=== PATIENT | female | born 1960 | race Caucasian/White ===

== ENCOUNTER 2020-10-22 08:36 | Outpatient (REF) | payer OTHER, SELFPAY ==
--- NOTE | ~2020-10-22 | MM_ITS ---
EXAMINATION: MM SCREENING DIGITAL BREAST TOMOSYNTHESIS, BILATERAL CLINICAL INFORMATION: Screening. Asymptomatic. The lifetime risk of breast cancer based on the Tyrer-Cuzick Model is 2.0%. COMPARISON: Mammography: June 11, 2018 and studies dating back to May 15, 2012 TECHNIQUE: Digital breast tomosynthesis is performed in both the craniocaudal and mediolateral oblique views along with computer-aided detection (CAD). Synthesized 2D images are generated from the tomosynthesis. FINDINGS: There are scattered areas of fibroglandular density (ACR BI-RADS breast composition Category b). There are no significant masses, abnormal calcifications, or other abnormalities. MM/MM tomosynthesis screening BI IMPRESSION: There are no significant changes from prior study. ASSESSMENT: BI-RADS 1: Negative RECOMMENDATION: Routine annual mammography screening. This patient's information was entered into a reminder system with a target due date for their next mammogram.
== END 2020-10-22 08:37 | disposition home or self-care (01) ==
LOC: HO.MAMMO 08:36
PROVIDERS: Visit Provider Internal Medicine
DX: Z12.31 Encounter for screening mammogram for malignant neoplasm of breast (principal)
CPT/HCPCS: 77063; 77067

== ENCOUNTER → 2021-05-17 08:01 | Outpatient (BNVA) | payer OTHER, SELFPAY | PROVIDERS: Visit Provider Orthopaedic Surgery | DX: M17.12 Unilateral primary osteoarthritis, left knee (principal) | CPT/HCPCS: 20610; 99212; J1100 ==

== ENCOUNTER 2021-10-25 08:04 | Outpatient (REF) | payer OTHER, SELFPAY ==
--- NOTE | ~2021-10-25 | US_ITS ---
EXAMINATION: MM DIAGNOSTIC DIGITAL BREAST TOMOSYNTHESIS, BILATERAL US DIAGNOSTIC ULTRASOUND BREAST, LEFT CLINICAL INFORMATION: Due for yearly. Patient notes being size palpable area lateral periareolar left breast for approximately 2 months. No discharge. No known family history breast cancer. TC score 4%. COMPARISON: Mammography: 10/22/2020, 06/11/2018 TECHNIQUE: Digital breast tomosynthesis is performed in both the craniocaudal and mediolateral oblique views along with computer-aided detection (CAD). Synthesized 2D images are generated from the tomosynthesis. Ultrasound left breast is targeted to the area of clinical concern. Patient is able to point to the area at time of imaging. Patient imaged supine and semiupright. Grayscale imaging and color Doppler are performed without and with harmonics. FINDINGS: There are scattered areas of fibroglandular density (ACR BI-RADS breast composition Category b). Parenchymal pattern is similar to prior studies. There is no significant mass, developing density, or interval mass or architectural abnormality. No abnormal calcifications. The axilla and skin contours are unremarkable. No skin thickening or coarsening of the Rogelio's ligaments. Ultrasound demonstrates no cystic or solid mass or architectural abnormality. No focal duct ectasia. No skin thickening or edema tracking in soft tissue planes. Results are discussed with the patient at time of visit, using an full time staff interpreter. Patient should be managed based on the clinical impression. If clinically indicated, further evaluation may be considered with surgical consult. Decision to proceed with biopsy should be based on clinical grounds and degree of clinical concern. US/US breast LT limited IMPRESSION: -Mammography similar to prior studies. No significant changes. -Unremarkable targeted left breast ultrasound. ASSESSMENT: BI-RADS 1: Negative RECOMMENDATION: 1. Patient should be managed based on the clinical impression. If clinically indicated, further evaluation may be considered with surgical consult. Decision to proceed with biopsy should be based on clinical grounds and degree of clinical concern. 2. Otherwise, routine annual screening mammography. This patient's information was entered into a reminder system with a target due date for their next mammogram.
== END 2021-10-25 08:05 | disposition home or self-care (01) ==
LOC: HO.MAMMO 08:04
PROVIDERS: Visit Provider Internal Medicine
DX: R92.2 Inconclusive mammogram (principal)
CPT/HCPCS: 76642; 77062; 77066

== ENCOUNTER 2022-01-20 22:39 | Inpatient (IN) | payer OTHER, SELFPAY ==
--- NOTE | ~2022-01-20 | XR_ITS ---
EXAMINATION: XR CHEST CLINICAL INFORMATION: Nasogastric tube insertion COMPARISON: Previous chest x-ray May 2015 TECHNIQUE: Frontal view of the chest was obtained. FINDINGS: The cardiac and mediastinal contours are stable. The lungs are clear. There is a nasogastric tube that projects over the stomach. There is no pleural effusion or pneumothorax. There are degenerative changes of the spine. XR/XR chest 1V IMPRESSION: Nasogastric tube projects over stomach.
--- NOTE | ~2022-01-20 | US_ITS ---
EXAMINATION: US ABDOMEN LIMITED CLINICAL INFORMATION: Right upper quadrant pain with nausea. COMPARISON: None TECHNIQUE: Real-time imaging of the right upper quadrant abdominal viscera. FINDINGS: PANCREAS: The pancreas is mildly enlarged and echogenic. The tail is not visualized. LIVER: The liver is normal in size. The liver contour is normal. Parenchymal echogenicity is normal. No focal hepatic lesion. There is increased liver echogenicity. There is no intrahepatic biliary duct dilatation seen. GALLBLADDER: There is a punctate mobile echogenic gallstone without wall thickening. The gallbladder is physiologically distended without evidence of sludge, polyps, wall thickening or pericholecystic fluid. COMMON BILE DUCT: Normal in caliber measuring 0.25 cm in diameter. RIGHT KIDNEY: There is mild pelvic fullness. No hydronephrosis. No renal calculi or focal parenchymal lesions. The kidney measures 9.8 cm in maximum dimension. FREE FLUID: None. US/US abdomen limited IMPRESSION: There is echogenic pancreas question chronic pancreatitis. The tail is not visualized. Mildly echogenic liver without any focal lesion. Suspected tiny echogenic mobile gallstone. Trace fullness of right renal pelvis.
--- NOTE | ~2022-01-20 | CT_ITS ---
EXAMINATION: CT ABDOMEN AND PELVIS WITHOUT CONTRAST CLINICAL INFORMATION: Upper abdominal pain and vomiting COMPARISON: Previous abdominal ultrasound from earlier the same day TECHNIQUE: Multidetector volumetric imaging was performed from the superior aspect of the liver through the pubic symphysis. Sagittal and coronal reformatted images were obtained on the technologist's workstation. This CT examination was performed using dose optimization techniques as appropriate, variously including the following: *Automated exposure control *Adjustment of mA and/or kV according to patient size (this includes techniques or standardized protocols for targeted exams where dose is matched to indication/reason for exam; i.e. extremities or head) *Use of iterative reconstruction technique DLP: 748 mGy-cm FINDINGS: LUNG BASES: The visualized lung bases are unremarkable. LIVER, GALLBLADDER, AND BILIARY TREE: The liver is normal in size, shape, and attenuation. No focal hepatic lesion or biliary ductal dilatation is present. The gallbladder is unremarkable with no evidence of radiopaque gallstones, gallbladder wall thickening, or obvious pericholecystic inflammatory changes. PANCREAS: Unremarkable. SPLEEN: Unremarkable. ADRENAL GLANDS: Unremarkable. KIDNEYS AND URETERS: The kidneys are normal in size, shape, and attenuation. No hydronephrosis, hydroureter, or calculi seen. No perinephric stranding. BLADDER: Unremarkable. GASTROINTESTINAL TRACT: There is diverticulosis of the colon. There is no evidence of diverticulitis. There are dilated fluid-filled loops of small bowel. There is small bowel feces sign. There is a caliber change with the distal small bowel left dilated and fluid-filled. Appearance is suggestive of partial small bowel obstruction. The appendix is not seen. There is a small esophageal hernia. There is a small amount of fluid in the abdomen and pelvis. There is a small amount of fluid in the small bowel mesentery. ABDOMINAL WALL: No significant hernia is appreciated. LYMPH NODES: Normal. VASCULAR: Unremarkable. PELVIC VISCERA: Unremarkable. OSSEOUS STRUCTURES: There are degenerative changes of the spine. T12 hemangioma. CT/CT abdomen pelvis wo con IMPRESSION: Dilated fluid-filled small bowel with small bowel feces sign. The distal small bowel appears less dilated. Appearance is suggestive of partial small bowel obstruction. Diverticulosis of the colon. No evidence of diverticulitis. Fleischner guidelines were followed.
[2022-01-20 22:46] VITALS: BP 149/78; PULSE 85; RESP 16; TEMP 37.1; O2SAT 98; BMI 32.1
[2022-01-20 23:02] LABS: Basophils Percent Auto 0.3 % (0-2); Eosinophils Absolute Auto 0.1 X10*3/uL (0.0-0.4); Eosinophils Percent Auto 1.2 % (0-4); Hemoglobin 13.1 g/dl (12.0-16.0); Imm Gran Abs Auto 0.04 X10*3/uL (0.00-0.03); Imm Gran Pct Auto 0.3 % (0.0-0.4); Lymphocytes Absolute Auto 2.3 X10*3/uL (1.2-4.9); Lymphocytes Percent Auto 18.8 % (20-40); MANUAL DIFF FLAG NO; Mean Corpuscular Hemoglobin 25.9 pg (27.0-33.0); Monocytes Percent Auto 8.2 % (2-11); Neutrophils Absolute Auto 8.5 x10*3/uL (2.0-8.3); Neutrophils Percent Auto 71.2 % (45-73); Platelet Count 290 X10*3/uL (160-400); Red Blood Count 5.06 X10*6/uL (4.20-5.50); Red Cell Distribution Width 13.2 % (11.0-16.0)
[2022-01-20 23:17] LABS: Alanine Aminotransferase 20 U/L (0-31); Albumin Level 4.4 g/dL (3.5-5.0); Alkaline Phosphatase 71 U/L (39-117); Anion Gap 14 (12-20); Aspartate Amino Transferase 25 U/L (5-31); Bilirubin Total 0.7 mg/dL (0.0-1.0); Blood Urea Nitrogen 15 mg/dL (9-16); Calcium 10.1 mg/dL (8.4-10.2); Carbon Dioxide 28 mmol/L (22-29); Chloride 103 mmol/L (96-108); Creatinine Clr Calc Pharmacy 60.6; Estimated Glomerular Filt Rate 56; Glucose Random 135 mg/dL (60-115); Potassium 4.4 mmol/L (3.3-5.1); Sodium 141 mmol/L (135-145); Total Protein 7.8 g/dL (6.5-8.0)
[2022-01-21] VITALS (8 sets, daily range): BP systolic 130–145; BP diastolic 77–90; PULSE 79–112; RESP 15–21; TEMP 36.6–37.3; O2SAT 91–97
[2022-01-21 00:22] LABS: Lipase 33 U/L (8-78)
[2022-01-21 05:37] LABS: Appearance Urine CLEAR; Color Urine YELLOW; Glucose Urine UA NEG (NEG); Leukocyte Esterase Urine NEG (NEG); Nitrite Urine NEG (NEG); PH 7.5 (5.0-8.0); Specific Gravity - Urine 1.015 (1.005-1.025); Urine Blood NEG (NEG); Urine Ketones NEG (NEG); Urine Protein NEG (NEG-TRACE)
--- NOTE | 2022-01-21 05:54 | ED_ITS ---
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 She reports chills as well as nausea and vomiting but denies any diarrhea or urinary pain/burning/frequency. Patient has continued to pass flatus. Related Data Allergies Allergy/AdvReac Type Severity Reaction Status Date / Time diazepam [From VALIUM] Allergy Unknown HALLUCINATION/DIFF Verified 01/20/22 22:46 BREATHING Review of Systems Review of Systems Pertinent positives and negatives as stated in HPI 10 point review of systems is otherwise negative. PMFSH Past Medical History Source: nursing notes reviewed Medical History Depression HTN (hypertension) Hyperlipemia Social History Social History Advance Directives: No Physical Exam ED Vital Signs: Vital Signs - 24 hr 01/20/22 22:46 01/21/22 04:17 Temperature 98.7 F 98.5 F Pulse Rate 85 84 Respiratory Rate 16 16 Blood Pressure 149/78 H 140/77 H Pulse Oximetry 98 92 BMI result Body Mass Index 32.1 VITAL SIGNS: Reviewed. GENERAL: Elevated BMI, Well developed, well nourished, in no acute distress. HEAD: Normocephalic/atraumatic EYES: PERRLA, EOMI EARS: Ext canals without abnormality OROPHARYNX: no oral lesions noted, posterior pharynx clear LUNGS: Normal breath sounds. No adventitious sounds or accessory muscle use. SpO2<98> CARDIOVASCULAR: Regular rate and rhythm without noted murmurs ABDOMEN: Soft, right upper quadrant pain without rebound, no CVA tenderness, non-distended with bowel sounds. SKIN: Inspection of the skin reveals no rashes NEUROLOGIC: Alert and oriented x 4. Strength and sensation to light touch were grossly intact x 4. Course Course Course Narrative: 61-year-old female with history and clinical presentation suggestive of c holecystitis and doubt gastritis/pancreatitis or gastroenteritis. And low clinical suspicion for SBO. Patient is status post appendectomy. Review of all investigations demonstrates a leukocytosis, patient received pain medication, IV fluids. 0555: I suspect infection, lactic acid/blood culture/antibiotics ordered. MDM - Abdominal Pain Lab Data Result diagrams: 01/20/22 22:53 01/20/22 22:53 Labs: Lab Results 01/20/22 01/20/22 01/21/22 Range/Units 22:53 22:53 05:33 WBC 12.0 H (4.8-10.8) X10*3/uL RBC 5.06 (4.20-5.50) X10*6/uL Hgb 13.1 (12.0-16.0) g/dl Hct 41.0 (37.0-47.0) % MCV 81.0 (80.0-98.0) fL MCH 25.9 L (27.0-33.0) pg MCHC 32.0 (31.0-35.0) g/dl RDW 13.2 (11.0-16.0) % Plt Count 290 (160-400) X10*3/uL MPV 10.0 (9.4-12.3) fL Immature Gran % (Auto) 0.3 (0.0-0.4) % Neut % (Auto) 71.2 (45-73) % Lymph % (Auto) 18.8 L (20-40) % [place] % (Auto) 8.2 (2-11) % Eos % (Auto) 1.2 (0-4) % Baso % (Auto) 0.3 (0-2) % Lymph # (Auto) 2.3 (1.2-4.9) X10*3/uL [place] # (Auto) 1.0 (0.1-1.2) X10*3/uL Eos # (Auto) 0.1 (0.0-0.4) X10*3/uL Baso # (Auto) 0.0 (0.0-0.2) X10*3/uL Abs Immat Gran (auto) 0.04 H (0.00-0.03) X10*3/uL Absolute Neuts (auto) 8.5 H (2.0-8.3) x10*3/uL Absolute Nucleated RBC 0.000 (0.0-0.012) X10*3/uL Nucleated RBC % (auto) 0.0 (0.0-0.2) /100WBC Sodium 141 (135-145) mmol/L Potassium 4.4 (3.3-5.1) mmol/L Chloride 103 (96-108) mmol/L Carbon Dioxide 28 (22-29) mmol/L Anion Gap 14 (12-20) BUN 15 (9-16) mg/dL Creatinine 1.00 (0.5-1.4) mg/dL Estim Creat Clear Calc 60.6 Estimated GFR 56 Random Glucose 135 H (60-115) mg/dL Calcium 10.1 (8.4-10.2) mg/dL Total Bilirubin 0.7 (0.0-1.0) mg/dL AST 25 (5-31) U/L ALT 20 (0-31) U/L Alkaline Phosphatase 71 (39-117) U/L Total Protein 7.8 (6.5-8.0) g/dL Albumin 4.4 (3.5-5.0) g/dL Lipase 33 (8-78) U/L Urine Color YELLOW Urine Appearance CLEAR Urine pH 7.5 (5.0-8.0) Ur Specific [place] 1.015 (1.005-1.025) Urine Protein NEG (NEG-TRACE) MG/DL Urine Glucose (UA) NEG (NEG) MG/DL Urine Ketones NEG (NEG) MG/DL Urine Blood NEG (NEG) Urine Nitrite NEG (NEG) Ur Leukocyte Esterase NEG (NEG) Discharge Plan Discharge Clinical Impression: Right upper quadrant abdominal pain Patient Disposition: Still a Patient
[2022-01-21] MEDS: 0.9 % Sodium Chloride 1,000 ML 999 ML IV (06:13)
[2022-01-21] MEDS: Ketorolac Tromethamine 30 MG/ML VIAL 15 MG IVPUSH (06:13)
[2022-01-21 06:23] LABS: Lactic Acid 1.7 mmol/L (0.5-2.0)
[2022-01-21] MEDS: Piperacillin Sodium/Tazobactam 3.375 GM in 0.9 % Sodium Chloride 50 ML IV (06:30)
[2022-01-21] MEDS: ondansetron HCL 4 MG/2 ML VIAL IVPUSH (09:58)
--- NOTE | 2022-01-21 10:05 | PC.NURSE ---
this rn attempted to d/c pt. pt began vomiting , reports 6/10 urq abd pain. md aware, ct has been orderd and completed.
[2022-01-21] MEDS: diphenhydrAMINE HCL 50 MG/ML VIAL 25 MG IVPUSH (10:30)
[2022-01-21] MEDS: Metoclopramide HCl 10 MG/2 ML VIAL IVPUSH (10:30)
--- NOTE | 2022-01-21 10:59 | ECG_ITS ---
Test Reason : abdominal pain Blood Pressure : / mmHG Vent. Rate : 092 BPM Atrial Rate : 092 BPM P-R Int : 162 ms QRS Dur : 082 ms QT Int : 362 ms P-R-T Axes : 023 -32 023 degrees QTc Int : 447 ms Normal sinus rhythm Left axis deviation Minimal voltage criteria for LVH, may be normal variant ( R in aVL ) Possible Anterolateral infarct , age undetermined Abnormal ECG No previous ECGs available Referred By: Eleonora Gonzales Electronically Signed By:Kane Lee
[2022-01-21 11:25] LABS: COVID-19 Test Negative (Negative); IDNOW Serial# 16C4AD1C
--- NOTE | 2022-01-21 12:26 | PC.NURSE ---
pt reported continued nausea and is vomiting dark brown emesis, ct report was in [facility] and reviewd by md montero ng tube placed 16fr in l nare. pt tolerated procedure well and ng is to suction.
--- NOTE | 2022-01-21 12:30 | PHA.MEDREC ---
Pharmacy Consult ? Medication Reconciliation Pharmacy has completed the medication reconciliation. Patient's family member reported all medications. Unsure about aspirin but was recently filled in october for a 90 day supply. Radha Cardoso, KatieD
--- NOTE | 2022-01-21 14:27 | PC.NURSE ---
pt no longer vomting and is resting comfortably in high fowlers position. surgery has evaluated pt and pt and family are aware of admission.
--- NOTE | 2022-01-21 14:35 | P.HPGS_ITS ---
History of Present Illness History of Present Illness Date of Service: 01/26/22 Chief complaint: Partial small bowel obstruction Narrative: Elsa Mukherjee is a 61 year old female who came to the emergency room early this morning because of vomiting and abdominal pain. She says that this actually started yesterday. She has had multiple episodes of vomiting at home. She describes her pain as mostly on the right side. She does state that she had bowel movements yesterday. She also says that she had been passing flatus in small amounts. She has a history of hysterectomy and appendectomy in the distant past. She denies any similar episodes of pain in the past. Review of Systems Constitutional: Constitutional: Denies chills and Denies fever(s) Cardiovascular: Cardiovascular: Denies chest pain, Denies dyspnea and Denies dyspnea on exertion Respiratory: Respiratory: Denies cough, Denies dyspnea and Denies dyspnea on exertion Gastrointestinal: Gastrointestinal: Denies hematochezia and Denies change in bowel habits Genitourinary: Genitourinary: Denies hematuria Musculoskeletal: Musculoskeletal: Denies back pain, Reports arthralgias and Denies limited range of motion Neurologic: Denies focal weakness and Denies convulsions Psychiatric: Psychiatric: Denies depression and Denies mood swings PMFSH Past Medical History Medical History (Updated 01/21/22 @ 14:37 by Oli Oscar MD) Arthritis Depression HTN (hypertension) Hyperlipemia Social History Social History Household Members: Spouse Housing: Apartment Do you presently have visiting nurse or other home services: No Patient Tobacco Use Status: Never used Tobacco service: No Current occupational status: retired Meds Allergies Allergy/AdvReac Type Severity Reaction Status Date / Time diazepam [From VALIUM] Allergy Unknown HALLUCINATION/DIFF Verified 01/20/22 22:46 BREATHING Active Medications: Current Medications Heparin Sodium (Porcine) (Heparin Sodium,Porcine 5,000 Unit/Ml Vial) 5,000 unit SUBCUT Q12H MARIJA Hydrochlorothiazide (Hydrochlorothiazide 25 Mg Tablet) 25 mg PO DAILY MARIJA; Protocol Sodium Chloride (Ns) 1,000 mls @ 100 mls/hr IVCONT .Q10H MARIJA Morphine Sulfate (Morphine Sulfate 4 Mg/Ml Cartridge) 3 mg IVPUSH Q4H PRN; Protocol PRN Reason: Pain, Severe (Pain Scale 7-10) Pharmacy Consult (Consult Rx Perform Med Rec) 1 each MISCELLANE ONCE PRN PRN Reason: Consult order Sodium Chloride (0.9 % Sodium Chloride Flush 3 Ml Syringe) [address] [facility] Home Medications Medication Instructions Recorded Confirmed Last Taken Type aspirin 81 mg tablet,delayed 1 tab PO DAILY 01/21/22 01/21/22 01/20/22 History release atorvastatin 80 mg tablet 1 tab PO DAILY 01/21/22 01/21/22 01/20/22 History clonazepam 0.5 mg tablet 1 tab PO DAILY PRN 01/21/22 01/21/22 01/20/22 History hydrochlorothiazide 25 mg tablet 1 tab PO DAILY 01/21/22 01/21/22 01/20/22 History meloxicam 15 mg tablet 1 tab PO DAILY 01/21/22 01/21/22 01/20/22 History multivitamin-ferrous 1 tab PO DAILY 01/21/22 01/21/22 01/20/22 History fumarate-folic acid 18 mg-400 mcg tablet (Centrum Women) oxycodone-acetaminophen 5 mg-325 1 tab PO BID PRN 01/21/22 01/21/22 01/20/22 History mg tablet zolpidem 10 mg tablet 1 tab PO BEDTIME 01/21/22 01/21/22 01/20/22 History Physical Exam Vital Signs: Vital Signs: Last Vital Signs Temp 97.8 F 01/21/22 12:43 Pulse 101 H 01/21/22 12:43 Resp 18 01/21/22 12:43 BP 131/85 01/21/22 12:43 Pulse Ox 95 01/21/22 12:43 BMI result Body Mass Index 32.1 Const: General: comfortable and no acute distress Orientation/consciousness: patient oriented x3 Neck: Neck: Yes no lymphadenopathy Resp: Auscultation: clear to auscultation bilaterally Cardio: Rhythm: regular rhythm GI: Other: mildly distended, minimal tenderness diffusely, right more than the left, no guarding rebound Palpation (GI): Soft to palpation, nontender and no guarding Neuro: General: patient oriented x3 Results Results Labs: Short CBC 01/20/22 Range/Units 22:53 WBC 12.0 H (4.8-10.8) X10*3/uL Hgb 13.1 (12.0-16.0) g/dl Hct 41.0 (37.0-47.0) % Plt Count 290 (160-400) X10*3/uL BMP 01/20/22 22:53 Sodium 141 Potassium 4.4 Chloride 103 Carbon Dioxide 28 BUN 15 Creatinine 1.00 Calcium 10.1 Liver Function 01/20/22 Range/Units 22:53 Total Bilirubin 0.7 (0.0-1.0) mg/dL AST 25 (5-31) U/L ALT 20 (0-31) U/L Alkaline Phosphatase 71 (39-117) U/L Albumin 4.4 (3.5-5.0) g/dL Urine 01/21/22 Range/Units 05:33 Urine Color YELLOW Urine Appearance CLEAR Urine pH 7.5 (5.0-8.0) Ur Specific [place] 1.015 (1.005-1.025) Urine Protein NEG (NEG-TRACE) MG/DL Urine Glucose (UA) NEG (NEG) MG/DL Additional studies: Laboratory Results WBC 12.0 X10*3/uL (4.8-10.8) H 01/20/22 22:53 RBC 5.06 X10*6/uL (4.20-5.50) 01/20/22 22:53 Hgb 13.1 g/dl (12.0-16.0) 01/20/22 22:53 Hct 41.0 % (37.0-47.0) 01/20/22 22:53 MCV 81.0 fL (80.0-98.0) 01/20/22 22:53 MCH 25.9 pg (27.0-33.0) L 01/20/22 22:53 MCHC 32.0 g/dl (31.0-35.0) 01/20/22 22:53 RDW 13.2 % (11.0-16.0) 01/20/22 22:53 Plt Count 290 X10*3/uL (160-400) 01/20/22 22:53 MPV 10.0 fL (9.4-12.3) 01/20/22 22:53 Immature Gran % (Auto) 0.3 % (0.0-0.4) 01/20/22 22:53 Neut % (Auto) 71.2 % (45-73) 01/20/22 22:53 Lymph % (Auto) 18.8 % (20-40) L 01/20/22 22:53 [place] % (Auto) 8.2 % (2-11) 01/20/22 22:53 Eos % (Auto) 1.2 % (0-4) 01/20/22 22:53 Baso % (Auto) 0.3 % (0-2) 01/20/22 22:53 Lymph # (Auto) 2.3 X10*3/uL (1.2-4.9) 01/20/22 22:53 [place] # (Auto) 1.0 X10*3/uL (0.1-1.2) 01/20/22:53 Eos # (Auto) 0.1 X10*3/uL (0.0-0.4) 01/20/22:53 Baso # (Auto) 0.0 X10*3/uL (0.0-0.2) 01/20/22 22:53 Abs Immat Gran (auto) 0.04 X10*3/uL (0.00-0.03) H 01/20/22 22:53 Absolute Neuts (auto) 8.5 x10*3/uL (2.0-8.3) H 01/20/22:53 Absolute Nucleated RBC 0.000 X10*3/uL (0.0-0.012) 01/20/22: Nucleated RBC % (auto) 0.0 /100WBC (0.0-0.2) 01/20/22 22:53 Sodium 141 mmol/L (135-145) 01/20/22 22:53 Potassium 4.4 mmol/L (3.3-5.1) 01/20/22:53 Chloride 103 mmol/L (96-108) 01/20/22:53 Carbon Dioxide 28 mmol/L (22-29) 01/20/22:53 Anion Gap 14 (12-20) 01/20/22:53 BUN 15 mg/dL (9-16) 01/20/22 22:53 Creatinine 1.00 mg/dL (0.5-1.4) 01/20/22 22:53 Estim Creat Clear Calc 60.6 01/20/22 22:53 Estimated GFR 56 01/20/22 22:53 Random Glucose 135 mg/dL (60-115) H 01/20/22 22:53 Lactic Acid 1.7 mmol/L (0.5-2.0) 01/21/22 06:08 Calcium 10.1 mg/dL (8.4-10.2) 01/20/22 22:53 Total Bilirubin 0.7 mg/dL (0.0-1.0) 01/20/22 22:53 AST 25 U/L (5-31) 01/20/22 22:53 ALT 20 U/L (0-31) 01/20/22 22:53 Alkaline Phosphatase 71 U/L (39-117) 01/20/22 22:53 Total Protein 7.8 g/dL (6.5-8.0) 01/20/22 22:53 Albumin 4.4 g/dL (3.5-5.0) 01/20/22 22:53 Lipase 33 U/L (8-78) 01/20/22 22:53 Urine Color YELLOW 01/21/22 05:33 Urine Appearance CLEAR 01/21/22 05:33 Urine pH 7.5 (5.0-8.0) 01/21/22 05:33 Ur Specific [place] 1.015 (1.005-1.025) 01/21/22 05:33 Urine Protein NEG MG/DL (NEG-TRACE) 01/21/22 05:33 Urine Glucose (UA) NEG MG/DL (NEG) 01/21/22 05:33 Urine Ketones NEG MG/DL (NEG) 01/21/22 05:33 Urine Blood NEG (NEG) 01/21/22 05:33 Urine Nitrite NEG (NEG) 01/21/22 05:33 Ur Leukocyte Esterase NEG (NEG) 01/21/22 05:33 COVID-19 (YAHIR) Negative (Negative) 01/21/22 11:07 COVID-19 Clin Com See Note 01/21/22 11:07 Impressions Abdomen Ultrasound 01/21/22 07:24 IMPRESSION: There is echogenic pancreas question chronic pancreatitis. The tail is not visualized. Mildly echogenic liver without any focal lesion. Suspected tiny echogenic mobile gallstone. Trace fullness of right renal pelvis. Abdomen/Pelvis CT 01/21/22 10:20 IMPRESSION: Dilated fluid-filled small bowel with small bowel feces sign. The distal small bowel appears less dilated. Appearance is suggestive of partial small bowel obstruction. Diverticulosis of the colon. No evidence of diverticulitis. Fleischner guidelines were followed. Chest X-Ray 01/21/22 12:08 IMPRESSION: Nasogastric tube projects over stomach. Assessment and Plan (1) Partial obstruction of small intestine: Status: Acute 61 year old female admitted for abdominal pain and vomiting. I have reviewed her CAT scan. There was note of dilated small bowel loops proximally and some tapering in the distal ileum with a segment showing fecalization. This is consistent with partial small-bowel obstruction. There is note of good air distally including the colon and rectum. She has an NG tube in place already. She will be given IV fluids and pain medications. Etiology of her bowel obstruction is likely from her previous pelvic surgery. She otherwise has a benign exam. She is hemodynamically stable. I explained to her and her at bedside the plan. They understand that there is a small possibility of her requiring laparotomy if she worsens or does not improved. Quality Stroke Does the patient have a stroke diagnosis?: No VTE Prior VTE?: No VTE Risk Level:: Medical - moderate - high VTE Device Contraindication: N/A - Device Ordered VTE Drug Contraindication: N/A - Med Ordered Procedures Date of Service Date of Service: 01/19/22
[2022-01-21] MEDS: 0.9 % Sodium Chloride Flush 3 ML SYRINGE IVFLUSH (17:01)
[2022-01-21] MEDS: 0.9 % Sodium Chloride 1,000 ML 100 ML IVCONT (17:01)
[2022-01-21] MEDS: Heparin Sodium,Porcine 5,000 UNIT/ML VIAL 5000 UNIT SUBCUT (17:01)
[2022-01-21] MEDS: Morphine Sulfate 4 MG/ML CARTRIDGE 3 MG IVPUSH (17:13)
[2022-01-22] MEDS: 0.9 % Sodium Chloride 1,000 ML 100 ML IVCONT ×2 (01:20→20:20)
[2022-01-22 04:24] VITALS: BP 129/69; PULSE 83; RESP 18; TEMP 36.7; O2SAT 95
[2022-01-22 06:35] LABS: Hematocrit 38.5 % (37.0-47.0); Hemoglobin 12.7 g/dl (12.0-16.0); Mean Corpuscular Hemoglobin 26.8 pg (27.0-33.0); Mean Corpuscular Volume 81.2 fL (80.0-98.0); Mean Platelet Volume 10.4 fL (9.4-12.3); Platelet Count 264 X10*3/uL (160-400); Red Blood Count 4.74 X10*6/uL (4.20-5.50); Red Cell Distribution Width 13.5 % (11.0-16.0); White Blood Count 4.8 X10*3/uL (4.8-10.8)
[2022-01-22 06:52] LABS: Anion Gap 13 (12-20); Blood Urea Nitrogen 27 mg/dL (9-16); Calcium 8.5 mg/dL (8.4-10.2); Carbon Dioxide 25 mmol/L (22-29); Chloride 108 mmol/L (96-108); Estimated Glomerular Filt Rate > 60; Glucose Random 132 mg/dL (60-115); Potassium 4.2 mmol/L (3.3-5.1); Sodium 142 mmol/L (135-145)
[2022-01-22 07:19] LABS: Band Neutrophils Percent 11 % (3-5); Lymphocytes Absolute Manual 1.3 X10*3/uL (1.2-4.9); Lymphocytes Percent Manual 27 % (20-40); Metamyelocytes Percent 1 %; Monocytes Absolute Manual 1.1 X10*3/uL (0.1-1.2); Monocytes Percent Manual 22 % (2-11); Neutrophils Absolute Manual 2.4 X10*3/uL (2.0-8.3); Neutrophils Percent Manual 39 % (45-73)
[2022-01-22 07:21] LABS: Large Platelet PRESENT; Platelet Estimate NORMAL (NORMAL); Platelet Morphology Comment NOTED; RBC Morphology NORMAL; Toxic Vacuolation PRESENT
[2022-01-22 08:00] VITALS: BP 139/75; PULSE 80; RESP 16; TEMP 36.2; O2SAT 95
--- NOTE | 2022-01-22 09:59 | P.PNGS_ITS ---
Subjective Subjective Date of Service: 01/22/22 Interval history: feels much better than yesterday describes very mild pain denies flatus no nausea or vomiting NG tube in place Physical Exam Vital Signs: Vital Signs: Last Vital Signs Temp 97.1 F 01/22/22 08:00 Pulse 80 01/22/22 08:00 Resp 16 01/22/22 08:00 BP 139/75 01/22/22 08:00 Pulse Ox 95 01/22/22 08:00 BMI result Body Mass Index 32.1 Const: General: comfortable and no acute distress Resp: Effort & Inspection: normal respiratory effort Cardio: Rate: regular rate GI: Inspection: No distended Palpation (GI): Soft to palpation, not firm and nontender Objective Data Active Medications Heparin Sodium (Porcine) (Heparin Sodium,Porcine 5,000 Unit/Ml Vial) 5,000 unit SUBCUT Q12H [facility] Hydrochlorothiazide (Hydrochlorothiazide 25 Mg Tablet) 25 mg PO DAILY [facility]; Protocol Sodium Chloride (Ns) 1,000 mls @ 100 mls/hr IVCONT .Q10H [facility] Last Admin: 01/22/22 01:20 Dose: 100 mls/hr Documented by: ROSEMARIE Morphine Sulfate (Morphine Sulfate 4 Mg/Ml Cartridge) 3 mg IVPUSH Q4H PRN; Protocol PRN Reason: Pain, Severe (Pain Scale 7-10) Last Admin: 01/21/22 17:13 Dose: 3 mg Documented by: MARYBETH Ondansetron HCl (Ondansetron Hcl 4 Mg/2 Ml Vial) 4 mg IVPUSH Q8H PRN PRN Reason: nausea Pharmacy Consult (Consult Rx Perform Med Rec) 1 each MISCELLANE ONCE PRN PRN Reason: Consult order Sodium Chloride (0.9 % Sodium Chloride Flush 3 Ml Syringe) 3 ml IVFLUSH QSHIFT [facility] Last Admin: 01/21/22 23:58 Dose: Not Given Documented by: ROSEMARIE Non-Admin Reason: Med Not Available Labs CBC & Chem 7: 01/22/22 05:54 01/22/22 05:54 Labs: Laboratory Results - last 24 hr 01/21/22 01/22/22 01/22/22 11:07 05:54 05:54 MCV 81.2 MCH 26.8 L MCHC 33.0 RDW 13.5 Plt Count 264 MPV 10.4 Immature Gran % (Auto) Cancelled Neut % (Auto) Cancelled Lymph % (Auto) Cancelled [place] % (Auto) Cancelled Eos % (Auto) Cancelled Baso % (Auto) Cancelled Lymph # (Auto) Cancelled [place] # (Auto) Cancelled Eos # (Auto) Cancelled Baso # (Auto) Cancelled Abs Immat Gran (auto) Cancelled Absolute Neuts (auto) Cancelled Absolute Nucleated RBC 0.000 Nucleated RBC % (auto) 0.0 Neutrophils % (Manual) 39 L Band Neutrophils % 11 H Lymphocytes % (Manual) 27 Monocytes % (Manual) 22 H Metamyelocytes % 1 Abs Neuts (Manual) 2.4 Lymphocytes # (Manual) 1.3 Monocytes # (Manual) 1.1 Toxic Vacuolation PRESENT Platelet Estimate NORMAL Large Platelets PRESENT Plt Morphology Comment NOTED RBC Morphology NORMAL Anion Gap 13 Estim Creat Clear Calc 74.0 Estimated GFR > 60 Random Glucose 132 H Calcium 8.5 D COVID-19 (YAHIR) Negative COVID-19 Clin Com See Note Microbiology Microbiology Results: Microbiology 01/21/22 07:10 Blood Culture - Preliminary Blood - Venous No growth after 24 hours. 01/21/22 06:08 Blood Culture - Preliminary Blood - Venous No growth after 24 hours. Procedures Date of Service Date of Service: 01/22/22 Progress Note: A&P Assessment and plan (1) Partial obstruction of small intestine: Status: Acute Assessment and Plan: patient feels much better no significant abdominal pain or tenderness NG tube output low she denies flatus exam very benign plan to remove NG tube once she passes flatus labs okay patient is comfortable with the plan Time Spent With Patient Time: Total time spent is greater than 50% in coordination of care (as documented) at patient's floor/unit and/or counseling patient: Quality Stroke Does the patient have a stroke diagnosis?: No VTE Prior VTE?: No VTE Risk Level:: Medical - moderate - high VTE Device Contraindication: N/A - Device Ordered VTE Drug Contraindication: N/A - Med Ordered
[2022-01-22] MEDS: Heparin Sodium,Porcine 5,000 UNIT/ML VIAL 5000 UNIT SUBCUT ×2 (10:18→20:19)
[2022-01-22] MEDS: hydroCHLOROthiazide 25 MG TABLET PO (10:18)
--- NOTE | 2022-01-22 11:07 | MHC.CM.PN ---
CM MET WITH PT AND HER FRIENDS AT BEDSIDE WITH THE ASSISTANCE OF A [employer]PER[employer] PT LIVES AT HOME WITH HER AND IS INDEPENDENT WITH CARE PT DENIES USE OF DME OR HOME SERVICES PT REPORTS HE HAS A HCP ON FILE AT [facility] NAMING HER HER AGENT PT REPORTS SHE IS COVID-19 VACCINATED WITH MODERNA X 3 PCP: JOSR BUCKLEY IMM DELIVERED, COPY SENT TO [facility] CURRENT DC PLAN IS HOME WITH NO SERVICES TO TRANSPORT
[2022-01-22] MEDS: Morphine Sulfate 4 MG/ML CARTRIDGE 3 MG IVPUSH (15:53)
[2022-01-22 20:14] VITALS: BP 129/65; PULSE 88; RESP 16; O2SAT 94
--- NOTE | 2022-01-22 20:16 | PC.NURSE ---
Patient A&OX4, resting in bed, no pain noted. NGT to left nare secured, draining dark green output. VSS. Will monitor.
[2022-01-23] MEDS: 0.9 % Sodium Chloride 1,000 ML 100 ML IVCONT ×3 (00:49→19:19)
[2022-01-23 01:33] VITALS: BP 124/76; PULSE 75; RESP 13; TEMP 36.5; O2SAT 94
[2022-01-23 07:11] VITALS: BP 142/91; PULSE 73; RESP 13; TEMP 36.6; O2SAT 94
--- NOTE | 2022-01-23 07:23 | PM.PNGS ---
Subjective Subjective Date of Service: 01/23/22 Interval history: feels well minimal pain on right passing flatus no N/V Physical Exam Vital Signs: Vital Signs: Last Vital Signs Temp 97.8 F 01/23/22 07:11 Pulse 73 01/23/22 07:11 Resp 13 01/23/22 07:11 BP 142/91 H 01/23/22 07:11 Pulse Ox 94 01/23/22 07:11 BMI result Body Mass Index 32.1 Const: General: comfortable and no acute distress Resp: Effort & Inspection: normal respiratory effort Cardio: Rate: regular rate GI: Inspection: No distended Palpation (GI): Soft to palpation, not firm, nontender and no guarding Objective Data Active Medications Heparin Sodium (Porcine) (Heparin Sodium,Porcine 5,000 Unit/Ml Vial) 5,000 unit SUBCUT Q12H [facility] Last Admin: 01/22/22 20:19 Dose: 5,000 unit Documented by: MARLO Hydrochlorothiazide (Hydrochlorothiazide 25 Mg Tablet) 25 mg PO DAILY [facility]; Protocol Last Admin: 01/22/22 10:18 Dose: 25 mg Documented by: EDITH Sodium Chloride (Ns) 1,000 mls @ 100 mls/hr IVCONT .Q10H [facility] Last Admin: 01/23/22 00:49 Dose: 100 mls/hr Documented by: MERCEDES Morphine Sulfate (Morphine Sulfate 4 Mg/Ml Cartridge) 3 mg IVPUSH Q4H PRN; Protocol PRN Reason: Pain, Severe (Pain Scale 7-10) Last Admin: 01/22/22 15:53 Dose: 3 mg Documented by: EDITH Ondansetron HCl (Ondansetron Hcl 4 Mg/2 Ml Vial) 4 mg IVPUSH Q8H PRN PRN Reason: nausea Pharmacy Consult (Consult Rx Perform Med Rec) 1 each MISCELLANE ONCE PRN PRN Reason: Consult order Sodium Chloride (0.9 % Sodium Chloride Flush 3 Ml Syringe) 3 ml IVFLUSH QSHIFT [facility] Last Admin: 01/22/22 23:50 Dose: Not Given Documented by: MERCEDES Non-Admin Reason: IV Running Labs CBC & Chem 7: 01/22/22 05:54 01/22/22 05:54 Microbiology Microbiology Results: Microbiology 01/21/22 07:10 Blood Culture - Preliminary Blood - Venous No growth after 24 hours. 01/21/22 06:08 Blood Culture - Preliminary Blood - Venous No growth after 24 hours. Procedures Date of Service Date of Service: 01/23/22 Progress Note: A&P Assessment and plan (1) Partial obstruction of small intestine: Status: Acute Assessment and Plan: passing flatus abd soft, not distended dc NGT ok to try clear liquids exam benign looks well Time Spent With Patient Time: Total time spent is greater than 50% in coordination of care (as documented) at patient's floor/unit and/or counseling patient: Quality Stroke Does the patient have a stroke diagnosis?: No VTE Prior VTE?: No VTE Risk Level:: Medical - moderate - high VTE Device Contraindication: N/A - Device Ordered VTE Drug Contraindication: N/A - Med Ordered
[2022-01-23] MEDS: Heparin Sodium,Porcine 5,000 UNIT/ML VIAL 5000 UNIT SUBCUT ×2 (08:32→19:17)
[2022-01-23] MEDS: hydroCHLOROthiazide 25 MG TABLET PO (08:33)
[2022-01-23] MEDS: 0.9 % Sodium Chloride Flush 3 ML SYRINGE IVFLUSH (08:33)
--- NOTE | 2022-01-23 10:10 | PM.PNGS ---
Subjective Subjective Date of Service: 01/23/22 Interval history: feels better says she still has some abdominal pain although improved has passed flatus Physical Exam Vital Signs: Vital Signs: Last Vital Signs Temp 97.8 F 01/23/22 07:11 Pulse 73 01/23/22 07:11 Resp 13 01/23/22 07:11 BP 142/91 H 01/23/22 07:11 Pulse Ox 94 01/23/22 07:11 BMI result Body Mass Index 32.1 Const: General: comfortable and no acute distress Resp: Effort & Inspection: normal respiratory effort Cardio: Rate: regular rate GI: Other: minimal tenderness to deep palpation mostly on the right Inspection: No distended Palpation (GI): Soft to palpation, not firm and no guarding Objective Data Active Medications Heparin Sodium (Porcine) (Heparin Sodium,Porcine 5,000 Unit/Ml Vial) 5,000 unit SUBCUT Q12H [facility] Last Admin: 01/23/22 08:32 Dose: 5,000 unit Documented by: AGUSTIN Hydrochlorothiazide (Hydrochlorothiazide 25 Mg Tablet) 25 mg PO DAILY [facility]; Protocol Last Admin: 01/23/22 08:33 Dose: 25 mg Documented by: AGUSTIN Sodium Chloride (Ns) 1,000 mls @ 100 mls/hr IVCONT .Q10H [facility] Last Admin: 01/23/22 00:49 Dose: 100 mls/hr Documented by: MERCEDES Morphine Sulfate (Morphine Sulfate 4 Mg/Ml Cartridge) 3 mg IVPUSH Q4H PRN; Protocol PRN Reason: Pain, Severe (Pain Scale 7-10) Last Admin: 01/22/22 15:53 Dose: 3 mg Documented by: EDITH Ondansetron HCl (Ondansetron Hcl 4 Mg/2 Ml Vial) 4 mg IVPUSH Q8H PRN PRN Reason: nausea Pharmacy Consult (Consult Rx Perform Med Rec) 1 each MISCELLANE ONCE PRN PRN Reason: Consult order Sodium Chloride (0.9 % Sodium Chloride Flush 3 Ml Syringe) 3 ml IVFLUSH QSHIFT [facility] Last Admin: 01/23/22 08:33 Dose: 3 ml Documented by: AGUSTIN Labs CBC & Chem 7: 01/22/22 05:54 01/22/22 05:54 Microbiology Microbiology Results: Microbiology 01/21/22 07:10 Blood Culture - Preliminary Blood - Venous No growth after 48 hours. 01/21/22 06:08 Blood Culture - Preliminary Blood - Venous No growth after 48 hours. Procedures Date of Service Date of Service: 01/23/22 Progress Note: A&P Assessment and plan (1) Partial obstruction of small intestine: Status: Acute Assessment and Plan: has passed flatus pain and tenderness much improved DC NG tube try clear liquids slowly advance diet if tolerating well abdominal exam remains very benign she appears comfortable and stable Time Spent With Patient Time: Total time spent is greater than 50% in coordination of care (as documented) at patient's floor/unit and/or counseling patient: Quality Stroke Does the patient have a stroke diagnosis?: No VTE Prior VTE?: No VTE Risk Level:: Medical - moderate - high VTE Device Contraindication: N/A - Device Ordered VTE Drug Contraindication: N/A - Med Ordered
[2022-01-23 16:00] VITALS: BP 160/76; PULSE 72; RESP 18; TEMP 36.2; O2SAT 95
[2022-01-23] MEDS: Morphine Sulfate 4 MG/ML CARTRIDGE 3 MG IVPUSH (22:28)
[2022-01-23 23:30] VITALS: BP 134/62; PULSE 74; RESP 18; TEMP 36.6; O2SAT 94
[2022-01-24] MEDS: 0.9 % Sodium Chloride 1,000 ML 100 ML IVCONT ×2 (03:52→13:34)
[2022-01-24 07:19] VITALS: BP 157/78; PULSE 67; RESP 16; TEMP 36.2; O2SAT 95
[2022-01-24] MEDS: Heparin Sodium,Porcine 5,000 UNIT/ML VIAL 5000 UNIT SUBCUT ×2 (07:44→20:07)
[2022-01-24] MEDS: hydroCHLOROthiazide 25 MG TABLET PO (07:44)
--- NOTE | 2022-01-24 08:10 | P.PNGS_ITS ---
Subjective Subjective Date of Service: 01/24/22 Interval history: Reports BM yesterday, feels somewhat improved Still has some abdominal pain in the right upper abdomen Physical Exam Vital Signs: Vital Signs: Last Vital Signs Temp 97.2 F 01/24/22 07:19 Pulse 67 01/24/22 07:19 Resp 16 01/24/22 07:19 BP 157/78 H 01/24/22 07:19 Pulse Ox 95 01/24/22 07:19 BMI result Body Mass Index 32.1 Const: General: no acute distress and well developed Nutritional Appearance: well nourished Orientation/consciousness: patient oriented x3 Limitations: no limitations Resp: Effort & Inspection: normal respiratory effort GI: Palpation (GI): Soft to palpation, nontender, no guarding and not rigid Percussion: Yes normal to percussion Auscultation: normal bowel sounds Neuro: General: patient oriented x3 Extrem: General: Yes normal to inspection Objective Data Active Medications Heparin Sodium (Porcine) (Heparin Sodium,Porcine 5,000 Unit/Ml Vial) 5,000 unit SUBCUT Q12H [facility] Last Admin: 01/24/22 07:44 Dose: 5,000 unit Documented by: ZAINAB Hydrochlorothiazide (Hydrochlorothiazide 25 Mg Tablet) 25 mg PO DAILY [facility]; Protocol Last Admin: 01/24/22 07:44 Dose: 25 mg Documented by: ZAINAB Sodium Chloride (Ns) 1,000 mls @ 100 mls/hr IVCONT .Q10H [facility] Last Admin: 01/24/22 03:52 Dose: 100 mls/hr Documented by: CITLALI Morphine Sulfate (Morphine Sulfate 4 Mg/Ml Cartridge) 3 mg IVPUSH Q4H PRN; Protocol PRN Reason: Pain, Severe (Pain Scale 7-10) Last Admin: 01/23/22 22:28 Dose: 3 mg Documented by: CITLALI Ondansetron HCl (Ondansetron Hcl 4 Mg/2 Ml Vial) 4 mg IVPUSH Q8H PRN PRN Reason: nausea Pharmacy Consult (Consult Rx Perform Med Rec) 1 each MISCELLANE ONCE PRN PRN Reason: Consult order Sodium Chloride (0.9 % Sodium Chloride Flush 3 Ml Syringe) 3 ml IVFLUSH QSHIFT [facility] Last Admin: 01/24/22 07:44 Dose: Not Given Documented by: ZAINAB Non-Admin Reason: IV Running Labs CBC & Chem 7: 01/22/22 05:54 01/22/22 05:54 Microbiology Microbiology Results: Microbiology 01/21/22 07:10 Blood Culture - Preliminary Blood - Venous No growth after 48 hours. 01/21/22 06:08 Blood Culture - Preliminary Blood - Venous No growth after 48 hours. Procedures Date of Service Date of Service: 01/24/22 Progress Note: A&P Assessment and plan (1) Partial obstruction of small intestine: Status: Acute Assessment and Plan: Patient is improved with positive bowel movement and flatus. Abdomen remains soft and nontender. Advanced diet as tolerated. Time Spent With Patient Time: Total time spent is greater than 50% in coordination of care (as documented) at patient's floor/unit and/or counseling patient: Quality Stroke Does the patient have a stroke diagnosis?: No VTE Prior VTE?: No VTE Risk Level:: Medical - moderate - high VTE Device Contraindication: N/A - Device Ordered VTE Drug Contraindication: N/A - Med Ordered
--- NOTE | 2022-01-24 08:44 | P.PNGS_ITS ---
Subjective Subjective Date of Service: 01/24/22 Interval history: started on regular diet this AM denies vomitting has flatus and BMs still with some right sided pain athough much improved Physical Exam Vital Signs: Vital Signs: Last Vital Signs Temp 97.2 F 01/24/22 07:19 Pulse 67 01/24/22 07:19 Resp 16 01/24/22 07:19 BP 157/78 H 01/24/22 07:19 Pulse Ox 95 01/24/22 07:19 BMI result Body Mass Index 32.1 Const: General: comfortable and no acute distress Resp: Effort & Inspection: normal respiratory effort Cardio: Rate: regular rate GI: Other: soft, nondistended, mildly tender on right abdomen, no guarding or rebound Objective Data Active Medications Heparin Sodium (Porcine) (Heparin Sodium,Porcine 5,000 Unit/Ml Vial) 5,000 unit SUBCUT Q12H [facility] Last Admin: 01/24/22 07:44 Dose: 5,000 unit Documented by: ZAINAB Hydrochlorothiazide (Hydrochlorothiazide 25 Mg Tablet) 25 mg PO DAILY [facility]; Protocol Last Admin: 01/24/22 07:44 Dose: 25 mg Documented by: ZAINAB Sodium Chloride (Ns) 1,000 mls @ 100 mls/hr IVCONT .Q10H [facility] Last Admin: 01/24/22 03:52 Dose: 100 mls/hr Documented by: CITLALI Morphine Sulfate (Morphine Sulfate 4 Mg/Ml Cartridge) 3 mg IVPUSH Q4H PRN; Protocol PRN Reason: Pain, Severe (Pain Scale 7-10) Last Admin: 01/23/22 22:28 Dose: 3 mg Documented by: CITLALI Ondansetron HCl (Ondansetron Hcl 4 Mg/2 Ml Vial) 4 mg IVPUSH Q8H PRN PRN Reason: nausea Pharmacy Consult (Consult Rx Perform Med Rec) 1 each MISCELLANE ONCE PRN PRN Reason: Consult order Sodium Chloride (0.9 % Sodium Chloride Flush 3 Ml Syringe) 3 ml IVFLUSH QSHIFT [facility] Last Admin: 01/24/22 07:44 Dose: Not Given Documented by: ZAINAB Non-Admin Reason: IV Running Labs CBC & Chem 7: 01/22/22 05:54 01/22/22 05:54 Microbiology Microbiology Results: Microbiology 01/21/22 07:10 Blood Culture - Preliminary Blood - Venous No growth after 48 hours. 01/21/22 06:08 Blood Culture - Preliminary Blood - Venous No growth after 48 hours. Procedures Date of Service Date of Service: 01/24/22 Progress Note: A&P Assessment and plan (1) Partial obstruction of small intestine: Status: Acute Assessment and Plan: doing well without NGT passing flatus and BMs tolerating diet still with mild tenderness , pain on right side although much improved she is not comfortable about going home today hopefully dc home tomorrow Time Spent With Patient Time: Total time spent is greater than 50% in coordination of care (as documented) at patient's floor/unit and/or counseling patient: Quality Stroke Does the patient have a stroke diagnosis?: No VTE Prior VTE?: No VTE Risk Level:: Medical - moderate - high VTE Device Contraindication: N/A - Device Ordered VTE Drug Contraindication: N/A - Med Ordered
[2022-01-24 15:10] VITALS: BP 142/70; PULSE 70; RESP 18; TEMP 36.6; O2SAT 96
[2022-01-24] MEDS: Morphine Sulfate 4 MG/ML CARTRIDGE 3 MG IVPUSH (20:15)
[2022-01-24 23:24] VITALS: BP 124/68; PULSE 68; RESP 17; TEMP 36; O2SAT 94
[2022-01-25 03:31] VITALS: BP 135/69; PULSE 66; RESP 16; TEMP 36; O2SAT 94
[2022-01-25 07:14] VITALS: BP 145/72; PULSE 63; RESP 16; TEMP 36.6; O2SAT 94
--- NOTE | 2022-01-25 07:32 | P.PNGS_ITS ---
Subjective Subjective Date of Service: 01/25/22 Interval history: Continues to feel better tolerating diet well no nausea or vomiting has flatus and BMs Physical Exam Vital Signs: Vital Signs: Last Vital Signs Temp 97.9 F 01/25/22 07:14 Pulse 63 01/25/22 07:14 Resp 16 01/25/22 07:14 BP 145/72 H 01/25/22 07:14 Pulse Ox 94 01/25/22 07:14 BMI result Body Mass Index 32.1 Const: General: comfortable and no acute distress Resp: Effort & Inspection: normal respiratory effort Cardio: Rate: regular rate GI: Palpation (GI): Soft to palpation, not firm and nontender Objective Data Active Medications Heparin Sodium (Porcine) (Heparin Sodium,Porcine 5,000 Unit/Ml Vial) 5,000 unit SUBCUT Q12H [facility] 234 BEDS AT [facility] Last Admin: 01/24/22 20:07 Dose: 5,000 unit Documented by: KAROL Hydrochlorothiazide (Hydrochlorothiazide 25 Mg Tablet) 25 mg PO DAILY [facility] B[facility]S AT [facility]; Protocol Last Admin: 01/24/22 07:44 Dose: 25 mg Documented by: ZAINAB Morphine Sulfate (Morphine Sulfate 4 Mg/Ml Cartridge) 3 mg IVPUSH Q4H PRN; Protocol PRN Reason: Pain, Severe (Pain Scale 7-10) Last Admin: 01/24/22 20:15 Dose: 3 mg Documented by: KAROL Ondansetron HCl (Ondansetron Hcl 4 Mg/2 Ml Vial) 4 mg IVPUSH Q8H PRN PRN Reason: nausea Pharmacy Consult (Consult Rx Perform Med Rec) 1 each MISCELLANE ONCE PRN PRN Reason: Consult order Sodium Chloride (0.9 % Sodium Chloride Flush 3 Ml Syringe) 3 ml IVFLUSH QSHIFT [facility]CLUDE 234 BEDS AT [facility] Last Admin: 01/25/22 00:11 Dose: Not Given Documented by: KAROL Non-Admin Reason: IV Running Labs CBC & Chem 7: 01/22/22 05:54 01/22/22 05:54 Procedures Date of Service Date of Service: 01/25/22 Progress Note: A&P Assessment and plan (1) Partial obstruction of small intestine: Status: Acute Assessment and Plan: symptoms resolved good GI function looks well says she is ready to be discharged will see in the office for follow-up explained risks of recurrent obstruction in the future due to postop adhesions Time Spent With Patient Time: Total time spent is greater than 50% in coordination of care (as documented) at patient's floor/unit and/or counseling patient: Quality Stroke Does the patient have a stroke diagnosis?: No VTE Prior VTE?: No VTE Risk Level:: Medical - moderate - high VTE Device Contraindication: N/A - Device Ordered VTE Drug Contraindication: N/A - Med Ordered
--- NOTE | 2022-01-25 08:53 | MHC.CM.PN ---
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 patient is aware that she will be discharged home toa discharge plan home with family no services pcp dr eliot MARTÍNEZ PATIENT INSTRUCTED TO CLAL FOR [facility]POINBTMENT FOR [facility] FAMILY [facility] IMM COMPLETED UPDATED
[2022-01-25] MEDS: hydroCHLOROthiazide 25 MG TABLET PO (09:15)
[2022-01-25] MEDS: 0.9 % Sodium Chloride Flush 3 ML SYRINGE IVFLUSH (09:16)
--- NOTE | 2022-01-26 11:41 | P.DS_ITS ---
DS: Providers Provider Date of Service: 01/25/22 Date of admission: 01/21/22 14:17 Primary care physician: Steven Rose MD DS: Diagnosis Discharge Diagnosis (1) Partial obstruction of small intestine: Status: Acute DS: Summary Hospital Course Hospital Course: 61-year-old female admitted for abdominal pain and vomiting. She had a CAT scan in the ER showing small bowel loops with fecalization, and tapering of the diameter distally. This was consistent with partial small-bowel obstruction. She did have a history of hysterectomy and appendectomy in the past She had an NG tube placed. She felt relief with this. She had significant improvement her abdominal pain distension. She started to pass flatus under 2nd hospital day. There NG tube was therefore removed. On clear liquids and her diet was slowly advance. She continued to improved significantly and tolerated advancement of her diet She was eventually discharged on 01/25/2022. At that time her discharge, she was tolerating regular diet. She was passing flatus and had bowel movements Time Spent with Patient Time attestation: Total time spent providing and/or coordinating discharge services: Discharge coordination time: Less than 30 minutes Quality: Safe Use of Opioids Does Pt have an Active Cancer Diagnosis on the Problem List?: No Quality: Stroke Does the patient have a stroke diagnosis?: No Physical Exam Vital Signs: Vital Signs: Last Vital Signs Temp 97.9 F 01/25/22 07:14 Pulse 63 01/25/22 07:14 Resp 16 01/25/22 07:14 BP 145/72 H 01/25/22 07:14 Pulse Ox 94 01/25/22 07:14 BMI result Body Mass Index 32.1 Const: General: comfortable and no acute distress Orientation/consciousness: patient oriented x3 Neck: Neck: Yes no lymphadenopathy Resp: Auscultation: clear to auscultation bilaterally Cardio: Rhythm: regular rhythm GI: Palpation (GI): Soft to palpation, nontender and no guarding Neuro: General: patient oriented x3 DS: Data Data Completed and Pending Labs on day of discharge: Laboratory Results WBC 4.8 X10*3/uL (4.8-10.8) 01/22/22 05:54 RBC 4.74 X10*6/uL (4.20-5.50) 01/22/22 05:54 Hgb 12.7 g/dl (12.0-16.0) 01/22/22 05:54 Hct 38.5 % (37.0-47.0) 01/22/22 05:54 MCV 81.2 fL (80.0-98.0) 01/22/22 05:54 MCH 26.8 pg (27.0-33.0) L 01/22/22 05:54 MCHC 33.0 g/dl (31.0-35.0) 01/22/22 05:54 RDW 13.5 % (11.0-16.0) 01/22/22 05:54 Plt Count 264 X10*3/uL (160-400) 01/22/22 05:54 MPV 10.4 fL (9.4-12.3) 01/22/22 05:54 Immature Gran % (Auto) Cancelled 01/22/22 05:54 Neut % (Auto) Cancelled 01/22/22 05:54 Lymph % (Auto) Cancelled 01/22/22 05:54 [place] % (Auto) Cancelled 01/22/22 05:54 Eos % (Auto) Cancelled 01/22/22 05:54 Baso % (Auto) Cancelled 01/22/22 05:54 Lymph # (Auto) Cancelled 01/22/22 05:54 [place] # (Auto) Cancelled 01/22/22 05:54 Eos # (Auto) Cancelled 01/22/22 05:54 Baso # (Auto) Cancelled 01/22/22 05:54 Abs Immat Gran (auto) Cancelled 01/22/22 05:54 Absolute Neuts (auto) Cancelled 01/22/22 05:54 Absolute Nucleated RBC 0.000 X10*3/uL (0.0-0.012) 01/22/22 05:54 Nucleated RBC % (auto) 0.0 /100WBC (0.0-0.2) 01/22/22 05:54 Neutrophils % (Manual) 39 % (45-73) L 01/22/22 05:54 Band Neutrophils % 11 % (3-5) H 01/22/22 05:54 Lymphocytes % (Manual) 27 % (20-40) 01/22/22 05:54 Monocytes % (Manual) 22 % (2-11) H 01/22/22 05:54 Metamyelocytes % 1 % 01/22/22 05:54 Abs Neuts (Manual) 2.4 X10*3/uL (2.0-8.3) 01/22/22 05:54 Lymphocytes # (Manual) 1.3 X10*3/uL (1.2-4.9) 01/22/22 05:54 Monocytes # (Manual) 1.1 X10*3/uL (0.1-1.2) 01/22/22 05:54 Toxic Vacuolation PRESENT 01/22/22 05:54 Platelet Estimate NORMAL (NORMAL) 01/22/22 05:54 Large Platelets PRESENT 01/22/22 05:54 Plt Morphology Comment NOTED 01/22/22 05:54 RBC Morphology NORMAL 01/22/22 05:54 Sodium 142 mmol/L (135-145) 01/22/22 05:54 Potassium 4.2 mmol/L (3.3-5.1) 01/22/22 05:54 Chloride 108 mmol/L (96-108) 01/22/22 05:54 Carbon Dioxide 25 mmol/L (22-29) 01/22/22 05:54 Anion Gap 13 (12-20) 01/22/22 05:54 BUN 27 mg/dL (9-16) H D 01/22/22 05:54 Creatinine 0.82 mg/dL (0.5-1.4) 01/22/22 05:54 Estim Creat Clear Calc 74.0 01/22/22 05:54 Estimated GFR > 60 01/22/22 05:54 Random Glucose 132 mg/dL (60-115) H 01/22/22 05:54 Lactic Acid 1.7 mmol/L (0.5-2.0) 01/21/22 06:08 Calcium 8.5 mg/dL (8.4-10.2) D 01/22/22 05:54 Total Bilirubin 0.7 mg/dL (0.0-1.0) 01/20/22 22:53 AST 25 U/L (5-31) 01/20/22 22:53 ALT 20 U/L (0-31) 01/20/22 22:53 Alkaline Phosphatase 71 U/L (39-117) 01/20/22 22:53 Total Protein 7.8 g/dL (6.5-8.0) 01/20/22 22:53 Albumin 4.4 g/dL (3.5-5.0) 01/20/22 22:53 Lipase 33 U/L (8-78) 01/20/22 22:53 Urine Color YELLOW 01/21/22 05:33 Urine Appearance CLEAR 01/21/22 05:33 Urine pH 7.5 (5.0-8.0) 01/21/22 05:33 Ur Specific [place] 1.015 (1.005-1.025) 01/21/22 05:33 Urine Protein NEG MG/DL (NEG-TRACE) 01/21/22 05:33 Urine Glucose (UA) NEG MG/DL (NEG) 01/21/22 05:33 Urine Ketones NEG MG/DL (NEG) 01/21/22 05:33 Urine Blood NEG (NEG) 01/21/22 05:33 Urine Nitrite NEG (NEG) 01/21/22 05:33 Ur Leukocyte Esterase NEG (NEG) 01/21/22 05:33 COVID-19 ([facility]AHIR) Negative (Negative) 01/21/22 11:07 COVID-19 Clin Com See Note 01/21/22 11:07 Impressions Abdomen Ultrasound 01/21/22 07:24 IMPRESSION: There is echogenic pancreas question chronic pancreatitis. The tail is not visualized. Mildly echogenic liver without any focal lesion. Suspected tiny echogenic mobile gallstone. Trace fullness of right renal pelvis. Abdomen/Pelvis CT 01/21/22 10:20 IMPRESSION: Dilated fluid-filled small bowel with small bowel feces sign. The distal small bowel appears less dilated. Appearance is suggestive of partial small bowel obstruction. Diverticulosis of the colon. No evidence of diverticulitis. Fleischner guidelines were followed. Chest X-Ray 01/21/22 12:08 IMPRESSION: Nasogastric tube projects over stomach. Discharge Plan Discharge Patient Disposition: Home, Self-Care Discharge Diagnosis: partial small bowel obstruction Referrals: Steven Rose MD [Primary Care Provider] - 3 days (if not better) Oli Oscar MD [Physician] - 2 Weeks Discharge Medications: New famotidine [Pepcid] 20 mg tablet 20 mg PO DAILY PRN (Reason: abdominal discomfort) Qty: 30 0RF morphine 15 mg tablet 15 mg PO TID PRN (Reason: pain) Qty: 10 0RF Rx Instructions: partial fill okay ondansetron 4 mg tablet,disintegrating 4 mg PO Q8H PRN (Reason: nausea and vomiting) Qty: 20 0RF Continued atorvastatin 80 mg tablet 1 tab PO DAILY 0RF meloxicam 15 mg tablet 1 tab PO DAILY 0RF clonazepam 0.5 mg tablet 1 tab PO DAILY PRN (Reason: anxiety) 0RF aspirin 81 mg tablet,delayed release (DR/EC) 1 tab PO DAILY 0RF oxycodone-acetaminophen 5-325 mg tablet 1 tab PO BID PRN (Reason: Pain) 0RF hydrochlorothiazide 25 mg tablet 1 tab PO DAILY 0RF zolpidem 10 mg tablet 1 tab PO BEDTIME 0RF Centrum Women 18-400 mg-mcg Tablet 1 tab PO DAILY 0RF Discharge Orders: Discharge Order (Routine); Ordered 01/25/22 Ordered By: Oli Oscar Diet: advance to usual diet Activity on Discharge: As tolerated Stand Alone Forms: Patient Portal Discharge page Print Language: Vietnamese Activity Restrictions/Additional Instructions: return to ED for any worsening symptoms or concerns no mangoes Care Plan Goals: control arthritis pain ffup with PCP Health Concerns: arthritis may have recurrence of bowel obstruction Plan of Treatment: ffup with PCP Assessment: doing well Patient Instructions: Abdominal Pain (ED) Discharge Date/Time: 01/25/22 10:35
== END 2022-01-25 10:35 | disposition home or self-care (01) | DRG 390 ==
LOC: HO.ED 01-21 11:56 → HO.EDOVER 01-21 14:23 → HO.S3 01-23 13:55
PROVIDERS: Student in an Organized Health Care Education/Training Program; Admitting Provider Surgery; Emergency Provider Emergency Medicine; PCP Internal Medicine; Visit Provider Surgery
DX: K56.600 Partial intestinal obstruction, unspecified as to cause (principal); E78.5 Hyperlipidemia, unspecified; I10 Essential (primary) hypertension; F32.A Depression, unspecified; M19.90 Unspecified osteoarthritis, unspecified site; Z20.822 Contact with and (suspected) exposure to COVID-19; Z88.8 Allergy status to other drugs, medicaments and biological substances; Z79.1 Long term (current) use of non-steroidal anti-inflammatories (NSAID); Z79.82 Long term (current) use of aspirin; Z79.899 Other long term (current) drug therapy
CPT/HCPCS: 36415; 71045; 74176; 76705; 80048; 80053; 81003; 83605; 83690; 85007; 85025; 85027; 87040; 87635; 93005; 96361; 96374; 96375; 99285; J1200; J1885; J2270; J2405; J2543; J2765

== ENCOUNTER → 2022-02-09 09:17 | Outpatient (BNVA) | payer OTHER, SELFPAY | PROVIDERS: PCP Internal Medicine; Visit Provider Surgery | DX: K56.600 Partial intestinal obstruction, unspecified as to cause (principal) | CPT/HCPCS: 99212 ==

== ENCOUNTER → 2022-09-21 10:53 | Outpatient (BNVA) | payer OTHER, SELFPAY | PROVIDERS: PCP Internal Medicine; Visit Provider Surgery | DX: Z12.11 Encounter for screening for malignant neoplasm of colon (principal) | CPT/HCPCS: 99212 ==

== ENCOUNTER 2022-10-31 08:07 | Outpatient (REF) | payer OTHER, SELFPAY ==
--- NOTE | ~2022-10-31 | MM_ITS ---
EXAMINATION: MM SCREENING DIGITAL BREAST TOMOSYNTHESIS, BILATERAL CLINICAL INFORMATION: Screening. Asymptomatic. The lifetime risk of breast cancer based on the Tyrer-Cuzick Model is 2%. COMPARISON: Mammography: 10/25/2021, 10/22/2020, 06/11/2018 TECHNIQUE: Digital breast tomosynthesis is performed in both the craniocaudal and mediolateral oblique views along with computer-aided detection (CAD). Synthesized 2D images are generated from the tomosynthesis. Additional left MLO view is provided. FINDINGS: There are scattered areas of fibroglandular density (ACR BI-RADS breast composition Category b). Parenchymal pattern is similar to prior exams. There is scattered fine fibronodular pattern without developing density or architectural abnormality. No significant mass. No abnormal calcifications. The axilla and skin contours are unremarkable. MM/MM tomosynthesis screening BI IMPRESSION: No mammographic evidence of malignancy. ASSESSMENT: BI-RADS 1: Negative RECOMMENDATION: Routine annual mammography screening. This patient's information was entered into a reminder system with a target due date for their next mammogram.
== END 2022-10-31 08:08 | disposition home or self-care (01) ==
LOC: HO.MAMMO 08:07
PROVIDERS: Visit Provider Internal Medicine
DX: Z12.31 Encounter for screening mammogram for malignant neoplasm of breast (principal)
CPT/HCPCS: 77063; 77067

== ENCOUNTER 2022-11-07 08:42 | Outpatient (REF) | payer OTHER, SELFPAY ==
--- NOTE | ~2022-11-07 | XR_ITS ---
EXAMINATION: XR KNEE, AP STANDING, BILATERAL XR KNEE, RIGHT XR KNEE, LEFT CLINICAL INFORMATION: Bilateral knee pain. COMPARISON: Bilateral AP knees standing and left knee 01/10/2019. TECHNIQUE: AP bilateral knee standing. 2 views of each knee. FINDINGS: AP BILATERAL KNEE: There are bilateral genu varus deformities of both knees with moderate loss of the medial compartment joint space with periarticular spurring. The lateral compartment joint space is normal. There are no bony erosive changes. No fracture or dislocation. The soft tissues are normal. RIGHT KNEE: There is mild loss of the patellofemoral compartment joint space without loose bodies or bony erosive changes. No abnormal joint effusion is seen. LEFT KNEE: There is mild reduction in the left patellofemoral compartment joint space without bony erosive changes or loose bodies. No abnormal suprapatellar joint effusion seen. The soft tissues are normal. 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 No visible acute fracture, dislocation or subluxation is seen.
--- NOTE | ~2022-11-07 | XR_ITS ---
EXAMINATION: XR KNEE, AP STANDING, BILATERAL XR KNEE, RIGHT XR KNEE, LEFT CLINICAL INFORMATION: Bilateral knee pain. COMPARISON: Bilateral AP knees standing and left knee 01/10/2019. TECHNIQUE: AP bilateral knee standing. 2 views of each knee. FINDINGS: AP BILATERAL KNEE: There are bilateral genu varus deformities of both knees with moderate loss of the medial compartment joint space with periarticular spurring. The lateral compartment joint space is normal. There are no bony erosive changes. No fracture or dislocation. The soft tissues are normal. RIGHT KNEE: There is mild loss of the patellofemoral compartment joint space without loose bodies or bony erosive changes. No abnormal joint effusion is seen. LEFT KNEE: There is mild reduction in the left patellofemoral compartment joint space without bony erosive changes or loose bodies. No abnormal suprapatellar joint effusion seen. The soft tissues are normal. 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 No visible acute fracture, dislocation or subluxation is seen.
--- NOTE | ~2022-11-07 | XR_ITS ---
EXAMINATION: XR KNEE, AP STANDING, BILATERAL XR KNEE, RIGHT XR KNEE, LEFT CLINICAL INFORMATION: Bilateral knee pain. COMPARISON: Bilateral AP knees standing and left knee 01/10/2019. TECHNIQUE: AP bilateral knee standing. 2 views of each knee. FINDINGS: AP BILATERAL KNEE: There are bilateral genu varus deformities of both knees with moderate loss of the medial compartment joint space with periarticular spurring. The lateral compartment joint space is normal. There are no bony erosive changes. No fracture or dislocation. The soft tissues are normal. RIGHT KNEE: There is mild loss of the patellofemoral compartment joint space without loose bodies or bony erosive changes. No abnormal joint effusion is seen. LEFT KNEE: There is mild reduction in the left patellofemoral compartment joint space without bony erosive changes or loose bodies. No abnormal suprapatellar joint effusion seen. The soft tissues are normal. 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 No visible acute fracture, dislocation or subluxation is seen.
== END 2022-11-07 08:43 | disposition home or self-care (01) ==
LOC: HO.HOSX 08:42
PROVIDERS: Visit Provider Orthopaedic Surgery
DX: M17.0 Bilateral primary osteoarthritis of knee (principal)
CPT/HCPCS: 20610; 73560; 73565; 99212; J1100

== ENCOUNTER 2022-11-08 05:50 | Day surgery (SDC) | payer OTHER, SELFPAY ==
[2022-11-03 09:52] VITALS: BMI 33.6
--- NOTE | 2022-11-07 10:14 | P.CONAN_ITS ---
Documented by User: Karen De La Torre NP 11/07/22 10:14 HPI - Anesthesia Eval Consult details Narrative: 62yo F for Colonoscopy with poss Polypectomy PMFSH Active Problems Active Problems: All Active Problems (Updated 11/03/22 @ 09:17 by Fatemeh Padron, RN) Arthritis of left knee (Acute) Colon cancer screening (Acute) Arthritis (Acute) Past Medical History Medical History (Updated 11/07/22 @ 10:31 by Mehdi Sellers) Arthritis Colon cancer screening Depression Gall bladder, polycystic disease GERD (gastroesophageal reflux disease) HTN (hypertension) Hyperlipemia Partial small bowel obstruction Family History Family History Mother Diabetes Father Emphysema lung Surgical History Surgical History (Updated 11/03/22 @ 09:17 by Fatemeh Padron, RN) H/O: hysterectomy History of appendectomy History of arthroscopy of left knee History of arthroscopy of right knee Hx of bladder repair surgery Hx of colonoscopy Social History Social History Household Members: Spouse Housing: Apartment Do you presently have visiting nurse or other home services: No Patient Tobacco Use Status: Never used Tobacco Second Hand Smoke Exposure: No Use of substances other than those prescribed or required for medical reasons: No Are you DNR?: No Advance Directives: No Advance Directives Information Provided: Yes Advance Directives on File: No service: No Current occupational status: retired Meds Allergies Allergy/AdvReac Type Severity Reaction Status Date / Time diazepam [From VALIUM] Allergy Unknown HALLUCINATION/DIFF Verified 11/03/22 09:18 BREATHING Home Medications Medication Instructions Recorded Confirmed Last Taken Type aspirin 81 mg tablet,delayed 1 tab PO DAILY 01/21/22 11/08/22 01/20/22 History release atorvastatin 80 mg tablet 1 tab PO DAILY 01/21/22 11/08/22 01/20/22 History clonazepam 0.5 mg tablet 1 tab PO DAILY PRN anxiety 01/21/22 11/08/22 11/08/22 History hydrochlorothiazide 25 mg tablet 1 tab PO DAILY 01/21/22 11/08/22 01/20/22 History meloxicam 15 mg tablet 1 tab PO DAILY 01/21/22 11/08/22 01/20/22 History multivitamin-ferrous 1 tab PO DAILY 01/21/22 11/08/22 01/20/22 History fumarate-folic acid 18 mg-400 mcg tablet (Centrum Women) zolpidem 10 mg tablet 1 tab PO BEDTIME 01/21/22 11/08/22 01/20/22 History lisinopril 10 mg tablet 1 tab PO DAILY 11/03/22 11/08/22 Unknown History naloxone 4 mg/actuation nasal spray intranasal 11/03/22 Unknown History oxycodone-acetaminophen 5 mg-325 1 tab PO BID PRN Pain 11/03/22 11/08/22 Unknown History mg tablet Exam Exam Date and Time: November 07, 2022 1014 Height,Weight and Vital Signs: Height 5 ft 4 in Weight 88.904 kg Assessment and Plan Assessment Anesthesia Assessment: Chart Reviewed Documented by User: Bruce Craig MD 11/08/22 07:41 PMFSH Past Medical History Medical History (Updated 11/07/22 @ 10:31 by Mehdi Sellers) Arthritis Colon cancer screening Depression Gall bladder, polycystic disease GERD (gastroesophageal reflux disease) HTN (hypertension) Hyperlipemia Partial small bowel obstruction Family History Family History Mother Diabetes Father Emphysema lung Family history of problems with anesthesia: No Surgical History Surgical History (Updated 11/03/22 @ 09:17 by Fatemeh Padron RN) H/O: hysterectomy History of appendectomy History of arthroscopy of left knee History of arthroscopy of right knee Hx of bladder repair surgery Hx of colonoscopy History of Problems with Anesthesia: No Social History Social History Household Members: Spouse Housing: Apartment Do you presently have visiting nurse or other home services: No Patient Tobacco Use Status: Never used Tobacco Second Hand Smoke Exposure: No Use of substances other than those prescribed or required for medical reasons: No Are you DNR?: No Advance Directives: No Advance Directives Information Provided: Yes Advance Directives on File: No service: No Current occupational status: retired Meds Allergies Allergy/AdvReac Type Severity Reaction Status Date / Time diazepam [From VALIUM] Allergy Unknown HALLUCINATION/DIFF Verified 11/03/22 09:18 BREATHING Home Medications Medication Instructions Recorded Confirmed Last Taken Type aspirin 81 mg tablet,delayed 1 tab PO DAILY 01/21/22 11/08/22 01/20/22 History release atorvastatin 80 mg tablet 1 tab PO DAILY 01/21/22 11/08/22 01/20/22 History clonazepam 0.5 mg tablet 1 tab PO DAILY PRN anxiety 01/21/22 11/08/22 11/08/22 History hydrochlorothiazide 25 mg tablet 1 tab PO DAILY 01/21/22 11/08/22 01/20/22 History meloxicam 15 mg tablet 1 tab PO DAILY 01/21/22 11/08/22 01/20/22 History multivitamin-ferrous 1 tab PO DAILY 01/21/22 11/08/22 01/20/22 History fumarate-folic acid 18 mg-400 mcg tablet (Centrum Women) zolpidem 10 mg tablet 1 tab PO BEDTIME 01/21/22 11/08/22 01/20/22 History lisinopril 10 mg tablet 1 tab PO DAILY 11/03/22 11/08/22 Unknown History naloxone 4 mg/actuation nasal spray intranasal 11/03/22 Unknown History oxycodone-acetaminophen 5 mg-325 1 tab PO BID PRN Pain 11/03/22 11/08/22 Unknown History mg tablet Exam Airway Mallampati Class: II TM Dist: >3cm Neck ROM: Limited Heart: rrr Lungs: cta Assessment and Plan Final Anesthetic Review Family History of Problems with Anesthesia: No History of Problems with Anesthesia: No NPO: Yes ASA Class: II Final Preanesthetic Review: No Changes in Pt Med Stat, Meds/Allgs Chart Reviewed , Consent Obtained/Reviewed and Anes Risks/Benef Reviewed Patient Risk: Low Procedure Risk: Low Anesthetic Plan Anesthetic Plan: MAC: Disposition: Standard PACU
[2022-11-08 06:40] VITALS: BP 133/75; PULSE 80; RESP 16; TEMP 36.1; O2SAT 96
[2022-11-08] MEDS: Lactated Ringers 1,000 ML 100 ML IVCONT (06:50)
--- NOTE | 2022-11-08 08:07 | P.HPSUR_ITS ---
Pre-Procedural Eval Section A Date of Service: 11/08/22 Section B Chief Complaint: screening Details of Present Illness: for colon cancer screening, denies significant GI complaints Relevant Family History (Specify if Yes): No Relevant Social History: None Present Medications: see Short Stay Collaborative assessment Medical History: Significant History ( arthritis) Allergies: Allergies Allergy/AdvReac Type Severity Reaction Status Date / Time diazepam [From VALIUM] Allergy Unknown HALLUCINATION/DIFF Verified 11/03/22 0 9:18 BREATHING Review of Systems Sugical H&P ROS: Negative: Constitution, Cardiovascular, Respiratory, Neurological, Psychiatric, Hem-Onc, Allergic/Immunologic, Gastrointestinal, Genitourinary, Musculoskeletal, Integumentary, Endocrine and Eyes/Ears/Nose/Throat Exam Surgical H&P Exam: Normal: HEENT, Normal: Heart, Normal: Lungs, Normal: Extremities, Normal: Abdomen, Normal: Skin and Normal: Neurological Plan Diagnosis/Plan: Unchanged I have reviewed the history and physical and performed a pertinent physical examination on my patient. No changes have occurred unless specified. Time Spent With Patient Time: Total time managing care of this patient today ____ minutes.
--- NOTE | 2022-11-08 08:09 | P.OP_ITS ---
Operative Note Operative Note Date of Service: 11/08/22 Narrative: Preop diagnosis: Colon cancer screening Postop diagnosis: Diverticulosis of the left colon sigmoid, otherwise normal colonoscopy findings Procedure: Colonoscopy Surgeon: Oli Oscar MD The patient is a 62-year-old female referred for screening colonoscopy. She understood the technique of this procedure. She was aware of the risks, benefits, and alternatives The patient was brought to the operating room and placed in left lateral decubitus position under monitored anesthesia care. A surgical time-out was done. A full digital rectal exam was done and this did not reveal any significant anal lesions. The tip of the Olympus colonoscope was gently introduced through the anal orifice advanced with insufflation all the way to the cecum. The cecum was intubated. The cecum was identified by visualization of the ileocecal valve as well as the appendiceal orifice. The cecal mucosa was unremarkable. The scope was gradually withdrawn with careful examination of the entire colonic mucosa being done with scope withdrawal. The patient had adequate bowel prep so it was unlikely that any lesion may have been missed. There was note of moderate diverticulosis of the left colon and sigmoid.The rect um was reached and there were no lesions seen. The anal canal was unremarkable. The scope was then withdrawn completely with desufflation The patient tolerated the procedure well. There were no immediate complications. Her next colonoscopy may be in the next 10 years.
[2022-11-08 08:15] VITALS: BP 121/74; PULSE 67; RESP 10; TEMP 36.3; O2SAT 95
[2022-11-08 08:30] VITALS: BP 128/76; PULSE 62; RESP 18; TEMP 36.3; O2SAT 97
== END 2022-11-08 08:48 | disposition home or self-care (01) ==
PROVIDERS: PCP Internal Medicine; Visit Provider Surgery
PROC: 0DBE8ZZ Excision of Large Intestine, Via Natural or Artificial Opening Endoscopic (ICD-10-PCS; CPT G0121; principal; 2022-11-08 07:30)
DX: Z12.11 Encounter for screening for malignant neoplasm of colon (principal); K57.30 Diverticulosis of large intestine without perforation or abscess without bleeding; K82.8 Other specified diseases of gallbladder; Z87.19 Personal history of other diseases of the digestive system; I10 Essential (primary) hypertension; E78.5 Hyperlipidemia, unspecified; M19.90 Unspecified osteoarthritis, unspecified site; F32.A Depression, unspecified; Z79.82 Long term (current) use of aspirin; Z79.899 Other long term (current) drug therapy; Z88.8 Allergy status to other drugs, medicaments and biological substances; Z98.890 Other specified postprocedural states
CPT/HCPCS: G0121

== ENCOUNTER → 2022-11-21 09:57 | Outpatient (BNVA) | payer OTHER, SELFPAY | PROVIDERS: PCP Internal Medicine; Visit Provider Surgery ==

== ENCOUNTER 2022-12-05 12:56 | Outpatient (REF) | payer OTHER, SELFPAY ==
--- NOTE | ~2022-12-05 | CT_ITS ---
EXAMINATION: CT ABDOMEN AND PELVIS WITH CONTRAST CLINICAL INFORMATION: Abdominal pain post colonoscopy COMPARISON: Previous CT of the abdomen and pelvis December 2021 TECHNIQUE: Multidetector volumetric images were obtained from the superior aspect of the liver through the pubic symphysis following administration 85 mL of Omnipaque 350 intravenous contrast. Sagittal and coronal reformatted images were obtained on the technologist's workstation. Oral contrast: Yes This CT examination was performed using dose optimization techniques as appropriate, variously including the following: *Automated exposure control *Adjustment of mA and/or kV according to patient size (this includes techniques or standardized protocols for targeted exams where dose is matched to indication/reason for exam; i.e. extremities or head) *Use of iterative reconstruction technique DLP: 490 mGy-cm FINDINGS: LUNG BASES: The visualized lung bases are unremarkable. LIVER, GALLBLADDER, AND BILIARY TREE: The liver is normal in size, shape, and attenuation. No focal hepatic lesion or biliary ductal dilatation is present. The gallbladder is unremarkable with no evidence of radiopaque gallstones, gallbladder wall thickening, or obvious pericholecystic inflammatory changes. PANCREAS: Unremarkable. SPLEEN: Unremarkable. ADRENAL GLANDS: Unremarkable. KIDNEYS AND URETERS: The kidneys are normal in size, shape, and attenuation. No hydronephrosis, hydroureter, or calculi seen. No perinephric stranding. BLADDER: Unremarkable. GASTROINTESTINAL TRACT: There is no free air. There is diverticulosis of the colon. There is sharp short segment wall thickening of the distal left or proximal sigmoid colon and stranding of the surrounding fat suggestive of mild diverticulitis. Small and large bowel is otherwise normal. The appendix is not seen. The stomach is normal. ABDOMINAL WALL: No significant hernia is appreciated. LYMPH NODES: Normal. VASCULAR: Unremarkable. PELVIC VISCERA: Unremarkable. OSSEOUS STRUCTURES: Unremarkable. CT/CT abdomen pelvis w IV con IMPRESSION: Mild diverticulitis of the proximal sigmoid/distal left colon. No free air. Findings will be communicated by the [facility]utz work flow data reduction technician. Fleischner guidelines were followed.
[2022-12-05] MEDS: iohexoL 350 MG/ML 100 ML INFUS..BTL IV (15:53)
[2022-12-05] MEDS: Barium Sulfate Oral (Vanilla) 450 ML ORAL.SUSP 900 ML PO (15:54)
[2022-12-06 10:53] LABS: Creatinine POC 0.6 mg/dL (0.5-1.4); GFR POC 60
== END 2022-12-05 12:57 | disposition home or self-care (01) ==
LOC: HO.CT 12:56
PROVIDERS: Absent Provider Internal Medicine; PCP Internal Medicine; Visit Provider Emergency Medicine
DX: R10.32 Left lower quadrant pain (principal); R10.12 Left upper quadrant pain
CPT/HCPCS: 74177; 82565; Q9967

== ENCOUNTER → 2022-12-09 08:43 | Outpatient (BNVA) | payer OTHER, SELFPAY | PROVIDERS: PCP Internal Medicine; Referring Provider Emergency Medicine; Visit Provider Surgery | DX: R10.32 Left lower quadrant pain (principal); G89.18 Other acute postprocedural pain; K57.32 Diverticulitis of large intestine without perforation or abscess without bleeding | CPT/HCPCS: 99202 ==

== ENCOUNTER → 2022-12-22 09:17 | Outpatient (BNVA) | payer OTHER, SELFPAY | PROVIDERS: PCP Internal Medicine; Visit Provider Surgery | DX: K57.32 Diverticulitis of large intestine without perforation or abscess without bleeding (principal) | CPT/HCPCS: 99212 ==

== ENCOUNTER 2023-01-25 09:07 | Outpatient (REF) | payer OTHER, SELFPAY ==
--- NOTE | ~2023-01-25 | XR_ITS ---
EXAMINATION:XR ankle RT min 3V, XR foot RT min 3V CLINICAL INFORMATION: Reason for Exam PAIN COMPARISON: None TECHNIQUE: AP, lateral, and mortise views of the ankle. FINDINGS: There is no fracture or dislocation. Ankle mortise is preserved. Tibial plafond and talar dome are intact. Medial and lateral malleoli are properly aligned. Subtalar joint is normal. There is no osteolytic or osteoblastic lesions. There are posterior and inferior calcaneal spurs. Metatarsophalangeal and interphalangeal joints are intact. Bone alignments are satisfactory. XR/XR ankle RT min 3V IMPRESSION: * No fracture. * There are posterior and inferior calcaneal spurs.
--- NOTE | ~2023-01-25 | XR_ITS ---
EXAMINATION:XR ankle RT min 3V, XR foot RT min 3V CLINICAL INFORMATION: Reason for Exam PAIN COMPARISON: None TECHNIQUE: AP, lateral, and mortise views of the ankle. FINDINGS: There is no fracture or dislocation. Ankle mortise is preserved. Tibial plafond and talar dome are intact. Medial and lateral malleoli are properly aligned. Subtalar joint is normal. There is no osteolytic or osteoblastic lesions. There are posterior and inferior calcaneal spurs. Metatarsophalangeal and interphalangeal joints are intact. Bone alignments are satisfactory. XR/XR foot RT min 3V IMPRESSION: * No fracture. * There are posterior and inferior calcaneal spurs.
== END 2023-01-25 09:08 | disposition home or self-care (01) ==
LOC: HO.HHCX 09:07
PROVIDERS: Visit Provider Internal Medicine
DX: M72.2 Plantar fascial fibromatosis (principal)
CPT/HCPCS: 73610; 73630

== ENCOUNTER → 2023-02-02 09:39 | Outpatient (BNVA) | payer OTHER, SELFPAY | PROVIDERS: PCP Internal Medicine; Visit Provider Surgery | DX: K57.30 Diverticulosis of large intestine without perforation or abscess without bleeding (principal) | CPT/HCPCS: 99212 ==

== ENCOUNTER → 2023-02-10 08:50 | Outpatient (BNVA) | payer OTHER, SELFPAY | PROVIDERS: PCP Internal Medicine; Visit Provider Orthopaedic Surgery | DX: M17.11 Unilateral primary osteoarthritis, right knee (principal); M17.12 Unilateral primary osteoarthritis, left knee | CPT/HCPCS: 99212 ==

== ENCOUNTER 2023-05-09 07:46 | Outpatient (REF) | payer OTHER, SELFPAY ==
[2023-05-09 09:03] LABS: Cholesterol 163 mg/dL (<200); HDL Cholesterol 48 mg/dL (>40); LDL Cholesterol Calculated 89 mg/dL (<100); Triglycerides 130 mg/dL (<150)
[2023-05-09 09:08] LABS: Alanine Aminotransferase 15 U/L (0-31); Albumin Level 4.1 g/dL (3.5-5.0); Alkaline Phosphatase 60 U/L (39-117); Anion Gap 11 (12-20); Aspartate Amino Transferase 21 U/L (5-31); Bilirubin Direct 0.1 mg/dL (0.0-0.5); Bilirubin Total 0.4 mg/dL (0.0-1.0); Blood Urea Nitrogen 21 mg/dL (9-16); Calcium 9.9 mg/dL (8.4-10.2); Carbon Dioxide 29 mmol/L (22-29); Chloride 106 mmol/L (96-108); Estimated Glomerular Filt Rate 55; Glucose Random 103 mg/dL (60-115); Potassium 3.9 mmol/L (3.3-5.1); Sodium 142 mmol/L (135-145); Total Protein 7.2 g/dL (6.5-8.0)
[2023-05-09 09:26] LABS: TSH reflex Free T4 6.56 uIU/mL (0.32-4.0)
[2023-05-09 09:36] LABS: Reflex LDLD? No
== END 2023-05-09 07:47 | disposition home or self-care (01) ==
LOC: HO.LAB 07:46
PROVIDERS: PCP Internal Medicine; Visit Provider Internal Medicine
DX: I10 Essential (primary) hypertension (principal)
CPT/HCPCS: 36415; 80048; 80061; 80076; 84439; 84443

== ENCOUNTER → 2023-08-01 13:56 | Outpatient (BNVA) | payer OTHER, SELFPAY | PROVIDERS: PCP Internal Medicine; Visit Provider Orthopaedic Surgery ==

== ENCOUNTER 2023-08-16 08:39 | Outpatient (REF) | payer OTHER, SELFPAY ==
[2023-08-16 11:14] LABS: MANUAL DIFF FLAG NO
[2023-08-16 11:38] LABS: Basophils Percent Auto 0.5 % (0-2); Eosinophils Absolute Auto 0.1 X10*3/uL (0.0-0.4); Eosinophils Percent Auto 2.3 % (0-4); Hematocrit 37.7 % (37.0-47.0); Imm Gran Abs Auto 0.01 X10*3/uL (0.00-0.03); Imm Gran Pct Auto 0.2 % (0.0-0.4); Lymphocytes Absolute Auto 2.3 X10*3/uL (1.2-4.9); Lymphocytes Percent Auto 37.6 % (20-40); Mean Corpuscular HGB Conc 31.8 g/dl (31.0-35.0); Mean Corpuscular Hemoglobin 26.1 pg (27.0-33.0); Mean Corpuscular Volume 82.1 fL (80.0-98.0); Mean Platelet Volume 10.4 fL (9.4-12.3); Monocytes Absolute Auto 0.5 X10*3/uL (0.1-1.2); Monocytes Percent Auto 8.7 % (2-11); Neutrophils Absolute Auto 3.1 x10*3/uL (2.0-8.3); Neutrophils Percent Auto 50.7 % (45-73); Platelet Count 281 X10*3/uL (160-400); Red Blood Count 4.59 X10*6/uL (4.20-5.50); Red Cell Distribution Width 12.9 % (11.0-16.0); White Blood Count 6.1 X10*3/uL (4.8-10.8)
[2023-08-16 14:49] LABS: Anion Gap 12 (12-20); Blood Urea Nitrogen 21 mg/dL (9-16); Calcium 9.7 mg/dL (8.4-10.2); Carbon Dioxide 26 mmol/L (22-29); Chloride 107 mmol/L (96-108); Estimated Glomerular Filt Rate 56; Glucose Random 104 mg/dL (60-115); Potassium 3.9 mmol/L (3.3-5.1); Sodium 141 mmol/L (135-145)
[2023-08-16 15:08] LABS: TSH reflex Free T4 4.95 uIU/mL (0.32-4.0)
[2023-08-16 16:43] LABS: Free T4 (Free Thyroxine) 1.06 ng/dL (0.71-1.85)
== END 2023-08-16 08:40 | disposition home or self-care (01) ==
LOC: HO.HHCL 08:39
PROVIDERS: Visit Provider Internal Medicine
DX: Z01.818 Encounter for other preprocedural examination (principal); E03.8 Other specified hypothyroidism
CPT/HCPCS: 36415; 80048; 84439; 84443; 85025

== ENCOUNTER 2023-08-31 10:17 | Outpatient (AMB) | payer OTHER, SELFPAY ==
--- NOTE | 2023-08-31 10:20 | MHC.OFFVIS ---
Intake Intake Visit Reasons: Preop RT TKA 09/05/23 NE Intake Note: Elsa is a 63 year old spainsh speaking female who presents today for a pre op appointment of her right TKA 09/05/23 NE. Allergies diazepam [From VALIUM] Allergy (Unknown, Verified 08/31/23 10:20) HALLUCINATION/DIFF BREATHING HPI Preop RT TKA 09/05/23 NE HPI Details 63-year-old female, who is Northern Irish speaking, presents in the office today for her preoperative history and physical exam prior to [facility] [place] total knee arthroplasty to be performed on 09/05/[address] Young. Patient has an allergy history, as follows: -Diazepam; hallucination/diff breathing Patient is currently taking, as follows: -Atorvastatin 80 mg PO daily -Multi Igfbubz-rlfx-rozbq acid 18-400-mg -mcg PO daily -Clonazepam 0.5 mg PO Bedtime PRN -Famotidine 20 mg PO daily -Hydrochlorothiazide 25 mg PO daily -Levothyroxine 50 mcg PO QAM -Lisinopril 10 mg PO daily -Meloxicam 15 mg PO daily -Naloxone 4 mg actuation 1 spray intranasal daily PRN -Oxycodone-acetaminophen 5-325 mg PO BID PRN -Zolpidem 10 mg PO Bedtime Patient has a medical history, as follows: -Thyroid disease -Diverticular disease of colon -GERD (gastroesophageal reflux disease) -Colon cancer screening -Gall bladder, polycystic disease -Partial small bowel obstruction -Arthritis -Hyperlipemia -Depression -HTN (hypertension) Patient has a surgical history, as follows: -History of appendectomy -Hx of colonoscopy 2010 -History of arthroscopy of right knee 2012 -History of arthroscopy of left knee 2018- Dr. Young -H/O: hysterectomy [facility] Medical History (Updated 08/31/23 @ 10:29 by Priya Rios) Thyroid disease Diverticular disease of colon GERD (gastroesophageal reflux disease) Colon cancer screening Gall bladder, polycystic disease Partial small bowel obstruction Arthritis Hyperlipemia Depression HTN (hypertension) Surgical History (Updated 08/29/23 @ 12:34 by Priscilla Hernandez RN) History of appendectomy Hx of colonoscopy History of arthroscopy of right knee History of arthroscopy of left knee H/O: hysterectomy Family History Mother Diabetes Father Emphysema lung Social History Household Members: Spouse Housing: Apartment Are you a primary care analyst to a significant other at home: No Do you presently have visiting nurse or other home services: No Patient Tobacco Use Status: Never used Tobacco Second Hand Smoke Exposure: No service: No Current occupational status: retired Review of Systems Const All systems reviewed & are unremarkable except as noted in HPI and below Physical Exam Const General: cooperative, healthy appearing, comfortable, no acute distress, well developed, alert and awake Orientation/consciousness: patient oriented x3 HEENT Head: Yes normal to inspection, Yes normocephalic and Yes atraumatic Eyes General: appearance normal, both eyes and all related structures Neck Neck: Yes normal visual inspection and Yes no lymphadenopathy Resp Effort & Inspection: normal respiratory effort and able to speak in complete sentences Cardio Rate: regular rate Peripheral pulses: Peripheral pulses 2+ throughout GI Inspection: Yes normal to inspection Palpation (GI): Soft to palpation Skin General skin exam: no rashes or lesions noted Neuro General: patient oriented x3 Extrem Other: Right Knee: Skin is clean, dry, and intact. 5-125 degrees ROM TTP medial joint line & compartment Varus thrust with gait Psych Appearance: grossly normal Mental Status: mental status grossly normal Affect: normal affect Attitude: cooperative Assessment & Plan Assessment & Plan (1) Osteoarthritis of right knee: Code(s): M17.11 - Unilateral primary osteoarthritis, right knee Qualifiers: Osteoarthritis type: unspecified Qualified Code(s): M17.11 - Unilateral primary osteoarthritis, right knee Plan Ms. Brayden Mukherjee is a 63-year-old female, who is Northern Irish speaking, presents in the office today for her preoperative history and physical exam prior to [facility] [place] total knee arthroplasty to be performed on 09/05/[address] Young. Patient has an allergy history, as follows: -Diazepam; hallucination/diff breathing Patient is currently taking, as follows: -Atorvastatin 80 mg PO daily -Multi Jwzzpow-pvcz-sizwz acid 18-400-mg -mcg PO daily -Clonazepam 0.5 mg PO Bedtime PRN -Famotidine 20 mg PO daily -Hydrochlorothiazide 25 mg PO daily -Levothyroxine 50 mcg PO QAM -Lisinopril 10 mg PO daily -Meloxicam 15 mg PO daily -Naloxone 4 mg actuation 1 spray intranasal daily PRN -Oxycodone-acetaminophen 5-325 mg PO BID PRN -Zolpidem 10 mg PO Bedtime Patient has a medical history, as follows: -Thyroid disease -Diverticular disease of colon -GERD (gastroesophageal reflux disease) -Colon cancer screening -Gall bladder, polycystic disease -Partial small bowel obstruction -Arthritis -Hyperlipemia -Depression -HTN (hypertension) Patient has a surgical history, as follows: -History of appendectomy -Hx of colonoscopy 2010 -History of arthroscopy of right knee 2012 -History of arthroscopy of left knee 2018- Dr. Young -H/O: hysterectomy She states the anesthesia causes her to have nausea and vomiting. The patient was instructed to discontinue the Meloxicam 1 week prior to surgery. I discussed in detail the procedure and what to expect pre and post operatively. We discussed the risks, benefits and alternatives to the surgery as well as the rehabilitation course. The risks; which include, but are not limited to infection, bleeding, nerve injury, ongoing pain, swelling, and stiffness, perioperative risk of injury to bones and soft tissues, and blood clots. I have answered all questions and with their understanding they have consented to move forward with a right total knee arthroplasty to be performed on 09/05/[address] Flako Young. Follow up will be at the post operative appointment on 09/21/2022 at 11:30 am, or sooner if needed. Patient Instructions: Scribed for Sherrie Arreaga PA-C by Priya Rios rn medical surgical, on 08/31/2023 at 10:23 am, EST. Coding Level of Care Code Global (79806) Diagnoses Osteoarthritis of right knee, unspecified osteoarthritis type M17.11 Osteoarthritis type: unspecified
== END 2023-08-31 11:18 | disposition home or self-care (01) ==
PROVIDERS: PCP Internal Medicine; Visit Provider Physician Assistant
DX: M17.11 Unilateral primary osteoarthritis, right knee (principal)
CPT/HCPCS: 99024

== ENCOUNTER → 2023-08-31 10:17 | Outpatient (BNVA) | payer OTHER, SELFPAY | PROVIDERS: PCP Internal Medicine; Visit Provider Physician Assistant | DX: Z01.818 Encounter for other preprocedural examination (principal); M17.11 Unilateral primary osteoarthritis, right knee | CPT/HCPCS: 99212 ==

== ENCOUNTER 2023-09-05 07:05 | Inpatient (IN) | payer OTHER, SELFPAY ==
[2023-08-29 12:54] VITALS: BP 112/64; PULSE 80; RESP 18; O2SAT 96; BMI 33.8
--- NOTE | 2023-08-29 13:07 | HO.ANESPROP2 ---
Documented by User: Karen De La Torre NP 08/29/23 13:19 HPI - Anesthesia Eval Consult details Narrative: 63yo F for Right Knee Replacement Total Medically cleared No recent illness No CP/SOB within limits of pain GERD. Well controlled on H2 yoni prn (pt denies GERD dx) Thyriod ds. Levothyroixine 50mg daily. 07/2023 TSH elevated, but Free T4 WNL PMFSH Active Problems Active Problems: All Active Problems (Updated 08/29/23 @ 12:40 by Priscilla Hernandez RN) Diverticulitis large intestine (Acute) Osteoarthritis of right knee (Acute) Arthritis of left knee (Acute) Diverticular disease of colon (Acute) Colon cancer screening (Acute) Arthritis (Acute) Past Medical History Medical History Thyroid disease Diverticular disease of colon GERD (gastroesophageal reflux disease) Colon cancer screening Gall bladder, polycystic disease Partial small bowel obstruction Arthritis Hyperlipemia Depression HTN (hypertension) Family History Family History Mother Diabetes Father Emphysema lung Family history of problems with anesthesia: No Surgical History Surgical History History of appendectomy Hx of colonoscopy History of arthroscopy of right knee History of arthroscopy of left knee H/O: hysterectomy History of Problems with Anesthesia: Yes (PONV) Social History Social History Household Members: Spouse Housing: Apartment Are you a primary day care home provider to a significant other at home: No Do you presently have visiting nurse or other home services: No Patient Tobacco Use Status: Never used Tobacco Second Hand Smoke Exposure: No Use of substances other than those prescribed or required for medical reasons: No Have you been hit, kicked, punched, or otherwise hurt by someone within the past year? If so, by whom?: No Advance Directives: No Advance Directives Information Provided: No Advance Directives on File: No Recently lost weight without trying: No Eating poorly because of decreased appetite: No Nutrition Risks: No Nutritional Risk Patient : No : No Poor oral hygiene: Yes (full upper and lower denture) service: No Current occupational status: retired Meds Allergies Allergy/AdvReac Type Severity Reaction Status Date / Time diazepam [From VALIUM] Allergy Unknown HALLUCINATION/DIFF Verified 09/05/23 07:28 BREATHING Home Medications Medication Instructions Recorded Confirmed Last Taken Type atorvastatin 80 mg tablet 1 tab PO DAILY 01/21/22 09/05/23 09/05/23 History clonazepam 0.5 mg tablet 1 tab PO BEDTIME PRN anxiety 01/21/22 08/29/23 11/08/22 History hydrochlorothiazide 25 mg tablet 1 tab PO DAILY 01/21/22 09/05/23 09/01/23 History meloxicam 15 mg tablet 1 tab PO DAILY 01/21/22 09/05/23 09/01/23 History multivitamin-ferrous 1 tab PO DAILY 01/21/22 08/29/23 01/20/22 History fumarate-folic acid 18 mg-400 mcg tablet (Centrum Women) zolpidem 10 mg tablet 1 tab PO BEDTIME 01/21/22 08/29/23 01/20/22 History lisinopril 10 mg tablet 1 tab PO DAILY 11/03/22 09/05/23 09/01/23 History naloxone 4 mg/actuation nasal spray 1 spray intranasal DAILY PRN 11/03/22 08/29/23 Unknown History Opioid Overdose oxycodone-acetaminophen 5 mg-325 1 tab PO BID PRN Pain 11/03/22 08/29/23 Unknown History mg tablet famotidine 20 mg tablet (Pepcid) 20 mg PO DAILY abdominal discomfort 08/29/23 09/05/23 09/05/23 History levothyroxine 25 mcg tablet 50 mcg PO DAILY@0600 08/29/23 09/05/23 09/05/23 History Exam Height,Weight and Vital Signs: Height 5 ft 4 in Weight 89.358 kg Last Vital Signs Pulse 80 08/29/23 12:54 Resp 18 08/29/23 12:54 BP 112/64 08/29/23 12:54 Pulse Ox 96 08/29/23 12:54 O2 Del Method Room Air 08/29/23 12:54 Pertinent Lab Results Pertinent Lab Results: Laboratory Tests 05/09/23 05/09/23 08/16/23 07:55 07:55 08:43 WBC 6.1 Hgb 12.0 Hct 37.7 Plt Count 281 Sodium 141 Potassium 3.9 Chloride 107 Carbon Dioxide 26 BUN 21 H Creatinine 1.00 Calcium Total Bilirubin 0.4 Direct Bilirubin 0.1 AST 21 ALT 15 Alkaline Phosphatase 60 Total Protein 7.2 Albumin 4.1 TSH Free T4 08/16/23 08/16/23 08:43 08:43 WBC Hgb Hct Plt Count Sodium Potassium Chloride Carbon Dioxide BUN Creatinine Calcium 9.7 Total Bilirubin Direct Bilirubin AST ALT Alkaline Phosphatase Total Protein Albumin TSH 4.95 H Free T4 1.06 Narrative Narrative: EKG 07/2023 SR Horizontal axis Minor Right - precordial repol disturbance, feminine pattern Airway Mallampati Class: II TM Dist: >3cm Neck ROM: Full Denture: Upper and Lower Heart: RRR Lungs: CTAB Assessment and Plan Assessment Anesthesia Assessment: Anesthesia Plan Discussed and PAT Visit Final Anesthetic Review Family History of Problems with Anesthesia: No History of Problems with Anesthesia: Yes (PONV) Documented by User: Siobhan Santana MD 09/05/23 09:51 PMFSH Past Medical History Medical History Thyroid disease Diverticular disease of colon GERD (gastroesophageal reflux disease) Colon cancer screening Gall bladder, polycystic disease Partial small bowel obstruction Arthritis Hyperlipemia Depression HTN (hypertension) Family History Family History Mother Diabetes Father Emphysema lung Surgical History Surgical History History of appendectomy Hx of colonoscopy History of arthroscopy of right knee History of arthroscopy of left knee H/O: hysterectomy Social History Social History Household Members: Spouse Housing: Apartment Are you a primary day care home provider to a significant other at home: No Do you presently have visiting nurse or other home services: No Patient Tobacco Use Status: Never used Tobacco Second Hand Smoke Exposure: No Use of substances other than those prescribed or required for medical reasons: No Have you been hit, kicked, punched, or otherwise hurt by someone within the past year? If so, by whom?: No Advance Directives: No Advance Directives Information Provided: No Advance Directives on File: No Recently lost weight without trying: No Eating poorly because of decreased appetite: No Nutrition Risks: No Nutritional Risk Patient : No : No Poor oral hygiene: Yes (full upper and lower denture) service: No Current occupational status: retired [employer] Allergies Allergy/AdvReac Type Severity Reaction Status Date / Time diazepam [From VALIUM] Allergy Unknown HALLUCINATION/DIFF Verified 09/05/23 07:28 BREATHING Home Medications Medication Instructions Recorded Confirmed Last Taken Type atorvastatin 80 mg tablet 1 tab PO DAILY 01/21/22 09/05/23 09/05/23 History clonazepam 0.5 mg tablet 1 tab PO BEDTIME PRN anxiety 01/21/22 08/29/23 11/08/22 History hydrochlorothiazide 25 mg tablet 1 tab PO DAILY 01/21/22 09/05/23 09/01/23 History meloxicam 15 mg tablet 1 tab PO DAILY 01/21/22 09/05/23 09/01/23 History multivitamin-ferrous 1 tab PO DAILY 01/21/22 08/29/23 01/20/22 History fumarate-folic acid 18 mg-400 mcg tablet (Centrum Women) zolpidem 10 mg tablet 1 tab PO BEDTIME 01/21/22 08/29/23 01/20/22 History lisinopril 10 mg tablet 1 tab PO DAILY 11/03/22 09/05/23 09/01/23 History naloxone 4 mg/actuation nasal spray 1 spray intranasal DAILY PRN 11/03/22 08/29/23 Unknown History Opioid Overdose oxycodone-acetaminophen 5 mg-325 1 tab PO BID PRN Pain 11/03/22 08/29/23 Unknown History mg tablet famotidine 20 mg tablet (Pepcid) 20 mg PO DAILY abdominal discomfort 08/29/23 09/05/23 09/05/23 History levothyroxine 25 mcg tablet 50 mcg PO DAILY@0600 08/29/23 09/05/2324 History Assessment and Plan Assessment Anesthesia Assessment: Chart Reviewed Final Anesthetic Review ASA Class: II Final Preanesthetic Review: No Changes in Pt Med Stat, Meds/Allgs Chart Reviewed, Consent Obtained/Reviewed and Anes Risks/Benef Reviewed Patient Risk: Intermediate Procedure Risk: Intermediate Anesthetic Plan Anesthetic Plan: Spinal Disposition: Standard PACU
[2023-08-29 15:55] LABS: MRSA Nasal PCR NEGATIVE (Negative); SA Nasal PCR NEGATIVE (Negative)
[2023-09-05] VITALS (14 sets, daily range): BP systolic 104–171; BP diastolic 65–90; PULSE 54–70; RESP 14–63; TEMP 36.1–36.9; O2SAT 94–99
--- NOTE | ~2023-09-05 | XR_ITS ---
EXAMINATION: XR CHEST CLINICAL INFORMATION: Hypoxia COMPARISON: Chest radiograph from 01/14/2023 TECHNIQUE: Frontal view of the chest was obtained. FINDINGS: Bilateral low lung volumes. No pneumothorax. Trachea is midline. Cardiomediastinal silhouette is not enlarged. Aorta is atherosclerotic calcifications. No large pleural effusion. Osseous structures are intact. Soft tissues are unremarkable. XR/XR chest 1V IMPRESSION: No acute cardiopulmonary process.
--- NOTE | ~2023-09-05 | XR_ITS ---
EXAMINATION: XR KNEE, RIGHT CLINICAL INFORMATION: Right knee total knee arthroplasty. COMPARISON: 11/07/2022 TECHNIQUE: Two views of the right knee. FINDINGS: Postsurgical changes with anterior skin eb, soft tissue swelling and joint effusion. Lucencies characteristic of air layer in the regions of the suprapatellar and infrapatellar regions on crosstable lateral view. Additional scattered small lucencies in the anterior soft tissues. Status post right total knee arthroplasty. Hardware appears intact. XR/XR knee RT 2V IMPRESSION: 1. Postsurgical changes. Soft tissue swelling and effusion with lucencies characteristic of air as detailed above. 2. Hardware appears intact status post total knee arthroplasty. This study was presented today September 05, 2023 for interpretation. Stat results provided at this time as requested by referring provider.
--- NOTE | 2023-09-05 07:21 | PHA.MEDREC ---
Pharmacy Consult ? Medication Reconciliation Pharmacy has completed the medication reconciliation. Reviewed med rec done by nursing
--- NOTE | 2023-09-05 11:05 | P.BOP_ITS ---
Brief Operative Note Date of Service: 09/05/23 Pre-op diagnosis: Right knee OA Post-op diagnosis: same Procedure: Right TKA Implants: Edmund triathlon cemented posterior stabilized 10/28/18 Surgeon: Flako Young MD Anesthesia: regional, local and spinal Was an Account Services Representative used for this Procedure?: Yes Account Services Representative: Raz Izaguirre Estimated blood loss (mL): 25 Tourniquet time (min): 75 IV fluids (mL): 1,000 Pathology: other Condition: stable Disposition: PACU
[2023-09-05] MEDS: Acetaminophen 1,000 MG/100 ML PIGGYBACK 400 MG IV (11:50)
[2023-09-05 13:53] LABS: Hematocrit 37.7 % (37.0-47.0); Hemoglobin 12.2 g/dl (12.0-16.0)
[2023-09-05] MEDS: oxyCODONE HCl Immed Release 5 MG TABLET PO (15:15)
[2023-09-05] MEDS: Lactated Ringers 1,000 ML 100 ML IVCONT ×2 (17:56→23:39)
[2023-09-05] MEDS: HYDROmorphone HCl 0.5 MG/0.5 ML SYRINGE 0.25 MG IVPUSH (18:06)
[2023-09-05] MEDS: Acetaminophen 325 MG TABLET 650 MG PO (18:51)
[2023-09-05] MEDS: oxyCODONE HCl ER 10 MG TAB.ER.12H PO (20:49)
[2023-09-05] MEDS: Celecoxib 200 MG CAPSULE PO (20:49)
[2023-09-05] MEDS: Zolpidem Tartrate 5 MG TABLET PO (20:50)
[2023-09-05] MEDS: Docusate Sodium 100 MG CAPSULE PO (20:50)
[2023-09-05] MEDS: oxyCODONE HCl Immed Release 5 MG TABLET 10 MG PO (20:54)
--- NOTE | 2023-09-05 21:28 | HO.PM.IMCN ---
History of Present Illness Data of Consult Service Date: 09/05/23 Requesting physician: Flako Young Primary Care Provider: Steven Rose MD [facility] Reason for consult: Medical management of patient who is s/p Righyt TKA 63 year old obese female who speaks only Kiswahili who was admitted following an uncomplicated right TKA for right knee osteoarthritis. She has multiple medical problems including hypothyroidism, GERD, hyperlipidemia, hypertension, and depression. She currently has no complains except for pain around her right knee. Her vital signs are stable except for blood pressure which is mildly elevated. We have been requested to assist in her perioperative inpatient care. Review of Systems Review of Systems: Yes all other systems are reviewed and are negative PMFSH Medical History Thyroid disease Diverticular disease of colon GERD (gastroesophageal reflux disease) Colon cancer screening Gall bladder, polycystic disease Partial small bowel obstruction Arthritis Hyperlipemia Depression HTN (hypertension) Functional capacity: independent ambulation Patient : No Family History Mother Diabetes Father Emphysema lung Surgical History History of appendectomy Hx of colonoscopy History of arthroscopy of right knee History of arthroscopy of left knee H/O: hysterectomy Social History Household Members: Spouse Housing: Apartment Are you a primary career technical education teacher to a significant other at home: No Do you presently have visiting nurse or other home services: No Patient Tobacco Use Status: Never used Tobacco Second Hand Smoke Exposure: No Use of substances other than those prescribed or required for medical reasons: No Currently Displaying Signs/Symptoms of Drug Intoxication Withdrawal: No Have you been hit, kicked, punched, or otherwise hurt by someone within the past year? If so, by whom?: No Do you feel safe in your current relationship?: Yes Is there a partner from a previous relationship who is making you feel unsafe now?: No Are you made to feel afraid or neglected: No Advance Directives: No Advance Directives Information Provided: No Advance Directives on File: No Do you have thoughts of harming others: None Do you have a plan to hurt others: No Plan Recently lost weight without trying: No Eating poorly because of decreased appetite: No Nutrition Risks: No Nutritional Risk Patient : No : No Poor oral hygiene: Yes (full upper and lower denture) service: No Current occupational status: retired Meds Allergies Allergy/AdvReac Type Severity Reaction Status Date / Time diazepam [From VALIUM] Allergy Unknown HALLUCINATION/DIFF Verified 09/05/23 07:28 BREATHING Active Medications: Current Medications Acetaminophen (Acetaminophen 325 Mg Tablet) 650 mg PO Q6H PRN PRN Reason: Pain, Mild (Pain Scale 1-3) Last Admin: 09/05/23 18:51 Dose: 650 mg Aspirin (Aspirin 325 Mg Tablet) 325 mg PO BID [facility] Atorvastatin Calcium (Atorvastatin Calcium 80 Mg Tablet) 80 mg PO DAILY [facility] Celecoxib (Celecoxib 200 Mg Capsule) 200 mg PO BID [facility] Last Admin: 09/05/23 20:49 Dose: 200 mg Clonazepam (Clonazepam 0.5 Mg Tablet) 0.5 mg PO BEDTIME PRN PRN Reason: anxiety Docusate Sodium (Docusate Sodium 100 Mg Capsule) 100 mg PO BID [facility] Last Admin: 09/05/23 20:50 Dose: 100 mg Famotidine (Famotidine 20 Mg Tablet) 20 mg PO DAILY [facility] Hydrochlorothiazide (Hydrochlorothiazide 25 Mg Tablet) 25 mg PO DAILY [facility]; Protocol Hydromorphone HCl (Hydromorphone Hcl 0.5 Mg/0.5 Ml Syringe) 0.25 mg IVPUSH Q4H PRN; Protocol PRN Reason: Pain, Severe (Pain Scale 7-10) Last Admin: 09/05/23 18:06 Dose: 0.25 mg Lactated Ringer's (Lr) 1,000 mls @ 100 mls/hr IVCONT .Q10H MARIJA Stop: 09/06/23 11:13 Last Admin: 09/05/23 17:56 Dose: 100 mls/hr Levothyroxine Sodium (Levothyroxine Sodium 50 Mcg Tablet) 50 mcg PO DAILY@0600 [facility] Lisinopril (Lisinopril 10 Mg Tablet) 10 mg PO DAILY [facility]; Protocol Multivitamins/Vitamin C (Multivitamin Tablet) 1 tab PO DAILY [facility] Ondansetron HCl (Ondansetron Hcl 4 Mg/2 Ml Vial) 4 mg IVPUSH Q8H PRN PRN Reason: Nausea and Vomiting Oxycodone HCl (Oxycodone Hcl Immed Release 5 Mg Tablet) 10 mg PO Q4H PRN PRN Reason: Pain, Moderate(Pain Scale 4-6) Last Admin: 09/05/23 20:54 Dose: 10 mg Oxycodone HCl (Oxycodone Hcl Er 10 Mg Tab.Er.12h) 10 mg PO BID [facility] Last Admin: 09/05/23 20:49 Dose: 10 mg Oxycodone HCl (Oxycodone Hcl Immed Release 5 Mg Tablet) 1 mg PO BID PRN PRN Reason: Pain Sodium Chloride (0.9 % Sodium Chloride Flush 3 Ml Syringe) 3 ml IVFLUSH QSHIFT [facility] Last Admin: 09/05/23 17:56 Dose: Not Given Zolpidem Tartrate (Zolpidem Tartrate 5 Mg Tablet) 5 mg PO BEDTIME [facility] Last Admin: 09/05/23 20:50 Dose: 5 mg Home Medications Medication Instructions Recorded Confirmed Last Taken Type atorvastatin 80 mg tablet 1 tab PO DAILY 01/21/22 09/05/23 09/05/23 History clonazepam 0.5 mg tablet 1 tab PO BEDTIME PRN anxiety 01/21/22 08/29/23 11/08/22 History hydrochlorothiazide 25 mg tablet 1 tab PO DAILY 01/21/22 09/05/23 09/01/23 History meloxicam 15 mg tablet 1 tab PO DAILY 01/21/22 09/05/23 09/01/23 History multivitamin-ferrous 1 tab PO DAILY 01/21/22 08/29/23 01/20/22 History fumarate-folic acid 18 mg-400 mcg tablet (Centrum Women) zolpidem 10 mg tablet 1 tab PO BEDTIME 01/21/22 08/29/23 01/20/22 History lisinopril 10 mg tablet 1 tab PO DAILY 11/03/22 09/05/23 09/01/23 History naloxone 4 mg/actuation nasal spray 1 spray intranasal DAILY PRN 11/03/22 08/29/23 Unknown History Opioid Overdose oxycodone-acetaminophen 5 mg-325 1 tab PO BID PRN Pain 11/03/22 08/29/23 Unknown History mg tablet famotidine 20 mg tablet (Pepcid) 20 mg PO DAILY abdominal discomfort 08/29/23 09/05/23 09/05/23 History levothyroxine 25 mcg tablet 50 mcg PO DAILY@0600 08/29/23 09/05/23 09/05/23 History Physical Exam Vital Signs and Narrative: Vital Signs: Last Vital Signs Temp 96.9 F 09/05/23 19:44 Pulse 61 09/05/23 19:44 Resp 63 H 09/05/23 19:44 BP 156/90 H 09/05/23 19:44 Pulse Ox 97 09/05/23 19:44 O2 Del Method Nasal Cannula 09/05/23 19:44 O2 Flow Rate 2 09/05/23 19:44 BMI result Body Mass Index 33.8 General: Well nourished female in bed. Awake and alert. In no apparent distress Eyes: No pallor or jaundice. PERRLA, EOMI HENT: Moist oral mucus membranes. No oropharyngeal lesions. Neck: Supple. No cervical adenopathy. No JVD Cardiovascular: Regular rate and rhythm. Normal heart sounds. No murmurs, rubs or gallops. No JVD. No peripheral edema. Respiratory: Normal respiratory effort with no accessory muscle use. CTAB. Gastrointestinal: Abdomen is soft, non-tender, non-distended. NABS. No hepatosplenomegaly Extremities: No edema. No calf tenderness. Good peripheral pulses. Right knee in a brace. Skin: Warm/Dry. No rashes. No mottling. Capillary refill is < 2 seconds Neurological: AAOx4. Intact speech & cognition. Normal gait & balance. CN II - XII grossly intact but not individually tested. No motor or sensory deficits Hematologic: No bleeding. No ecchymosis. No swollen or tender lymph nodes. Psychiatric: Cooperative. Appropriate mood and affect. Results Labs 09/05/23 13:44 Imaging Radiologist's Impressions: Impressions Knee X-Ray 09/05/23 13:38 IMPRESSION: 1. Postsurgical changes. Soft tissue swelling and effusion with lucencies characteristic of air as detailed above. 2. Hardware appears intact status post total knee arthroplasty. This study was presented today September 05, 2023 for interpretation. Stat results provided at this time as requested by referring provider. Assessment and Plan (1) S/P right knee surgery: Status: Acute (2) Hypothyroidism: Qualifiers: Hypothyroidism type: unspecified Qualified Code(s): E03.9 - Hypothyroidism, unspecified Status: Acute Plan 63 year old obese female withmultiple medical problems including hypothyroidism, GERD, hyperlipidemia, hypertension, and depression is admitted after undergoing rigth TKA earlier today 1. S/P R TKA - further management per the orthopedic team 2. Hypertension - BP control is suboptimal - resume HCTZ and Lisinopril 3. Hypothyroidism - resume Levothyroxine 4. Hyperlipidemia - resume Atorvastatin Patient is fairly stable. We will continue to follow peripherally Total time managing care of this patient today: 55 minutes.
[2023-09-06] VITALS (7 sets, daily range): BP systolic 122–146; BP diastolic 70–86; PULSE 72–82; RESP 12–18; TEMP 36–36.4; O2SAT 93–97
[2023-09-06] MEDS: HYDROmorphone HCl 0.5 MG/0.5 ML SYRINGE 0.25 MG IVPUSH ×2 (05:18→11:16)
[2023-09-06] MEDS: Levothyroxine Sodium 50 MCG TABLET PO (05:20)
[2023-09-06 07:14] LABS: MANUAL DIFF FLAG NO
[2023-09-06 07:30] LABS: Basophils Percent Auto 0.2 % (0-2); Hemoglobin 11.9 g/dl (12.0-16.0); Imm Gran Abs Auto 0.03 X10*3/uL (0.00-0.03); Imm Gran Pct Auto 0.4 % (0.0-0.4); Lymphocytes Absolute Auto 1.6 X10*3/uL (1.2-4.9); Lymphocytes Percent Auto 18.8 % (20-40); Mean Corpuscular HGB Conc 32.2 g/dl (31.0-35.0); Mean Corpuscular Hemoglobin 26.4 pg (27.0-33.0); Mean Corpuscular Volume 82.2 fL (80.0-98.0); Mean Platelet Volume 10.2 fL (9.4-12.3); Monocytes Absolute Auto 1.2 X10*3/uL (0.1-1.2); Monocytes Percent Auto 13.6 % (2-11); Neutrophils Absolute Auto 5.7 x10*3/uL (2.0-8.3); Platelet Count 284 X10*3/uL (160-400); Red Cell Distribution Width 13.1 % (11.0-16.0); White Blood Count 8.4 X10*3/uL (4.8-10.8)
[2023-09-06 07:41] LABS: Anion Gap 15 (12-20); Blood Urea Nitrogen 21 mg/dL (9-16); Calcium 9.5 mg/dL (8.4-10.2); Carbon Dioxide 25 mmol/L (22-29); Chloride 106 mmol/L (96-108); Creatinine Clr Calc Pharmacy 75.8; Estimated Glomerular Filt Rate > 60; Glucose Fasting 117 mg/dL (60-99); Potassium 4.1 mmol/L (3.3-5.1); Sodium 142 mmol/L (135-145)
--- NOTE | 2023-09-06 07:42 | PM.PNORT ---
Subjective Subjective Date of Service: 09/06/23 Interval history: POD1 s/p RTKA Patient is resting in bed comfortably No overnight events Pain is managed No additional complaints Physical Exam Vital Signs: Vital Signs: Last Vital Signs Temp 96.8 F 09/06/23 07:40 Pulse 73 09/06/23 07:40 Resp 12 09/06/23 07:40 BP 146/81 H 09/06/23 07:40 Pulse Ox 97 09/06/23 07:40 O2 Del Method Nasal Cannula 09/06/23 07:40 O2 Flow Rate 2 09/06/23 07:40 BMI result Body Mass Index 33.8 Const: General: cooperative, healthy appearing and no acute distress Resp: Effort & Inspection: normal respiratory effort and able to speak in complete sentences Cardio: Rate: regular rate Peripheral pulses: Peripheral pulses 2+ throughout GI: Palpation (GI): Soft to palpation Skin: Lesions: no lesions Rashes: no rashes Extrem: Other: right knee dressing is c/d/i. Able to dorsi/plantar flex. Calf is supple and nontender. Sensation intact. Pedal pulse intact. Procedures Date of Service Date of Service: 09/06/23 Progress Note: A&P Assessment and plan (1) Status post total knee replacement, right: Status: Acute Plan Continue pain mgmnt Begin ASA for dvt ppx begin PT for RTKA Dispo planning-Pending PT eval, pain mgmnt Time Spent With Patient Time: Total time managing care of this patient today ____ minutes. Quality Stroke Does the patient have a stroke diagnosis?: No VTE Prior VTE?: No VTE Risk Level:: Surgical - high VTE Device Contraindication: N/A - Device Ordered VTE Drug Contraindication: N/A - Med Ordered
[2023-09-06] MEDS: oxyCODONE HCl ER 10 MG TAB.ER.12H PO ×2 (08:42→20:04)
[2023-09-06] MEDS: Famotidine 20 MG TABLET PO (08:42)
[2023-09-06] MEDS: hydroCHLOROthiazide 25 MG TABLET PO (08:43)
[2023-09-06] MEDS: lisinopriL 10 MG TABLET PO (08:43)
[2023-09-06] MEDS: Celecoxib 200 MG CAPSULE PO ×2 (08:43→20:04)
[2023-09-06] MEDS: Aspirin 325 MG TABLET PO ×2 (08:43→20:04)
[2023-09-06] MEDS: Docusate Sodium 100 MG CAPSULE PO ×2 (08:43→20:04)
[2023-09-06] MEDS: Atorvastatin Calcium 80 MG TABLET PO (08:43)
[2023-09-06] MEDS: Multivitamin TABLET 1 TAB PO (08:43)
[2023-09-06] MEDS: Lactated Ringers 1,000 ML 100 ML IVCONT (11:05)
[2023-09-06] MEDS: ondansetron HCL 4 MG/2 ML VIAL IVPUSH (11:16)
--- NOTE | 2023-09-06 12:22 | HO.POSTANES ---
Post Anesthesia Evaluation Post Anesthesia Evaluation Date of Service: 09/06/23 Vital Signs: Vital Signs Temp Pulse Resp BP Pulse Ox O2 Del Method O2 Flow Rate 09/06/23 11:13 94 Room Air 09/06/23 10:12 73 146/81 H 97 09/06/23 07:40 96.8 F 73 12 146/81 H 97 Nasal Cannula 2 09/06/23 03:47 96.8 F 72 16 122/86 95 Nasal Cannula 2 Anesthesia: Spinal and Nerve Block Mental Status: Awake Pain Control: Satisfactory Nausea/Vomiting: None Hydration: Adequate Anesthesia-Related Issues: No Anes. Related Issues
[2023-09-06] MEDS: Acetaminophen 325 MG TABLET 650 MG PO (13:00)
[2023-09-06] MEDS: oxyCODONE HCl Immed Release 5 MG TABLET 10 MG PO ×3 (13:00→23:32)
--- NOTE | 2023-09-06 14:00 | MHC.CM.PN ---
pt lives with has own ride home does not expect to need servies when dcd
--- NOTE | 2023-09-06 14:06 | MHC.CM.PN ---
pt lives with had no services has own ride home dc plan homem no servies
--- NOTE | 2023-09-06 14:33 | MHC.CM.PN ---
pt lives with has own reide home referral to [facility]
--- NOTE | 2023-09-06 15:19 | HO.PM.IMPN ---
Subjective Subjective Date of Service: 09/06/23 Interval History: htn Review of Systems denies any new c/o. no sob or cough Physical Exam Vital Signs: Vital Signs: Last Vital Signs Temp 96.8 F 09/06/23 07:40 Pulse 73 09/06/23 10:12 Resp 12 09/06/23 07:40 BP 146/81 H 09/06/23 10:12 Pulse Ox 94 09/06/23 14:08 O2 Del Method Room Air 09/06/23 11:13 O2 Flow Rate 2 09/06/23 07:40 BMI result Body Mass Index 33.8 Appearance: Alert.? Oriented X3.? cvs: rrr, [id number] , no murmur res: clear to auscultation ,no rhonchii or wheezing abd: no rebound or guarding ,nt, bs present. ext pulses present , no cyanosis. right knee s/p surgery (wrpaped). neuro: axo3 , nonfocal. Objective Data Active Medications Acetaminophen (Acetaminophen 325 Mg Tablet) 650 mg PO Q6H PRN PRN Reason: Pain, Mild (Pain Scale 1-3) Last Admin: 09/06/23 13:00 Dose: 650 mg Documented By: FRED Aspirin (Aspirin 325 Mg Tablet) 325 mg PO BID [facility] Last Admin: 09/06/23 08:43 Dose: 325 mg Documented By: BONNIE Atorvastatin Calcium (Atorvastatin Calcium 80 Mg Tablet) 80 mg PO DAILY [facility] Last Admin: 09/06/23 08:43 Dose: 80 mg Documented By: BONNIE Celecoxib (Celecoxib 200 Mg Capsule) 200 mg PO BID [facility] Last Admin: 09/06/23 08:43 Dose: 200 mg Documented By: BONNIE Clonazepam (Clonazepam 0.5 Mg Tablet) 0.5 mg PO BEDTIME PRN PRN Reason: anxiety Docusate Sodium (Docusate Sodium 100 Mg Capsule) 100 mg PO BID [facility] Last Admin: 09/06/23 08:43 Dose: 100 mg Documented By: BONNIE Famotidine (Famotidine 20 Mg Tablet) 20 mg PO DAILY [facility] Last Admin: 09/06/23 08:42 Dose: 20 mg Documented By: BONNIE Hydrochlorothiazide (Hydrochlorothiazide 25 Mg Tablet) 25 mg PO DAILY [facility]; Protocol Last Admin: 09/06/23 08:43 Dose: 25 mg Documented By: BONNIE Hydromorphone HCl (Hydromorphone Hcl 0.5 Mg/0.5 Ml Syringe) 0.25 mg IVPUSH Q4H PRN; Protocol PRN Reason: Pain, Severe (Pain Scale 7-10) Last Admin: 09/06/23 11:16 Dose: 0.25 mg Documented By: BONNIE Levothyroxine Sodium (Levothyroxine Sodium 50 Mcg Tablet) 50 mcg PO DAILY@0600 [facility] Last Admin: 09/06/23 05:20 Dose: 50 mcg Documented By: RENNY Lisinopril (Lisinopril 10 Mg Tablet) 10 mg PO DAILY [facility]; Protocol Last Admin: 09/06/23 08:43 Dose: 10 mg Documented By: BONNIE Multivitamins/Vitamin C (Multivitamin Tablet) 1 tab PO DAILY [facility] Last Admin: 09/06/23 08:43 Dose: 1 tab Documented By: BONNIE Ondansetron HCl (Ondansetron Hcl 4 Mg/2 Ml Vial) 4 mg IVPUSH Q8H PRN PRN Reason: Nausea and Vomiting Last Admin: 09/06/23 11:16 Dose: 4 mg Documented By: BONNIE Oxycodone HCl (Oxycodone Hcl Immed Release 5 Mg Tablet) 10 mg PO Q4H PRN PRN Reason: Pain, Moderate(Pain Scale 4-6) Last Admin: 09/06/23 13:00 Dose: 10 mg Documented By: FRED Oxycodone HCl (Oxycodone Hcl Er 10 Mg Tab.Er.12h) 10 mg PO BID [facility] Last Admin: 09/06/23 08:42 Dose: 10 mg Documented By: BONNIE Oxycodone HCl (Oxycodone Hcl Immed Release 5 Mg Tablet) 1 mg PO BID PRN PRN Reason: Pain Sodium Chloride (0.9 % Sodium Chloride Flush 3 Ml Syringe) 3 ml IVFLUSH QSHIFT [facility] Last Admin: 09/06/23 08:42 Dose: Not Given Documented By: BONNIE Non-Admin Reason: IV Running Zolpidem Tartrate (Zolpidem Tartrate 5 Mg Tablet) 5 mg PO BEDTIME [facility] Last Admin: 09/05/23 20:50 Dose: 5 mg Documented By: DYLAN Labs 09/06/23 05:58 09/06/23 05:58 Labs: Laboratory Results - last 24 hr 09/06/23 05:58 MCV 82.2 MCH 26.4 L MCHC 32.2 RDW 13.1 Plt Count 284 MPV 10.2 Immature Gran % (Auto) 0.4 Neut % (Auto) 67.0 Lymph % (Auto) 18.8 L [place] % (Auto) 13.6 H Eos % (Auto) 0.0 Baso % (Auto) 0.2 Lymph # (Auto) 1.6 [place] # (Auto) 1.2 Eos # (Auto) 0.0 Baso # (Auto) 0.0 Abs Immat Gran (auto) 0.03 Absolute Neuts (auto) 5.7 Absolute Nucleated RBC 0.000 Nucleated RBC % (auto) 0.0 Anion Gap 15 Estim Creat Clear Calc 75.8 Estimated GFR > 60 Fasting Glucose 117 H Calcium 9.5 Assessment and Plan (1) Hypothyroidism: Status: Acute Plan 63 year old obese female withmultiple medical problems including hypothyroidism, GERD, hyperlipidemia, hypertension, and depression is admitted after undergoing rigth TKA earlier today 1. S/P R TKA incentive sprio stop fluids ,bowel regimen,pain management further management per the orthopedic team 2. Hypertension - BP improving - resume HCTZ and Lisinopril 3. Hypothyroidism - resume Levothyroxine 4. Hyperlipidemia - resume Atorvastatin will sign off now ,please call us for further questions ,thanks for letting us participate in patient care. Quality Stroke Does the patient have a stroke diagnosis?: No VTE Prior VTE?: No VTE Risk Level:: Surgical - high VTE Device Contraindication: N/A - Device Ordered VTE Drug Contraindication: N/A - Med Ordered
[2023-09-06] MEDS: 0.9 % Sodium Chloride Flush 3 ML SYRINGE IVFLUSH ×2 (15:43→23:32)
[2023-09-06] MEDS: Zolpidem Tartrate 5 MG TABLET PO (20:04)
[2023-09-07 03:06] VITALS: BP 119/69; PULSE 88; RESP 16; TEMP 36; O2SAT 94
[2023-09-07] MEDS: Levothyroxine Sodium 50 MCG TABLET PO (05:55)
[2023-09-07] MEDS: oxyCODONE HCl Immed Release 5 MG TABLET 10 MG PO (06:01)
[2023-09-07 06:19] LABS: MANUAL DIFF FLAG NO
[2023-09-07 06:31] LABS: Basophils Percent Auto 0.4 % (0-2); Eosinophils Absolute Auto 0.3 X10*3/uL (0.0-0.4); Eosinophils Percent Auto 2.8 % (0-4); Hematocrit 33.9 % (37.0-47.0); Hemoglobin 10.9 g/dl (12.0-16.0); Imm Gran Abs Auto 0.04 X10*3/uL (0.00-0.03); Imm Gran Pct Auto 0.4 % (0.0-0.4); Lymphocytes Absolute Auto 1.9 X10*3/uL (1.2-4.9); Lymphocytes Percent Auto 20.1 % (20-40); Mean Corpuscular HGB Conc 32.2 g/dl (31.0-35.0); Mean Corpuscular Hemoglobin 26.3 pg (27.0-33.0); Mean Corpuscular Volume 81.9 fL (80.0-98.0); Mean Platelet Volume 10.2 fL (9.4-12.3); Monocytes Absolute Auto 1.3 X10*3/uL (0.1-1.2); Monocytes Percent Auto 13.8 % (2-11); Neutrophils Absolute Auto 5.8 x10*3/uL (2.0-8.3); Neutrophils Percent Auto 62.5 % (45-73); Platelet Count 240 X10*3/uL (160-400); Red Blood Count 4.14 X10*6/uL (4.20-5.50); Red Cell Distribution Width 13.2 % (11.0-16.0); White Blood Count 9.4 X10*3/uL (4.8-10.8)
[2023-09-07 06:50] LABS: Anion Gap 11 (12-20); Blood Urea Nitrogen 23 mg/dL (9-16); Calcium 9.6 mg/dL (8.4-10.2); Carbon Dioxide 30 mmol/L (22-29); Chloride 103 mmol/L (96-108); Creatinine Clr Calc Pharmacy 50.2; Estimated Glomerular Filt Rate 45; Glucose Fasting 116 mg/dL (60-99); Potassium 4.1 mmol/L (3.3-5.1); Sodium 140 mmol/L (135-145)
[2023-09-07 08:00] VITALS: BP 119/57; PULSE 91; RESP 12; TEMP 36.1; O2SAT 92
[2023-09-07 08:05] VITALS: BP 119/69; PULSE 88; O2SAT 94
[2023-09-07] MEDS: Docusate Sodium 100 MG CAPSULE PO (09:03)
[2023-09-07] MEDS: oxyCODONE HCl ER 10 MG TAB.ER.12H PO (09:03)
[2023-09-07] MEDS: lisinopriL 10 MG TABLET PO (09:04)
[2023-09-07] MEDS: Multivitamin TABLET 1 TAB PO (09:04)
[2023-09-07] MEDS: Aspirin 325 MG TABLET PO (09:04)
[2023-09-07] MEDS: hydroCHLOROthiazide 25 MG TABLET PO (09:04)
[2023-09-07] MEDS: Famotidine 20 MG TABLET PO (09:04)
[2023-09-07] MEDS: Celecoxib 200 MG CAPSULE PO (09:04)
[2023-09-07] MEDS: Atorvastatin Calcium 80 MG TABLET PO (09:05)
[2023-09-07] MEDS: 0.9 % Sodium Chloride Flush 3 ML SYRINGE IVFLUSH (09:12)
--- NOTE | 2023-09-07 09:18 | PM.DS ---
DS: Providers Provider Date of Service: 09/07/23 Date of admission: 09/05/23 07:05 Primary care physician: Steven Rose MD Consults: 09/05/23 17:45 Consult to Hospitalist Routine Comment: Consulting Provider: Hospitalist Reason For Exam: medical management, opiate use disorder hx DS: Diagnosis Discharge Diagnosis (1) Hypothyroidism: Status: Acute DS: Summary Hospital Course Hospital Course: The patient underwent a successful right total knee arthroplasty, they were transferred to PACU and then to the floor to recover. During their stay, their vitals were stable, afebrile at 96.9. Labs were unremarkable, H/H 10.9/33.9. POD 1 they were started on Aspirin 325mg po bid for DVT ppx, they also received Physical Therapy services twice a day. Prior to discharge, their dressing was changed, incision clean dry and intact, new Aquacel dressing applied and the plan was to be discharged home with VNA services. Time Attestation Discharge coordination time: Less than 30 minutes Quality: Safe Use of Opioids Does Pt have an Active Cancer Diagnosis on the Problem List?: No Quality: Stroke Does the patient have a stroke diagnosis?: No Physical Exam Vital Signs: Vital Signs: Last Vital Signs Temp 96.9 F 09/07/23 08:00 Pulse 88 09/07/23 08:05 Resp 12 09/07/23 08:00 BP 119/69 09/07/23 08:05 Pulse Ox 94 09/07/23 08:05 O2 Del Method Nasal Cannula 09/07/23 08:00 O2 Flow Rate 2 09/07/23 08:00 BMI result Body Mass Index 33.8 Const: General: cooperative, healthy appearing and no acute distress Resp: Effort & Inspection: normal respiratory effort and able to speak in complete sentences Cardio: Rate: regular rate Peripheral pulses: Peripheral pulses 2+ throughout GI: Palpation (GI): Soft to palpation Skin: Lesions: no lesions Rashes: no rashes Extrem: Other: right knee dressing is c/d/i. Able to dorsi/plantar flex. Calf is supple and nontender. Sensation intact. Pedal pulse intact. DS: Data Data Completed and Pending Pending studies at discharge: Pending at discharge 09/05/23 10:49 Surgical [PTH] Routine Labs on day of discharge: Laboratory Results - last 24 hr 09/07/23 06:03 WBC 9.4 RBC 4.14 L Hgb 10.9 L Hct 33.9 L MCV 81.9 MCH 26.3 L MCHC 32.2 RDW 13.2 Plt Count 240 MPV 10.2 Immature Gran % (Auto) 0.4 Neut % (Auto) 62.5 Lymph % (Auto) 20.1 [place] % (Auto) 13.8 H Eos % (Auto) 2.8 Baso % (Auto) 0.4 Lymph # (Auto) 1.9 [place] # (Auto) 1.3 H Eos # (Auto) 0.3 Baso # (Auto) 0.0 Abs Immat Gran (auto) 0.04 H Absolute Neuts (auto) 5.8 Absolute Nucleated RBC 0.000 Nucleated RBC % (auto) 0.0 Sodium 140 Potassium 4.1 Chloride 103 Carbon Dioxide 30 H Anion Gap 11 L BUN 23 H Creatinine 1.21 Estim Creat Clear Calc 50.2 Estimated GFR 45 Fasting Glucose 116 H Calcium 9.6 Discharge Plan Discharge Anticipated Discharge Date/Time: 09/07/23 09:13 Patient Disposition: Home Health Service Discharge Diagnosis: s/p RTKA Referrals: Steven Rose MD [Primary Care Provider] - 1 Week Discharge Medications: New celecoxib 200 mg Capsule 200 mg PO BID 30 Days Qty: 60 0RF acetaminophen 325 mg Tablet 650 mg PO Q6H PRN (Reason: Pain, Mild (Pain Scale 1-3)) 30 Days Qty: 240 0RF aspirin 325 mg Tablet 325 mg PO BID 42 Days Qty: 84 0RF docusate sodium 100 mg Capsule 100 mg PO BID 30 Days Qty: 60 0RF oxycodone 5 mg Tablet 10 mg PO Q4H PRN (Reason: Pain, Moderate(Pain Scale 4-6)) 7 Days Qty: 42 0RF Rx Instructions: Partial Fill upon patient request. Continued (DME) an[place] [place] See Rx Instructions .MEDSUPPLY Qty: 1 0RF Rx Instructions: Anthony Front wheeled anjelica oxycodone-acetaminophen 5-325 mg tablet 1 tab PO BID PRN (Reason: Pain) lisinopril 10 mg tablet 1 tab PO DAILY naloxone 4 mg/actuation spray,non-aerosol 1 spray intranasal DAILY PRN (Reason: Opioid Overdose) atorvastatin 80 mg tablet 1 tab PO DAILY meloxicam 15 mg tablet 1 tab PO DAILY clonazepam 0.5 mg tablet 1 tab PO BEDTIME PRN (Reason: anxiety) hydrochlorothiazide 25 mg tablet 1 tab PO DAILY zolpidem 10 mg tablet 1 tab PO BEDTIME [facility] 18-400 mg-mcg Tablet 1 tab PO DAILY famotidine [Pepcid] 20 mg tablet 20 mg PO DAILY levothyroxine 25 mcg tablet 50 mcg PO DAILY@0600 Discharge Orders: Discharge Order (Routine); Ordered 09/07/23 Ordered By: Sherrie Arreaga Diet: Advance to usual diet Activity on Discharge: Use cane or walker Stand Alone Forms: Patient Portal Discharge page Care Plan Goals: restore fxn to rt knee Health Concerns: none Plan of Treatment: Physical Therapy for ROM 0-120, quad strength, gait training. Use walker for ambulation Limit stair climbing, No shower, No tub bath, No driving Continue anticoagulant Keep Aquacel dressing clean, dry and intact. Follow up with orthopedics in 2 weeks Assessment: stable for d/c
--- NOTE | 2023-09-07 09:21 | W.MHC.F2F ---
Service Date Service Date: 09/07/23 Encounter Date of encounter: 09/07/23 Reasons for Services Signs and symptoms assessed: s/p RTKA. Pt. is considered homebound due to recent surgery. Unable to drive, poor balance, poor gait mechanics. Reason for physical therapy: home safety and mobility, therapeutic exercises, restore joint function, gait/transfer training, assess need for DME and ADL training Homebound: Leaving the home is medically contraindicated at this time without the asist of a device and/or another person due th the listed conditions above and below. Reason homebound: unsteady gait / fall risk, leg weakness, pain with ambulation, pain with transfers, poor balance / fall risk and unable to drive Certification: Based on the above findings, I certify that this patient is confined to the home and needs intermittent detention care, physical therapy and/or speech therapy, or continues to need occupational therapy. The patient is under my care, and I have initiated the establishment of the plan of care. The patient will be followed by a physician who will periodically review the plan of care. Time Spent With Patient Time: Total time managing care of this patient today ____ minutes.
--- NOTE | 2023-09-07 09:34 | MHC.CM.PN ---
Addendum entered by Mamie Pereira 09/07/23 15:03: Discharge cancelled today. [facility] has been notified. Addendum entered by Mamie Pereira 09/07/23 15:00: .The patient's SPO2 85-92%. ABGs to be drawn by respiratory. [facility] notified DC may be on hold. Original Note: IMM 09/05/23 Patient is discharged to home today with [facility]. All discharge info including F2F has been sent to the agency. The patient.
--- NOTE | 2023-09-07 12:41 | HO.PM.IMPN ---
Subjective Subjective Date of Service: 09/07/23 Interval History: asked for follow up for sats Review of Systems denies any new c/o. no sob or cough emotional Physical Exam Vital Signs: Vital Signs: Last Vital Signs Temp 96.9 F 09/07/23 08:00 Pulse 88 09/07/23 08:05 Resp 12 09/07/23 08:00 BP 119/69 09/07/23 08:05 Pulse Ox 94 09/07/23 08:05 O2 Del Method Nasal Cannula 09/07/23 08:00 O2 Flow Rate 2 09/07/23 08:00 BMI result Body Mass Index 33.8 Appearance: Alert.? Oriented X3.? cvs: rrr, [id number] , no murmur res: abd: no rebound or guarding ,nt, bs present. ext pulses present , no cyanosis. right knee s/p surgery (wrpaped). neuro: axo3 , nonfocal. Objective Data Active Medications Acetaminophen (Acetaminophen 325 Mg Tablet) 650 mg PO Q6H PRN PRN Reason: Pain, Mild (Pain Scale 1-3) Last Admin: 09/06/23 13:00 Dose: 650 mg Documented By: FRED Aspirin (Aspirin 325 Mg Tablet) 325 mg PO BID [facility] Last Admin: 09/07/23 09:04 Dose: 325 mg Documented By: SHREE Atorvastatin Calcium (Atorvastatin Calcium 80 Mg Tablet) 80 mg PO DAILY [facility] Last Admin: 09/07/23 09:05 Dose: 80 mg Documented By: SHREE Celecoxib (Celecoxib 200 Mg Capsule) 200 mg PO BID [facility] Last Admin: 09/07/23 09:04 Dose: 200 mg Documented By: SHREE Clonazepam (Clonazepam 0.5 Mg Tablet) 0.5 mg PO BEDTIME PRN PRN Reason: anxiety Docusate Sodium (Docusate Sodium 100 Mg Capsule) 100 mg PO BID [facility] Last Admin: 09/07/23 09:03 Dose: 100 mg Documented By: SHREE Famotidine (Famotidine 20 Mg Tablet) 20 mg PO DAILY [facility] Last Admin: 09/07/23 09:04 Dose: 20 mg Documented By: SHREE Hydrochlorothiazide (Hydrochlorothiazide 25 Mg Tablet) 25 mg PO DAILY [facility]; Protocol Last Admin: 09/07/23 09:04 Dose: 25 mg Documented By: SHREE Hydromorphone HCl (Hydromorphone Hcl 0.5 Mg/0.5 Ml Syringe) 0.25 mg IVPUSH Q4H PRN; Protocol PRN Reason: Pain, Severe (Pain Scale 7-10) Last Admin: 09/06/23 11:16 Dose: 0.25 mg Documented By: BONNIE Levothyroxine Sodium (Levothyroxine Sodium 50 Mcg Tablet) 50 mcg PO DAILY@0600 [facility] Last Admin: 09/07/23 05:55 Dose: 50 mcg Documented By: MARIFER Lisinopril (Lisinopril 10 Mg Tablet) 10 mg PO DAILY [facility]; Protocol Last Admin: 09/07/23 09:04 Dose: 10 mg Documented By: SHREE Multivitamins/Vitamin C (Multivitamin Tablet) 1 tab PO DAILY [facility] Last Admin: 09/07/23 09:04 Dose: 1 tab Documented By: SHREE Ondansetron HCl (Ondansetron Hcl 4 Mg/2 Ml Vial) 4 mg IVPUSH Q8H PRN PRN Reason: Nausea and Vomiting Last Admin: 09/06/23 11:16 Dose: 4 mg Documented By: BONNIE Oxycodone HCl (Oxycodone Hcl Immed Release 5 Mg Tablet) 10 mg PO Q4H PRN PRN Reason: Pain, Moderate(Pain Scale 4-6) Last Admin: 09/07/23 06:01 Dose: 10 mg Documented By: MARIFER Oxycodone HCl (Oxycodone Hcl Er 10 Mg Tab.Er.12h) 10 mg PO BID [facility] Last Admin: 09/07/23 09:03 Dose: 10 mg Documented By: SHREE Oxycodone HCl (Oxycodone Hcl Immed Release 5 Mg Tablet) 1 mg PO BID PRN PRN Reason: Pain Polyethylene Glycol (Polyethylene Glycol 3350 17 Gm Powd.Pack) 17 gm PO DAILY PRN PRN Reason: Constipation Sodium Chloride (0.9 % Sodium Chloride Flush 3 Ml Syringe) 3 ml IVFLUSH QSHIFT [facility] Last Admin: 09/07/23 09:12 Dose: 3 ml Documented By: SHREE Zolpidem Tartrate (Zolpidem Tartrate 5 Mg Tablet) 5 mg PO BEDTIME [facility] Last Admin: 09/06/23 20:04 Dose: 5 mg Documented By: DYLAN Labs 09/07/23 06:03 09/07/23 06:03 Labs: Laboratory Results - last 24 hr 09/07/23 06:03 MCV 81.9 MCH 26.3 L MCHC 32.2 RDW 13.2 Plt Count 240 MPV 10.2 Immature Gran % (Auto) 0.4 Neut % (Auto) 62.5 Lymph % (Auto) 20.1 [place] % (Auto) 13.8 H Eos % (Auto) 2.8 Baso % (Auto) 0.4 Lymph # (Auto) 1.9 [place] # (Auto) 1.3 H Eos # (Auto) 0.3 Baso # (Auto) 0.0 Abs Immat Gran (auto) 0.04 H Absolute Neuts (auto) 5.8 Absolute Nucleated RBC 0.000 Nucleated RBC % (auto) 0.0 Anion Gap 11 L Estim Creat Clear Calc 50.2 Estimated GFR 45 Fasting Glucose 116 H Calcium 9.6 Assessment and Plan (1) Hypothyroidism: Status: Acute Plan 63 year old obese female withmultiple medical problems including hypothyroidism, GERD, hyperlipidemia, hypertension, and depression is admitted after undergoing rigth TKA . S/P R TKA incentive sprio stop fluids ,bowel regimen,pain management further management per the orthopedic team patient was anxious and not making appropriate breathing efforts -abg reviewed-seems fine ,sats fine with walking also(91-94% on ra) cxr -grossly seems fine ,official report pending Hypertension - BP improving - resume HCTZ and Lisinopril Hypothyroidism - resume Levothyroxine Hyperlipidemia - resume Atorvastatin will sign off ,please call us if any questions .staff/ortho updated. Quality Stroke Does the patient have a stroke diagnosis?: No VTE Prior VTE?: No VTE Risk Level:: Surgical - high VTE Device Contraindication: N/A - Device Ordered VTE Drug Contraindication: N/A - Med Ordered
[2023-09-07 15:15] VITALS: BP 129/77; PULSE 95; RESP 18; TEMP 36.2; O2SAT 91; O2SAT 93
[2023-09-07 15:18] LABS: ABG Base Excess 4.4 mmol/L; ABG HCO3 27 mmol/L (22-26); ABG pCO2 37 mmHg (32-45); ABG pH 7.48 (7.35-7.45); ABG pO2 79 mmHg (83-108)
--- NOTE | 2023-09-07 15:58 | PC.NURSE ---
pt desatting to 88% on room air this morning. Pt placed on 2L nasal canula, increased saturation to 94%. Gradually weaned O2 to 1L, maintained o2 sat of 94. Pt put back to room air, desatted to 88%. Dr Menjivar aware. pt placed on continuous o2 monitor. maintaining 90-92% on room air. Around 1400 pt saturation decreased to 85% on room air. This RN went to bedside, pt asymptomatic with no complaints. Pt sat up at edge of bed, sats increased to 92. Dr Menjivar made aware. Pt ambulated in hallways one assist with a walker, oxygen decreased to 82% on room air. Pt had no complaints and was asymptomatic. O2 sat increased upon ambulation to 94% on room air. Dr Menjivar made aware and came to bedside. Chest XRay ordered. ABG ordered. Respiratory came to bedside. ABGs drawn. Chest Xray taken.
[2023-09-07 21:44] LABS: ABG Refer to POC result
--- NOTE | 2023-09-08 16:32 | P.OP_ITS ---
Operative Note Operative Note Date of Service: 09/05/23 Narrative: Date of Service: 09/05/23 Pre-op diagnosis: Right knee OA Post-op diagnosis: same Procedure: Right TKA Implants: Laurel triathlon cemented posterior stabilized 10/28/18 Surgeon: Flako Young MD Anesthesia: regional, local and spinal Was an Revenue Cycle Specialist used for this Procedure?: Yes Revenue Cycle Specialist: Raz Izaguirre Estimated blood loss (mL): 25 Tourniquet time (min): 75 IV fluids (mL): 1,000 Pathology: other Condition: stable Disposition: PACU Procedure in detail: The patient was brought to the operating room and prepped and draped in standard sterile fashion. A time-out was called to identify proper site proper procedure proper surgeon and IV antibiotics were administered. 1 g of IV tranexamic acid was administered. I began by making a midline incision to the retinaculum and performed a medial parapatellar arthrotomy. The patella was translated laterally and the knee was flexed up. There was severe meidal compartment wear and eburnation. I performed a small medial peel and resected the infrapatellar fat pad. [place]'s line was then used to drill my intramedullary femoral guide and my distal femur cut of 10 mm was made in 5 degrees of valgus while protecting the soft tissues. I then measured a #3 femur and placed my cutting guide and made my anterior posterior and chamfer cuts protecting the soft tissues at all times. I then made my box but removing the PCL. Once I was satisfied with my cuts I turned my attention to the tibia. I removed the meniscus medially and laterally and , using an external cutting guide, in line with the tibial crest and the third ray, I made my distal tibial cut in 0 deg slope of while protecting the posterior soft tissues at all times. This was a large cut as she had severe varus. An extension block was used to confirm appropriate amount of bony resection. There was MCL tightness with relative laxity of the lateral compartment. THe MCL was intact. I then sized a #3 tibia and once I was satisfied that there was complete tibial coverage I placed my t rial and with the trial femur in place took the knee through range of motion. I was satisfied with the extension and flexion as well as the stability at 0, 30 and 90 degrees. I released the anterior fibers of the tibial attachment of the MCL. I then turned my attention to the patella where I removed 1 cm from the undersurface of the patella and then trialed a 29a patellar button. Again the knee was taken through range of motion I was satisfied with the tracking. I then returned to the femur and drilled my femoral lug holes and prepared the tibia. A femoral bone plug was placed and the knee was irrigated copiously. I then mixed 2 bags of [place] bonecement on the back table and cemented the patella, tibia and femur in standard fashion. I trialed different inserts until I selected a #[id number] insert. This stabilized the v/v laxity and there was full ROM. The final insert was placed and a 3 minutes iodine soak with local TXA was performed. The knee was then closed with a running Quill suture, a 3 0 Vicryl and eb on the skin. Patient was then placed in sterile dressing and brought to recovery room in stable condition there were no known complications.
== END 2023-09-07 18:04 | disposition home health service (06) | DRG 470 ==
LOC: HO.SSSA 07:09 → HO.S3 17:26
PROVIDERS: Internal Medicine; Orthopaedic Surgery; Admitting Provider Physician Assistant; PCP Internal Medicine; Visit Provider Physician Assistant
PROC: 0SRC0J9 Replacement of Right Knee Joint with Synthetic Substitute, Cemented, Open Approach (ICD-10-PCS; CPT 27447; principal; 2023-09-05 09:40)
DX: M17.12 Unilateral primary osteoarthritis, left knee (principal); E03.9 Hypothyroidism, unspecified; I10 Essential (primary) hypertension; E78.5 Hyperlipidemia, unspecified; G89.18 Other acute postprocedural pain; Z79.82 Long term (current) use of aspirin; Z79.890 Hormone replacement therapy; Z79.899 Other long term (current) drug therapy
CPT/HCPCS: 36415; 36600; 71045; 73560; 80048; 82803; 85014; 85018; 85025; 86850; 86900; 86901; 87640; 87641; 88305; 88311; 97110; 97116; 97161; 99024; C1713; C1776; J0131; J0665; J0690; J1100; J1170; J2250; J2405; J2704; J7120

== ENCOUNTER → 2023-09-05 07:05 | Outpatient (BNV) | payer OTHER, SELFPAY | PROVIDERS: Admitting Provider Physician Assistant; PCP Internal Medicine; Visit Provider Internal Medicine | DX: E03.9 Hypothyroidism, unspecified (principal); Z98.890 Other specified postprocedural states | CPT/HCPCS: 99222; 99231 ==

== ENCOUNTER → 2023-09-05 07:05 | Outpatient (BNV) | payer OTHER, SELFPAY | PROVIDERS: Admitting Provider Physician Assistant; PCP Internal Medicine; Visit Provider Orthopaedic Surgery | DX: Z47.1 Aftercare following joint replacement surgery (principal); Z96.651 Presence of right artificial knee joint | CPT/HCPCS: 27447; 99024; G0180 ==

== ENCOUNTER 2023-09-21 10:49 | Outpatient (AMB) | payer OTHER, SELFPAY ==
--- NOTE | 2023-09-21 11:01 | A.OFFVIS_ITS ---
Intake Intake Visit Reasons: PO-RT TKA 09/05/23 NE Intake Note: Elsa wilson 63 year old female presents today for a post operative right TKA on 09/05/23 NE. Patient reports she is doing well, states her pain has been decreasing each day. Allergies diazepam [From VALIUM] Allergy (Unknown, Verified 09/21/23 11:02) HALLUCINATION/DIFF BREATHING HPI PO-RT TKA 09/05/23 NE HPI Details 63-year-old female who returns to the [facility] today with an sustainability project coordinator for post-op right TKA, 09/05/[address] Young. She reports her pain has been decreasing each day and she is doing well overall. She has completed home therapy for her knee. She is taking oxycodone for her pain as instructed. She has no other concerns today. FORMERLY [facility], LATER [facility] Medical History Thyroid disease Diverticular disease of colon GERD (gastroesophageal reflux disease) Colon cancer screening Gall bladder, polycystic disease Partial small bowel obstruction Arthritis Hyperlipemia Depression HTN (hypertension) Surgical History S/P right knee surgery History of appendectomy Hx of colonoscopy History of arthroscopy of right knee History of arthroscopy of left knee H/O: hysterectomy Family History Mother Diabetes Father Emphysema lung Social History Household Members: Spouse Housing: Apartment Are you a primary home health care case manager to a significant other at home: No Do you presently have visiting nurse or other home services: No Patient Tobacco Use Status: Never used Tobacco Second Hand Smoke Exposure: No service: No Current occupational status: retired Review of Systems Const All systems reviewed & are unremarkable except as noted in HPI and below Physical Exam Extrem Other: Right knee: Incision clean, dry and intact. No erythema or drainage. ROM is 0-95 degrees. Calf supple, nontender. NVI. Assessment & Plan Assessment & Plan (1) Status post total knee replacement, right: Code(s): Z96.651 - Presence of right artificial knee joint Plan Stow removed, steri strips applied. She will begin to transition to Outpatient PT to continue working on Gait training, ROM and quad strength. No driving for another 4 weeks. She will require ppx abx for dental procedures. She will f/u in 4 weeks, sooner if needed. Orders: Orders PT Evaluation and Treatment Today Z96.651 - Presence of right artificial knee joint Patient Instructions: Scribed for Raz Izaguirre PA-C, by Harsh Melgoza medical records clerk, on 09/21/2023 at 11:30 AM EST. I, Raz Izaguirre PA-C, have personally reviewed and agree with the information entered by the scribe. Coding Level of Care Code Global (02523) Diagnoses Status post total knee replacement, right Z96.651
== END 2023-09-21 12:11 | disposition home or self-care (01) ==
PROVIDERS: PCP Internal Medicine; Visit Provider Physician Assistant
DX: Z96.651 Presence of right artificial knee joint (principal)
CPT/HCPCS: 99024

== ENCOUNTER → 2023-09-21 10:49 | Outpatient (BNVA) | payer OTHER, SELFPAY | PROVIDERS: PCP Internal Medicine; Visit Provider Physician Assistant | DX: Z47.1 Aftercare following joint replacement surgery (principal); Z96.651 Presence of right artificial knee joint | CPT/HCPCS: 99212 ==

== ENCOUNTER 2023-10-02 08:46 | Outpatient (REF) | payer OTHER, SELFPAY ==
--- NOTE | ~2023-10-02 | US_ITS ---
EXAMINATION: US THYROID CLINICAL INFORMATION: Hypothyroidism. COMPARISON: None available. TECHNIQUE: Linear transducer cortez-scale and color Doppler examination with attention to the region of the thyroid. FINDINGS: SIZE: Measurements of the thyroid lobes and nodules are given in sagittal, anteroposterior and transverse dimensions respectively. Right Thyroid Lobe: 4 x 1.3 x 1.3 cm, volume 3.5 mL. Parenchyma: The gland echotexture is homogeneous. Thyroid vascularity is normal. Left Thyroid Lobe: 3.7 x 1.2 x 1.1 cm, volume 2.6 mL. Parenchyma: The gland echotexture is homogeneous. Thyroid vascularity is normal. Isthmus: 0.3 cm in maximum AP dimension. Estimated total number of nodules greater than or equal to 1 cm: 1. Financial Aid Manager nodules are described as follows: 1. Location: Right mid. Size: 0.3 x 0.2 x 0.2 cm, volume 0.01 mL. Nodule characteristics: Composition: Cystic(0). ACR TI-RADS total points: 0 ACR TI-RADS category: 1 2. Location: Right superior. Size: 0.2 x 0.2 x 0.3 cm, volume 0.01 mL. Nodule characteristics: Composition: Cystic(0). ACR TI-RADS total points: 0 ACR TI-RADS category: 1 3. Location: Right inferior lateral. Size: 0.9 x 1 x 0.9 cm, volume 0.4 mL. Nodule characteristics: Composition: Cystic(0). ACR TI-RADS total points: 0 ACR TI-RADS category: 1 4. Location: Left inferior. Size: 0.8 x 0.4 x 0.7 cm, volume 0.1 mL. Nodule characteristics: Composition: Cystic(0). ACR TI-RADS total points: 0 ACR TI-RADS category: 1 NODES: No lymphadenopathy is seen in the tissue surrounding the thyroid gland. US/US thyroid IMPRESSION: No further routine follow-up is needed. ACR TI-RADS RECOMMENDATION REFERENCE: Ultrasound-guided fine-needle aspiration, followup ultrasound, no further follow up. * TR1 (0 point) and TR2 (2 points): No FNA or follow up. * TR3 (3 points): FNA if more than or equal to 2.5 cm in maximum dimension, followup ultrasound in 1, 3 and 5 years if 1.5 to 2.4 cm in maximum dimension. * TR4 (4-6 points): FNA if more than or equal to 1.5 cm in maximum dimension, followup ultrasound in 1, 2, 3 and 5 years if 1 to 1.4 cm in maximum dimension. * TR5 (more than or equal to 7 points): FNA if more than or equal to 1 cm in maximum dimension, followup ultrasound every year for 5 years if 0.5 to 0.9 cm in maximum dimension. * TR3, TR4 or TR5 nodules that are below the size threshold for followup receive no follow up.
== END 2023-10-02 08:47 | disposition home or self-care (01) ==
LOC: HO.US 08:46
PROVIDERS: PCP Internal Medicine; Visit Provider Internal Medicine
DX: E03.8 Other specified hypothyroidism (principal)
CPT/HCPCS: 76536

== ENCOUNTER 2023-10-26 09:39 | Outpatient (AMB) | payer OTHER, SELFPAY ==
--- NOTE | 2023-10-26 09:41 | A.OFFVIS_ITS ---
Intake Intake Visit Reasons: PO-RT TKA 09/05/23 NE Intake Note: Elsa is a 63 year old female presents today for a post operative right TKA on 09/05/23 NE, She was last Seen with TM where eb were removed. Patient reports that she is having some mild pain of this knee but it is improving along with her swelling Allergies diazepam [From VALIUM] Allergy (Unknown, Verified 09/21/23 11:02) HALLUCINATION/DIFF BREATHING HPI PO-RT TKA 09/05/23 NE HPI Details Elsa is a 63 year old woman who presents ~2 months S/P right TKA. She says she is doing well overall, but has some mild pain in her knee. She says her pain & swelling are improving with time however. She has been attending PT and performing at-home exercises. [facility] Medical History Thyroid disease Diverticular disease of colon GERD (gastroesophageal reflux disease) Colon cancer screening Gall bladder, polycystic disease Partial small bowel obstruction Arthritis Hyperlipemia Depression HTN (hypertension) Surgical History S/P right knee surgery History of appendectomy Hx of colonoscopy History of arthroscopy of right knee History of arthroscopy of left knee H/O: hysterectomy Family History Mother Diabetes Father Emphysema lung Social History Household Members: Spouse Housing: Apartment Are you a primary palliative care nurse practitioner to a significant other at home: No Do you presently have visiting nurse or other home services: No Patient Tobacco Use Status: Never used Tobacco Second Hand Smoke Exposure: No service: No Current occupational status: retired Review of Systems Const All systems reviewed & are unremarkable except as noted in HPI and below Physical Exam Const General: no acute distress, alert and awake Orientation/consciousness: patient oriented x3 HEENT Head: Yes normocephalic and Yes atraumatic Eyes EOM: EOMs intact bilaterally Resp Effort & Inspection: normal respiratory effort and able to speak in complete sentences Cardio Jugular venous distension: no JVD Skin General skin exam: turgor normal Rashes: no rashes Neuro General: patient oriented x3 Extrem Other: 0-125 no pain well healed incision nl gait Psych Appearance: grossly normal Affect: normal affect Attitude: cooperative Assessment & Plan Assessment & Plan (1) Status post total knee replacement, right: Code(s): Z96.651 - Presence of right artificial knee joint Plan: 6 weeks post op doing well. May d/c ASA/ f/u 6 weeks. COntinue exercise program as she is doing very well. Plan Prepared for Flako Young MD by Mehdi Sellers, certified medical technician assistant, on 10/26/23 at 9:45 AM, EST. Coding Level of Care Code Global (27634) Diagnoses Status post total knee replacement, right Z96.651
== END 2023-10-26 10:12 | disposition home or self-care (01) ==
PROVIDERS: PCP Internal Medicine; Visit Provider Orthopaedic Surgery
DX: Z96.651 Presence of right artificial knee joint (principal)
CPT/HCPCS: 99024

== ENCOUNTER → 2023-10-26 09:39 | Outpatient (BNVA) | payer OTHER, SELFPAY | PROVIDERS: PCP Internal Medicine; Visit Provider Orthopaedic Surgery | DX: Z47.1 Aftercare following joint replacement surgery (principal); Z96.651 Presence of right artificial knee joint | CPT/HCPCS: 99212 ==

== ENCOUNTER 2023-11-23 07:48 | Outpatient (AMB) | payer OTHER, SELFPAY ==
--- NOTE | 2023-11-23 08:10 | A.OFFVIS_ITS ---
Intake Vital Signs 11/23/23 08:21 Weight 191 lb Intake Visit Reasons: diverticulitis flare-up Intake Note: This patient presents for an assessment for diverticulitis flare-up. Pt c/o; reports has been having lower abdominal pain for the last 2 weeks, reports was experiencing nausea but no vomiting, reports no loss of appetite, reports no problems with bowel movements, LLQ pain radiates towards left groin, reports was feeling feverish but has not taking temperature. Product Development Actuary Required: Yes Product Development Actuary Language: Personnel Counselor Name: Zhen Information Interpreted: non-clinical & clinical Accompanied by: Self / Same As Patient Allergies diazepam [From VALIUM] Allergy (Unknown, Verified 11/23/23 08:24) HALLUCINATION/DIFF BREATHING Medication List - Last Reconciled 11/23/23 by Oli Oscar MD acetaminophen 650 mg (2 x 325 mg) PO Q6H PRN 30 days aspirin 325 mg PO BID 42 days atorvastatin 1 tab PO DAILY celecoxib 200 mg PO BID 30 days clonazepam 1 tab PO BEDTIME PRN docusate sodium 100 mg PO BID 30 days famotidine (Pepcid) 20 mg PO DAILY hydrochlorothiazide 1 tab PO DAILY levothyroxine 50 mcg PO DAILY@0600 levothyroxine 50 mcg PO DAILY lisinopril 1 tab PO DAILY meloxicam 1 tab PO DAILY niwrwpkpxrjh-tbah-lflhv acid 18-400 mg-mcg (Centrum Women) 1 tab PO DAILY naloxone 4 mg/actuation 1 spray intranasal DAILY PRN oxycodone 10 mg (2 x 5 mg) PO Q4H PRN 7 days oxycodone-acetaminophen 5-325 mg 1 tab PO BID PRN walker Folding Front wheeled walker zolpidem 1 tab PO BEDTIME HPI diverticulitis flare-up HPI Details She is known to me for history of diverticulitis. Her last CT scan was in November, and at that time, there was note of mild changes in the proximal sigmoid suggestive of diverticulitis. She had been doing well but but for the past 10 days, she has had this steady left lower quadrant pain. She says that she did not want to go to the ER or see any physician because she has other medical issues. However, the pain had persisted so she decided to see me She has good oral intake. She denies any fever. [facility] Medical History Hypothyroidism Thyroid disease Diverticular disease of colon GERD (gastroesophageal reflux disease) Colon cancer screening Gall bladder, polycystic disease Partial small bowel obstruction Arthritis Hyperlipemia Depression HTN (hypertension) Surgical History S/P right knee surgery History of appendectomy Hx of colonoscopy History of arthroscopy of right knee History of arthroscopy of left knee H/O: hysterectomy Family History Mother Diabetes Father Emphysema lung Social History Household Members: Spouse Housing: Apartment Are you a primary senior resident care director to a significant other at home: No Do you presently have visiting nurse or other home services: No Patient Tobacco Use Status: Never used Tobacco Second Hand Smoke Exposure: No service: No Current occupational status: retired Review of Systems Const Denies chills and Denies fever(s) Card Denies chest pain, Denies dyspnea and Denies dyspnea on exertion Resp Denies cough, Denies dyspnea and Denies dyspnea on exertion GI Denies hematochezia and Denies change in bowel habits Denies hematuria Musc Denies back pain and Denies limited range of motion Neuro Denies focal weakness and Denies convulsions Psych Denies depression and Denies mood swings Physical Exam Const General: comfortable and no acute distress Orientation/consciousness: patient oriented x3 Neck Neck: Yes no lymphadenopathy Resp Auscultation: clear to auscultation bilaterally Cardio Rhythm: regular rhythm GI Other: Has some tenderness on the left lower quadrant with no rebound or guarding Palpation (GI): Soft to palpation, Tenderness to palpation present (GI) and no guarding Neuro General: patient oriented x3 Assessment & Plan Assessment & Plan (1) Diverticulitis large intestine: Code(s): K57.32 - Diverticulitis of large intestine without perforation or abscess without bleeding Plan: She has left lower quadrant pain again suggestive of another episode of acute diverticulitis I have ordered for a CT scan to confirm this. I have prescribed her a prescription for Augmentin. I told her to stay on clear liquids for the next couple of days. I will see her again after her CT scan. She understands that surgical resection may be beneficial to her in view of her recurrent flare ups. I did advise her that if she has significant pain, or fever, she should go to the emergency room. Orders: Orders Blood Urea Nitrogen Today K57.32 - Diverticulitis of large intestine without perforation or abscess without bleeding Creatinine Today K57.32 - Diverticulitis of large intestine without perforation or abscess without bleeding CT abdomen pelvis w IV con Today K57.32 - Diverticulitis of large intestine without perforation or abscess without bleeding Coding Level of Care Code Est Pt Level 3 (15296) Diagnoses Diverticulitis large intestine K57.32
== END 2023-11-23 09:09 | disposition home or self-care (01) ==
PROVIDERS: PCP Internal Medicine; Visit Provider Surgery
DX: K57.32 Diverticulitis of large intestine without perforation or abscess without bleeding (principal)
CPT/HCPCS: 99213

== ENCOUNTER → 2023-11-23 07:48 | Outpatient (BNVA) | payer OTHER, SELFPAY | PROVIDERS: PCP Internal Medicine; Visit Provider Surgery | DX: K57.32 Diverticulitis of large intestine without perforation or abscess without bleeding (principal) | CPT/HCPCS: 99212 ==

== ENCOUNTER 2023-11-24 08:34 | Outpatient (REF) | payer OTHER, SELFPAY ==
[2023-11-24 10:03] LABS: Blood Urea Nitrogen 17 mg/dL (9-16); Estimated Glomerular Filt Rate > 60
== END 2023-11-24 08:35 | disposition home or self-care (01) ==
LOC: HO.LAB 08:34
PROVIDERS: Visit Provider Surgery
DX: K57.32 Diverticulitis of large intestine without perforation or abscess without bleeding (principal)
CPT/HCPCS: 36415; 82565; 84520

== ENCOUNTER 2023-11-30 13:38 | Outpatient (REF) | payer OTHER, SELFPAY ==
--- NOTE | ~2023-11-30 | CT_ITS ---
EXAMINATION: CT ABDOMEN AND PELVIS WITH CONTRAST CLINICAL INFORMATION: COMPARISON: Previous CT scans most recent November 2022 TECHNIQUE: Multidetector volumetric images were obtained from the superior aspect of the liver through the pubic symphysis following administration 85 mL of Omnipaque 350 intravenous contrast. Sagittal and coronal reformatted images were obtained on the technologist's workstation. Oral contrast: Yes This CT examination was performed using dose optimization techniques as appropriate, variously including the following: *Automated exposure control *Adjustment of mA and/or kV according to patient size (this includes techniques or standardized protocols for targeted exams where dose is matched to indication/reason for exam; i.e. extremities or head) *Use of iterative reconstruction technique DLP: 554 mGy-cm FINDINGS: LUNG BASES: The visualized lung bases are unremarkable. LIVER, GALLBLADDER, AND BILIARY TREE: The liver is normal in size, shape, and attenuation. No focal hepatic lesion or biliary ductal dilatation is present. The gallbladder is unremarkable with no evidence of radiopaque gallstones, gallbladder wall thickening, or obvious pericholecystic inflammatory changes. PANCREAS: The head of the pancreas adjacent to the distal stomach is upper normal in size. This is similar to previous exams. SPLEEN: Unremarkable. ADRENAL GLANDS: Unremarkable. KIDNEYS AND URETERS: The kidneys are normal in size, shape, and attenuation. No hydronephrosis, hydroureter, or calculi seen. No perinephric stranding. BLADDER: Unremarkable. GASTROINTESTINAL TRACT: Diverticulosis. No evidence of diverticulitis. The small and large bowel are otherwise unremarkable. There is abnormal wall thickening of the distal stomach and stranding of the adjacent fat. There is outpouching of air questionable for ulcer for example axial image 26 series 3 is ring 1.4 cm. No free air or contrast extravasation is seen. The appendix is is not seen. ABDOMINAL WALL: No significant hernia is appreciated. LYMPH NODES: Normal. VASCULAR: Unremarkable. PELVIC VISCERA: Post hysterectomy. OSSEOUS STRUCTURES: Degenerative changes of the spine and hip joints. CT/CT abdomen pelvis w IV con IMPRESSION: Abnormal appearing distal stomach with wall thickening and stranding of the adjacent fat. There is outpouching of air questionable for ulcer. No free air or oral contrast extravasation seen. Gastritis/ulcer disease and mass should be considered. Correlation with endoscopy recommended. Diverticulosis. No evidence of diverticulitis. Findings will be communicated by the [place] workflow regional climate change analyst Fleischner guidelines were followed.
[2023-11-30] MEDS: iohexoL 350 MG/ML 75 ML INFUS..BTL 85 ML IV (14:20)
== END 2023-11-30 13:39 | disposition home or self-care (01) ==
LOC: HO.CT 13:38
PROVIDERS: PCP Internal Medicine; Visit Provider Surgery
DX: K57.32 Diverticulitis of large intestine without perforation or abscess without bleeding (principal)
CPT/HCPCS: 74177; Q9967

== ENCOUNTER 2023-12-07 08:59 | Outpatient (AMB) | payer OTHER, SELFPAY ==
--- NOTE | 2023-12-07 09:13 | A.OFFVIS_ITS ---
Intake Intake Visit Reasons: OV-RT TKA 09/05/23 NE Intake Note: Elsa is a 63 year old female who presents today for a follow up of her left knee s/p right TKA on 09/05/23 NE. Patient reports that she is doing well, she has some increased pain with gait initiation Allergies diazepam [From VALIUM] Allergy (Unknown, Verified 11/23/23 08:24) HALLUCINATION/DIFF BREATHING HPI OV-RT TKA 09/05/23 NE HPI Details 63-year-old woman who is now [address] atus post right knee replacement. Overall she is doing very well. She gets better every day. Her pain is minimal. FORMERLY [facility] Medical History Hypothyroidism Thyroid disease Diverticular disease of colon GERD (gastroesophageal reflux disease) Colon cancer screening Gall bladder, polycystic disease Partial small bowel obstruction Arthritis Hyperlipemia Depression HTN (hypertension) Surgical History S/P right knee surgery History of appendectomy Hx of colonoscopy History of arthroscopy of right knee History of arthroscopy of left knee H/O: hysterectomy Family History Mother Diabetes Father Emphysema lung Social History Household Members: Spouse Housing: Apartment Are you a primary career center director to a significant other at home: No Do you presently have visiting nurse or other home services: No Patient Tobacco Use Status: Never used Tobacco Second Hand Smoke Exposure: No service: No Current occupational status: retired Physical Exam Extrem Other: Incision is clean dry and intact She has 0-125 degrees motion There is a stable arc of motion with no varus or valgus instability or laxity There is no effusion She is walking normally Assessment & Plan Assessment & Plan (1) Status post total knee replacement, right: Code(s): Z96.651 - Presence of right artificial knee joint Plan: Status post right knee replacement. She is doing very well. Continue therapy. Continue strengthening. May follow up in 9 months. Dental prophylaxis discussed. Coding Level of Care Code Global (63499) Diagnoses Status post total knee replacement, right Z96.651
== END 2023-12-07 09:37 | disposition home or self-care (01) ==
PROVIDERS: PCP Internal Medicine; Visit Provider Orthopaedic Surgery
DX: Z96.651 Presence of right artificial knee joint (principal)
CPT/HCPCS: 99024

== ENCOUNTER → 2023-12-07 08:59 | Outpatient (BNVA) | payer OTHER, SELFPAY | PROVIDERS: PCP Internal Medicine; Visit Provider Orthopaedic Surgery | DX: Z96.651 Presence of right artificial knee joint (principal) | CPT/HCPCS: 99212 ==

== ENCOUNTER 2023-12-13 09:04 | Outpatient (AMB) | payer OTHER, SELFPAY ==
--- NOTE | 2023-12-13 10:16 | MHC.OFFVIS ---
Intake Intake Visit Reasons: Diverticulitis large intestine, CT results Intake Note: This patient presents for Ct-Scan follow-up results. Pt c/o: reports no complaints. CT abdomen pelvis w IV con: 11/30/2023 Bakery Machine Mechanic Supervisor Required: Yes Bakery Machine Mechanic Supervisor Language: Bengali Information Interpreted: non-clinical & clinical Accompanied by: Self / Same As Patient Allergies diazepam [From VALIUM] Allergy (Unknown, Verified 12/13/23 10:17) HALLUCINATION/DIFF BREATHING Medication List - Last Reconciled 12/13/23 by Oli Oscar MD acetaminophen 650 mg (2 x 325 mg) PO Q6H PRN 30 days amoxicillin-pot clavulanate 875-125 mg 1 tab PO BID aspirin 325 mg PO BID 42 days atorvastatin 1 tab PO DAILY celecoxib 200 mg PO BID 30 days clonazepam 1 tab PO BEDTIME PRN docusate sodium 100 mg PO BID 30 days famotidine (Pepcid) 20 mg PO DAILY hydrochlorothiazide 1 tab PO DAILY levothyroxine 50 mcg PO DAILY@0600 levothyroxine 50 mcg PO DAILY lisinopril 1 tab PO DAILY meloxicam 1 tab PO DAILY kgtanjbswtfr-vemf-nkhht acid 18-400 mg-mcg (Centrum Women) 1 tab PO DAILY naloxone 4 mg/actuation 1 spray intranasal DAILY PRN oxycodone 10 mg (2 x 5 mg) PO Q4H PRN 7 days oxycodone-acetaminophen 5-325 mg 1 tab PO BID PRN walker Folding Front wheeled walker zolpidem 1 tab PO BEDTIME Do you need a note to return to daycare/school/sports/work: No HPI Diverticulitis large intestine, CT results HPI Details She is here for follow-up history of diverticulitis. I had sent her for a CT scan because of her concerns with recurrent diverticulitis. She currently denies any significant left lower quadrant pain. She denies any GI complaints. She denies any fever or chills. PFSH Medical History Hypothyroidism Thyroid disease Diverticular disease of colon GERD (gastroesophageal reflux disease) Colon cancer screening Gall bladder, polycystic disease Partial small bowel obstruction Arthritis Hyperlipemia Depression HTN (hypertension) Surgical History S/P right knee surgery History of appendectomy Hx of colonoscopy History of arthroscopy of right knee History of arthroscopy of left knee H/O: hysterectomy Family History Mother Diabetes Father Emphysema lung Social History Household Members: Spouse Housing: Apartment Are you a primary point of care technician to a significant other at home: No Do you presently have visiting nurse or other home services: No Patient Tobacco Use Status: Never used Tobacco Second Hand Smoke Exposure: No service: No Current occupational status: retired Review of Systems Const Denies chills and Denies fever(s) Card Denies chest pain, Denies dyspnea and Denies dyspnea on exertion Resp Denies cough, Denies dyspnea and Denies dyspnea on exertion GI Denies hematochezia and Denies change in bowel habits Denies hematuria Musc Denies back pain and Denies limited range of motion Neuro Denies focal weakness and Denies convulsions Psych Denies depression and Denies mood swings Physical Exam Const General: comfortable and no acute distress Resp Effort & Inspection: normal respiratory effort GI Palpation (GI): Soft to palpation, not firm, nontender and no guarding Assessment & Plan Assessment & Plan (1) Diverticular disease of colon: Code(s): K57.30 - Diverticulosis of large intestine without perforation or abscess without bleeding Plan: I had reviewed her CAT scan and this does not show acute diverticulitis. She has diverticulosis which is known. There has an outpouching of the distal stomach described on the CT scan. She denies any upper abdominal or epigastric complaints She has good oral intake I did advise her on the benefits of weight loss her risks with regards to her diverticular disease as well as for the risks of coronary disease She can follow up on a p.r.n. basis Coding Level of Care Code Est Pt Level 3 (31992) Diagnoses Diverticular disease of colon K57.30
== END 2023-12-13 10:48 | disposition home or self-care (01) ==
PROVIDERS: PCP Internal Medicine; Visit Provider Surgery
DX: K57.30 Diverticulosis of large intestine without perforation or abscess without bleeding (principal)
CPT/HCPCS: 99213

== ENCOUNTER → 2023-12-13 09:04 | Outpatient (BNVA) | payer OTHER, SELFPAY | PROVIDERS: PCP Internal Medicine; Visit Provider Surgery | DX: K57.30 Diverticulosis of large intestine without perforation or abscess without bleeding (principal); Z79.891 Long term (current) use of opiate analgesic; Z79.899 Other long term (current) drug therapy | CPT/HCPCS: 99212 ==

== ENCOUNTER 2024-01-25 10:40 | Outpatient (REF) | payer OTHER, SELFPAY ==
[2024-01-25 11:24] LABS: MANUAL DIFF FLAG NO
[2024-01-25 11:31] LABS: Basophils Percent Auto 0.7 % (0-2); Eosinophils Absolute Auto 0.1 X10*3/uL (0.0-0.4); Eosinophils Percent Auto 1.7 % (0-4); Hematocrit 36.8 % (37.0-47.0); Imm Gran Abs Auto 0.02 X10*3/uL (0.00-0.03); Imm Gran Pct Auto 0.3 % (0.0-0.4); Lymphocytes Absolute Auto 1.4 X10*3/uL (1.2-4.9); Lymphocytes Percent Auto 24.4 % (20-40); Mean Corpuscular HGB Conc 32.6 g/dl (31.0-35.0); Mean Corpuscular Hemoglobin 26.3 pg (27.0-33.0); Mean Corpuscular Volume 80.5 fL (80.0-98.0); Monocytes Absolute Auto 0.8 X10*3/uL (0.1-1.2); Monocytes Percent Auto 12.7 % (2-11); Neutrophils Absolute Auto 3.5 x10*3/uL (2.0-8.3); Neutrophils Percent Auto 60.2 % (45-73); Platelet Count 234 X10*3/uL (160-400); Red Blood Count 4.57 X10*6/uL (4.20-5.50); Red Cell Distribution Width 13.1 % (11.0-16.0); White Blood Count 5.9 X10*3/uL (4.8-10.8)
[2024-01-25 12:26] LABS: TSH reflex Free T4 3.82 uIU/mL (0.32-4.0)
== END 2024-01-25 10:41 | disposition home or self-care (01) ==
LOC: HO.HHCL 10:40
PROVIDERS: Visit Provider Internal Medicine
DX: E03.9 Hypothyroidism, unspecified (principal); Z96.651 Presence of right artificial knee joint
CPT/HCPCS: 36415; 84443; 85025

== ENCOUNTER 2024-05-23 09:34 | Outpatient (REF) | payer OTHER, SELFPAY ==
[2024-05-23 12:23] LABS: Alanine Aminotransferase 16 U/L (0-31); Albumin Level 4.2 g/dL (3.5-5.0); Alkaline Phosphatase 69 U/L (39-117); Anion Gap 13 (12-20); Aspartate Amino Transferase 23 U/L (5-31); Bilirubin Total 0.3 mg/dL (0.0-1.0); Blood Urea Nitrogen 26 mg/dL (9-16); Calcium 10.3 mg/dL (8.4-10.2); Carbon Dioxide 26 mmol/L (22-29); Chloride 105 mmol/L (96-108); Cholesterol 257 mg/dL (<200); Estimated Glomerular Filt Rate 58; Glucose Random 109 mg/dL (60-115); HDL Cholesterol 54 mg/dL (>40); LDL Cholesterol Calculated 170 mg/dL (<100); Potassium 4.1 mmol/L (3.3-5.1); Sodium 140 mmol/L (135-145); Total Protein 7.7 g/dL (6.5-8.0); Triglycerides 166 mg/dL (<150)
== END 2024-05-23 09:35 | disposition home or self-care (01) ==
LOC: HO.HHCL 09:34
PROVIDERS: Visit Provider Internal Medicine
DX: I10 Essential (primary) hypertension (principal)
CPT/HCPCS: 36415; 80053; 80061

== ENCOUNTER 2024-06-13 10:13 | Outpatient (AMB) | payer OTHER, SELFPAY ==
--- NOTE | 2024-06-13 10:18 | MHC.OFFVIS ---
Vital Signs 06/13/24 10:28 Height 5 ft 4 in Weight 193 lb 9.054 oz BMI 33.2 BP 170/90 H Blood Pressure Location Rt brachial Position Sitting Pulse 74 Pulse Source Pulse Oximeter Pulse Oximetry (%) 97 Oxygen Delivery Method Room Air Intake Visit Reasons: Gastroesophageal reflux disease (GERD) Intake Note: Relevant Flags or Indicators ? Requires Neuropsychology Division Chief? Daphnie Hunter presents in office today for a scheduled initial assessment for management of GERD CC; labs ordered ? via PCP within the last 6 mos. Rx ordered ? yes; famotidine. Diagnostics/images ordered ? Abdomen CT as of 11/2023. Relevant GI Sx as reported per pt? Reflux ? Dysphagia / Painful Swallowing ? Abdominal Pain o?? Upper/epigastric B/L. Intermittently, primarily surrounding consumption / intake. ? Bloating ? Abdominal distention ? Hx of any recent surgeries? September 03, 2023 -- R Knee replacement. Neuropsychology Division Chief Required: Yes Neuropsychology Division Chief Services: Neuropsychology Division Chief Present Neuropsychology Division Chief Name: [id number] - Ezequiel Information Interpreted: non-clinical & clinical Accompanied by: Self / Same As Patient Allergies diazepam [From VALIUM] Allergy (Unknown, Verified 06/13/24 10:30) HALLUCINATION/DIFF BREATHING HPI HPI Gastroesophageal reflux disease (GERD): Details: 64-year-old female here for initial evaluation of GERD. She is referred by [facility]. PMX Obesity Hypertension High cholesterol Hypothyroid Impaired fasting glucose Chronic low back pain Tremor Diverticulosis Plantar fasciitis History of small-bowel obstruction * SURGICAL HISTORY Right total knee replacement Hysterectomy Colonoscopy-2010 [facility] mild diverticulosis Appendectomy Bilateral knee arthroscopy * ALLERGIES Diazepam * [employer] LABS: Laboratory Tests 01/25/24 05/23/24 10:42 09:33 WBC 5.9 Hgb 12.0 Hct 36.8 L MCV 80.5 MCH 26.3 L Plt Count 234 Estimated GFR 58 Total Bilirubin 0.3 AST 23 ALT 16 Alkaline Phosphatase [address] ABD AND PELVIS 12/06/23 FINDINGS: LUNG BASES: The visualized lung bases are unremarkable. LIVER, GALLBLADDER, AND BILIARY TREE: The liver is normal in size, shape, and attenuation. No focal hepatic lesion or biliary ductal dilatation is present. The gallbladder is unremarkable with no evidence of radiopaque gallstones, gallbladder wall thickening, or obvious pericholecystic inflammatory changes. PANCREAS: The head of the pancreas adjacent to the distal stomach is upper normal in size. This is similar to previous exams. SPLEEN: Unremarkable. ADRENAL GLANDS: Unremarkable. KIDNEYS AND URETERS: The kidneys are normal in size, shape, and attenuation. No hydronephrosis, hydroureter, or calculi seen. No perinephric stranding. BLADDER: Unremarkable. GASTROINTESTINAL TRACT: Diverticulosis. No evidence of diverticulitis. The small and large bowel are otherwise unremarkable. There is abnormal wall thickening of the distal stomach and stranding of the adjacent fat. There is outpouching of air questionable for ulcer for example axial image 26 series 3 is ring 1.4 cm. No free air or contrast extravasation is seen. The appendix is is not seen. ABDOMINAL WALL: No significant hernia is appreciated. LYMPH NODES: Normal. VASCULAR: Unremarkable. PELVIC VISCERA: Post hysterectomy. OSSEOUS STRUCTURES: Degenerative changes of the spine and hip joints. CT/CT abdomen pelvis w IV con IMPRESSION: Abnormal appearing distal stomach with wall thickening and stranding of the adjacent fat. There is outpouching of air questionable for ulcer. No free air or oral contrast extravasation seen. Gastritis/ulcer disease and mass should be considered. Correlation with endoscopy recommended. Diverticulosis. No evidence of diverticulitis. TODAY'S VISIT [place] #[id number], Wilfrido She has been suffering burning upper abdominal pain for several years. She thought it was from her medicines and her PCP did a CT that showed ? of gastric ulcer. The area of pain is in the right mid upper quadrant and adjacent to the umbilicus area. The intensity 7/10. The pain is worse when her stomach is empty and I over eat and gain weight because of this. She also feels a tightness when swallowing and a ball in my throat globus sensation intermittently. She will also have dysphagia of solid foods occasionally and also at times with liquids. She denies any N/V, CIC or diarrhea. She is gaining and has not lost weight. Her mother had a raegan many year ago, no known FHX of PUD or stomach cancer. No sign of GB stones on CT scan. ROV 3 weeks to eval the omeprazole and Carafate. [facility] Medical History History of small bowel obstruction Diverticular disease of colon Diverticulitis Plantar fasciitis Colon cancer screening Hypothyroidism Thyroid disease GERD (gastroesophageal reflux disease) Gall bladder, polycystic disease Partial small bowel obstruction Arthritis Hyperlipemia Depression HTN (hypertension) Surgical History Status post total knee replacement, right S/P right knee surgery History of appendectomy Hx of colonoscopy History of arthroscopy of right knee History of arthroscopy of left knee H/O: hysterectomy Family History Mother Diabetes Father Emphysema lung Social History Household Members: Spouse Housing: Apartment Are you a primary childcare administrator to a significant other at home: No Do you presently have visiting nurse or other home services: No Patient Tobacco Use Status: Never used Tobacco Second Hand Smoke Exposure: No service: No Current occupational status: retired Review of Systems Const Denies fatigue, Denies fever(s), Denies night sweats, Denies poor appetite, Reports weight gain and Denies weight loss Eyes Details: glasses Reports requires corrective lenses ENT Reports Normal hearing present, Denies dental pain, Reports dysphagia, Denies hearing loss, Denies mouth pain, Reports odynophagia, Denies throat swelling, Denies tongue swelling and Reports other (Dentition adequate) Card Reports no additional complaints Resp Reports no additional complaints GI Details: Reports abdominal pain, Denies melena, Reports bloating, Denies hematochezia, Denies constipation, Denies GI cramping, Reports dysphagia, Denies excessive flatus, Denies early satiety, Reports heartburn, Denies diarrhea, Denies nausea, Reports odynophagia, Denies vomiting and Denies hematemesis Musc Reports back pain and Reports myalgias Skin/Breast Denies pruritus, Denies lesions, Denies rash and Denies jaundice Neuro Reports Normal hearing present and Denies Abnormal speech present Endo Denies fatigue Aller/Immun Denies throat swelling and Denies tongue swelling Physical Exam Vital Signs: Last Vital Signs Pulse 74 06/13/24 10:28 BP 170/90 H 06/13/24 10:28 Pulse Ox 97 06/13/24 10:28 Oxygen Delivery Method Room Air 06/13/24 10:28 BMI result Body Mass Index 33.2 Const General: cooperative, no acute distress, well developed and well groomed Nutritional Appearance: well nourished and obese Orientation/consciousness: oriented to person, oriented to place and oriented to time Limitations: language barrier HEENT Head: Yes normocephalic and Yes atraumatic Eyes General: appearance normal, both eyes and all related structures Pupils: Equal, round and reactive pupils present Neck Neck: Yes normal visual inspection and Yes no lymphadenopathy Thyroid: Thyroid normal Resp Effort & Inspection: normal respiratory effort and able to speak in complete sentences Auscultation: clear to auscultation bilaterally Cardio Rate: regular rate Rhythm: regular rhythm Heart sounds: Normal, physiologic split S2 sound present Peripheral pulses: radial pulses present and posterior tibial pulses present GI Inspection: No distended, Yes Abdominal panniculus present and Yes obesity Palpation (GI): Soft to palpation, Tenderness to palpation present (GI) in the RUQ and periumbilically, no guarding, not rigid and No hepatosplenomegaly present Percussion: Yes normal to percussion Auscultation: normal bowel sounds Rectal Exam - Female: deferred Skin General skin exam: no rashes or lesions noted, turgor normal, skin not dry, no jaundice, No spider nevi and no striae Rashes: no rashes Nails: normal Neuro General: oriented to person, oriented to place and oriented to time Cranial nerves: Yes Equal, round and reactive pupils present and Yes Normal hearing present Speech: No Abnormal speech present Extrem General: Yes normal to inspection, No clubbing, No cyanosis and No edema Psych Appearance: grossly normal and well kempt Mental Status: mental status grossly normal Speech and movement: Normal speech and movement present Affect: normal affect Attitude: cooperative Thought process: Normal thought process present and not confabulating Thought content: Normal thought content present Insight: Fair insight present (Psych) and Limited insight present (Psych) Judgement: Fair judgement present (Psych) and Limited judgement present (Psych) Assessment & Plan Assessment & Plan (1) Abnormal CT scan: Comment: GASTROINTESTINAL TRACT: Diverticulosis. No evidence of diverticulitis. The small and large bowel are otherwise unremarkable. There is abnormal wall thickening of the distal stomach and stranding of the adjacent fat. There is outpouching of air questionable for ulcer for example axial image 26 series 3 is ring 1.4 cm. No free air or contrast extravasation is seen. The appendix is is not seen. Code(s): R93.89 - Abnormal findings on diagnostic imaging of other specified body structures Category: Medical (2) GERD (gastroesophageal reflux disease): Code(s): K21.9 - Gastro-esophageal reflux disease without esophagitis Category: Medical (3) Epigastric pain: Code(s): R10.13 - Epigastric pain Category: Medical (4) Constipation: Code(s): K59.00 - Constipation, unspecified Category: Medical (5) Dysphagia: Code(s): R13.10 - Dysphagia, unspecified Category: Medical Plan [place] #[id number], Wilfrido She has been suffering burning upper abdominal pain for several years. She thought it was from her medicines and her PCP did a CT that showed ? of gastric ulcer. The area of pain is in the right mid upper quadrant and adjacent to the umbilicus area. The intensity 7/10. The pain is worse when her stomach is empty and I over eat and gain weight because of this. She also feels a tightness when swallowing and a ball in my throat globus sensation intermittently. She will also have dysphagia of solid foods occasionally and also at times with liquids. She denies any N/V, CIC or diarrhea. She is gaining and has not lost weight. Her mother had a raegan many year ago, no known FHX of PUD or stomach cancer. No sign of GB stones on CT scan. ROV 3 weeks to eval the omeprazole and Carafate. Orders: Orders H pylori Ag Stool Today R10.13 - Epigastric pain EGD - GI Use Only Today K21.9 - Gastro-esophageal reflux disease without esophagitis, R10.13 - Epigastric pain, R93.89 - Abnormal findings on diagnostic imaging of other specified body structures Medications: New omeprazole 40 mg PO DAILY 30 caps 3RF 30 days sucralfate (Carafate) 2 grams (2 x 1 gram) PO QNOON 60 tabs 3RF R10.13 - Epigastric pain, R93.89 - Abnormal findings on diagnostic imaging of other specified body structures sennosides (Senna Laxative) 17.2 mg (2 x 8.6 mg) PO BEDTIME 60 tabs 3RF K59.00 - Constipation, unspecified Coding Level of Care Code New Pt Level 3 (15748) Diagnoses Abnormal CT scan R93.89 GERD (gastroesophageal reflux disease) K21.9 Epigastric pain R10.13 Constipation K59.00 Dysphagia R13.10
[2024-06-13 10:28] VITALS: BP 170/90; PULSE 74; O2SAT 97; BMI 33.2
== END 2024-06-13 11:29 | disposition home or self-care (01) ==
PROVIDERS: PCP Internal Medicine; Visit Provider Nurse Practitioner
DX: R93.89 Abnormal findings on diagnostic imaging of other specified body structures (principal); K21.9 Gastro-esophageal reflux disease without esophagitis; R10.13 Epigastric pain; K59.00 Constipation, unspecified; R13.10 Dysphagia, unspecified
CPT/HCPCS: 99203

== ENCOUNTER → 2024-06-13 10:13 | Outpatient (BNVA) | payer OTHER, SELFPAY | PROVIDERS: PCP Internal Medicine; Visit Provider Nurse Practitioner | DX: K21.9 Gastro-esophageal reflux disease without esophagitis (principal); K59.00 Constipation, unspecified; R93.89 Abnormal findings on diagnostic imaging of other specified body structures; R10.13 Epigastric pain; R13.10 Dysphagia, unspecified | CPT/HCPCS: 99202 ==

== ENCOUNTER 2024-06-25 10:52 | Day surgery (SDC) | payer OTHER, SELFPAY ==
--- NOTE | 2024-06-24 12:07 | HO.ANESPROP2 ---
Documented by User: Karen De La Torre NP 06/24/24 12:08 HPI - Anesthesia Eval Consult details Narrative: 64yo F for Upper Endoscopy PMFSH Active Problems Active Problems: All Active Problems Dysphagia (Acute) Constipation (Acute) Epigastric pain (Acute) GERD (gastroesophageal reflux disease) (Acute) Abnormal CT scan (Acute) Obesity (Acute) Tremor (Acute) Chronic low back pain (Acute) Impaired fasting glucose (Acute) Osteoarthritis of right knee (Acute) Arthritis of left knee (Acute) Arthritis (Acute) Past Medical History Medical History History of small bowel obstruction Diverticular disease of colon Diverticulitis Plantar fasciitis Colon cancer screening Hypothyroidism Thyroid disease GERD (gastroesophageal reflux disease) Gall bladder, polycystic disease Partial small bowel obstruction Arthritis Hyperlipemia Depression HTN (hypertension) Family History Family History Mother Diabetes Father Emphysema lung Family history of problems with anesthesia: No Surgical History Surgical History Status post total knee replacement, right S/P right knee surgery History of appendectomy Hx of colonoscopy History of arthroscopy of right knee History of arthroscopy of left knee H/O: hysterectomy History of Problems with Anesthesia: Yes (PONV) Social History Social History Household Members: Spouse Housing: Apartment Are you a primary home care physical therapist to a significant other at home: No Do you presently have visiting nurse or other home services: No Patient Tobacco Use Status: Never used Tobacco Second Hand Smoke Exposure: No Use of substances other than those prescribed or required for medical reasons: No Have you been hit, kicked, punched, or otherwise hurt by someone within the past year? If so, by whom?: No Are you DNR?: No Advance Directives: No Advance Directives Information Provided: Yes Recently lost weight without trying: No Nutrition Risks: No Nutritional Risk Patient : No service: No Current occupational status: retired Meds Allergies Allergy/AdvReac Type Severity Reaction Status Date / Time diazepam [From VALIUM] Allergy Unknown HALLUCINATION/DIFF Verified 06/25/24 12:26 BREATHING Home Medications ?Medication ?Instructions ?Recorded ?Confirmed ?Last Taken ?Type atorvastatin 80 mg tablet 1 tab PO DAILY 01/21/22 06/25/24 09/05/23 History clonazepam 0.5 mg tablet 1 tab PO BEDTIME PRN anxiety 01/21/22 06/25/24 11/08/22 History hydrochlorothiazide 25 mg tablet 1 tab PO DAILY 01/21/22 06/25/24 09/01/23 History meloxicam 15 mg tablet 1 tab PO DAILY 01/21/22 06/25/24 06/21/24 History zolpidem 10 mg tablet 1 tab PO BEDTIME 01/21/22 06/25/24 01/20/22 History lisinopril 10 mg tablet 1 tab PO DAILY 11/03/22 06/25/24 09/01/23 History naloxone 4 mg/actuation nasal spray 1 spray intranasal DAILY PRN 11/03/22 06/25/24 Unknown History Opioid Overdose oxycodone-acetaminophen 5 mg-325 1 tab PO BID PRN Pain 11/03/22 06/25/24 Unknown History mg tablet levothyroxine 50 mcg tablet 50 mcg PO DAILY 11/23/23 06/25/24 Unknown History aspirin 81 mg tablet,delayed 81 mg PO QAM 06/13/24 06/25/24 06/21/24 History release piuoiruk-mtv-grvw 4 mg-folic acid tab PO DAILY 06/13/24 Unknown History 200 mcg-vit K 25 mcg-lutein tablet (Centrum Minis Women 50 Plus) Exam Pertinent Lab Results Pertinent Lab Results: Laboratory Tests 01/25/24 05/23/24 10:42 09:33 WBC 5.9 Hgb 12.0 Hct 36.8 L Plt Count 234 Sodium 140 Potassium 4.1 Chloride 105 Carbon Dioxide 26 BUN 26 H Creatinine 0.96 Assessment and Plan Assessment Anesthesia Assessment: Chart Reviewed Final Anesthetic Review Family History of Problems with Anesthesia: No History of Problems with Anesthesia: Yes (PONV) Documented by User: Sindy Spencer MD 06/25/24 13:49 PMF Past Medical History Medical History History of small bowel obstruction Diverticular disease of colon Diverticulitis Plantar fasciitis Colon cancer screening Hypothyroidism Thyroid disease GERD (gastroesophageal reflux disease) Gall bladder, polycystic disease Partial small bowel obstruction Arthritis Hyperlipemia Depression HTN (hypertension) Family History Family History Mother Diabetes Father Emphysema lung Family history of problems with anesthesia: No Surgical History Surgical History Status post total knee replacement, right S/P right knee surgery History of appendectomy Hx of colonoscopy History of arthroscopy of right knee History of arthroscopy of left knee H/O: hysterectomy History of Problems with Anesthesia: Yes (PONV) Social History Social History Household Members: Spouse Housing: Apartment Are you a primary home care physical therapist to a significant other at home: No Do you presently have visiting nurse or other home services: No Patient Tobacco Use Status: Never used Tobacco Second Hand Smoke Exposure: No Use of substances other than those prescribed or required for medical reasons: No Have you been hit, kicked, punched, or otherwise hurt by someone within the past year? If so, by whom?: No Are you DNR?: No Advance Directives: No Advance Directives Information Provided: Yes Recently lost weight without trying: No Nutrition Risks: No Nutritional Risk Patient : No service: No Current occupational status: retired Meds Allergies Allergy/AdvReac Type Severity Reaction Status Date / Time diazepam [From VALIUM] Allergy Unknown HALLUCINATION/DIFF Verified 06/25/24 12:26 BREATHING Home Medications ?Medication ?Instructions ?Recorded ?Confirmed ?Last Taken ?Type atorvastatin 80 mg tablet 1 tab PO DAILY 01/21/22 06/25/24 09/05/23 History clonazepam 0.5 mg tablet 1 tab PO BEDTIME PRN anxiety 01/21/22 06/25/24 11/08/22 History hydrochlorothiazide 25 mg tablet 1 tab PO DAILY 01/21/22 06/25/24 09/01/23 History meloxicam 15 mg tablet 1 tab PO DAILY 01/21/22 06/25/24 06/21/24 History zolpidem 10 mg tablet 1 tab PO BEDTIME 01/21/22 06/25/24 01/20/22 History lisinopril 10 mg tablet 1 tab PO DAILY 11/03/22 06/25/24 09/01/23 History naloxone 4 mg/actuation nasal spray 1 spray intranasal DAILY PRN 11/03/22 06/25/24 Unknown History Opioid Overdose oxycodone-acetaminophen 5 mg-325 1 tab PO BID PRN Pain 11/03/22 06/25/24 Unknown History mg tablet levothyroxine 50 mcg tablet 50 mcg PO DAILY 11/23/23 06/25/24 Unknown History aspirin 81 mg tablet,delayed 81 mg PO QAM 06/13/24 06/25/24 06/21/24 History release imoolkre-uvo-bces 4 mg-folic acid tab PO DAILY 06/13/24 Unknown History 200 mcg-vit K 25 mcg-lutein tablet (Centrum Minis Women 50 Plus) Exam Height,Weight and Vital Signs: Height 5 ft 4 in Weight 88.451 kg Vital Signs Temp Pulse Resp BP Pulse Ox O2 Del Method 06/25/24 12:25 97.3 F 73 14 150/79 H 98 Room Air Pertinent Lab Results Pertinent Lab Results: Laboratory Tests 01/25/24 05/23/24 10:42 09:33 WBC 5.9 Hgb 12.0 Hct 36.8 L Plt Count 234 Sodium 140 Potassium 4.1 Chloride 105 Carbon Dioxide 26 BUN 26 H Creatinine 0.96 Airway Mallampati Class: II TM Dist: >3cm Neck ROM: Full Denture: Upper and Lower Loose/Missing/Broken Teeth: Yes (Dentures) Heart: RRR Lungs: CTAB Assessment and Plan Assessment Anesthesia Assessment: Anesthesia Plan Discussed and Chart Reviewed Final Anesthetic Review Family History of Problems with Anesthesia: No History of Problems with Anesthesia: Yes (PONV) NPO: Yes ASA Class: II Final Preanesthetic Review: No Changes in Pt Med Stat, Meds/Allgs Chart Reviewed, Consent Obtained/Reviewed and Anes Risks/Benef Reviewed Patient Risk: Low Procedure Risk: Low Assessment/Block/Sedation in SS: Assess/Block/Sedation-SS Anesthetic Plan Anesthetic Plan: TIVA Disposition: Standard PACU
[2024-06-25 12:25] VITALS: BP 150/79; PULSE 73; RESP 14; TEMP 36.3; O2SAT 98
[2024-06-25 12:38] VITALS: BMI 33.5
[2024-06-25] MEDS: Lactated Ringers 1,000 ML 100 ML IVCONT (12:49)
--- NOTE | 2024-06-25 14:26 | MHC.SHP ---
Pre-Procedural Eval Section A - 24 Hr Update-Section A only Date of Service: 06/25/24 The patient is an INPATIENT: No Changes since office visit: Yes Patient answered all questions; No Cold of Flu in the past 2 weeks, No New Medical Problems and No Changes in Medication The patient has been examined within 24 hours of the surgical procedure. The History & Physical has been completed within 30 days and I have reviewed it.: Yes Section B - Complete if H&P > 30 days Chief Complaint: GERD, abnormal CT scan Allergies: Allergies Allergy/AdvReac Type Severity Reaction Status Date / Time diazepam [From VALIUM] Allergy Unknown HALLUCINATION/DIFF Verified 06/25/24 12:26 BREATHING Review of Systems Sugical H&P ROS: Negative: Cardiovascular, Respiratory, Neurological and Gastrointestinal Exam Surgical H&P Exam: Normal: Heart, Normal: Lungs, Normal: Extremities and Normal: Abdomen Plan I have reviewed the history and physical and performed a pertinent physical examination on my patient. No changes have occurred unless specified. Time Spent With Patient Time: Total time managing care of this patient today ____ minutes.
--- NOTE | 2024-06-25 14:51 | W.PM.OPN ---
Operative Note Operative Note Date of Service: 06/25/24 Narrative: FLEXIBLE TRANSORAL UPPER GASTROINTESTINAL ENDOSCOPY WITH BIOPSIES AND ESOPHAGEAL BALLOON DILATION Pre-op diagnosis: GERD, Dysphagia, abnormal CT scan of the stomach Post-op diagnosis: GERD, Gastritis, Endoscopist:? Juan Carlos Bruno MD Anesthesia:?MAC UPPER ENDOSCOPY Consent: Indications for the procedure and potential complications of bleeding, perforation, reaction to medications and missed diagnosis were discussed with the patient and informed consent was obtained. Instrument: Olympus GIF H 190 mid size upper endoscope Monitoring: Vital signs and clinical assessment, continuous EKG monitoring, Pulse oximetry, Carbon Dioxide monitoring and blood pressure monitoring were done throughout the procedure. Procedure: The patient was placed in the left lateral decubitis position and pre-procedure medications were administered and a bite block was placed. The endoscope was inserted into the mouth and advanced under direct vision to the third part of duodenum. A careful inspection was made as the upper endoscope was withdrawn including a retroflexed examination of the proximal stomach; Findings and interventions are described below. Findings: Larynx: Normal Esophagus: GE junction at 34 cms, small hiatal hernia 34 to 36 cms. Tortuous esophagus with increased tertiary contractions without stricture or ring. Empiric balloon dilation was performed with a 20 mm (60 F) CRE balloon x 60 seconds Stomach: Moderate diffuse gastric erythema with decreased fundal folds- biopsies were obtained from the gastric body and antrum. No ulcer seen - likely healed. Grade 2 flap valve on retroflexed examination of the cardia. Duodenum: Normal bulb and descending duodenum Intervention: Biopsies as noted above Impression and Post Procedure Diagnosis: Endoscopy Findings: ESOPHAGUS: Small hiatal hernia. Dysphagia likely due to esophageal motility disorder - empiric balloon dilation was performed to 20 mm STOMACH: Diffuse gastritis with decreased fundal folds and no ulcer seen - likely healed with Omeprazole Plan: Pt has a FU appointment on 07/05/24 with Adela Taylor NP. Above findings were reviewed with the patient and relevant handouts were given and the discharge area.
[2024-06-25 14:55] VITALS: BP 113/59; PULSE 99; RESP 16; TEMP 36.3; O2SAT 94
[2024-06-25 15:10] VITALS: BP 125/90; PULSE 84; RESP 16; TEMP 36.1; O2SAT 97
== END 2024-06-25 15:16 | disposition home or self-care (01) ==
PROVIDERS: PCP Internal Medicine; Visit Provider Internal Medicine Gastroenterology
PROC: 0DJ08ZZ Inspection of Upper Intestinal Tract, Via Natural or Artificial Opening Endoscopic (ICD-10-PCS; CPT 43235; principal; 2024-06-25 13:50)
DX: K29.50 Unspecified chronic gastritis without bleeding (principal); B96.81 Helicobacter pylori [H. pylori] as the cause of diseases classified elsewhere; R13.10 Dysphagia, unspecified; K21.9 Gastro-esophageal reflux disease without esophagitis; K22.89 Other specified disease of esophagus; K44.9 Diaphragmatic hernia without obstruction or gangrene; I10 Essential (primary) hypertension; E78.00 Pure hypercholesterolemia, unspecified; Z79.899 Other long term (current) drug therapy; Z88.8 Allergy status to other drugs, medicaments and biological substances; Z98.890 Other specified postprocedural states
CPT/HCPCS: 43249; 43239; 88305; 88342; J1100; J1596; J2003; J2704

== ENCOUNTER → 2024-06-25 10:52 | Outpatient (BNV) | payer OTHER, SELFPAY | PROVIDERS: PCP Internal Medicine; Visit Provider Internal Medicine Gastroenterology | DX: K21.9 Gastro-esophageal reflux disease without esophagitis (principal); R13.10 Dysphagia, unspecified; R93.3 Abnormal findings on diagnostic imaging of other parts of digestive tract; K29.70 Gastritis, unspecified, without bleeding | CPT/HCPCS: 43239; 43249 ==

== ENCOUNTER 2024-07-05 08:20 | Outpatient (AMB) | payer OTHER, SELFPAY ==
[2024-07-05 08:50] VITALS: BP 146/70; PULSE 72; BMI 33.8
--- NOTE | 2024-07-05 08:50 | A.OFFVIS_ITS ---
Vital Signs 07/05/24 08:50 Height 5 ft 4 in Weight 196 lb 10.437 oz BMI 33.8 BP 146/70 H Blood Pressure Location Lt brachial Position Sitting Pulse 72 Intake Visit Reasons: s/p EGD Intake Note: Patient presents in office today s/p EGD. CC: Patient c/o heartburn. Denies other GI symptoms today. Ob Nurse Required: Yes Allergies diazepam [From VALIUM] Allergy (Unknown, Verified 07/05/24 08:56) HALLUCINATION/DIFF BREATHING HPI HPI s/p EGD: Details: Assessment & Plan (1) Abnormal CT scan: Comment: GASTROINTESTINAL TRACT: Diverticulosis. No evidence of diverticulitis. The small and large bowel are otherwise unremarkable. There is abnormal wall thickening of the distal stomach and stranding of the adjacent fat. There is outpouching of air questionable for ulcer for example axial image 26 series 3 is ring 1.4 cm. No free air or contrast extravasation is seen. The appendix is is not seen. Code(s): R93.89 - Abnormal findings on diagnostic imaging of other specified body structures Category: Medical (2) GERD (gastroesophageal reflux disease): Code(s): K21.9 - Gastro-esophageal reflux disease without esophagitis Category: Medical (3) Epigastric pain: Code(s): R10.13 - Epigastric pain Category: Medical (4) Constipation: Code(s): K59.00 - Constipation, unspecified Category: Medical (5) Dysphagia: Code(s): R13.10 - Dysphagia, unspecified Category: Medical Plan [facility] #[id number], [place] She has been suffering burning upper abdominal pain for several years. She thought it was from her medicines and her PCP did a CT that showed ? of gastric ulcer. The area of pain is in the right mid upper quadrant and adjacent to the umbilicus area. The intensity 7/10. The pain is worse when her stomach is empty and I over eat and gain weight because of this. She also feels a tightness when swallowing and a ball in my throat globus sensation intermittently. She will also have dysphagia of solid foods occasionally and also at times with liquids. She denies any N/V, CIC or diarrhea. She is gaining and has not lost weight. Her mother had a raegan many year ago, no known FHX of PUD or stomach cancer. No sign of GB stones on CT scan. ROV 3 weeks to eval the omeprazole and Carafate. Orders: Orders H pylori Ag Stool Today R10.13 - Epigastric pain EGD - GI Use Only Today K21.9 - Gastro-esophageal reflux disease without esophagitis, R10.13 - Epigastric pain, R93.89 - Abnormal findings on diagnostic imaging of other specified body structures Medications: New omeprazole 40 mg PO DAILY 30 caps 3RF 30 days sucralfate (Carafate) 2 grams (2 x 1 gram) PO QNOON 60 tabs 3RF R10.13 - Epigastric pain, R93.89 - Abnormal findings on diagnostic imaging of other specified body structures sennosides (Senna Laxative) 17.2 mg (2 x 8.6 mg) PO BEDTIME 60 tabs 3RF K59.00 - Constipation, unspecified EGD/ 06/26/24 Findings: Larynx: Normal Esophagus: GE junction at 34 cms, small hiatal hernia 34 to 36 cms. Tortuous esophagus with increased tertiary contractions without stricture or ring. Empiric balloon dilation was performed with a 20 mm (60 F) CRE balloon x 60 seconds Stomach: Moderate diffuse gastric erythema with decreased fundal folds- biopsies were obtained from the gastric body and antrum. No ulcer seen - likely healed. Grade 2 flap valve on retroflexed examination of the cardia. Duodenum: Normal bulb and descending duodenum Intervention: Biopsies as noted above Impression and Post Procedure Diagnosis: Endoscopy Findings: ESOPHAGUS: Small hiatal hernia. Dysphagia likely due to esophageal motility disorder - empiric balloon dilation was performed to 20 mm STOMACH: Diffuse gastritis with decreased fundal folds and no ulcer seen - likely healed with Omeprazole BIOPSY Received: 06/26/24 ADDENDUM REPORT Addendum Addendum #1 Immunostain for H. pylori highlights scattered organisms in part B, supporting the diagnosis. Electronically Signed By: Silvino Miles MD 07/01/24 0919 Diagnosis A. Stomach, antrum, biopsy: Antral-type mucosa with mild chronic inactive inflammation and focal intestinal metaplasia; negative for dysplasia; no Helicobacter organisms seen. B. Stomach, body, biopsy: - Oxyntic mucosa with moderate chronic active inflammation and atrophy. - Positive for H pylori. TODAY'S VISIT Fijian #Olvin Pearce I explained that she is positive for H pylori and this likely accounts for many of her symptoms. I will put her on quadruple therapy and I explained the importance of completing the antibiotics because this is a tough microbe and we do not want to become antibiotic resistant. I also let her know that the bismuth may turn her stool black, and she should utilize a probiotic supplement to prevent any yeast infections or diarrhea. Also it is imperative that she avoid all alcohol as it would have a disulfiram reaction with the Flagyl. Return office visit in 8 weeks and at that time we will test for eradication. [facility] Medical History History of small bowel obstruction Diverticular disease of colon Diverticulitis Plantar fasciitis Colon cancer screening Hypothyroidism Thyroid disease GERD (gastroesophageal reflux disease) Gall bladder, polycystic disease Partial small bowel obstruction Arthritis Hyperlipemia Depression HTN (hypertension) Surgical History Status post total knee replacement, right S/P right knee surgery History of appendectomy Hx of colonoscopy History of arthroscopy of right knee History of arthroscopy of left knee H/O: hysterectomy Family History Mother Diabetes Father Emphysema lung Social History Household Members: Spouse Housing: Apartment Are you a primary animal care supervisor to a significant other at home: No Do you presently have visiting nurse or other home services: No Patient Tobacco Use Status: Never used Tobacco Second Hand Smoke Exposure: No service: No Current occupational status: retired Review of Systems Const Denies fatigue, Denies fever(s), Denies night sweats, Denies poor appetite and Denies weight loss Eyes Details: glasses Reports requires corrective lenses ENT Reports Normal hearing present, Denies dental pain, Reports dysphagia, Denies hearing loss, Denies mouth pain, Denies odynophagia, Denies throat swelling, Denies tongue swelling and Reports other (Dentition adequate) Card Reports no additional complaints Resp Reports no additional complaints GI Details: Denies abdominal pain, Denies melena, Denies bloating, Denies hematochezia, Reports constipation, Denies GI cramping, Reports dysphagia, Denies excessive flatus, Denies early satiety, Reports dyspepsia, Reports heartburn, Denies diarrhea, Denies nausea, Denies odynophagia, Denies vomiting and Denies hematemesis Skin/Breast Denies pruritus, Denies lesions, Denies rash and Denies jaundice Neuro Reports Normal hearing present and Denies Abnormal speech present Endo Denies fatigue Aller/Immun Denies throat swelling and Denies tongue swelling Physical Exam Vital Signs: Last Vital Signs Pulse 72 07/05/24 08:50 BP 146/70 H 07/05/24 08:50 BMI result Body Mass Index 33.8 Const General: cooperative, no acute distress, well developed and well groomed Nutritional Appearance: well nourished and obese Orientation/consciousness: oriented to person, oriented to place and oriented to time Limitations: language barrier HEENT Head: Yes normocephalic and Yes atraumatic Eyes General: appearance normal, both eyes and all related structures Pupils: Equal, round and reactive pupils present Neck Neck: Yes normal visual inspection and Yes no lymphadenopathy Thyroid: Thyroid normal Resp Effort & Inspection: normal respiratory effort and able to speak in complete sentences Auscultation: clear to auscultation bilaterally Cardio Rate: regular rate Rhythm: regular rhythm Heart sounds: Normal, physiologic split S2 sound present Peripheral pulses: radial pulses present and posterior tibial pulses present GI Inspection: No distended, Yes Abdominal panniculus present and Yes obesity Palpation (GI): Soft to palpation, Tenderness to palpation present (GI) in the epigastrum, no guarding, not rigid and No hepatosplenomegaly present Percussion: Yes normal to percussion Auscultation: normal bowel sounds Rectal Exam - Female: deferred Skin General skin exam: no rashes or lesions noted, turgor normal, skin not dry, no jaundice, No spider nevi and no striae Rashes: no rashes Nails: normal Neuro General: oriented to person, oriented to place and oriented to time Cranial nerves: Yes Equal, round and reactive pupils present and Yes Normal hearing present Speech: No Abnormal speech present Extrem General: Yes normal to inspection, No clubbing, No cyanosis and No edema Psych Appearance: grossly normal and well kempt Mental Status: mental status grossly normal Speech and movement: Normal speech and movement present Affect: normal affect Attitude: cooperative Thought process: Normal thought process present and not confabulating Thought content: Normal thought content present Insight: Limited insight present (Psych) Judgement: Limited judgement present (Psych) Results Reviewed Results Reviewed: EGD/ 06/26/24 Findings: Larynx: Normal Esophagus: GE junction at 34 cms, small hiatal hernia 34 to 36 cms. Tortuous esophagus with increased tertiary contractions without stricture or ring. Empiric balloon dilation was performed with a 20 mm (60 F) CRE balloon x 60 seconds Stomach: Moderate diffuse gastric erythema with decreased fundal folds- biopsies were obtained from the gastric body and antrum. No ulcer seen - likely healed. Grade 2 flap valve on retroflexed examination of the cardia. Duodenum: Normal bulb and descending duodenum Intervention: Biopsies as noted above Impression and Post Procedure Diagnosis: Endoscopy Findings: ESOPHAGUS: Small hiatal hernia. Dysphagia likely due to esophageal motility disorder - empiric balloon dilation was performed to 20 mm STOMACH: Diffuse gastritis with decreased fundal folds and no ulcer seen - likely healed with Omeprazole BIOPSY Received: 06/26/24 ADDENDUM REPORT Addendum Addendum #1 Immunostain for H. pylori highlights scattered organisms in part B, supporting the diagnosis. Electronically Signed By: Silvino Miles MD 07/01/24 0919 Diagnosis A. Stomach, antrum, biopsy: Antral-type mucosa with mild chronic inactive inflammation and focal intestinal metaplasia; negative for dysplasia; no Helicobacter organisms seen. B. Stomach, body, biopsy: - Oxyntic mucosa with moderate chronic active inflammation and atrophy. - Positive for H pylori. Assessment & Plan Assessment & Plan (1) H. pylori infection: Code(s): A04.8 - Other specified bacterial intestinal infections Category: Medical (2) Epigastric pain: Code(s): R10.13 - Epigastric pain Category: Medical (3) GERD (gastroesophageal reflux disease): Code(s): K21.9 - Gastro-esophageal reflux disease without esophagitis Category: Medical (4) Dysphagia: Code(s): R13.10 - Dysphagia, unspecified Category: Medical Plan [place]ian #Marcelleira LIve She has had mixed results related to the dysphagia and the dilation. I explained that she is positive for H pylori and this likely accounts for many of her symptoms. I will put her on quadruple therapy and I explained the importance of completing the antibiotics because this is a tough microbe and we do not want to become antibiotic resistant. I also let her know that the bismuth may turn her stool black, and she should utilize a probiotic supplement to prevent any yeast infections or diarrhea. Also it is imperative that she nichole id all alcohol as it would have a disulfiram reaction with the Flagyl. Return office visit in 8 weeks and at that time we will test for eradication. Medications: New doxycycline hyclate 100 mg PO BID 28 tabs 0RF 14 days A04.8 - Other specified bacterial intestinal infections metronidazole 1,000 mg (2 x 500 mg) PO BID 56 tabs 0RF 14 days A04.8 - Other specified bacterial intestinal infections bismuth subsalicylate (Bismuth) 2 tabs PO QID 112 tabs 0RF 14 days A04.8 - Other specified bacterial intestinal infections On Hold sucralfate (Carafate) Hold Comment: Doctor's Order 2 grams (2 x 1 gram) PO QNOON 60 tabs 3RF R10.13 - Epigastric pain, R93.89 - Abnormal findings on diagnostic imaging of other specified body structures Patient Instructions: Elsa Adkins Tiene shiloh infecci?n por H pylori. Le env?o antibi?ticos. Amo un antibi?shanice markie 2 semanas y luego comience inmediatamente con el rox. 1. Amo un suplemento probi?shanice esther [employer] mientras moises antibi?ticos para protegerse contra la diarrea y las infecciones por hongos. 2. Suspender el sucralfato markie el tratamiento.3. Quiero verte en 6 semanas para volver a realizar la prueba y kourtney si eliminamos la infecci?n. Coding Level of Care Code Est Pt Level 4 (62033) Diagnoses H. pylori infection A04.8 Epigastric pain R10.13 GERD (gastroesophageal reflux disease) K21.9 Dysphagia R13.10 Time Spent (min) 34
== END 2024-07-05 09:31 | disposition home or self-care (01) ==
LOC: HO.HGI 08:20
PROVIDERS: PCP Internal Medicine; Visit Provider Nurse Practitioner
DX: A04.8 Other specified bacterial intestinal infections (principal); R10.13 Epigastric pain; K21.9 Gastro-esophageal reflux disease without esophagitis; R13.10 Dysphagia, unspecified
CPT/HCPCS: 99214

== ENCOUNTER → 2024-07-05 08:20 | Outpatient (BNVA) | payer OTHER, SELFPAY | PROVIDERS: PCP Internal Medicine; Visit Provider Nurse Practitioner | DX: K21.9 Gastro-esophageal reflux disease without esophagitis (principal); K59.00 Constipation, unspecified; R10.13 Epigastric pain; R13.10 Dysphagia, unspecified; R93.89 Abnormal findings on diagnostic imaging of other specified body structures; A04.8 Other specified bacterial intestinal infections | CPT/HCPCS: 99212 ==

== ENCOUNTER 2024-11-11 09:37 | Outpatient (REF) | payer OTHER, SELFPAY ==
--- NOTE | ~2024-11-11 | XR_ITS ---
EXAMINATION: XR KNEE 3 VIEWS RIGHT HISTORY: Z98.890 - Other specified postprocedural states COMPARISON: Comparison is made with the prior examination dated 09/05/2023. FINDINGS: Standing AP views of both knees and additional lateral and sunrise patellar views of the right knee are submitted. The patient is again noted to be status post right total knee arthroplasty. The orthopedic elements are in anatomic alignment. There is no radiographic evidence of loosening. There is no fracture or dislocation. There is a trace joint effusion. XR/XR knee RT 3V IMPRESSION: Status post right total knee arthroplasty. Trace joint effusion. Electronically signed by: Jamar Pino MD 11/11/2024 02:50 PM EDT
== END 2024-11-11 09:38 | disposition home or self-care (01) ==
LOC: HO.HOSX 09:37
PROVIDERS: Visit Provider Orthopaedic Surgery
DX: M25.569 Pain in unspecified knee (principal); M17.0 Bilateral primary osteoarthritis of knee; Z96.651 Presence of right artificial knee joint
CPT/HCPCS: 73562; 99212

== ENCOUNTER 2024-11-11 10:11 | Outpatient (AMB) | payer OTHER, SELFPAY ==
--- NOTE | 2024-11-11 10:33 | MHC.OFFVIS ---
Intake Visit Reasons: OV-RT TKA 09/05/23 NE - One Year Intake Note: Elsa is a 64 year old female who presents today for a follow up of her Right Knee one year s/p Right TKA 09/05/2023. Patient reports that the right knee is doing well, she has some increased pain with gait initiation. Her primary concern is Left Knee Pain Allergies diazepam [From VALIUM] Allergy (Unknown, Verified 07/05/24 08:56) HALLUCINATION/DIFF BREATHING HPI HPI OV-RT TKA 09/05/23 NE - One Year: Details: Elsa is a 64 year old female who presents today for a follow up of her Right Knee one year s/p Right TKA 09/05/2023. Patient reports that the right knee is doing well, she has some increased pain with gait initiation. Her primary concern is Left Knee Pain. She has had knee pain in her left side prior to hip surgery on the right but it has continued to progress. She occasionally has to use a cane. She has had injections in this knee in the past but now that her right knee is working so well she has pretty dissatisfied with the left knee. She finds it frustrating that she still has a hard time walking given that her right knee is doing so well. FOR[facility]LY [facility] Medical History History of small bowel obstruction Diverticular disease of colon Diverticulitis Plantar fasciitis Colon cancer screening Hypothyroidism Thyroid disease GERD (gastroesophageal reflux disease) Gall bladder, polycystic disease Partial small bowel obstruction Arthritis Hyperlipemia Depression HTN (hypertension) Surgical History Status post total knee replacement, right S/P right knee surgery History of appendectomy Hx of colonoscopy History of arthroscopy of right knee History of arthroscopy of left knee H/O: hysterectomy Family History Mother Diabetes Father Emphysema lung Social History Household Members: Spouse Housing: Apartment Are you a primary home care companion to a significant other at home: No Do you presently have visiting nurse or other home services: No Patient Tobacco Use Status: Never used Tobacco Second Hand Smoke Exposure: No service: No Current occupational status: retired Physical Exam Extrem Other: 0-130 degrees right knee with well-healed incision. Varus malalignment left knee with tenderness to palpation medial compartment. 5-125 degrees. Antalgic gait. Results Reviewed Results Reviewed: I personally reviewed relevant radiographs. Right total knee arthroplasty in expected post operative position with no hardware complications or evidence of loosening Left knee varus pattern severe OA Assessment & Plan Assessment & Plan (1) Arthritis of left knee: Code(s): M17.12 - Unilateral primary osteoarthritis, left knee Category: Medical Plan: Mena comes in today with ongoing and persistent left knee pain. She has had injections in the past which have been minimally helpful. She can not walk comfortably because of medial-sided left knee pain. She did very well after right knee replacement and I recommend left knee replacement. She has severe medial compartment OA with varus malalignment. She understands the risks, benefits and alternatives to surgery. I will have our nurse navigator talked to her. (2) Osteoarthritis of right knee: Code(s): M17.11 - Unilateral primary osteoarthritis, right knee Category: Medical Qualifiers: Osteoarthritis type: unspecified Qualified Code(s): M17.11 - Unilateral primary osteoarthritis, right knee Plan: Right knee osteoarthritis status post knee replacement. She is doing extremely well on the right. Continue strengthening and activity as tolerated. No additional intervention warranted at this time. Orders: Orders XR knee LT 1V Today M25.569 - Pain in unspecified knee Coding Level of Care Code Est Pt Level 4 (02822) Diagnoses Arthritis of left knee M17.12 Osteoarthritis of right knee, unspecified osteoarthritis type M17.11 Osteoarthritis type: unspecified
--- OUTSIDE RECORDS SUMMARY | 2024-11-11 11:23 | XMS_ITS | Encounter Summary ---
Author Organization [employer] Address [address] [place] [address] Care Team Providers Care Housekeeping Supervisor Name Role Phone Steven Agee MD Primary Care Provide r Reason for Visit * Reason Onset Date Comments Med Refill 02/01/2024 Encounter Details Date Type Department Care Team ([facility] st Contact Info) Description 02/01/2024 Telephone [facility] [address], [place] [phone] Steven Agee MD [address] [place], [place] [phone] Med Refill Social History Tobacco Use Types Packs/Day Years Used Date Smoking Tobacco: Never Passive Smoke Exposure: Never Smokeless Tobacco: Never Alcohol Use Standard Drinks/Week Comments Never 0 (1 standard drink = 0.6 oz pur e alcohol) Depression Answer Date Recorded Patient Health Questionnaire-9 Score 0 08/11/2022 Housing Stability Answer Date Recorded What is your housing situation today? I have juan peraza 09/08/[address] you li ve. Do you have problems with any of the following? None of the above 09/08/2023 Food Insecurity Answer Date Recorded Within the past 12 months, y ou worried that your food would run out before you got money to buy more: Never True 06/27/2023 Within the past 12 months,th e food you bought just didn't last and you didn't have enough money to get more: Never True Transportation Answer Date Recorded In the past 12 months, has l ack of transportation kept you from medical appts, meetings, work or from getting things needed for daily living? No 06/27/2023 Utilities Answer Date Recorded In the past 12 months, has t he electric, gas, oil or water company threatened to shut off services in your home? No 06/27/2023 Depression Answer Date Recorded Patient Health Questionnaire-2 Score 0 08/15/2023 Comments Unknown Sex and Gender Information Value Date Recorded Sex Assigned at Female 06/27/2022 10:19 AM EDT Legal Sex Female 10:19 AM EDT Gender Identity Female 06/27/2022 10:19 AM EDT Sexual Orientation Straight 06/27/2022 10 :19 AM EDT documented as of this encounter Miscellaneous Notes * Telephone Encounter - Rosita Mukherjee - 02/01/2024 9:04 AM EDT TC from pt requesting medication refill. Medications needing refill : oxyCODONE-acetaminophen (Percocet) 5-325 MG tablet To be sent to: [facility] #[id number] - [address] [facility] documented in this encounter Plan of Treatment Upcoming Encounters Date Type Department Care Team ([facility] st Contact Info) Description 01/23/2025 9:15 AM EDT Office Visit [facility] [address] [place] [address] Steven Agee MD [address] [place] [address] 01/29/2025 10:00 AM EDT Clinical Support [facility] [address] [place] [address] Concetta Barker, QUIN [address] [place] [address] documented as of this encounter Visit Diagnoses Not on filedocumented in this encounter Additional Health Concerns Assessment Noted Time PHQ-9 Depression Total Score: 0 08/11/20 22 9:10 AM EST documented as of this encounter Care Teams Housekeeping Supervisor Relationship Specialty Start Date End Date Steven Agee MD [address] [place] [address] PCP - General Internal Medicine 06/05/14 documented as of this encounter
--- OUTSIDE RECORDS SUMMARY | 2024-11-11 11:23 | XMS_ITS | Encounter Summary ---
Author Organization [employer] Address [address] [place] [address] Care Team Providers Care Machine Stitcher Name Role Phone Steven Agee MD Primary Care Provide r Encounter Details Date Type Department Care Team (Latest Contact Info) Description 11/04/2024 Travel Social History Tobacco Use Types Packs/Day Years Used Date Smoking Tobacco: Never Passive Smoke Exposure: Never Smokeless Tobacco: Never Comments:Exposed to second h and smoking Alcohol Use Standard Drinks/Week Comments Never 0 (1 standard drink = 0.6 oz pur e alcohol) Depression Answer Date Recorded Patient Health Questionnaire-9 Score 1 09/26/2024 Patient Health Questionnaire-9 Score 1 09/26/2024 Last PHQ-9: Questionnaire Data Not on file 0 09/26/2024 Housing Stability Answer Date Recorded What is your housing situation today? I have juan sing 09/13/[address] you li ve. Do you have problems with any of the following? None of the above 09/13/2024 Food Insecurity Answer Date Recorded Within the past 12 months, y ou worried that your food would run out before you got money to buy more: Never True 09/13/2024 Within the past 12 months,th e food you bought just didn't last and you didn't have enough money to get more: Never True Transportation Answer Date Recorded In the past 12 months, has l ack of transportation kept you from medical appts, meetings, work or from getting things needed for daily living? No 09/13/2024 Utilities Answer Date Recorded In the past 12 months, has t he electric, gas, oil or water company threatened to shut off services in your home? No 09/13/2024 Depression Answer Date Recorded Patient Health Questionnaire-2 Score 0 09/26/2024 Internet Access Answer Date Recorded Internet Access Q1 Yes 09/13/2024 Internet Access Q2 Not on file 09/13/2024 Comments Unknown Sex and Gender Information Value Date Recorded Sex Assigned at Female 06/27/2022 10:19 AM EDT Legal Sex Female 10:19 AM EDT Gender Identity Female 06/27/2022 10:19 AM EDT Sexual Orientation Straight 06/27/2022 10 :19 AM EDT documented as of this encounter Plan of Treatment Upcoming Encounters Date Type Department Care Team (Late st Contact Info) Description 01/23/2025 9:15 AM EDT Office Visit [facility] [address] [place] [address] Steven Agee MD [address] [place] [address] 01/29/2025 10:00 AM EDT Clinical Support [facility] [address] [place], [place] [phone] Concetta Barker, RN [address] [place], [place] [phone] documented as of this encounter Visit Diagnoses Not on filedocumented in this encounter Additional Health Concerns Assessment Noted Time PHQ-9 Depression Total Score: 1 09/26/19 25 9:54 AM EST documented as of this encounter Care Teams Machine Stitcher Relationship Specialty Start Date End Date Steven Agee MD [address] [place] [address] PCP - General Internal Medicine 06/05/14 documented as of this encounter
--- OUTSIDE RECORDS SUMMARY | 2024-11-11 11:23 | XMS_ITS | Encounter Summary ---
Author Organization [address] [facility] Address [address] [place] [address] 7 [place] [address] Care Team Providers Care Letterset Press Set Up Operator Name Role Phone Steven Agee MD Primary Care Provide r Reason for Visit * Reason Comments Med Refill Encounter Details Date Type Department Care Team (Late st Contact Info) Description 10/25/2022 Refill [facility] MEDICINE 230 [place] [address] Steven Agee MD 230 [place], [place] [phone] Depressive disorder Social History Tobacco Use Types Packs/Day Years Used Date Smoking Tobacco: Never Passive Smoke Exposure: Never Smokeless Tobacco: Never Alcohol Use Standard Drinks/Week Comments Never 0 (1 standard drink = 0.6 oz pur e alcohol) Depression Answer Date Recorded Patient Health Questionnaire-9 Score 0 08/11/2022 Depression Answer Date Recorded Patient Health Questionnaire-2 Score 0 08/11/2022 Comments Unknown Sex and Gender Information Value [...] Description 01/23/2025 9:15 AM EDT Office Visit [facility] MEDICINE [address] [place] [address] Steven Agee MD 230 [place] [address] 01/29/2025 10:00 AM EDT Clinical Support [facility] PEDS 505 [place] [address] Concetta Barker, RN 505 [place] [address] documented as of this encounter Visit Diagnoses Diagnosis Depressive disorder Depressive disorder, not elsewhere classified documented in this encounter Additional Health Concerns Assessment Noted Time PHQ-9 Depression Total Score: 0 08/11/20 22 9:10 AM EST documented as of this encounter Care Teams Letterset Press Set Up Operator Relationship Specialty Start Date End Date Steven Agee MD 230 [place] [address] PCP - General Internal Medicine 06/05/14 documented as of this encounter
--- OUTSIDE RECORDS SUMMARY | 2024-11-11 11:23 | XMS_ITS | Encounter Summary ---
Author Organization [facility] Address [address] [place] [address] 7t [place] [address] Care Team Providers Care Entry Level Sales Associate Name Role Phone Steven Agee MD Primary Care Provide r Reason for Visit * Reason Comments Med Refill Encounter Details Date Type Department Care Team ([facility] st Contact Info) Description 02/09/2023 Refill [facility] MEDICINE 230 [place], [place] [phone] Steven Agee MD 230 [place], [place] [phone] Nausea and vomiting, unspecified vomiting type Social History Tobacco Use Types Packs/Day Years [...] Orientation Straight 06/27/2022 10 :19 AM EDT COVID-19 Exposure Response Date Recorded In the last 10 days, have yo u been in contact with someone who was confirmed or suspected to have Coronavirus/COVID-19? No / Unsure 01/24/2023 8:30 AM EDT documented as of this encounter Plan of Treatment Upcoming Encounters Date Type Department Care Team (Late st Contact Info) Description 01/23/2025 9:15 AM EDT Office Visit [facility] MEDICINE 230 [place] [address] Steven Agee MD 230 [place] [address] 01/29/2025 10:00 AM EDT Clinical Support [facility] MED & PEDS 505 [place] [address] Concetta Barker, QUIN 505 [place] [address] documented as of this encounter Visit Diagnoses Diagnosis Nausea and vomiting, unspecified vomiting type documented in this encounter Additional Health Concerns Assessment Noted Time PHQ-9 Depression Total Score: 0 08/11/20 22 9:10 AM EST documented as of this encounter Care Teams Entry Level Sales Associate Relationship Specialty Start Date End Date Steven Agee MD [address] [place] [address] PCP - General Internal Medicine 06/05/14 documented as of this encounter
--- OUTSIDE RECORDS SUMMARY | 2024-11-11 11:23 | XMS_ITS | Encounter Summary ---
Author Organization [employer] Address [address] [facility] 7t [place] [address] Care Team Providers Care Custom Framing Specialist Name Role Phone Steven Agee MD Primary Care Provide r Reason for Visit * Reason Comments Med Refill Encounter Details Date Type Department Care Team ([facility] st Contact Info) Description 07/21/2023 Refill [facility] 230 [place], [place] [phone] Name, MD Nolberto 230 [place] [address] Hypertension, unspecified type Social History Tobacco Use Types Packs/Day Years Used Date Smoking Tobacco: Never Passive Smoke Exposure: Never Smokeless Tobacco: Never Alcohol Use Standard Drinks/Week Comments Never 0 (1 standard drink = 0.6 oz pur e alcohol) Depression Answer Date Recorded Patient Health Questionnaire-9 Score 0 08/11/2022 Housing Stability Answer Date Recorded What is your housing situation today? I have housing today, but I am worried about losing housing in the future 06/27/[address] you li ve. Do you have problems with any of the following? None of the above 06/27/2023 Food Insecurity Answer Date Recorded Within the [...] Description 01/23/2025 9:15 AM EDT Office Visit [facility] MED[facility]INE 230 [place] [address] Steven Agee MD 230 [place] [address] 01/29/2025 10:00 AM EDT Clinical Support [facility] 505 [place] [address] Concetta Barker, QUIN 505 [place] [address] documented as of this encounter Visit Diagnoses Diagnosis Hypertension, unspecified type documented in this encounter Additional Health Concerns Assessment Noted Time PHQ-9 Depression Total Score: 0 08/11/20 22 9:10 AM EST documented as of this encounter Care Teams Custom Framing Specialist Relationship Specialty Start Date End Date Steven Agee MD [address] [place] [address] PCP - General Internal Medicine 06/05/14 documented as of this encounter
--- OUTSIDE RECORDS SUMMARY | 2024-11-11 11:23 | XMS_ITS | Encounter Summary ---
Author Organization [employer] Address [address] [facility] 7t [place] [address] Care Team Providers Care Warping Machine Operator Name Role Phone Steven Agee MD Primary Care Provide r Reason for Visit * Reason Onset Date Comments Appointment Request 01/19/2024 Encounter Details Date Type Department Care Team ([facility] st Contact Info) Description 01/19/2024 Telephone [facility] MEDICINE 230 [place], [place] [phone] Steven Agee MD 230 [place] [address] Appointment Request Social History Tobacco Use Types Packs/Day Years [...] * Telephone Encounter - Rosita Mukherjee - 01/19/2024 9:30 AM EDT Tc from pt requesting appt with PCP stated insurance is giving her a hard time. documented in this encounter Plan of Treatment Upcoming Encounters Date Type Department Care Team (Late st Contact Info) Description 01/23/2025 9:15 AM EDT Office Visit [facility] MEDICINE 230 [place] [address] Steven Agee MD 230 [place] [address] 01/29/2025 10:00 AM EDT Clinical Support [facility] MED [facility] PEDS 505 [place] [address] Concetta Braker, QUIN 505 [place] [address] documented as of this encounter Visit Diagnoses Not on filedocumented in this encounter Additional Health Concerns Assessment Noted Time PHQ-9 Depression Total Score: 0 08/11/20 22 9:10 AM EST documented as of this encounter Care Teams Warping Machine Operator Relationship Specialty Start Date End Date Steven Agee MD [address] [place] [address] PCP - General Internal Medicine 06/05/14 documented as of this encounter
--- OUTSIDE RECORDS SUMMARY | 2024-11-11 11:23 | XMS_ITS | Encounter Summary ---
Author Organization [employer] Address [address] [facility] 7 [place] [address] Care Team Providers Care Legal Services Professional Name Role Phone Steven Agee MD Primary Care Provide r Reason for Visit * Reason Onset Date Comments Med Refill 02/28/2024 Encounter Details Date Type Department Care Team ([facility] st Contact Info) Description 02/28/2024 Telephone [facility] MEDICINE 230 [place], [place] [phone] Steven Agee MD 230 [place], [place] [phone] Med Refill Social History Tobacco Use Types [...] encounter Miscellaneous Notes * Telephone Encounter - Mt Dowling - 02/28/2024 11:10 AM EDT TC from pt requesting medication refill. Medications needing refill : oxyCODONE-acetaminophen (Percocet) 5-325 MG tablet To be sent to: [id number] [place], [place] - [address] [place] [address] AT [facility] documented in this encounter Plan of Treatment Upcoming Encounters Date Type Department Care Team ([facility] st Contact Info) Description 01/23/2025 9:15 AM EDT Office Visit [facility] MEDICINE 230 [place] [address] Steven Agee MD 230 [place] [address] 01/29/2025 10:00 AM EDT Clinical Support [facility] CH[facility] MED & PEDS 505 [place] [address] Concetta Barker, RN 505 [place] [address] documented as of this encounter Visit Diagnoses Not on filedocumented in this encounter Additional Health Concerns Assessment Noted Time PHQ-9 Depression Total Score: 0 08/11/20 9:10 AM EST documented as of this encounter Care Teams Legal Services Professional Relationship Specialty Start Date End Date Steven Agee MD 230 [place] [address] PCP - General Internal Medicine 06/05/14 documented as of this encounter
--- OUTSIDE RECORDS SUMMARY | 2024-11-11 11:23 | XMS_ITS | Encounter Summary ---
Author Organization [email or web address] Address [address] [facility] 7t [place] [address] Care Team Providers Care Entrepreneurship Program Director Name Role Phone Steven Agee MD Primary Care Provide r Reason for Visit * Reason Comments Med Refill Encounter Details Date Type Department Care Team ([facility] st Contact Info) Description 06/08/2023 Refill [facility] MEDICINE 230 [place], [place] [phone] Name, MD Nolberto 230 [place] [address] Social History Tobacco Use Types Packs/Day Years [...] worried about losing housing in the future 06/04/[address] you li ve. Do you have problems with any of the following? None of the above 06/04/2023 Food Insecurity Answer Date Recorded Within the past 12 months, y ou worried that your food would run out before you got money to buy more: Never True 06/04/2023 Within the past 12 months,th e food you bought just didn't last and you didn't have enough money to get more: Never True 03/2023 Transportation Answer Date Recorded In the past 12 months, has l ack of transportation kept you from medical appts, meetings, work or from getting things needed for daily living? No 06/04/2023 Utilities Answer Date Recorded In the past 12 months, has t he electric, gas, oil or water company threatened to shut off services in your home? No 06/04/2023 Depression Answer Date Recorded Patient Health Questionnaire-2 [...] Description 01/23/2025 9:15 AM EDT Office Visit [facility] MEDICINE [address] [place] [address] Steven Agee MD [address] [place] [address] 01/29/2025 10:00 AM EDT Clinical Support [facility] 505 [place] [address] Concetta Barker, RN 505 [place] [address] documented as of this encounter Visit Diagnoses Not on filedocumented in this encounter Additional Health Concerns Assessment Noted Time PHQ-9 Depression Total Score: 0 08/11/20 22 9:10 AM EST documented as of this encounter Care Teams Entrepreneurship Program Director Relationship Specialty Start Date End Date Steven Agee MD [address] [place] [address] PCP - General Internal Medicine 06/05/14 documented as of this encounter
--- OUTSIDE RECORDS SUMMARY | 2024-11-11 11:23 | XMS_ITS | Encounter Summary ---
Author Organization [employer] Address [address] [facility] 7t [place] [address] Care Team Providers Care Hourly Associate Name Role Phone Steven Agee MD Primary Care Provide r Reason for Visit * Reason Onset Date Comments Med Refill 06/27/2023 Encounter Details Date Type Department Care Team ([facility] st Contact Info) Description 06/27/2023 Telephone [facility] MEDICINE 230 [place], [place] [phone] Steven Agee MD 230 [place], [place] [phone] Med Refill Social History Tobacco Use Types [...] * Telephone Encounter - Mt Dowling - 06/27/2023 1:40 PM EDT Tc from patient requesting medication refill for oxyCODONE-acetaminophen (Percocet) 5-325 MG tablet. documented in this encounter Plan of Treatment Upcoming Encounters Date Type Department Care Team (Late st Contact Info) Description 01/23/2025 9:15 AM EDT Office Visit [facility] MEDICINE 230 [place] [address] Steven Agee MD 230 [place] [address] 01/29/2025 10:00 AM EDT Clinical Support [facility] MED [facility] PEDS 505 [place] [address] Concetta Barker, QUIN 505 [place] [address] documented as of this encounter Visit Diagnoses Not on filedocumented in this encounter Additional Health Concerns Assessment Noted Time PHQ-9 Depression Total Score: 0 08/11/20 22 9:10 AM EST documented as of this encounter Care Teams Hourly Associate Relationship Specialty Start Date End Date Steven Agee MD [address] [place] [address] PCP - General Internal Medicine 06/05/14 documented as of this encounter
--- OUTSIDE RECORDS SUMMARY | 2024-11-11 11:23 | XMS_ITS | Encounter Summary ---
Author Organization [employer] Address [address] [facility] 7t [place] [address] Care Team Providers Care Human Resources Associate Name Role Phone Steven Agee MD Primary Care Provide r Reason for Visit * Reason Onset Date Comments Med Refill 11/04/2024 Encounter Details Date Type Department Care Team ([facility] st Contact Info) Description 11/04/2024 Refill [facility] MED & PEDS 505 [place] [address] Concetta Barker, QUIN 505 [place] [address] Depressive disorder Social History Tobacco Use Types [...] housing situation today? I have juan peraza 09/13/[address] you li [...] Description 01/23/2025 9:15 [address] EDT [address] [facility] MEDICINE 230 [place] [address] Steven Agee MD 230 [place] [address] 01/29/2025 10:00 AM EDT Clinical Support [facility] 505 [place] [address] Concetta Barker, RN 505 [place] [address] documented as of this encounter Visit Diagnoses Diagnosis Depressive disorder Depressive disorder, not elsewhere classified documented in this encounter Additional Health Concerns Assessment Noted Time PHQ-9 Depression Total Score: 1 09/26/19 25 9:54 AM EST documented as of this encounter Care Teams Human Resources Associate Relationship Specialty Start Date End Date Steven Agee MD [address] [place] [address] PCP - General Internal Medicine 06/05/14 documented as of this encounter
--- OUTSIDE RECORDS SUMMARY | 2024-11-11 11:23 | XMS_ITS | Encounter Summary ---
Author Organization [employer] Address [address] [place] [address] 7t [place] [address] Care Team Providers Care Flight Service Specialist Name Role Phone Steven Agee MD Primary Care Provide r Reason for Visit * Reason Onset Date Comments Med Refill 02/22/2023 Encounter Details Date Type Department Care Team ([facility] st Contact Info) Description 02/22/2023 Telephone [facility] MEDICINE 230 [place] [address] Steven Agee MD 230 [place] [address] Med Refill Social History Tobacco Use Types [...] encounter Miscellaneous Notes * Telephone Encounter - Luz Monster - 02/22/2023 9:06 AM EDT Tc from pt requesting medication refill for oxyCODONE-acetaminophen (Percocet) 5-325 MG tablet documented in this encounter Plan of Treatment Upcoming Encounters Date Type Department Care Team (Late st Contact Info) Description 01/23/2025 9:15 AM EDT Office Visit [facility] MEDICINE 230 [place] [address] Steven Agee MD 230 [place] [address] 01/29/2025 10:00 AM EDT Clinical Support [facility] 505 [place] [address] Concetta Barker, RN 505 [place] [address] documented as of this encounter Visit Diagnoses Not on filedocumented in this encounter Additional Health Concerns Assessment Noted Time PHQ-9 Depression Total Score: 0 08/11/20 22 9:10 AM EST documented as of this encounter Care Teams Flight Service Specialist Relationship Specialty Start Date End Date Steven Agee MD 230 [place] [address] PCP - General Internal Medicine 06/05/14 documented as of this encounter
--- OUTSIDE RECORDS SUMMARY | 2024-11-11 11:23 | XMS_ITS | Encounter Summary ---
Author Organization [employer] Address [address] [facility] 7t [place] [address] Care Team Providers Care Vehicle Maintenance Technician Name Role Phone Steven Agee MD Primary Care Provide r Reason for Visit * Reason Comments Med Refill Encounter Details Date Type Department Care Team (Late st Contact Info) Description 08/01/2023 Refill [facility] MEDIC[facility] 230 [place], [place] [phone] Steven Agee MD 230 [place], [place] [phone] Nausea and vomiting, unspecified vomiting type Social [...] Description 01/23/2025 9:15 AM EDT Office Visit [facility] MEDICINE 230 [place] [address] Steven Agee MD 230 [place] [address] 01/29/2025 10:00 AM EDT Clinical Support [facility] 505 [place] [address] Concetta Barker, QUIN 505 [place] [address] documented as of this encounter Visit Diagnoses Diagnosis Nausea and vomiting, unspecified vomiting type documented in this encounter Additional Health Concerns Assessment Noted Time PHQ-9 Depression Total Score: 0 08/11/20 22 9:10 AM EST documented as of this encounter Care Teams Vehicle Maintenance Technician Relationship Specialty Start Date End Date Steven Agee MD 230 [place] [address] PCP - General Internal Medicine 06/05/14 documented as of this encounter
--- OUTSIDE RECORDS SUMMARY | 2024-11-11 11:23 | XMS_ITS | Encounter Summary ---
Author Organization [employer] Address [address] [facility] 7t [place] [address] Care Team Providers Care Kiln Charger Name Role Phone Steven Agee MD Primary Care Provide r Reason for Visit * Reason Onset Date Comments re sent script 06/07/2023 Encounter Details Date Type Department Care Team ([facility] st Contact Info) Description 06/07/2023 Telephone [facility] MEDICINE 230 [place] [address] Steven Agee MD 230 [place] [address] re sent script Social History Tobacco Use Types Packs/Day Years [...] encounter Miscellaneous Notes * Telephone Encounter - Isabela Yañez LPN - 06/14/2023 8:53 AM EDT Medication was sent to [facility] on 06/08/23. * Telephone Encounter - Isabela Yañez LPN - 06/07/2023 3:54 PM EDT ONCOLOGY SOCIAL WORKER checked 06/07/23. Last filled 04/28/23. * Telephone Encounter - Paulina Mancini - 06/07/2023 3:47 PM EDT TC from pt requesting to re sent script of zolpidem (Ambien) 10 MG tablet to [facility] due to ptnot have insurance and here its going to be [facility] [place] and cheaper than [facility]. PCP DR. Connelly * Telephone Encounter - Paulina Mancini - 06/07/2023 3:41 PM EDT TC from pt requesting to re sent script oxyCODONE-acetaminophen (Percocet) 5-325 MG tablet to [facility] due to pt not have insurance and here its going to be [facility] and cheaper than [facility]. PCP DR. Connelly documented in this encounter Plan of Treatment Upcoming Encounters Date Type Department Care Team (Late st Contact Info) Description 01/23/2025 9:15 AM EDT Office Visit [facility] MEDICINE 230 [place] [address] Steven Agee MD 230 [place] [address] 01/29/2025 10:00 AM EDT Clinical Support [facility] 505 [place], [place] [phone] Concetta Barker, RN 505 [place] [address] documented as of this encounter Visit Diagnoses Diagnosis Depressive disorder Depressive disorder, not elsewhere classified documented in this encounter Additional Health Concerns Assessment Noted Time PHQ-9 Depression Total Score: 0 08/11/20 22 9:10 AM EST documented as of this encounter Care Teams Kiln Charger Relationship Specialty Start Date End Date Steven Agee MD 230 [place] [address] PCP - General Internal Medicine 06/05/14 documented as of this encounter
--- OUTSIDE RECORDS SUMMARY | 2024-11-11 11:23 | XMS_ITS | Encounter Summary ---
Author Organization [employer] Address [address] [place] [address] 7 [place] [address] Care Team Providers Care College Specialist Name Role Phone Steven Agee MD Primary Care Provide r Encounter Details Date Type Department Care Team (Late st Contact Info) Description 07/20/2022 Abstract [facility] MEDICINE [address] [place] [address] Steven Agee MD 230 [place] [address] Social History Tobacco Use Types Packs/Day Years Used Date Smoking Tobacco: Never Assessed Comments Unknown Sex and Gender Information Value [...] Description 01/23/2025 9:15 AM EDT Office Visit [facility] MEDICINE [address] [place] [address] Steven Agee MD 230 [place] [address] 01/29/2025 10:00 AM EDT Clinical Support [facility] MED [facility] PEDS 505 [place], [place] [phone] Concetta Barker, RN 505 [place] [address] documented as of this encounter Procedures Procedure Name Priority Date/Time Associated Diagnosis Comments LIPID PANEL, STANDARD Routine 02/24/2022 MAMMOGRAPHY Routine 10/25/2021 COLONOSCOPY Routine 06/19/2011 documented in this encounter Results * Lipid Panel, Standard (02/24/2022) LDL HDL Ratio 3.5 Triglycerides 121 40 - 160 mg/dL Cholesterol 166 0 - 200 mg/dL HDL Cholesterol 47 35 - 70 mg/dL LDL Cholesterol 97 mg/dL Blood Venous blood specimen / Unknown Historical Provider LAB BLOOD ORDERABLES Evelyn l Result * Mammography (10/25/2021) Mammogram Bi-Rads 1 Anatomical Region Laterality Modality Other Historical Provider HEALTH MAINTENANCE Final Result * Colonoscopy (06/19/2011) Colonoscopy Normal Historical Provider HEALTH MAINTENANCE Final Result documented in this encounter Visit Diagnoses Not on filedocumented in this encounter Care Teams College Specialist Relationship Specialty Start Date End Date Steven Agee MD [address] [place] [address] PCP - General Internal Medicine 06/05/14 documented as of this encounter
--- OUTSIDE RECORDS SUMMARY | 2024-11-11 11:23 | XMS_ITS | Encounter Summary ---
Author Organization [employer] Address [address] [facility] 7t [place] [address] Care Team Providers Care Supervising Chef Name Role Phone Steven Agee MD Primary Care Provide r Reason for Visit * Reason Onset Date Comments Med Refill 03/28/2024 Encounter Details Date Type Department Care Team ([facility] st Contact Info) Description 03/28/2024 Telephone [facility] [address] [place], [place] [phone] Steven Agee MD [address] [place], [place] [phone] Med Refill Social History Tobacco Use Types [...] encounter Miscellaneous Notes * Telephone Encounter - Faisal Rivero - 03/28/2024 9:22 AM EDT TC from pt requesting medication refill. Medications needing refill : oxyCODONE-acetaminophen (Percocet) 5-325 MG tablet To be sent to: [facility] documented in this encounter Plan of Treatment Upcoming Encounters Date Type Department Care Team (Late st Contact Info) Description 01/23/2025 9:15 AM EDT Office Visit [facility] [address] [place] [address] Steven Agee MD [address] [place] [address] 01/29/2025 10:00 AM EDT Clinical Support [facility] [address] [place] [address] Concetta Barker, QUIN [address] [place] [address] documented as of this encounter Visit Diagnoses Not on filedocumented in this encounter Additional Health Concerns Assessment Noted Time PHQ-9 Depression Total Score: 0 08/11/20 9:10 AM EST documented as of this encounter Care Teams Supervising Chef Relationship Specialty Start Date End Date Steven Agee MD [address] [place] [id number] PCP - General Internal Medicine 06/05/14 documented as of this encounter
--- OUTSIDE RECORDS SUMMARY | 2024-11-11 11:23 | XMS_ITS | Encounter Summary ---
Author Organization [employer] [facility] Address [address] [place] [address] Care Team Providers Care Global Position System Technician Name Role Phone Steven Agee MD Primary Care Provide r Reason for Visit * Reason Onset Date Comments Appointment 08/04/2022 Patient had appt yesterday and case was not in. Instructed to call in to today to check in if it has arrived. DR Encounter Details Date Type Department Care Team (Late st Contact Info) Description 08/04/2022 Telephone [facility] [address] [place] [address] Dental, Provider, DDS Appointment (Patient had appt yesterday and case was not in. Instructed to call in to today to check in if it has arrived. ) Social History Tobacco Use Types Packs/Day Years Used Date Smoking Tobacco: Never Passive Smoke Exposure: Never Smokeless Tobacco: Never Alcohol Use Standard Drinks/Week Comments Never 0 (1 standard drink = 0.6 oz pur e alcohol) Comments Unknown Sex and Gender Information Value [...] suspected to have Coronavirus/COVID-19? No / Unsure 08/05/2022 8:37 AM EST documented as of this encounter Miscellaneous Notes * Telephone Encounter - Marvin York DDS - 08/04/2022 2:17 PM EST [place], Case is ready for delivery, please schedule . Thank you. * Telephone Encounter - Alejandra Elliotts - 08/04/2022 2:01 PM EST Patient had appt yesterday and case was not in. Instructed to call in to today to check in if it has arrived. documented in this encounter Plan of Treatment Upcoming Encounters Date Type Department Care Team (Late st Contact Info) Description 01/23/2025 9:15 AM EDT Office Visit [facility] [address] [place] [address] Steven Agee MD [address] [place] [address] 01/29/2025 10:00 AM EDT Clinical Support [facility] 505 [place] [address] Concetta Barker, RN 505 [place] [address] documented as of this encounter Visit Diagnoses Not on filedocumented in this encounter Care Teams Global Position System Technician Relationship Specialty Start Date End Date Steven Agee MD [address] [place] [id number] PCP - General Internal Medicine 06/05/14 documented as of this encounter
--- OUTSIDE RECORDS SUMMARY | 2024-11-11 11:23 | XMS_ITS | Encounter Summary ---
Author Organization [employer] Address [address] [facility] 7 [place] [address] Care Team Providers Care Draw Hand Name Role Phone Steven Agee MD Primary Care Provide r Reason for Visit * Reason Onset Date Comments Med Refill 07/29/2024 Encounter Details Date Type Department Care Team ([facility] st Contact Info) Description 07/29/[address] [facility] MED[facility]INE [address] [place], [place] [phone] Steven Agee MD [address] [place] [address] Med Refill Social History Tobacco Use Types [...] encounter Miscellaneous Notes * Telephone Encounter - Leyla Olivares - 07/29/2024 9:24 AM EST TC from pt requesting medication refill. Medications needing refill : oxyCODONE-acetaminophen (Percocet) 5-325 MG tablet To be sent to: [id number] [place], [place] - [address] [facility] documented in this encounter Plan of Treatment Upcoming Encounters Date Type Department Care Team ([facility] st Contact Info) Description 01/23/2025 9:15 AM EDT Office Visit [facility] MED[facility] [address] [place] [address] Steven Agee MD [address] [place] [address] 01/29/2025 10:00 AM EDT Clinical Support [facility] [address] [place] [address] Concetta Barker, QUIN [address] [place] [address] documented as of this encounter Visit Diagnoses Diagnosis Nausea and vomiting, unspecified vomiting type documented in this encounter Additional Health Concerns Assessment Noted Time PHQ-9 Depression Total Score: 0 08/11/20 9:10 AM EST documented as of this encounter Care Teams Draw Hand Relationship Specialty Start Date End Date Steven Agee MD [address] [place] [address] PCP - General Internal Medicine 06/05/14 documented as of this encounter
--- OUTSIDE RECORDS SUMMARY | 2024-11-11 11:23 | XMS_ITS | Encounter Summary ---
Author Organization [employer] Address [address] [place] [address] 7t [place] [address] Care Team Providers Care Automobile Service Station Mechanic Name Role Phone Steven Agee MD Primary Care Provide r Reason for Visit * Reason Comments Med Refill Encounter Details Date Type Department Care Team ([facility] st Contact Info) Description 01/03/2023 Refill [facility] MED[facility]INE [address] [place] [address] Steven Agee MD [address] [place], [place] [phone] Chronic midline low back pain without sciatica Social History Tobacco Use Types Packs/Day Years [...] suspected to have Coronavirus/COVID-19? No / Unsure 12/05/2022 8:38 AM EDT documented as of this encounter Plan of Treatment Upcoming Encounters Date Type Department Care Team (Late st Contact Info) Description 01/23/2025 9:15 AM EDT Office Visit [facility] MEDICINE [address] [place] [address] Steven Agee MD [address] [place] [address] 01/29/2025 10:00 AM EDT Clinical Support [facility] [address] [place] [address] Concetta Barker, RN [address] [place] [address] documented as of this encounter Visit Diagnoses Diagnosis Chronic midline low back pain without sciatica documented in this encounter Additional Health Concerns Assessment Noted Time PHQ-9 Depression Total Score: 0 08/11/20 22 9:10 AM EST documented as of this encounter Care Teams Automobile Service Station Mechanic Relationship Specialty Start Date End Date Steven Agee MD [address] [place] [phone] PCP - General Internal Medicine 06/05/14 documented as of this encounter
--- OUTSIDE RECORDS SUMMARY | 2024-11-11 11:23 | XMS_ITS | Encounter Summary ---
Author Organization [employer] Address [address] [facility] [address] 7[address] [place] [address] Care Team Providers Care Weight Reduction Specialist Name Role Phone Steven Agee MD Primary Care Provide r Encounter Details Date Type Department Care Team ([facility] Contact Info) Description 11/04/2024 Telephone [facility] [address] [place], [place] [phone] Concetta Barker, QUIN [address] [place] [address] Social History Tobacco Use Types Packs/Day Years [...] encounter Miscellaneous Notes * Telephone Encounter - Concetta Barker RN - 11/04/2024 8:32 AM EDT .What DIETARY SERVER Tier would you like this patient to be? Tier 1 = HIGH RISK, Monthly DIETARY SERVER visits Tier 2 = MODerate RISK, Q3 Month visits Tier 3 = LOW RISK = Q4-6 month visits documented in this encounter Plan of Treatment Upcoming Encounters Date Type Department Care Team (Late st Contact Info) Description 01/23/2025 9:15 AM EDT Office Visit [facility] MED[facility]INE [address] [place] [address] Steven Agee MD [address] [place] [address] 01/29/2025 10:00 AM EDT Clinical Support [facility] [address] [place] [address] Concetta Barker, QUIN [address] [place] [address] documented as of this encounter Visit Diagnoses Not on filedocumented in this encounter Additional Health Concerns Assessment Noted Time PHQ-9 Depression Total Score: 1 09/26/19 25 9:54 AM EST documented as of this encounter Care Teams Weight Reduction Specialist Relationship Specialty Start Date End Date Steven Agee MD [address] [place] [address] PCP - General Internal Medicine 06/05/14 documented as of this encounter
--- OUTSIDE RECORDS SUMMARY | 2024-11-11 11:23 | XMS_ITS | Clinical Summary ---
Author Organization [employer] Address [address] [place] [address] [address] [place] [address] Care Team Providers Care Helper Marble Finisher Name Role Phone Steven Agee MD Primary Care Provide r Allergies Active Allergy Reactions Criticality Noted Date Comments Diazepam Swelling,Unknown High 06/26/2014 Other reaction(s): HALLUCINATION/DIFF BREATHING, throat closed up Medications naloxone (Narcan) 4 mg/0.1 mL nasal spray Administer 0.1 mL into affected nostril(s). 022 Active ondansetron (Zofran) 4 MG tabletIndications :Nausea TAKE 1 TABLET(4 MG) BY MOUTH EVERY 8 HOURS NEEDED FOR NAUSEA OR VOMITING 20 tablet 023 Active famotidine (Pepcid) 20 MG tabletIndications :Nausea and vomiting, unspecified vomiting type TAKE 1 TABLET BY MOUTH IN THE MORNING AND AT BEDTIME 180 tablet 3 023 Active oxyCODONE-acetami nophen (Percocet) 5-325 MG tabletIndications :Chronic midline low back pain without sciatica Take 1 tablet by mouth if needed in the morning and at bedtime for severe pain. 56 tablet 024 Active levothyroxine (Synthroid, Levoxyl) 50 MCG tabletIndications :Subclinical hypothyroidism TAKE 1 TABLET BY MOUTH DAILY BEFORE BREAKFAST 90 tablet 1 024 Active meloxicam (Mobic) 15 MG tabletIndications :Chronic midline low back pain without sciatica TAKE 1 TABLET BY MOUTH EVERY DAY 90 tablet 1 024 Active Aspirin Low Dose 81 MG EC tabletIndications :Hypertension, unspecified type TAKE 1 TABLET BY MOUTH IN THE MORNING 180 tablet 1 024 Active Multiple Vitamins-Minerals (Centrum Ultra Womens) tablet TAKE 1 TABLET BY MOUTH IN THE MORNING 90 tablet 025 Active lisinopril 10 MG tabletIndications :Essential hypertension TAKE 1 TABLET(10 MG) BY MOUTH IN THE MORNING 90 tablet 1 025 Active senna (Senokot) 8.6 MG tablet Take 2 tablets by mouth at bedtime. 025 Active sucralfate (Carafate) 1 g tablet TAKE 2 TABLETS BY MOUTH EVERY DAY AT NOON 025 Active atorvastatin (Lipitor) 80 MG tabletIndications :Mixed hyperlipidemia TAKE 1 TABLET BY MOUTH EVERY DAY 90 tablet 1 025 Active hydroCHLOROthiazi de (HYDRODiuril) 25 MG tablet TAKE 1 TABLET BY MOUTH EVERY DAY 90 tablet 1 025 Active oxyCODONE-acetami nophen (Percocet) 5-325 MG tabletIndications :Chronic midline low back pain without sciatica Take 1 tablet by mouth if needed in the morning and at bedtime for severe pain. 56 tablet 025 Active zolpidem (Ambien) 10 MG tabletIndications :Depressive disorder TAKE 1 TABLET(10 MG) BY MOUTH AT BEDTIME NEEDED FOR SLEEP 30 tablet 025 Active clonazePAM (KlonoPIN) 0.5 MG tabletIndications :Depressive disorder TAKE 1 TABLET(0.5 MG) BY MOUTH EACH DAY NEEDED FOR ANXIETY 28 tablet 025 Active oxyCODONE-acetami nophen (Percocet) 5-325 MG tabletIndications :Chronic midline low back pain without sciatica Take 1 tablet by mouth if needed in the morning and at bedtime for severe pain. 56 tablet 025 2024 Discontinued(R eorder (will not trigger notification to Pharmacy)) zolpidem (Ambien) 10 MG tabletIndications :Depressive disorder TAKE 1 TABLET(10 MG) BY MOUTH AT BEDTIME NEEDED FOR SLEEP 30 tablet 025 2024 Discontinued clonazePAM (KlonoPIN) 0.5 MG tabletIndications :Depressive disorder TAKE 1 TABLET(0.5 MG) BY MOUTH EACH DAY NEEDED FOR ANXIETY 28 tablet 025 2024 Discontinued(R eorder (will not trigger notification to Pharmacy)) Active Problems Problem Noted Date Diagnosed Date Long-term current use of opiate analgesic 2024 Status post right knee replacement 09/18/2023 09/18/2023 Assessment & Plan (01/25/2024 10:30 AM EDT): S/p Knee replacement 09/05/[address] Young. Assessment & Plan (09/20/2023 9:07 AM EST): Knee replacement 09/05/[address] Young. -Continue ASA 325 mg BID for 42 days per discharge summary. (until Oct 19, 2023 or per orthopedics) - Physical Therapy for ROM 0-120, quad strength, gait training. -Use walker for ambulation -Limit stair climbing, No shower, No tub bath, No driving Continue anticoagulant -advised increase iron rich foods and MVI with iron -Keep Aquacel dressing clean, dry and intact. -Follow up with orthopedics tomorrow Partial obstruction of small intestine 4 09/18/2023 Arthritis 09/18/2023 09/18/2023 Pre-operative exam 08/15/2023 Assessment & Plan (08/15/2023 3:06 PM EST): Patient is here for a preoperative exam Patient is scheduled for: right TKR Location: [facility] Name of surgeon: Dr. Flako Young On:09/05/23 By: Dr Young Anesthesia:spinal and block After careful review of patient's most recent laboratory EKG: NSR Tw inversions V2 not new unchanged from previous EKGs And today's Physical examination I do not see any contraindication for patient to undergo this: intermediate Risk surgical intervention. Patient has been advised to follow up after the procedure has been completed Hypothyroidism 08/15/2023 Assessment & Plan (05/23/2024 9:13 AM EDT): Pt with previously elevated TSH started on levothyroxine 25 mcg po daily repeat TSH 12/2023 Normal Thyroid US done 09/2023 no routine follow up recommended Continue current regimen Assessment & Plan (01/25/2024 10:29 AM EDT): Pt with elevated TSH started on levothyroxine 25 mcg po daily repeat TSH improved will repeat Thyroid US done 09/2023 no routine follow up recommended Assessment & Plan (09/20/2023 9:10 AM EST): Lab Results Component Value Date TSH 4.95 (H) 08/16/2023 Recommend rechecking after knee is healed as recent surgery may cause temporary dysregulation of thyroid function. Assessment & Plan (08/15/2023 3:18 PM EST): Pt with elevated TSH started on levothyroxine 25 mcg po daily Will repeat TSH Referred to Endocrinology Thyroid US ordered as well Tremor 04/27/2023 Assessment & Plan (04/27/2023 11:54 AM EDT): Pt with c/o intentional tremor Plan: Neurology evaluation [facility] care 01/24/2023 Assessment & Plan (01/25/2024 10:35 AM EDT): Mammogram 11/01/2022 Normal Cervical cancer screening not indicated as she is s/p hysterectomy for benign reasons. Colonoscopy May of 2011 normal; repeat 11/08/2022 showed Diverticulosis. 10 year follow up recommended by Dr Oscar. Assessment & Plan (01/24/2023 8:43 AM EDT): Mammogram 11/01/2022 Normal Cervical cancer screening not indicated as she is s/p hysterectomy for benign reasons. Colonoscopy May of 2011 normal; repeat 11/08/2022 showed Diverticulosis. 10 year follow up recommended by Dr Oscar. Injury of right foot 01/24/2023 Plantar fasciitis of right foot 01/24/2023 Assessment & Plan (04/27/2023 11:48 AM EDT): Patient with c/o right heel pain for months. Worsening when she walks Exam suggestive of this Pt was referred to podiatry but pt did not go because she did not have an cabinet professional Assessment & Plan (01/24/2023 9:13 AM EDT): Patient with c/o right heel pain for months. Worsening when she walks Exam suggestive of this Plan: Continue Meloxicam, Stretching exercises, Plain films of right foot Podiatry consult Dietary counseling 09/13/2022 Exercise counseling 09/13/2022 Diverticular disease of colon 08/11/2022 Assessment & Plan (01/25/2024 10:27 AM EDT): Pt recently seen (November 2022 ) for a bout of mild diverticulitis. CT Showed: Mild diverticulitis of the proximal sigmoid/distal left colon. No free air. Under the care of the local surgeon Dr Oscar Of note she was previously admitted to [facility] for abdominal pain and vomiting. CAT scan performed in the ER showed small bowel loops, and tapering of the diameter distally; consistent w/partial SBO. While in the Hospital she had an NG tube with good result. She improved significantly and tolerated advancement on her diet. Patient was discharged on 01/25/22 Pt was seen by Dr Oscar, she was told the episode was due to adhesion. Colonoscopy 11/08/2022 showed diverticulosis only Recently seen by dr Pearson who repeated her CT and showed no evidence of acute diverticulitis only diverticulosis Assessment & Plan (01/24/2023 8:45 AM EDT): Pt recently seen (November 2022 ) for a bout of mild diverticulitis. CT Showed: Mild diverticulitis of the proximal sigmoid/distal left colon. No free air. Under the care of the local surgeon Dr Oscar Of note she was previously admitted to [facility] for abdominal pain and vomiting. CAT scan performed in the ER showed small bowel loops, and tapering of the diameter distally; consistent w/partial SBO. While in the Hospital she had an NG tube with good result. She improved significantly and tolerated advancement on her diet. Patient was discharged on 01/25/[address] Pt was [address] Oscar, she was told the episode was due to adhesion. Colonoscopy 11/08/2022 showed diverticulosis only Assessment & Plan (08/11/2022 10:23 AM EST): Pt is here for a f/u Previously admitted to [facility] for abdominal pain and vomiting. CAT scan performed in the ER showed small bowel loops, and tapering of the diameter distally; consistent w/partial SBO. While in the Hospital she had an NG tube with good result. She improved significantly and tolerated advancement on her diet. Patient was discharged on 01/25/[address] Oscar, she was told the episode was due to adhesion. She would prefer to have Dr Oscar do her colonoscopy. Referrals placed History of meniscal tear 08/11/2022 Assessment & Plan (04/27/2023 11:47 AM EDT): Pt is s/p Left knee partial medial meniscectomy with chondroplasty 05/01/2019. Pt tells me she has a follow up with Ortho for consideration of TKR Assessment & Plan (01/24/2023 8:39 AM EDT): Pt is s/p Left knee partial medial meniscectomy with chondroplasty 05/01/2019. Assessment & Plan (08/11/2022 10:28 AM EST): Pt is s/p Left knee partial medial meniscectomy with chondroplasty 05/01/2019. Essential hypertension 06/09/2015 Assessment & Plan (09/26/2024 10:00 AM EST): Pt is here for Follow up regarding her Hypertension Blood pressure today is controlled She is on a regimen of: Hctz 25 mg po daily and Lisinopril 10 mg po daily. Most recent electrolytes, Bun and Creatinine done on: Lab Results Component Value Date NA 140 05/23/2024 NA 141 08/16/2023 K 4.1 05/23/2024 K 3.9 08/16/2023 CL 105 05/23/2024 CL 107 08/16/2023 BUN 26 (H) 05/23/2024 BUN 21 (H) 08/16/2023 CREATININE 0.96 05/23/2024 CREATININE 1.00 08/16/2023 were within normal limits. Plan: Continue current regimen patient advised to adhere to a low sodium diet, encouraged about medication compliance, counseled about weight loss. Assessment & Plan (05/23/2024 9:12 AM EDT): Pt is here for Follow up regarding her Hypertension Blood pressure today is controlled She is on a regimen of: Hctz 25 mg po daily and Lisinopril 10 mg po daily. Most recent electrolytes, Bun and Creatinine done on: 08/16/2023 were within normal limits. Plan: Continue current regimen, Repeat BMP patient advised to adhere to a low sodium diet, encouraged about medication compliance, counseled about weight loss. Assessment & Plan (01/25/2024 2:07 PM EDT): Pt is here for Follow up regarding her Hypertension Blood pressure today is controlled She is on a regimen of: Hctz 25 mg po daily and Lisinopril 10 mg po daily. Most recent electrolytes, Bun and Creatinine done on: 08/16/2023 were within normal limits. Plan: Continue current regimen patient advised to adhere to a low sodium diet, encouraged about medication compliance, counseled about weight loss. Assessment & Plan (08/15/2023 3:08 PM EST): Pt is here for Follow up regarding her Hypertension Blood pressure today is controlled She is on a regimen of: Hctz 25 mg po daily and Lisinopril 10 mg po daily. Most recent electrolytes, Bun and Creatinine done on: 05/09/2023 were within normal limits. Plan: Continue current regimen patient advised to adhere to a low sodium diet, encouraged about medication compliance, counseled about weight loss. Pt advised to take his Lisinopril with a small sip of water the morning prior to his procedure to prevent her BP from going up during the procedure Assessment & Plan (04/27/2023 11:43 AM EDT): Pt is here for Follow up regarding her Hypertension Blood pressure today is controlled She is on a regimen of: Hctz 25 mg po daily and Lisinopril 10 mg po daily. Most recent electrolytes, Bun and Creatinine done on: 09/13/2022 were within normal limits. Plan: Continue current regimen patient advised to adhere to a low sodium diet, encouraged about medication compliance, counseled about weight loss. Assessment & Plan (01/24/2023 8:28 AM EDT): Pt is here for Follow up regarding her Hypertension Blood pressure today is controlled She is on a regimen of: Hctz 25 mg po daily and Lisinopril 10 mg po daily. Most recent electrolytes, Bun and Creatinine done on: 09/13/2022 were within normal limits. Plan: Continue current regimen patient advised to adhere to a low sodium diet, encouraged about medication compliance, counseled about weight loss. Assessment & Plan (09/13/2022 9:13 AM EST): Pt is here for Follow up Blood pressure today is controlled On a regimen of: Hctz 25 mg po daily. Last visit I added Lisinopril 10 mg po daily Most recent electrolytes, Bun and Creatinine done on: 01/20/2022 were within normal limits. Today will repeat. Plan: Continue current regimen patient advised to adhere to a low sodium diet, encouraged about medication compliance, counseled about weight loss. Assessment & Plan (08/11/2022 10:24 AM EST): Pt here for a f/u visit BP uncontrolled She is on a regimen of: Hctz 25 mg po daily, Pt tells me she has been checking her BP at home and it has been persistently elevated Plan: Add Lisinopril 10 mg po daily F/u 1 month for BP check Most recent electrolytes, Bun and Creatinine done on: 01/20/2022 were within normal limits. Today will repeat. patient advised to adhere to a low sodium diet, encouraged about medication compliance, counseled about weight loss. Depressive disorder 10/18/2012 Assessment & Plan (01/24/2023 8:36 AM EDT): Pt here for a follow up regarding her Depression, She remains under the care of a psychotherapist her name is Angle at [facility] Denies suicidal ideations or thoughts We prescribe Klonopin for anxiety. Doing well Assessment & Plan (08/11/2022 10:27 AM EST): Pt with Depression, currently seeing a psychotherapist her name is Angle at [facility] Denies suicidal ideations or thoughts We prescribe Klonopin for anxiety. Gastroesophageal reflux disease 08/17/2012 Assessment & Plan (09/26/2024 10:01 AM EST): During her evaluation for diverticulitis she had a CT of her abdomen that showed: Abnormal appearing distal stomach with wall thickening and stranding of the adjacent fat. There is outpouching of air questionable for ulcer. Pt reports compliance with Famotidine Under the care of GI S/p EGDEndoscopy Findings: 06/25/2024 ESOPHAGUS: Small hiatal hernia. Dysphagia likely due to esophageal motility disorder - empiric balloon dilation was performed to 20 mm STOMACH: Diffuse gastritis with decreased fundal folds and no ulcer seen - likely healed with Omeprazole Seen on 07/05/24 with Adela Taylor NP. Who treated her for H.Pilory Assessment & Plan (05/23/2024 9:20 AM EDT): During her evaluation for diverticulitis she had a CT of her abdomen that showed: Abnormal appearing distal stomach with wall thickening and stranding of the adjacent fat. There is outpouching of air questionable for ulcer. Pt reports compliance with Famotidine referred to GI appointment scheduled for 06/13/2024 CBC Lab Results Component Value Date WBC 5.9 01/25/2024 HGB 12.0 01/25/2024 HCT 36.8 (L) 01/25/2024 MCV 80.5 01/25/2024 PLT 234 01/25/2024 Assessment & Plan (01/25/2024 10:47 AM EDT): During her evaluation for diverticulitis she had a CT of her abdomen that showed: Abnormal appearing distal stomach with wall thickening and stranding of the adjacent fat. There is outpouching of air questionable for ulcer. Plan: Will refer to GI and obtain a CBC IFG (impaired fasting glucose) 08/28/1961 Assessment & Plan (01/24/2023 8:34 AM EDT): FBS 09/13/2022 was 102 Patient has been counseled and educated about diet and exercise. Personal goal of weight loss discussed Hyperlipidemia 08/28/1961 Assessment & Plan (09/26/2024 10:12 AM EST): Pt here for a f/u Most recent lipid profile from: Lab Results Component Value Date TRIG 166 (H) 05/23/2024 TRIG 130 05/09/2023 CHOL 257 (H) 05/23/2024 CHOL 163 05/09/2023 LDLCHOLCAL 170 (H) 05/23/2024 LDLCHOLCAL 89 05/09/2023 HDL 54 05/23/2024 HDL 48 05/09/2023 She was on a regimen of: Atorvastatin 80 mg po at bedtime, but tells me she stopped taking it because she ran out Lipids elevated For now will continue with current regimen. Pt has been advised to try to adhere to a low cholesterol diet, counseled and educated about diet and exercise. Repeat Lipid profile 1 week before next visit. 4 month f/u Assessment & Plan (01/24/2023 8:37 AM EDT): Pt here for a f/u Most recent lipid profile from: 09/13/2022 shows a total cholesterol of: 163 triglycerides of: 124 HDL of: 55 and LDL of: 85 Currently on a regimen of: Atorvastatin 80 mg po qhs Lipids continue at target For now will continue with current regimen. Pt has been advised to try to adhere to a low cholesterol diet, counseled and educated about diet and exercise 4 month f/u Assessment & Plan (08/11/2022 10:26 AM EST): Pt here for a f/u Most recent lipid profile from: 02/24/2022 shows a total cholesterol of: 166 triglycerides of: 121 HDL of: 47 and LDL of: 97 Currently on a regimen of: Atorvastatin 80 mg po qhs Lipids continue at target For now will continue with current regimen. Pt has been advised to try to adhere to a low cholesterol diet, counseled and educated about diet and exercise 4 month f/u Chronic midline low back pain without sciatica 0 08/28/1961 Assessment & Plan (09/26/2024 10:02 AM EST): Here for a f/u Patient has chronic low back pain with degenerative changes as seen on MRI in April of 2011. Physical Therapy did not help per pain. She is currently on a medication regimen with Percocet BID and ibuprofen in the middle of the day. She is enrolled in the C[employer] program. Seen in the past at [facility]. She was seen by Dr. Miller on 09/24/2014 and he recommended a trial of steroid injections. Assessment & Plan (01/24/2023 8:38 AM EDT): Here for a f/u Patient has chronic low back pain with degenerative changes as seen on MRI in April of 2011. Physical Therapy did not help per pain. She is currently on a medication regimen with Percocet BID and ibuprofen in the middle of the day. She is enrolled in the C[employer] program. Seen in the past at [facility]. She was seen by Dr. Miller on 09/24/2014 and he recommended a trial of steroid injections. Assessment & Plan (08/11/2022 10:30 AM EST): Here for a f/u Patient has chronic low back pain with degenerative changes as seen on MRI in April of 2011. Physical Therapy did not help per pain. She is currently on a medication regimen with Percocet BID and ibuprofen in the middle of the day. She is enrolled in the [employer] program. Last visit she was referred back to [facility]. She was seen by Dr. Miller on 09/24/2014 and he recommended a trial of steroid injections. Class 1 obesity due to exces s calories with serious comorbidity and body mass index (BMI) of 34.0 to 34.9 in adult 08/28/1961 Assessment & Plan (09/26/2024 10:05 AM EST): Counseled about diet and exercise Patient has comorbidity of: HTN Dietary Recommendations: Fruits, vegetables, whole grains, protein foods, and fat-free or low-fat dairy products are healthy choices. Eat different types of protein foods in your diet. This can include seafood, lean meats, poultry, beans, peas, lentils, nuts, seeds, soy products, and eggs. Limit foods and beverages higher in added sugars, saturated fat, and sodium. Exercise Recommendations: At least 150 minutes of moderate-intensity physical activity per week, or an equivalent combination of moderate- and vigorous-intensity activity Assessment & Plan (05/23/2024 9:15 AM EDT): Counseled about diet and exercise Patient has comorbidity of: HTN Assessment & Plan (01/24/2023 8:34 AM EDT): Counseled about diet and exercise Assessment & Plan (09/13/2022 9:07 AM EST): Counseled about diet and exercise Encounters Date Type Department Care Team Description 11/04/2024 9:30 AM EDT Telemedicine [facility] [address] [place] [address] Concetta Barker, QUIN Long-term current use of opiate analgesic 11/04/2024 Refill [facility] [address] [place] [address] Concetta Barker RN Depressive disorder 11/04/2024 Telephone [facility] [address] [place] [address] Concetta Barker RN 11/04/2024 Travel 11/03/2024 Refill [facility] [address] [place] [address] Steven Agee MD Depressive disorder 10/31/2024 Refill [facility] [address] [facility] [place] [address] Steven Agee MD Chronic midline low back pain without sciatica 10/06/2024 Refill [facility] [address] [place] [address] Steven Agee MD 10/02/2024 Refill [facility] [address] [place] [address] Steven Agee MD Depressive disorder 09/27/2024 Refill [facility] [address] [facility] [place] [address] Steven Agee MD Chronic midline low back pain without sciatica 09/26/2024 10:15 AM EST Office Visit [facility] [address] [facility] [place] [address] Steven Agee MD Essential hypertension (Primary Dx); Gastroesophageal reflux disease with esophagitis without hemorrhage; Chronic midline low back pain without sciatica; Mixed hyperlipidemia; Breast cancer screening by mammogram; Class 1 obesity due to excess calories with serious comorbidity and body mass index (BMI) of 34.0 to 34.9 in adult; Dietary counseling; Exercise counseling; Hypothyroidism, unspecified type; Encounter for immunization 09/26/2024 Travel 09/17/2024 Refill [facility] [address] [place] [address] Bee Jose MD Essential hypertension 09/13/2024 Patient Outreach [facility] [address] [place] [address] Steven Agee MD Pre-visit Planning (SDOH Screening negative and Tobacco screening negative) 09/13/2024 Telephone [facility] [address] [place] [address] Steven Agee MD Chart Prep 09/13/2024 Refill [facility] [address] [place] [address] Bee Jose MD 09/05/2024 10:00 AM EST Office Visit [facility] [address] [place] [address] Allan, Nicole, OD Nuclear sclerotic cataract of both eyes (Primary Dx); Dry eyes; White without pressure of peripheral retina of right eye; Presbyopia of both eyes 09/05/2024 Travel 08/29/2024 Refill [facility] [address] [place] [address] Steven Agee MD Chronic midline low back pain without sciatica 08/14/2024 10:30 AM EST Clinical Support [facility] [address] [place] [address] Concetta Barker RN Chronic midline low back pain without sciatica 08/14/2024 Travel from Last 3 Months Immunizations Name Administration Dates Next Due Influenza injectable quadriv alent IIV4 with preservative 06/02/2016 Influenza injectable quadriv alent preservative free 05/26/2022,05/15/2020,10/02/2018,2016 Influenza, High Dose Seasona l, Preservative Free 05/23/2024 Influenza, IIV3, injectable 05/04/2021, 4 Moderna Covid-19 Vaccine 12+ 02/16/2022, 07/16/2021,12/04/2020,2020 Pfizer Covid-19 Vaccine 12+ Bivalent 06/01/2022 Pneumococcal Conjugate PCV 20 09/26/2024 Tdap 05/23/2024,05/17/2011 Social History Tobacco Use Types Packs/Day Years Used Date Smoking Tobacco: Never Passive Smoke Exposure: Never Smokeless Tobacco: Never Tobacco Cessation:Counseling Given: Not Answered Comments:Exposed to second hand smoking Alcohol Use Standard Drinks/Week Comments Never [...] Orientation Straight 06/27/2022 10 :19 AM EDT Last Filed Vital Signs Vital Sign Reading Time Taken Comments Blood Pressure 138/80 05/23/2024 9:20 AM EDT Pulse 70 09/26/2024 9:50 AM EST Temperature 36.2 ??C (97.1 ??F) 09/26/2024 9:50 AM ES T Respiratory Rate 20 09/26/2024 9:50 AM EST Oxygen Saturation 98% 09/26/2024 9:50 AM EST Inhaled Oxygen Concentration - - Weight 90.4 kg (199 lb 6.4 oz) 09/26/2024 9:50 A M EST Height 162.6 cm (5' 4 ) 09/26/2024 9:50 AM EST Body Mass Index 34.23 09/26/2024 9:50 AM EST Plan of Treatment Upcoming Encounters Date Type Department Care Team (Late st Contact Info) Description 01/23/2025 9:15 AM EDT Office Visit [facility] [address] [place] [address] Steven Agee MD [address] [place] [address] 01/29/2025 10:00 AM EDT Clinical Support [facility] [address] [place] [address] Concetta Barker, QUIN [address] [place] [address] Health Maintenance Due Date Last Done Comments CT Colonography 1960 Dental Oral Exam 1958 Dental Prophylaxis 1958 Dental X-Ray: Bitewings 1958 Dental X-Ray: Full Mouth 1958 FIT DNA/Cologuard 1960 FIT 1960 FOBT 1960 Sigmoidoscopy 1960 Zoster Vaccines (1 of 2) 2008 COVID-19 Vaccine (6 - 2024-25 season) 2024 06/01/2022, 02/16/2022, 07/16/2021, Additional history exists Mammogram 10/31/2024 10/31/2022, 09/29, 10/25/2021, Additional history exists Alcohol/Substance Use Screening 09/26/2025 09/26/2024 Depression Screening 09/26/2025 09/26/2024, 09/26/19 SDOH Screening 09/26/2025 09/26/2024 Tobacco Screening 09/26/2025 09/26/2024 Lipid Panel 05/23/2029 05/23/2024, 04/28, 09/13/2022, Additional history exists Colonoscopy 11/08/2032 11/08/2022, 06/19/2011 Colorectal Cancer Screening 11/08/2032 RSV Patients and Patients Aged 60 years or older (1 - 1-dose 75+ series) 2033 DTaP/Tdap/Td Vaccines (3 - Td or Tdap) 05/23/2034 05/23/2024, 05/17/2011 Hepatitis C Screening Completed 09/13/2022 Influenza Vaccine Completed 05/23/2024, , 05/04/2021, Additional history exists Pneumococcal Vaccine: 50+ Years Completed 09/26/2024 HIB Vaccines Aged Out No longer eligi ble based on patient's age to complete this topic HPV Vaccines Aged Out No longer eligi ble based on patient's age to complete this topic Hepatitis A Vaccines Aged Out No long er eligible based on patient's age to complete this topic Hepatitis B Vaccines Aged Out No long er eligible based on patient's age to complete this topic IPV Vaccines Aged Out No longer eligi ble based on patient's age to complete this topic Meningococcal Vaccine Aged Out No licha domingo eligible based on patient's age to complete this topic RSV under 20 months Aged Out No longe r eligible based on patient's age to complete this topic Rotavirus Vaccines Aged Out No longer eligible based on patient's age to complete this topic Procedures Procedure Name Priority Date/Time Associated Diagnosis Comments POCT ULICES-14 URINE DRUG SCREEN Routine 08/14/2024 10:32 AM EST Chronic midline low back pain without sciatica LIPID PANEL, STANDARD Routine 05/23/2024 9:33 AM EDT Essential hypertension HM COLONOSCOPY Routine 11/08/2022 8:43 AM EDT BI MAMMOGRAM SCREENING TOMOSYNTHESIS BILATERAL Routine 10/31/2022 8:22 AM EST HEPATITIS C AB W/REFL TO HCV RNA, QN, PCR Routine 09/13/2022 9:26 AM EST Essential hypertension Class 2 severe obesity due to excess calories with serious comorbidity and body mass index (BMI) of 35.0 to 35.9 in adult (CMS/HCC) from Last 3 Months or Most Recently Relevant to Health Maintenance Results * POCT ULICES-14 Urine Drug Screen (08/14/2024 10:32 AM EST) Oxycodone Screen, Urine Positive Urine Urine specimen obtained by clean catch procedure / Unknown 08/14/2024 10:32 AM EST Narrative Concetta Barker RN - 08/14/2024 10:32 AM EST Lot# [id number] Exp: 08-03-25 Steven Dowling MD POINT OF CARE TEST EN TER/EDIT ORDERABLES Final Result * (ABNORMAL) Lipid Panel, Standard (05/23/2024 9:33 AM EDT) Triglycerides 166(H) <150 mg/dL [facility] Comment:Desirable Triglyceri de: less than 150 mg/dLBorderline High Triglyceride 150-199 mg/dLHigh Triglyceride: 200-499 mg/dLVery High Triglyceride: greater than or equal to 5OO mg/dL Cholesterol 257(H) <200 mg/dL [facility] Comment:Desirable Cholestero l: less than 200 mg/dLBorderline High Cholesterol: 200-239 mg/dLHigh Cholesterol: greater than 239 mg/dL LDL Cholesterol Calculated 170(H) <100 mg/dL [facility] Comment:Desirable LDL: less than 100 mg/dLNear Optimal/Above Optimal LDL: 110- 129 mg/dLBorderline High LDL: 130-159 mg/dLHigh LDL: 160-189 mg/dLVery High LDL: greater than or equal to 190 mg/dL HDL Cholesterol 54 >40 mg/dL [facility] Comment:Desirable HDL: great er than 40 mg/dL Note: This HDL assay may give artificially low results in patients with liver disease. Blood Venous blood specimen / Unknown 05/23/2024 9:33 AM EDT 05/23/2024 11:51 AM EDT Steven Dowling MD LAB BLOOD ORDERABLES Final Result [facility] [address] [place] [address] [phone] * Colonoscopy (11/08/2022 8:43 AM EDT) Colonoscopy Normal Normal Comment:Diverticulosis of th e left colon sigmoid, otherwise normal Historical Provider HEALTH MAINTENANCE Final Result * BI Mammogram Screening Tomosynthesis Bilateral (10/31/2022 8:22 AM EST) Anatomical Region Laterality Modality Breast Bilateral Mammography 10/31/2022 8:22 AM EST Narrative 11/01/2022 1:32 PM EST ? [facility] ? [address] ?[place] [address] ? Mammography Report ? Signed ? Patient: Brayden Mukherjee,Elsa ?MR#: [id number] ?? [id number] ? : 1960 ?Acct:[id number] ? Age/Sex: 62 / F ?ADM Date: 03/06/23 ? Loc: HO.MAMMO ? Attending Dr: Steven Rose MD ? Ordering Physician: Steven Rose MD ?Resu ?? lts: 1Negative ? Date of Service: 10/31/22 ?Follow Up: 1 Year From Orig ?? inal Mammogram ? Procedure(s): MM tomosynthesis screening BI ?? Accession Number(s): [id number] ? cc: Steven Rose MD ? EXAMINATION: ?? MM SCREENING DIGITAL BREAST TOMOSYNTHESIS, BILATERAL ? CLINICAL INFORMATION: ? Screening. Asymptomatic. ? The lifetime risk of breast cancer based on the Tyrer-Cuzick Model is ?? 2%. ? COMPARISON: ?? Mammography: 10/25/2021, 10/22/2020, 06/11/2018 ? TECHNIQUE: ?? Digital breast tomosynthesis is performed in both the craniocaudal and ?? mediolateral oblique views along with computer-aided detection (CAD). ?? Synthesized 2D images are generated from the tomosynthesis. ??Additional ?? left MLO view is provided. ? FINDINGS: ?? There are scattered areas of fibroglandular density (ACR BI-RADS breast ?? composition Category b). ? Parenchymal pattern is similar to prior exams. There is scattered fine ?? fibronodular pattern without developing density or architectural ?? abnormality. No significant mass. No abnormal calcifications. The ?? axilla and skin contours are unremarkable. ? MM/MM tomosynthesis screening BI ?? IMPRESSION: ?? No mammographic evidence of malignancy. ? ASSESSMENT: ? BI-RADS 1: Negative ? RECOMMENDATION: ?? Routine annual mammography screening. ? This patient's information was entered into a reminder system with a ?? target due date for their next mammogram. ? Dictated By: ?Darek Moreno MD ? Signed By: ?<Electronically signed by Darek Moreno MD in OV> ?11/01/22 1329 ? DD/ 1 ? TD/TT: ? Informatics Manager: TSE ? Procedure Note Donmilanter, Image - 11/01/2022 [facility] [address] [place] [address] Mammography Report Signed Patient: Niki AdkinsR#: [id number] : 8Acct:[id number] Age/Sex: 62 / FADM Date: 10/31/22 Loc: HO.MAMMO Attending Dr: Steven Rose MD Ordering Physician: Steven Rose MDResu lts: 1Negative Date of Service: 10/31/22Follow Up: 1 Year From Orig inal Mammogram Procedure(s): MM tomosynthesis screening BI Accession Number(s): [id number] cc: Steven Rose MD EXAMINATION: MM SCREENING DIGITAL BREAST TOMOSYNTHESIS, BILATERAL CLINICAL INFORMATION: Screening. Asymptomatic. The lifetime risk of breast cancer based on the Tyrer-Cuzick Model is 2%. COMPARISON: Mammography: 10/25/2021, 10/22/2020, 06/11/2018 TECHNIQUE: Digital breast tomosynthesis is performed in both the craniocaudal and mediolateral oblique views along with computer-aided detection (CAD). Synthesized 2D images are generated from the tomosynthesis. Additional left MLO view is provided. FINDINGS: There are scattered areas of fibroglandular density (ACR BI-RADS breast composition Category b). Parenchymal pattern is similar to prior exams. There is scattered fine fibronodular pattern without developing density or architectural abnormality. No significant mass. No abnormal calcifications. The axilla and skin contours are unremarkable. MM/MM tomosynthesis screening BI IMPRESSION: No mammographic evidence of malignancy. ASSESSMENT: BI-RADS 1: Negative RECOMMENDATION: Routine annual mammography screening. This patient's information was entered into a reminder system with a target due date for their next mammogram. Dictated By: Darek Moreno MD Signed By: <Electronically signed by Darek Moreno MD in OV> 11/01/22 1329 DD/ 0822 TD/TT: Informatics Manager: TSE [facility] External Provider IMG BI PROCEDURES Final Result * Hepatitis C Antibody with Reflex to HCV, RNA, Quantitative, Real-Time PCR (09/13/2022 9:26 AM EST) Hepatitis C Antibody NON-REACT EZEKIEL NON-REACT EZEKIEL [employer] Index 0.06 <1.00 [employer] Comment: HCV antibody was non-reactive. There is no laboratory evidence of HCV infection. In most cases, no further action is required. However, if recent HCV exposure is suspected, a test for HCV RNA (test code 58027) is suggested. For additional information please refer to http://education.[employer]/faq/CYG77j2 (This link is being provided for informational/ educational purposes only.) Blood Venous blood specimen / Unknown 09/13/2022 9:26 AM EST 09/13/2022 9:26 AM EST Narrative [facility] - 09/13/2022 7:41 PM EST FASTING:YES FASTING: YES Steven Dowling MD LAB BLOOD ORDERABLES Final Result [facility] [address], [place] [address] [employer] [place] [employer] [address] [facility], (N[address]) [place] [address] from Last 3 Months or Most Recently Relevant to Health Maintenance Insurance [facility] Care Teams Helper Marble Finisher Relationship Specialty Start Date End Date Steven Agee MD [address] [place] [id number] PCP - General Internal Medicine 06/05/14
--- OUTSIDE RECORDS SUMMARY | 2024-11-11 11:23 | XMS_ITS | Encounter Summary ---
Author Organization [employer] Address [address] [facility] 7t [place] [address] Care Team Providers Care Lighting Technician Name Role Phone Steven Agee MD Primary Care Provide r Reason for Visit * Reason Comments controlled substance treatment Encounter Details Date Type Department Care Team ([facility] Contact Info) Description 11/04/2024 9:30 AM EDT Telemedicine [facility] [address] [place] [address] Concetta Barker, QUIN [address] [place] [address] Long-term current use of opiate analgesic Social History Tobacco Use Types Packs/Day Years [...] AM EDT documented as of this encounter Progress Notes * Concetta Barker RN - 11/04/2024 9:30 AM EDT 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 Prescribed oxycodone-acetaminophen 5mg-325mg PO BID PRN & Clonazepam 0.5mg POevery day PRN. States has been taking medications as prescribed. States took Clonazepam yesterday ago and Percocet this morning. Pt denies use of ETOH/nicotine/street drugs/marijuana. Currently ratespain a 5-6/10 and states medication is usually 70% effective at alleviating pain. Current pain siteis both knees and lower back. Last PCP visit 09/26/24. No questions/ concerns at this time. O: OPERATIONS AND MAINTENANCE TECHNICAN verified today. Clonazepam last filled on 10/09/24. Pill count performed over the phone, patient states she has 1 pill left, 1 expected. Percocet last filled on 11/02/24. Pill count performed over the phone, patient states she has 50 pills left, 50-51 expected. Medications are not being overused. 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 P: Pt to continue taking medication only as prescribed; Next MOTORCYCLE DELIVERY DRIVER RV appointment scheduled for 01/29/25 @ 10am. F/u with PCP 01/23/25. F/U sooner PRN. Pt verbalized understanding and agreed to plan. documented in this encounter Plan of Treatment Upcoming Encounters Date Type Department Care Team (Late st Contact Info) Description 01/23/2025 9:15 AM EDT Office Visit [facility] [address] [place] [address] Steven Agee MD [address] [place] [address] 01/29/2025 10:00 AM EDT Clinical Support [facility] [address] [place] [address] Concetta Barker, QUIN [address] [place] [address] documented as of this encounter Visit Diagnoses Diagnosis Long-term current use of opiate analgesic Encounter for long-term (current) use of other medications documented in this encounter Additional Health Concerns Assessment Noted Time PHQ-9 Depression Total Score: 1 09/26/19 25 9:54 AM EST documented as of this encounter Care Teams Lighting Technician Relationship Specialty Start Date End Date Steven Agee MD [address] [place] [id number] PCP - General Internal Medicine 06/05/14 documented as of this encounter
--- OUTSIDE RECORDS SUMMARY | 2024-11-11 11:23 | XMS_ITS | Encounter Summary ---
Author Organization [employer] Address 75 [facility] 7t [place] [address] Care Team Providers Care Business Operations Coordinator Name Role Phone Steven Agee MD Primary Care Provide r Reason for Visit * Reason Onset Date Comments Med Refill 10/31/2024 Encounter Details Date Type Department Care Team (Late st Contact Info) Description 10/31/2024 Refill [facility] [address] [place], [place] [phone] Steven Agee MD [address] [place], [place] [phone] Chronic midline low back pain without sciatica [...] encounter Miscellaneous Notes * Telephone Encounter - aJkob Hatch - 10/31/2024 9:35 AM EST TC from pt requesting medication refill. Medications needing refill : oxyCODONE-acetaminophen (Percocet) 5-325 MG tablet To be sent to: [id number] [place] - [address] [facility] documented in this encounter Plan of Treatment Upcoming Encounters Date Type Department Care Team ([facility] st Contact Info) Description 01/23/2025 9:15 AM EDT Office Visit [facility] [address] [place] [address] Steven Agee MD [address] [place] [address] 01/29/2025 10:00 AM EDT Clinical Support [facility]S [address] [place] [address] Concetta Barker, QUIN [address] [place] [address] documented as of this encounter Visit Diagnoses Diagnosis Chronic midline low back pain without sciatica documented in this encounter Additional Health Concerns Assessment Noted Time PHQ-9 Depression Total Score: 1 09/26/19 25 9:54 AM EST documented as of this encounter Care Teams Business Operations Coordinator Relationship Specialty Start Date End Date Steven Agee MD [address] [place] [address] PCP - General Internal Medicine 06/05/14 documented as of this encounter
--- OUTSIDE RECORDS SUMMARY | 2024-11-11 11:23 | XMS_ITS | Encounter Summary ---
Author Organization [employer] Address [address] [facility] 7t [place] [address] Care Team Providers Care Hadoop Admin Name Role Phone Steven Agee MD Primary Care Provide r Reason for Visit * Reason Comments Med Refill Encounter Details Date Type Department Care Team (Late st Contact Info) Description 01/18/2024 Refill [facility] [address] [place], [place] [phone] Steven Agee MD [address] [place], [place] [phone] Depressive disorder Social History Tobacco Use Types [...] Description 01/23/2025 9:15 AM EDT Office Visit [facility] [address] [place] [address] Steven Agee MD [address] [place] [address] 01/29/2025 10:00 AM EDT Clinical Support [facility] [address] [place] [address] Concetta Barker, RN [address] [place] [address] documented as of this encounter Visit Diagnoses Diagnosis Depressive disorder Depressive disorder, not elsewhere classified documented in this encounter Additional Health Concerns Assessment Noted Time PHQ-9 Depression Total Score: 0 08/11/20 22 9:10 AM EST documented as of this encounter Care Teams Hadoop Admin Relationship Specialty Start Date End Date Steven Agee MD [address] [place] [address] PCP - General Internal Medicine 06/05/14 documented as of this encounter
--- OUTSIDE RECORDS SUMMARY | 2024-11-11 11:23 | XMS_ITS | Encounter Summary ---
Author Organization [employer] Address 75 [facility] 7t [place] [address] Care Team Providers Care Hand Method Lasting Machine Operator Name Role Phone Steven Agee MD Primary Care Provide r Reason for Visit * Reason Comments Med Refill Encounter Details Date Type Department Care Team ([facility] st Contact Info) Description 11/03/2024 Refill [facility] [address] [place], [place] [phone] Steven Agee MD [address] [place], [place] [phone] Depressive disorder Social History Tobacco Use Types [...] Description 01/23/2025 9:15 AM EDT Office Visit [facility] [address] [place] [address] Steven Agee MD [address] [place] [address] 01/29/2025 10:00 AM EDT Clinical Support [facility] [address] [place] [address] Concetta Barker, RN [address] [place] [address] documented as of this encounter Visit Diagnoses Diagnosis Depressive disorder Depressive disorder, not elsewhere classified documented in this encounter Additional Health Concerns Assessment Noted Time PHQ-9 Depression Total Score: 1 09/26/19 25 9:54 AM EST documented as of this encounter Care Teams Hand Method Lasting Machine Operator Relationship Specialty Start Date End Date Steven Agee MD [address] [place] [id number] PCP - General Internal Medicine 06/05/14 documented as of this encounter
--- OUTSIDE RECORDS SUMMARY | 2024-11-11 11:23 | XMS_ITS | Encounter Summary ---
Author Organization [employer] Address [address] [place] [address] 7t [place] [address] Care Team Providers Care Restaurant Line Server Name Role Phone Steven Agee MD Primary Care Provide r Encounter Details Date Type Department Care Team (Late st Contact Info) Description 11/04/2022 Abstract [facility]INE [address] [place] [address] [phone] Steven Agee MD [address] [place] [phone] Social History Tobacco Use Types Packs/Day Years [...] 01/23/2025 9:15 AM EDT Office Visit [facility] [address] [place] [address] [phone] Steven Agee MD [address] [place] [address] [phone] 01/29/2025 10:00 AM EDT Clinical Support [facility]EDS [address] [place] [address] Concetta Barker, RN [address] [place] [address] documented as of this encounter Visit Diagnoses Not on filedocumented in this encounter Additional Health Concerns Assessment Noted Time PHQ-9 Depression Total Score: 0 08/11/20 22 9:10 AM EST documented as of this encounter Care Teams Restaurant Line Server Relationship Specialty Start Date End Date Steven Agee MD [address] [place] [id number] PCP - General Internal Medicine 06/05/14 documented as of this encounter
--- OUTSIDE RECORDS SUMMARY | 2024-11-11 11:23 | XMS_ITS | Encounter Summary ---
Author Organization [employer] Address [address] [facility] 7t [place] [address] Care Team Providers Care Ceramics Engineer Name Role Phone Steven Agee MD Primary Care Provide r Reason for Visit * Reason Onset Date Comments Med Refill 01/01/2024 Encounter Details Date Type Department Care Team ([facility] st Contact Info) Description 01/01/[address] [facility] [address] [place], [place] [phone] Steven gAee MD [address] [place], [place] [phone] Med Refill Social History Tobacco Use Types [...] Telephone Encounter - Isabela Yañez LPN - 01/01/2024 12:58 PM EDT Medication pended to PCP. * Telephone Encounter - Leyla Olivares - 01/01/2024 12:49 PM EDT TC from pt requesting medication refill. Medications needing refill : lisinopril 10 MG tablet To be sent to: [id number] [place] - [address] [facility] documented in this encounter Plan of Treatment Upcoming Encounters Date Type Department Care Team (Late st Contact Info) Description 01/23/2025 9:15 AM EDT Office Visit [facility] [address] [place] [address] Steven Agee MD [address] [place] [address] 01/29/2025 10:00 AM EDT Clinical Support [facility] [address] [place] [address] Concetta Barker, QUIN [address] [place] [address] documented as of this encounter Visit Diagnoses Not on filedocumented in this encounter Additional Health Concerns Assessment Noted Time PHQ-9 Depression Total Score: 0 08/11/20 22 9:10 AM EST documented as of this encounter Care Teams Ceramics Engineer Relationship Specialty Start Date End Date Steven Agee MD [address] [place] [address] PCP - General Internal Medicine 06/05/14 documented as of this encounter
== END 2024-11-11 10:52 | disposition home or self-care (01) ==
LOC: HO.HOS 10:12
PROVIDERS: PCP Internal Medicine; Visit Provider Orthopaedic Surgery
DX: M17.0 Bilateral primary osteoarthritis of knee (principal); Z96.651 Presence of right artificial knee joint
CPT/HCPCS: 99214

== ENCOUNTER → 2024-11-11 10:20 | Outpatient (BNV) | payer OTHER, SELFPAY | PROVIDERS: Visit Provider Radiology Diagnostic Radiology | DX: Z96.651 Presence of right artificial knee joint (principal) | CPT/HCPCS: 73562 ==

== ENCOUNTER 2024-11-14 08:24 | Outpatient (REF) | payer OTHER, SELFPAY ==
--- OUTSIDE RECORDS SUMMARY | 2024-11-14 08:35 | XMS_ITS | Clinical Summary ---
Author Organization [employer] Address [address] [place] [address] 7t [place] [address] Care Team Providers Care Vault Custodian Name Role Phone Steven Agee MD Primary [...] Patient is scheduled for: right TKR Location: [facility] Name of surgeon: Dr. Flako Young On:09/05/23 [...] with c/o intentional tremor Plan: Neurology evaluation [facility] care 01/24/2023 Assessment & Plan (01/25/2024 10:35 [...] go because she did not have an translator/interpreter Assessment & Plan (01/24/2023 9:13 AM EDT): [...] Of note she was previously admitted to [facility] for abdominal pain and vomiting. CAT scan [...] Of note she was previously admitted to [facility] for abdominal pain and vomiting. CAT scan [...] here for a f/u Previously admitted to [facility] for abdominal pain and vomiting. CAT scan [...] a psychotherapist her name is Angle at [facility] Denies suicidal ideations or thoughts We prescribe [...] COT program. Seen in the past at [facility]. She was seen by Dr. Miller on [...] COT program. Seen in the past at [facility]. She was seen by Dr. Miller on [...] Last visit she was referred back to [facility]. She was seen by Dr. Miller on [...] Team Description 11/04/2024 9:30 AM EDT Telemedicine [facility] MED & PEDS [address] [place] [address] Concetta Barker, QUIN Long-term current use of opiate analgesic 11/04/2024 Refill [facility] [address] [place] [address] Concetta Barker RN Depressive disorder 11/04/2024 Telephone [facility] [address] [place] [address] Concetta Barker RN 11/04/2024 Travel 11/03/2024 Refill [facility] MEDICINE [address] [place] [address] Steven Agee MD Depressive disorder 10/31/2024 Refill [facility] [address] [facility] [place] [address] Steven Agee MD Chronic midline low back pain without sciatica 10/06/2024 Refill [facility] MED[facility] [address] [place] [address] Steven Agee MD 10/02/2024 Refill [facility] MED[facility] [address] [place] [address] Steven Agee MD Depressive disorder 09/27/2024 Refill [facility] MEDICINE 230 [facility] [place] [address] Steven Agee MD Chronic midline low back pain without sciatica 09/26/2024 10:15 AM EST Office Visit [facility] [address] [facility] [place] [address] Steven Agee MD Essential hypertension (Primary Dx); Gastroesophageal reflux disease with esophagitis without hemorrhage; Chronic midline low back pain without sciatica; Mixed hyperlipidemia; Breast cancer screening by mammogram; Class 1 obesity due to excess calories with serious comorbidity and body mass index (BMI) of 34.0 to 34.9 in adult; Dietary counseling; Exercise counseling; Hypothyroidism, unspecified type; Encounter for immunization 09/26/2024 Travel 09/17/2024 Refill [facility] PEDS [address] [place] [address] Bee Jose MD Essential hypertension 09/13/2024 Patient Outreach [facility] MEDICINE [address] [place] [address] Steven Agee MD Pre-visit Planning (SDOH Screening negative and Tobacco screening negative) 09/13/2024 Telephone [facility] MEDICINE [address] [place] [address] Steven Agee MD Chart Prep 09/13/2024 Refill [facility] MED[facility] [address] [place] [address] Bee Jose MD 09/05/2024 10:00 AM EST Office Visit [facility] OPTOMETRY [address] [place] [address] Allan, Nicole, OD Nuclear sclerotic cataract of both eyes (Primary Dx); Dry eyes; White without pressure of peripheral retina of right eye; Presbyopia of both eyes 09/05/2024 Travel 08/29/2024 Refill [facility] MEDICINE [address] [place] [address] Steven Agee MD Chronic midline low back pain without sciatica from Last 3 Months Immunizations Name Administration [...] Description 01/23/2025 9:15 AM EDT Office Visit [facility] MEDICINE [address] [place] [address] Steven Agee MD [address] [place] [address] 01/29/2025 10:00 AM EDT Clinical Support [facility] MED [facility] PEDS [address] [place] [address] Concetta Barker, RN [address] [place] [address] Health Maintenance Due Date Last Done Comments CT Colonography 1958 Dental Oral Exam 1958 Dental Prophylaxis 1958 Dental X-Ray: Bitewings 1958 Dental X-Ray: Full Mouth 1958 FIT DNA/Cologuard 1958 FIT 1958 FOBT 1960 Sigmoidoscopy 1958 Zoster Vaccines (1 of 2) 2008 COVID-19 Vaccine ( season) 2024 06/01/2022, 02/16/2022, 07/16/2021, Additional history [...] Associated Diagnosis Comments LIPID PANEL, STANDARD Routine 05/23/2024 9:33 AM [...] Recently Relevant to Health Maintenance Results * (ABNORMAL) Lipid Panel, Standard (05/23/2024 9:33 AM EDT) Triglycerides 166(H) <150 mg/dL [facility] Comment:Desirable Triglyceri de: less than 150 mg/dLBorderline High Triglyceride 150-199 mg/dLHigh Triglyceride: 200-499 mg/dLVery High Triglyceride: greater than or equal to 5OO mg/dL Cholesterol 257(H) <200 mg/dL [facility] Comment:Desirable Cholestero l: less than 200 mg/dLBorderline High Cholesterol: 200-239 mg/dLHigh Cholesterol: greater than 239 mg/dL LDL Cholesterol Calculated 170(H) <100 mg/dL [facility] Comment:Desirable LDL: less than 100 mg/dLNear Optimal/Above Optimal LDL: 110- 129 mg/dLBorderline High LDL: 130-159 mg/dLHigh LDL: 160-189 mg/dLVery High LDL: greater than or equal to 190 mg/dL HDL Cholesterol 54 >40 mg/dL [facility] Comment:Desirable HDL: great er than 40 mg/dL Note: This HDL assay may give artificially low results in patients with liver disease. Blood Venous blood specimen / Unknown 05/23/2024 9:33 AM EDT 05/23/2024 11:51 AM EDT us Steven Dowling MD LAB BLOOD ORDERABLES Final Result [facility] [address] [place] [address] [phone] * Hm Colonoscopy (11/08/2022 8:43 AM EDT) Colonoscopy Normal Normal Comment:Diverticulosis of th e left colon sigmoid, otherwise normal us Historical Provider MD HEALTH MAINTENANCE Final Result * BI Mammogram Screening Tomosynthesis Bilateral (10/31/2022 8:22 AM EST) Anatomical Region Laterality Modality Breast Bilateral Mammography 10/31/2022 8:22 AM EST Narrative 11/01/2022 1:32 PM EST ? [facility] ? [address] ?[place] [address] ? Mammography Report ? Signed ? Patient: Brayden Mukherjee,Elsa ?MR#: [id number] ?? [id number] ? : 1960 ?Acct:[id number] ? Age/Sex: 62 / F ?ADM Date: 10/31/22 ? Loc: HO.MAMMO ? Attending Dr: Steven Rose MD ? Ordering Physician: Steven Rose MD ?Resu ?? lts: 1Negative ? Date of Service: 10/31/22 ?Follow Up: 1 Year From Orig ?? inal Mammogram ? Procedure(s): MM tomosynthesis screening BI ?? Accession Number(s): [id number] ? cc: Steven Rose MD ? EXAMINATION: [...] 1329 ? DD/ 1 ? TD/TT: ? Evening Sitter: TSE ? Procedure Note Luke, Gee - 11/01/2022 [facility] [address] [place] [address] Dr. [place], [place] [address] Mammography Report Signed Patient: Evette Adkins#: [id number] : 8Acct:[id number] Age/Sex: 62 / FADM Date: 10/31/22 Loc: VIN Attending Dr: Steven Rose MD Ordering Physician: Steven Roseesu lts: 1Negative Date of Service: 10/31/22Follow Up: 1 Year From Orig inal Mammogram Procedure(s): MM tomosynthesis screening BI Accession Number(s): [id number] cc: Steven Rose MD EXAMINATION: MM SCREENING [...] in OV> 11/01/22 1329 DD/ 0822 TD/TT: Evening Sitter: TSE [facility] External Provider IMG BI PROCEDURES Final Result * Hepatitis C Antibody with Reflex to HCV, RNA, Quantitative, Real-Time PCR (09/13/2022 9:26 AM EST) Hepatitis C Antibody NON-REACT EZEKIEL NON-REACT EZEKIEL [facility] [employer] [facility] Index 0.06 <1.00 [facility] Comment: HCV antibody was non-reactive. There is no laboratory evidence of HCV infection. In most cases, no further action is required. However, if recent HCV exposure is suspected, a test for HCV RNA (test code 89077) is suggested. For additional information please refer to http://education.Anulex.Pluralsight/faq/TIZ46s0 (This link is being provided for informational/ educational purposes only.) Blood Venous blood specimen / Unknown 09/13/2022 9:26 AM EST 09/13/2022 9:26 AM EST Narrative [facility] - 09/13/2022 7:41 PM EST FASTING:YES FASTING: YES Steven Dowling MD LAB BLOOD ORDERABLES Final Result [facility] [address], [place] [address] [facility] [address] [facility], ([address]) [place] [address] from Last 3 Months or Most Recently Relevant to Health Maintenance Insurance [address] [place] [id number] [facility] [address] [place] [id number] Care Teams Vault Custodian Relationship Specialty Start Date End Date Steven Agee MD [address] [place] [address] PCP - General Internal Medicine 06/05/14
--- OUTSIDE RECORDS SUMMARY | 2024-11-14 08:35 | XMS_ITS | Encounter Summary ---
Author Organization [employer] Address [address] [facility] 7t [place] [address] Care Team Providers Care Supervisor Wheel Shop Name Role Phone Steven Agee MD Primary Care Provide r Reason for Visit * Reason Onset Date Comments re sent script 06/07/2023 Encounter Details Date Type Department Care Team ([facility] st Contact Info) Description 06/07/2023 Telephone [facility] MEDICINE [address] [place] [address] Steven Agee MD [address] [place] [address] re sent script Social History Tobacco Use [...] 8:53 AM EDT Medication was sent to [facility] on 06/08/23. * Telephone Encounter - Isabela Yañez LPN - 06/07/2023 3:54 PM EDT TEAM LEADER SURGERY checked 06/07/23. Last filled 04/28/23. * Telephone Encounter - Paulina Mancini - 06/07/2023 3:47 PM EDT TC from pt requesting to re sent script of zolpidem (Ambien) 10 MG tablet to [facility] due to ptnot have insurance and here its going to be navarrete gee and cheaper than [facility]. PCP DR. Connelly * Telephone Encounter - Paulina Mancini - 06/07/2023 3:41 PM EDT TC from pt requesting to re sent script oxyCODONE-acetaminophen (Percocet) 5-325 MG tablet to [facility] due to pt not have insurance and here its going to be navarrete gee and cheaper than [facility]. PCP DR. Connelly documented in this encounter Plan of Treatment Upcoming Encounters Date Type Department Care Team (Late st Contact Info) Description 01/23/2025 9:15 AM EDT Office Visit [facility] MEDICINE [address] [place] [address] Steven Agee MD [address] [place] [address] 01/29/2025 10:00 AM EDT Clinical Support [facility] [address] [place], [place] [phone] Concetta Barker, RN [address] [place] [address] documented as of this encounter Visit Diagnoses Diagnosis Depressive disorder Depressive disorder, not elsewhere classified documented in this encounter Additional Health Concerns Assessment Noted Time PHQ-9 Depression Total Score: 0 08/11/20 22 9:10 AM EST documented as of this encounter Care Teams Supervisor Wheel Shop Relationship Specialty Start Date End Date Steven Agee MD [address] [place] [address] PCP - General Internal Medicine 06/05/14 documented as of this encounter
--- OUTSIDE RECORDS SUMMARY | 2024-11-14 08:35 | XMS_ITS | Encounter Summary ---
Author Organization [employer] Address [address] [place] [address] 7 [place] [address] Care Team Providers Care Director Sales Support Name Role Phone Steven Agee MD Primary Care Provide r Encounter Details Date Type Department Care Team (Late st Contact Info) Description 07/20/2022 Abstract [facility] MED[facility]INE [address] [place] [address] Steven Agee MD [address] [place] [address] Social History Tobacco Use Types Packs/Day Years [...] 9:15 AM EDT Office Visit [facility] MED[facility]INE [address] [place] [address] Steven Agee MD [address] [place] [address] 01/29/2025 10:00 AM EDT Clinical Support [facility]EDS [address] [place], [place] [phone] Concetta Barker, RN [address] [place] [address] documented as of this encounter Procedures Procedure [...] on filedocumented in this encounter Care Teams Director Sales Support Relationship Specialty Start Date End Date Steven Agee MD [address] [place] [address] PCP - General Internal Medicine 06/05/14 documented as of this encounter
--- OUTSIDE RECORDS SUMMARY | 2024-11-14 08:35 | XMS_ITS | Encounter Summary ---
Author Organization [employer] Address [address] [facility] 7t [place] [address] Care Team Providers Care Mutual Fund Accountant Name Role Phone Steven Agee MD Primary Care Provide r Reason for Visit * Reason Comments Med Refill Encounter Details Date Type Department Care Team (Late st Contact Info) Description 08/01/2023 Refill [facility] MEDICINE [address] [place], [place] [phone] Steven Agee MD [address] [place], [place] [phone] Nausea and vomiting, unspecified vomiting type Social [...] Description 01/23/2025 9:15 AM EDT Office Visit [facility] MEDICINE [address] [place] [address] Steven Agee MD [address] [place] [address] 01/29/2025 10:00 AM EDT Clinical Support [facility] MED [facility] PEDS [address] [place] [address] Concetta Barker, QUIN [address] [place] [address] documented as of this encounter Visit Diagnoses Diagnosis Nausea and vomiting, unspecified vomiting type documented in this encounter Additional Health Concerns Assessment Noted Time PHQ-9 Depression Total Score: 0 08/11/20 22 9:10 AM EST documented as of this encounter Care Teams Mutual Fund Accountant Relationship Specialty Start Date End Date Steven Agee MD [address] [place] [address] PCP - General Internal Medicine 06/05/14 documented as of this encounter
--- OUTSIDE RECORDS SUMMARY | 2024-11-14 08:35 | XMS_ITS | Encounter Summary ---
Author Organization [employer] Address [address] [facility] 7t [place] [address] Care Team Providers Care Internet Manager Name Role Phone Steven Agee MD Primary Care Provide r Reason for Visit * Reason Onset Date Comments Med Refill 10/31/2024 Encounter Details Date Type Department Care Team (Late st Contact Info) Description 10/31/2024 Refill [facility] MEDICINE [address] [place], [place] [phone] Steven Agee MD [address] [place], [place] [phone] Chronic midline low back pain without sciatica [...] encounter Miscellaneous Notes * Telephone Encounter - Jakob Hatch - 10/31/2024 9:35 AM EST TC from pt requesting medication refill. Medications needing refill : oxyCODONE-acetaminophen (Percocet) 5-325 MG tablet To be sent to: [id number] [place] [facility] [address] [facility] documented in this encounter Plan of Treatment Upcoming Encounters Date Type Department Care Team ([facility] st Contact Info) Description 01/23/2025 9:15 AM EDT Office Visit [facility] MEDICINE [address] [place] [address] Steven Agee MD [address] [place] [address] 01/29/2025 10:00 AM EDT Clinical Support [facility]EDS [address] [place] [address] Concetta Barker, QUIN [address] [place] [address] documented as of this encounter Visit Diagnoses Diagnosis Chronic midline low back pain without sciatica documented in this encounter Additional Health Concerns Assessment Noted Time PHQ-9 Depression Total Score: 1 09/26/19 25 9:54 AM EST documented as of this encounter Care Teams Internet Manager Relationship Specialty Start Date End Date Steven Agee MD [address] [place] [address] PCP - General Internal Medicine 06/05/14 documented as of this encounter
--- OUTSIDE RECORDS SUMMARY | 2024-11-14 08:35 | XMS_ITS | Encounter Summary ---
Author Organization [employer] [facility] Address [address] [facility] [address] 7t [place] [address] Care Team Providers Care Radio Reporter Name Role Phone Steven Agee MD Primary Care Provide r Reason for Visit * Reason Onset Date Comments Appointment 08/04/2022 Patient had appt yesterday and case was not in. Instructed to call in to today to check in if it has arrived. DR Encounter Details Date Type Department Care Team (Late st Contact Info) Description 08/04/2022 Telephone [facility] ADULT DENTAL [address] [place] [address] Dental, Provider, DDS Appointment (Patient had appt [...] 9:15 AM EDT Office Visit [facility] MEDICINE [address] [place] [address] Steven Agee MD [address] [place] [address] 01/29/2025 10:00 AM EDT Clinical Support [facility] MED [facility] PEDS [address] [place] [address] Concetta Barker, RN [address] [place] [address] documented as of this encounter Visit Diagnoses Not on filedocumented in this encounter Care Teams Radio Reporter Relationship Specialty Start Date End Date Steven Agee MD [address] [place] [address] PCP - General Internal Medicine 06/05/14 documented as of this encounter
--- OUTSIDE RECORDS SUMMARY | 2024-11-14 08:35 | XMS_ITS | Encounter Summary ---
Author Organization [employer] Address [address] [facility] 7t [place] [address] Care Team Providers Care Tire Fabric Impregnating Range Tender Name Role Phone Steven Agee MD Primary Care Provide r Reason for Visit * Reason Comments controlled substance treatment Encounter Details Date Type Department Care Team ([facility] Contact Info) Description 11/04/2024 9:30 AM EDT Telemedicine [facility] MED [facility] PEDS [address] [place] [address] Concetta Barker, QUIN 505 [place] [address] Long-term current use of opiate analgesic Social [...] RN - 11/04/2024 9:30 AM EDT S: SCALE RECLAMATION TENDER Televisit. Prescribed oxycodone-acetaminophen 5mg-325mg PO BID PRN [...] No questions/ concerns at this time. O: ADZ WORKER verified today. Clonazepam last filled on 10/09/24. Pill count performed over the phone, patient states she has 1 pill left, 1 expected. Percocet last filled on 11/02/24. Pill count performed over the phone, patient states she has 50 pills left, 50-51 expected. Medications are not being overused. A: SCALE RECLAMATION TENDER Revisit: Chronic Opioid use related to pain & Chronic BZO use r/t anxiety. P: Pt to continue taking medication only as prescribed; Next SCALE RECLAMATION TENDER RV appointment scheduled for 01/29/25 @ 10am. F/u with PCP 01/23/25. F/U sooner PRN. Pt verbalized understanding and agreed to plan. documented in this encounter Plan of Treatment Upcoming Encounters Date Type Department Care Team (Late st Contact Info) Description 01/23/2025 9:15 AM EDT Office Visit [facility] MEDICINE [address] [place] [address] Steven Agee MD [address] [place] [address] 01/29/2025 10:00 AM EDT Clinical Support [facility] MED & PEDS [address] [place] [address] Concetta Barker, QUIN [address] [place] [address] documented as of this encounter Visit Diagnoses Diagnosis Long-term current use of opiate analgesic Encounter for long-term (current) use of other medications documented in this encounter Additional Health Concerns Assessment Noted Time PHQ-9 Depression Total Score: 1 09/26/19 25 9:54 AM EST documented as of this encounter Care Teams Tire Fabric Impregnating Range Tender Relationship Specialty Start Date End Date Steven Agee MD [address] [place] [address] PCP - General Internal Medicine 06/05/14 documented as of this encounter
--- OUTSIDE RECORDS SUMMARY | 2024-11-14 08:35 | XMS_ITS | Encounter Summary ---
Author Organization [employer] Address [address] [facility] 7t [place] [address] Care Team Providers Care Vice President Of Contracts Name Role Phone Steven Agee MD Primary Care Provide r Reason for Visit * Reason Comments Med Refill Encounter Details Date Type Department Care Team ([facility] st Contact Info) Description 11/03/2024 Refill [facility] MEDICINE [address] [place], [place] [phone] Steven Agee MD [address] [place], [place] [phone] Depressive disorder Social History Tobacco Use Types [...] Description 01/23/2025 9:15 AM EDT Office Visit [facility] MEDICINE [address] [place] [address] Steven Agee MD [address] [place] [address] 01/29/2025 10:00 AM EDT Clinical Support [facility]EDS 505 [place] [address] Concetta Barker, RN [address] [place] [address] documented as of this encounter Visit Diagnoses Diagnosis Depressive disorder Depressive disorder, not elsewhere classified documented in this encounter Additional Health Concerns Assessment Noted Time PHQ-9 Depression Total Score: 1 09/26/19 25 9:54 AM EST documented as of this encounter Care Teams Vice President Of Contracts Relationship Specialty Start Date End Date Steven Agee MD [address] [place] [address] PCP - General Internal Medicine 06/05/14 documented as of this encounter
--- OUTSIDE RECORDS SUMMARY | 2024-11-14 08:35 | XMS_ITS | Encounter Summary ---
Author Organization [employer] Address [address] [facility] 7t [place] [address] Care Team Providers Care Bus Info Consultant Name Role Phone Steven Agee MD Primary Care Provide r Reason for Visit * Reason Onset Date Comments Med Refill 11/04/2024 Encounter Details Date Type Department Care Team ([facility] st Contact Info) Description 11/04/2024 Refill [facility] & PEDS 505 [place] [address] Concetta Barker, QUIN [address] [place] [address] Depressive disorder Social History Tobacco Use Types [...] Description 01/23/2025 9:15 AM EDT Office Visit [facility] MEDICINE [address] [place] [address] Steven Agee MD 230 [place] [address] 01/29/2025 10:00 AM EDT Clinical Support [facility] MED [facility] PEDS [address] [place] [address] Concetta Barker, RN [address] [place] [address] documented as of this encounter Visit Diagnoses Diagnosis Depressive disorder Depressive disorder, not elsewhere classified documented in this encounter Additional Health Concerns Assessment Noted Time PHQ-9 Depression Total Score: 1 09/26/19 25 9:54 AM EST documented as of this encounter Care Teams Bus Info Consultant Relationship Specialty Start Date End Date Steven Agee MD [address] [place] [address] PCP - General Internal Medicine 06/05/14 documented as of this encounter
--- OUTSIDE RECORDS SUMMARY | 2024-11-14 08:35 | XMS_ITS | Encounter Summary ---
Author Organization [employer] Address [address] [facility] 7t [place] [address] Care Team Providers Care Apprentice Electrician Name Role Phone Steven Agee MD Primary Care Provide r Reason for Visit * Reason Onset Date Comments Med Refill 02/01/2024 Encounter Details Date Type Department Care Team ([facility] st Contact Info) Description 02/01/2024 Telephone [facility] MEDICINE 230 [place], [place] [phone] Steven Agee MD 230 [place], [place] [phone] Med Refill Social History Tobacco Use Types [...] 5-325 MG tablet To be sent to: [id number] [place] [facility] [address] [facility] documented in this encounter Plan of Treatment Upcoming Encounters Date Type Department Care Team ([facility] st Contact Info) Description 01/23/2025 9:15 AM EDT Office Visit [facility] MEDICINE 230 [place] [address] Steven Agee MD 230 [place] [address] 01/29/2025 10:00 AM EDT Clinical Support [facility] MED & PEDS 505 [place] [address] Concetta Barker, QUIN 505 [place] [address] documented as of this encounter Visit Diagnoses Not on filedocumented in this encounter Additional Health Concerns Assessment Noted Time PHQ-9 Depression Total Score: 0 08/11/20 22 9:10 AM EST documented as of this encounter Care Teams Apprentice Electrician Relationship Specialty Start Date End Date Steven Agee MD 230 [place] [address] PCP - General Internal Medicine 06/05/14 documented as of this encounter
--- OUTSIDE RECORDS SUMMARY | 2024-11-14 08:35 | XMS_ITS | Encounter Summary ---
Author Organization [employer] Address [address] [facility] [address] 7t [place] [address] Care Team Providers Care Journeyman Plumber Name Role Phone Steven Agee MD Primary [...] Description 01/23/2025 9:15 AM EDT Office Visit [facility] MEDICINE 230 [place] [address] Steven Agee MD 230 [place] [address] 01/29/2025 10:00 AM EDT Clinical Support [facility] CHC MED & PEDS 505 [place], [place] [phone] Concetta Barker, RN 505 [place], [place] [phone] documented as of this encounter Visit Diagnoses Not on filedocumented in this encounter Additional Health Concerns Assessment Noted Time PHQ-9 Depression Total Score: 1 09/26/19 25 9:54 AM EST documented as of this encounter Care Teams Journeyman Plumber Relationship Specialty Start Date End Date Steven Agee MD 230 [place] [address] PCP - General Internal Medicine 06/05/14 documented as of this encounter
--- OUTSIDE RECORDS SUMMARY | 2024-11-14 08:35 | XMS_ITS | Encounter Summary ---
Author Organization [employer] Address [address] [facility] [address] 7t [place] [address] Care Team Providers Care Felt Hat Inspector And Packer Name Role Phone Steven Agee MD Primary Care Provide r Encounter Details Date Type Department Care Team ([facility] Contact Info) Description 11/04/2024 Telephone [facility] MED & PEDS 505 [place], [place] [phone] Concetta Barker, QUIN 505 [place] [address] Social History Tobacco Use Types Packs/Day Years [...] RN - 11/04/2024 8:32 AM EDT .What LOGISTICS ANALYTICS MANAGER Tier would you like this patient to be? Tier 1 = HIGH RISK, Monthly LOGISTICS ANALYTICS MANAGER visits Tier 2 = MODerate RISK, Q3 Month visits Tier 3 = LOW RISK = Q4-6 month visits documented in this encounter Plan of Treatment Upcoming Encounters Date Type Department Care Team (Late st Contact Info) Description 01/23/2025 9:15 AM EDT Office Visit [facility] MEDICINE 230 [place] [address] Steven Agee MD 230 [place] [address] 01/29/2025 10:00 AM EDT Clinical Support [facility] CH[facility] MED & PEDS 505 [place] [address] Concetta Barker, QUIN 505 [place] [address] documented as of this encounter Visit Diagnoses Not on filedocumented in this encounter Additional Health Concerns Assessment Noted Time PHQ-9 Depression Total Score: 1 09/26/19 25 9:54 AM EST documented as of this encounter Care Teams Felt Hat Inspector And Packer Relationship Specialty Start Date End Date Steven Agee MD 230 [place] [address] PCP - General Internal Medicine 06/05/14 documented as of this encounter
--- OUTSIDE RECORDS SUMMARY | 2024-11-14 08:35 | XMS_ITS | Encounter Summary ---
Author Organization [employer] Address 75 [facility] 7 [place] [address] Care Team Providers Care Director Immunology Name Role Phone Steven Agee MD Primary Care Provide r Reason for Visit * Reason Onset Date Comments Med Refill 02/28/2024 Encounter Details Date Type Department Care Team ([facility] st Contact Info) Description 02/28/2024 Telephone [facility] MEDICINE 230 [place], [place] [phone] Steven Agee MD 230 [place], [place] [phone] Med Refill Social History Tobacco Use Types [...] 5-325 MG tablet To be sent to: [facility] #[id number] [place], [place] - [address] [place] [address] AT [facility] documented in this encounter Plan of Treatment Upcoming Encounters Date Type Department Care Team ([facility] st Contact Info) Description 01/23/2025 9:15 AM EDT Office Visit [facility] MEDICINE 230 [place] [address] Steven Agee MD 230 [place] [address] 01/29/2025 10:00 AM EDT Clinical Support [facility] CHC MED & PEDS 505 [place] [address] Concetta Barker, RN 505 [place] [address] documented as of this encounter Visit Diagnoses Not on filedocumented in this encounter Additional Health Concerns Assessment Noted Time PHQ-9 Depression Total Score: 0 08/11/20 9:10 AM EST documented as of this encounter Care Teams Director Immunology Relationship Specialty Start Date End Date Steven Agee MD 230 [place] [address] PCP - General Internal Medicine 06/05/14 documented as of this encounter
--- OUTSIDE RECORDS SUMMARY | 2024-11-14 08:35 | XMS_ITS | Encounter Summary ---
Author Organization [employer] Address [address] [facility] 7t [place] [address] Care Team Providers Care Mold Parter Name Role Phone Steven Agee MD Primary Care Provide r Reason for Visit * Reason Comments Med Refill Encounter Details Date Type Department Care Team ([facility] st Contact Info) Description 06/08/2023 Refill [facility] MEDICINE 230 [place], [place] [phone] Name, MD Nolberto 230 [place] [address] Social History Tobacco Use Types Packs/Day Years [...] Description 01/23/2025 9:15 AM EDT Office Visit [facility] MEDICINE [address] [place] [address] Steven Agee MD [address] [place] [address] 01/29/2025 10:00 AM EDT Clinical Support [facility] CHC MED & PEDS 505 [place] [address] Concetta Barker, RN 505 [place] [address] documented as of this encounter Visit Diagnoses Not on filedocumented in this encounter Additional Health Concerns Assessment Noted Time PHQ-9 Depression Total Score: 0 08/11/20 22 9:10 AM EST documented as of this encounter Care Teams Mold Parter Relationship Specialty Start Date End Date Steven Agee MD [address] [place] [address] PCP - General Internal Medicine 06/05/14 documented as of this encounter
--- OUTSIDE RECORDS SUMMARY | 2024-11-14 08:35 | XMS_ITS | Encounter Summary ---
Author Organization [employer] Address 75 [facility] 7t [place] [address] Care Team Providers Care Tumor Registrar Name Role Phone Steven Agee MD Primary Care Provide r Reason for Visit * Reason Onset Date Comments Med Refill 03/28/2024 Encounter Details Date Type Department Care Team ([facility] st Contact Info) Description 03/28/2024 Telephone [facility] MEDICINE 230 [place], [place] [phone] Steven Agee MD 230 [place], [place] [phone] Med Refill Social History Tobacco Use Types [...] 5-325 MG tablet To be sent to: [facility] documented in this encounter Plan of Treatment Upcoming Encounters Date Type Department Care Team (Late st Contact Info) Description 01/23/2025 9:15 AM EDT Office Visit [facility] MEDICINE 230 [place] [address] Steven Agee MD 230 [place] [address] 01/29/2025 10:00 AM EDT Clinical Support [facility] CHC MED & PEDS 505 [place] [address] Concetta Barker, QUIN 505 [place] [address] documented as of this encounter Visit Diagnoses Not on filedocumented in this encounter Additional Health Concerns Assessment Noted Time PHQ-9 Depression Total Score: 0 08/11/20 9:10 AM EST documented as of this encounter Care Teams Tumor Registrar Relationship Specialty Start Date End Date Steven Agee MD [address] [place] [address] PCP - General Internal Medicine 06/05/14 documented as of this encounter
--- OUTSIDE RECORDS SUMMARY | 2024-11-14 08:35 | XMS_ITS | Encounter Summary ---
Author Organization [employer] Address [address] [facility] 7t [place] [address] Care Team Providers Care Lozenge Maker Name Role Phone Steven Agee MD Primary Care Provide r Reason for Visit * Reason Onset Date Comments Med Refill 06/27/2023 Encounter Details Date Type Department Care Team ([facility] st Contact Info) Description 06/27/2023 Telephone [facility] MEDICINE 230 [place], [place] [phone] Steven Agee MD 230 [place], [place] [phone] Med Refill Social History Tobacco Use Types [...] Description 01/23/2025 9:15 AM EDT Office Visit [facility] MEDICINE 230 [place] [address] Steven Agee MD 230 [place] [address] 01/29/2025 10:00 AM EDT Clinical Support [facility] CHC MED & PEDS 505 [place] [address] Concetta Barker, QUIN 505 [place] [address] documented as of this encounter Visit Diagnoses Not on filedocumented in this encounter Additional Health Concerns Assessment Noted Time PHQ-9 Depression Total Score: 0 08/11/20 22 9:10 AM EST documented as of this encounter Care Teams Lozenge Maker Relationship Specialty Start Date End Date Steven Agee MD [address] [place] [address] PCP - General Internal Medicine 06/05/14 documented as of this encounter
--- OUTSIDE RECORDS SUMMARY | 2024-11-14 08:35 | XMS_ITS | Encounter Summary ---
Author Organization [employer] Address 75 [facility] 7 [place] [address] Care Team Providers Care Rivet Catcher Name Role Phone Steven Agee MD Primary Care Provide r Reason for Visit * Reason Onset Date Comments Med Refill 07/29/2024 Encounter Details Date Type Department Care Team ([facility] st Contact Info) Description 07/29/2024 Telephone [facility] MEDICINE 230 [place], [place] [phone] Steven Agee MD 230 [place] [address] Med Refill Social History Tobacco Use Types [...] 5-325 MG tablet To be sent to: [facility][id number] [place], [place] - [address] [facility] documented in this encounter Plan of Treatment Upcoming Encounters Date Type Department Care Team ([facility] st Contact Info) Description 01/23/2025 9:15 AM EDT Office Visit [facility] MEDICINE 230 [place] [address] Steven Agee MD 230 [place] [address] 01/29/2025 10:00 AM EDT Clinical Support [facility] CHC MED & PEDS 505 [place] [address] Concetta Barker, QUIN 505 [place] [address] documented as of this encounter Visit Diagnoses Diagnosis Nausea and vomiting, unspecified vomiting type documented in this encounter Additional Health Concerns Assessment Noted Time PHQ-9 Depression Total Score: 0 08/11/20 9:10 AM EST documented as of this encounter Care Teams Rivet Catcher Relationship Specialty Start Date End Date Steven Agee MD 230 [place] [address] PCP - General Internal Medicine 06/05/14 documented as of this encounter
--- OUTSIDE RECORDS SUMMARY | 2024-11-14 08:36 | XMS_ITS | Encounter Summary ---
Author Organization [employer] [facility] Address [address] [place] [address] 7 [place] [address] Care Team Providers Care Salesperson [employer] Glassware Name Role Phone Steven Agee MD Primary Care Provide r Reason for Visit * Reason Comments Med Refill Encounter Details Date Type Department Care Team (Late st Contact Info) Description 10/25/2022 Refill [facility] MEDICINE 230 [place] [address] Steven Agee MD 230 [place], [place] [phone] Depressive disorder Social History Tobacco Use Types [...] Description 01/23/2025 9:15 AM EDT Office Visit [facility] MEDICINE [address] [place] [address] Steven Agee MD 230 [place] [address] 01/29/2025 10:00 AM EDT Clinical Support [facility] CHC MED & PEDS 505 [place] [address] Concetta Barker, RN 505 [place] [address] documented as of this encounter Visit Diagnoses Diagnosis Depressive disorder Depressive disorder, not elsewhere classified documented in this encounter Additional Health Concerns Assessment Noted Time PHQ-9 Depression Total Score: 0 08/11/20 22 9:10 AM EST documented as of this encounter Care Teams Salesperson [employer] Relationship Specialty Start Date End Date Steven Agee MD 230 [place] [address] PCP - General Internal Medicine 06/05/14 documented as of this encounter
--- OUTSIDE RECORDS SUMMARY | 2024-11-14 08:36 | XMS_ITS | Encounter Summary ---
Author Organization [employer] Address [address] [facility] 7t [place] [address] Care Team Providers Care Retail Bakery Manager Name Role Phone Steven Agee MD Primary Care Provide r Reason for Visit * Reason Onset Date Comments Appointment Request 01/19/2024 Encounter Details Date Type Department Care Team ([facility] st Contact Info) Description 01/19/2024 Telephone [facility] MEDICINE 230 [place], [place] [phone] Steven Agee MD 230 [place] [address] Appointment Request Social History Tobacco Use Types [...] Description 01/23/2025 9:15 AM EDT Office Visit [facility] MEDICINE 230 [place] [address] Steven Agee MD 230 [place] [address] 01/29/2025 10:00 AM EDT Clinical Support [facility] CHC MED & PEDS 505 [place] [address] Concetta Barker, QUIN 505 [place] [address] documented as of this encounter Visit Diagnoses Not on filedocumented in this encounter Additional Health Concerns Assessment Noted Time PHQ-9 Depression Total Score: 0 08/11/20 22 9:10 AM EST documented as of this encounter Care Teams Retail Bakery Manager Relationship Specialty Start Date End Date Steven Agee MD [address] [place] [address] PCP - General Internal Medicine 06/05/14 documented as of this encounter
--- OUTSIDE RECORDS SUMMARY | 2024-11-14 08:36 | XMS_ITS | Encounter Summary ---
Author Organization [employer] Address [address] [place] [address] 7t [place] [address] Care Team Providers Care Honing Machine Operator Production Name Role Phone Steven Agee MD Primary Care Provide r Reason for Visit * Reason Comments Med Refill Encounter Details Date Type Department Care Team ([facility] st Contact Info) Description 01/03/2023 Refill [facility] MEDICINE 230 [place], [place] [phone] Steven Agee MD 230 [place], [place] [phone] Chronic midline low back pain without sciatica [...] Description 01/23/2025 9:15 AM EDT Office Visit [facility] MEDICINE 230 [place] [address] Steven Agee MD 230 [place] [address] 01/29/2025 10:00 AM EDT Clinical Support [facility] CHC MED & PEDS 505 [place] [address] Concetta Barker, RN 505 [place] [address] documented as of this encounter Visit Diagnoses Diagnosis Chronic midline low back pain without sciatica documented in this encounter Additional Health Concerns Assessment Noted Time PHQ-9 Depression Total Score: 0 08/11/20 22 9:10 AM EST documented as of this encounter Care Teams Honing Machine Operator Production Relationship Specialty Start Date End Date Steven Agee MD [address] [place] [address] PCP - General Internal Medicine 06/05/14 documented as of this encounter
--- OUTSIDE RECORDS SUMMARY | 2024-11-14 08:36 | XMS_ITS | Encounter Summary ---
Author Organization [employer] Address [address] [place] [address] 7t [place] [address] Care Team Providers Care Rn Operating Room Name Role Phone Steven Agee MD Primary Care Provide r Encounter Details Date Type Department Care Team (Late st Contact Info) Description 11/04/2022 Abstract [facility] MEDICINE [address] [place] [address] [phone] Steven Agee MD [address] [place] [address] Social History Tobacco Use Types Packs/Day Years [...] Description 01/23/2025 9:15 AM EDT Office Visit [facility] MEDICINE [address] [place] [address] [phone] Steven Agee MD [address] [place] [phone] 01/29/2025 10:00 AM EDT Clinical Support [facility] CHC MED & PEDS 505 [place] [address] Concetta Barker, RN 505 [place] [address] documented as of this encounter Visit Diagnoses Not on filedocumented in this encounter Additional Health Concerns Assessment Noted Time PHQ-9 Depression Total Score: 0 08/11/20 22 9:10 AM EST documented as of this encounter Care Teams Rn Operating Room Relationship Specialty Start Date End Date Steven Agee MD [address] [place] [address] PCP - General Internal Medicine 06/05/14 documented as of this encounter
--- OUTSIDE RECORDS SUMMARY | 2024-11-14 08:36 | XMS_ITS | Encounter Summary ---
Author Organization [employer] Address [address] [facility] 7t [place] [address] Care Team Providers Care Powder Loader Name Role Phone Steven Agee MD Primary Care Provide r Reason for Visit * Reason Comments Med Refill Encounter Details Date Type Department Care Team ([facility] st Contact Info) Description 07/21/2023 Refill [facility] 230 [place], [place] [phone] Name, MD Nolberto 230 [place] [address] Hypertension, unspecified type Social History Tobacco Use [...] Office Visit [facility] MEDICINE 230 [place] [address] Steven Agee MD 230 [place] [address] 01/29/2025 10:00 AM EDT Clinical Support [facility] CH[facility] MED & PEDS 505 [place] [address] Concetta Barker, QUIN 505 [place] [address] documented as of this encounter Visit Diagnoses Diagnosis Hypertension, unspecified type documented in this encounter Additional Health Concerns Assessment Noted Time PHQ-9 Depression Total Score: 0 08/11/20 22 9:10 AM EST documented as of this encounter Care Teams Powder Loader Relationship Specialty Start Date End Date Steven Agee MD [address] [place] [address] PCP - General Internal Medicine 06/05/14 documented as of this encounter
--- OUTSIDE RECORDS SUMMARY | 2024-11-14 08:36 | XMS_ITS | Encounter Summary ---
Author Organization [employer] Address 75 [facility] 7t [place] [address] Care Team Providers Care Cloth Laminating Supervisor Name Role Phone Steven Agee MD Primary Care Provide r Reason for Visit * Reason Onset Date Comments Med Refill 01/01/2024 Encounter Details Date Type Department Care Team ([facility] st Contact Info) Description 01/01/2024 Telephone [facility] MEDICINE 230 [place], [place] [phone] Steven Agee MD 230 [place], [place] [phone] Med Refill Social History Tobacco Use Types [...] 10 MG tablet To be sent to: [facility][id number] [place] - [id number] [facility] documented in this encounter Plan of Treatment Upcoming Encounters Date Type Department Care Team (Late st Contact Info) Description 01/23/2025 9:15 AM EDT Office Visit [facility] MEDICINE 230 [place] [address] Steven Agee MD 230 [place] [address] 01/29/2025 10:00 AM EDT Clinical Support [facility] CHC MED & PEDS 505 [place] [address] Concetta Barker, QUIN 505 [place] [address] documented as of this encounter Visit Diagnoses Not on filedocumented in this encounter Additional Health Concerns Assessment Noted Time PHQ-9 Depression Total Score: 0 08/11/20 22 9:10 AM EST documented as of this encounter Care Teams Cloth Laminating Supervisor Relationship Specialty Start Date End Date Steven Agee MD 230 [place] [address] PCP - General Internal Medicine 06/05/14 documented as of this encounter
--- OUTSIDE RECORDS SUMMARY | 2024-11-14 08:36 | XMS_ITS | Encounter Summary ---
Author Organization [employer] Address 75 [facility] 7t [place] [address] Care Team Providers Care Ultrasound Coordinator Name Role Phone Steven Agee MD Primary Care Provide r Reason for Visit * Reason Comments Med Refill Encounter Details Date Type Department Care Team (Late st Contact Info) Description 01/18/2024 Refill [facility] MEDICINE 230 [place], [place] [phone] Steven Agee MD 230 [place], [place] [phone] Depressive disorder Social History Tobacco Use Types [...] Description 01/23/2025 9:15 AM EDT Office Visit [facility] MEDICINE 230 [place] [address] Steven Agee MD 230 [place] [address] 01/29/2025 10:00 AM EDT Clinical Support [facility] CHC MED & PEDS 505 [place] [address] Concetta Barker, RN 505 [place] [address] documented as of this encounter Visit Diagnoses Diagnosis Depressive disorder Depressive disorder, not elsewhere classified documented in this encounter Additional Health Concerns Assessment Noted Time PHQ-9 Depression Total Score: 0 08/11/20 22 9:10 AM EST documented as of this encounter Care Teams Ultrasound Coordinator Relationship Specialty Start Date End Date Steven Agee MD 230 [place] [address] PCP - General Internal Medicine 06/05/14 documented as of this encounter
--- OUTSIDE RECORDS SUMMARY | 2024-11-14 08:36 | XMS_ITS | Encounter Summary ---
Author Organization [employer] [facility] Address [address] [place] [address] 7t [place] [address] Care Team Providers Care Metal Cut Off Saw Operator Name Role Phone Steven Agee MD Primary Care Provide r Reason for Visit * Reason Comments Med Refill Encounter Details Date Type Department Care Team ([facility] st Contact Info) Description 02/09/2023 Refill [facility] MEDICINE 230 [place], [place] [phone] Steven Agee MD 230 [place], [place] [phone] Nausea and vomiting, unspecified vomiting type Social [...] [facility] 230 [place] [address] Steven Agee MD 230 [place] [address] 01/29/2025 10:00 AM EDT Clinical Support [facility] MED & PEDS 505 [place] [address] Concetta Barker, QUIN 505 [place] [address] documented as of this encounter Visit Diagnoses Diagnosis Nausea and vomiting, unspecified vomiting type documented in this encounter Additional Health Concerns Assessment Noted Time PHQ-9 Depression Total Score: 0 08/11/20 22 9:10 AM EST documented as of this encounter Care Teams Metal Cut Off Saw Operator Relationship Specialty Start Date End Date Steven Agee MD [address] [place] [address] PCP - General Internal Medicine 06/05/14 documented as of this encounter
--- OUTSIDE RECORDS SUMMARY | 2024-11-14 08:36 | XMS_ITS | Encounter Summary ---
Author Organization [facility] Address [address] [place] [address] 7t [place] [address] Care Team Providers Care Financial Risk Manager Name Role Phone Steven Agee MD Primary Care Provide r Reason for Visit * Reason Onset Date Comments Med Refill 02/22/2023 Encounter Details Date Type Department Care Team ([facility] st Contact Info) Description 02/22/2023 Telephone [facility] MEDICINE 230 [place] [address] Steven Agee MD 230 [place] [address] Med Refill Social History Tobacco Use Types [...] Description 01/23/2025 9:15 AM EDT Office Visit [facility] 230 [place] [address] Steven Agee MD 230 [place] [address] 01/29/2025 10:00 AM EDT Clinical Support [facility]EDS 505 [place] [address] Concetta Barker, RN 505 [place] [address] documented as of this encounter Visit Diagnoses Not on filedocumented in this encounter Additional Health Concerns Assessment Noted Time PHQ-9 Depression Total Score: 0 08/11/20 22 9:10 AM EST documented as of this encounter Care Teams Financial Risk Manager Relationship Specialty Start Date End Date Steven Agee MD 230 [place] [address] PCP - General Internal Medicine 06/05/14 documented as of this encounter
== END 2024-11-14 08:25 | disposition home or self-care (01) ==
LOC: HO.MAMMO 08:24
PROVIDERS: PCP Internal Medicine; Visit Provider Internal Medicine
DX: Z12.31 Encounter for screening mammogram for malignant neoplasm of breast (principal)
CPT/HCPCS: 77063; 77067

== ENCOUNTER → 2024-11-14 09:30 | Outpatient (BNV) | payer OTHER, SELFPAY | PROVIDERS: PCP Internal Medicine; Visit Provider Internal Medicine | DX: Z12.31 Encounter for screening mammogram for malignant neoplasm of breast (principal) | CPT/HCPCS: 77063; 77067 ==

== ENCOUNTER → 2024-12-24 08:27 | Outpatient (BNVA) | payer OTHER, SELFPAY | PROVIDERS: PCP Internal Medicine | DX: Z01.818 Encounter for other preprocedural examination (principal) ==

== ENCOUNTER → 2024-12-31 10:24 | Outpatient (BNV) | payer OTHER, SELFPAY | PROVIDERS: PCP Internal Medicine; Visit Provider Internal Medicine | DX: R94.31 Abnormal electrocardiogram [ECG] [EKG] (principal); Z01.810 Encounter for preprocedural cardiovascular examination | CPT/HCPCS: 93010 ==

== ENCOUNTER 2025-01-13 09:19 | Outpatient (AMB) | payer OTHER, SELFPAY ==
--- OUTSIDE RECORDS SUMMARY | 2025-01-13 09:35 | XMS_ITS | Encounter Summary ---
Author Organization [employer] Address [address] [facility] 7t [place] [address] Care Team Providers Care Ssas Developer Name Role Phone Steven Agee MD Primary Care Provide r Reason for Visit * Reason Comments Med Refill Encounter Details Date Type Department Care Team ([facility] Contact Info) Description 01/03/2023 Refill [facility] MEDICINE [address] [place] [address] Steven Agee MD 230 [place] [address] Chronic midline low back pain without sciatica [...] Upcoming Encounters Date Type Department Care Team ([facility] st Contact Info) Description 01/22/2025 11:00 AM EDT Clinical Support [facility] CHC MED & PEDS 505 [place] [address] Concetta Barker, RN 505 [place] [address] documented as of this encounter Visit Diagnoses Diagnosis Chronic midline low back pain without sciatica documented in this encounter Additional Health Concerns Assessment Noted Time PHQ-9 Depression Total Score: 0 08/11/20 22 9:10 AM EST documented as of this encounter Care Teams Ssas Developer Relationship Specialty Start Date End Date Steven Agee MD 230 [place] [address] PCP - General Internal Medicine 06/05/14 documented as of this encounter
--- OUTSIDE RECORDS SUMMARY | 2025-01-13 09:35 | XMS_ITS | Encounter Summary ---
Author Organization [employer] Address [address] [facility] 7t [place] [address] Care Team Providers Care Cd Reactor Operator Name Role Phone Steven Agee MD Primary Care Provide r Reason for Visit * Reason Comments Med Refill Encounter Details Date Type Department Care Team ([facility] st Contact Info) Description 01/18/2024 Refill [facility] MEDICINE 230 [place], [place] [phone] Steven Agee MD 230 [place], [place] [phone] Depressive disorder Social History Tobacco Use Types [...] Care Team (Late st Contact Info) Description 01/22/2025 11:00 AM EDT Clinical Support [facility] MED & PEDS 505 [place] [address] Concetta Barker, RN 505 [place] [address] documented as of this encounter Visit Diagnoses Diagnosis Depressive disorder Depressive disorder, not elsewhere classified documented in this encounter Additional Health Concerns Assessment Noted Time PHQ-9 Depression Total Score: 0 08/11/20 22 9:10 AM EST documented as of this encounter Care Teams Cd Reactor Operator Relationship Specialty Start Date End Date Steven Agee MD [address] [place] [address] PCP - General Internal Medicine 06/05/14 documented as of this encounter
--- OUTSIDE RECORDS SUMMARY | 2025-01-13 09:35 | XMS_ITS | Encounter Summary ---
Author Organization [employer] Address [address] [facility] 7t [place] [address] Care Team Providers Care Greige Goods Examiner Name Role Phone Steven Agee MD Primary Care Provide r Reason for Visit * Reason Onset Date Comments Med Refill 07/29/2024 Encounter Details Date Type Department Care Team ([facility] st Contact Info) Description 07/29/2024 Telephone [facility] MEDICINE 230 [place], [place] [phone] Steven Agee MD 230 [place], [place] [phone] Med Refill Social History Tobacco Use Types [...] 5-325 MG tablet To be sent to: [id number] [place], [place] - [address] [facility] documented in this encounter Plan of Treatment Upcoming Encounters Date Type Department Care Team (Late st Contact Info) Description 01/22/2025 11:00 AM EDT Clinical Support [facility] MED & PEDS 505 [place] [address] Concetta Barker, RN 505 [place] [address] documented as of this encounter Visit Diagnoses Diagnosis Nausea and vomiting, unspecified vomiting type documented in this encounter Additional Health Concerns Assessment Noted Time PHQ-9 Depression Total Score: 0 08/11/20 22 9:10 AM EST documented as of this encounter Care Teams Greige Goods Examiner Relationship Specialty Start Date End Date Steven Agee MD [address] [place] [address] PCP - General Internal Medicine 06/05/14 documented as of this encounter
--- OUTSIDE RECORDS SUMMARY | 2025-01-13 09:35 | XMS_ITS | Encounter Summary ---
Author Organization [employer] Address [address] [place] [address] 7 [place] [address] Care Team Providers Care Equipment Service Technician Name Role Phone Steven Agee MD Primary Care Provide r Encounter Details Date Type Department Care Team (Late st Contact Info) Description 07/20/2022 Abstract [facility] MEDICINE 230 [place] [address] Steven Agee MD [address] [place] [address] Social History Tobacco Use Types Packs/Day Years [...] Encounters Date Type Department Care Team (Late Contact Info) Description 01/22/2025 11:00 AM EDT Clinical Support [facility] MED & PEDS 505 [place] [address] Concetta Barker, QUIN 505 [place] [address] documented as of this encounter Procedures Procedure [...] Venous blood specimen / Unknown Historical Provider MD LAB BLOOD ORDERABLES Evelyn l Result * Mammography (10/25/2021) Mammogram Bi-Rads 1 Anatomical Region Laterality Modality Other Historical Provider HEALTH MAINTENANCE Final Result * Colonoscopy (06/19/2011) Colonoscopy Normal Historical Provider HEALTH MAINTENANCE Final Result documented in this encounter Visit Diagnoses Not on filedocumented in this encounter Care Teams Equipment Service Technician Relationship Specialty Start Date End Date Steevn Agee MD [address] [place] [address] PCP - General Internal Medicine 06/05/14 documented as of this encounter
--- OUTSIDE RECORDS SUMMARY | 2025-01-13 09:35 | XMS_ITS | Encounter Summary ---
Author Organization [employer] Address [address] [facility] 7t [place] [address] Care Team Providers Care Headwaiter/Headwaitress Name Role Phone Steven Agee MD Primary Care Provide r Reason for Visit * Reason Onset Date Comments Med Refill 03/28/2024 Encounter Details Date Type Department Care Team ([facility] st Contact Info) Description 03/28/2024 Telephone [facility] MEDICINE 230 [place], [place] [phone] Steven Agee MD 230 [place], [place] [phone] Med Refill Social History Tobacco Use Types [...] 5-325 MG tablet To be sent to: [facility] documented in this encounter Plan of Treatment Upcoming Encounters Date Type Department Care Team (Late st Contact Info) Description 01/22/2025 11:00 AM EDT Clinical Support [facility] CH[facility] MED & PEDS [address] [place] [address] Concetta Barker, RN 505 [place] [address] documented as of this encounter Visit Diagnoses Not on filedocumented in this encounter Additional Health Concerns Assessment Noted Time PHQ-9 Depression Total Score: 0 08/11/20 22 9:10 AM EST documented as of this encounter Care Teams Headwaiter/Headwaitress Relationship Specialty Start Date End Date Steven Agee MD [address] [place] [address] PCP - General Internal Medicine 06/05/14 documented as of this encounter
--- OUTSIDE RECORDS SUMMARY | 2025-01-13 09:35 | XMS_ITS | Encounter Summary ---
Author Organization [employer] Address [address] [facility] 7t [place] [address] Care Team Providers Care Quantitative Consultant Name Role Phone Steven Agee MD Primary Care Provide r Reason for Visit * Reason Onset Date Comments Appointment Request 01/19/2024 Encounter Details Date Type Department Care Team ([facility] st Contact Info) Description 01/19/2024 Telephone [facility] MEDICINE 230 [place] [address] Steven Agee MD 230 [place] [address] Appointment Request Social History Tobacco Use Types [...] Description 01/22/2025 11:00 AM EDT Clinical Support [facility] MED & PEDS 505 [place] [address] Concetta Barker, QUIN 505 [place] [address] documented as of this encounter Visit Diagnoses Not on filedocumented in this encounter Additional Health Concerns Assessment Noted Time PHQ-9 Depression Total Score: 0 08/11/20 22 9:10 AM EST documented as of this encounter Care Teams Quantitative Consultant Relationship Specialty Start Date End Date Steven Agee MD 230 [place] [address] PCP - General Internal Medicine 06/05/14 documented as of this encounter
--- OUTSIDE RECORDS SUMMARY | 2025-01-13 09:35 | XMS_ITS | Encounter Summary ---
Author Organization [employer] Address [address] [facility] 7t [place] [address] Care Team Providers Care Consumer Electronics Merchandiser Name Role Phone Steven Agee MD Primary Care Provide r Reason for Visit * Reason Comments Med Refill Encounter Details Date Type Department Care Team ([facility] st Contact Info) Description 01/04/2025 Refill [facility] MED & PEDS [address] [place], [place] [phone] Steven Agee MD 230 [place], [place] [phone] Essential hypertension; Depressive disorder Social History Tobacco Use Types [...] your housing situation today? I have juan karmen 09/13/[address] you li [...] Description 01/22/2025 11:00 AM EDT Clinical Support [facility] MED [facility] PEDS 505 [place] [address] Concetta Barker, RN 505 [place] [address] documented as of this encounter Visit Diagnoses Diagnosis Essential hypertension Unspecified essential hypertension Depressive disorder Depressive disorder, not elsewhere classified documented in this encounter Additional Health Concerns Assessment Noted Time PHQ-9 Depression Total Score: 1 09/26/19 25 9:54 AM EST documented as of this encounter Care Teams Consumer Electronics Merchandiser Relationship Specialty Start Date End Date Steven Agee MD 230 [place] [address] PCP - General Internal Medicine 06/05/14 documented as of this encounter
--- OUTSIDE RECORDS SUMMARY | 2025-01-13 09:35 | XMS_ITS | Encounter Summary ---
Author Organization [employer] Address [address] [facility] [address] 7t [place] [address] Care Team Providers Care Soil Field Technician Name Role Phone Steven Agee MD Primary Care Provide r Reason for Visit * Reason Onset Date Comments Appointment 08/04/2022 Patient had appt yesterday and case was not in. Instructed to call in to today to check in if it has arrived. DR Encounter Details Date Type Department Care Team ([facility] st Contact Info) Description 08/04/[address] [facility] 230 [place] [address] Dental, Provider, DDS Appointment (Patient had appt [...] Thank you. * Telephone Encounter - Alejandra Jarret - 08/04/2022 2:01 PM EST Patient had appt yesterday and case was not in. Instructed to call in to today to check in if it has arrived. documented in this encounter Plan of Treatment Upcoming Encounters Date Type Department Care Team (Late st Contact Info) Description 01/22/2025 11:00 AM EDT Clinical Support [facility] MED & PEDS 505 [place] [address] Concetta Barker, RN 505 [place] [address] documented as of this encounter Visit Diagnoses Not on filedocumented in this encounter Care Teams Soil Field Technician Relationship Specialty Start Date End Date Steven Agee MD 230 [place] [address] PCP - General Internal Medicine 06/05/14 documented as of this encounter
--- OUTSIDE RECORDS SUMMARY | 2025-01-13 09:35 | XMS_ITS | Encounter Summary ---
Author Organization [employer] Address [address] [facility] 7t [place] [address] Care Team Providers Care Connection Worker Name Role Phone Steven Agee MD Primary Care Provide r Reason for Visit * Reason Onset Date Comments Med Refill 02/28/2024 Encounter Details Date Type Department Care Team ([facility] st Contact Info) Description 02/28/2024 Telephone [facility] MEDICINE 230 [place], [place] [phone] Steven Agee MD [address] [place], [place] [phone] Med Refill Social History Tobacco Use Types [...] 5-325 MG tablet To be sent to: [facility][id number] [place], [place] - [address] [place] [address] AT [facility] documented in this encounter Plan of Treatment Upcoming Encounters Date Type Department Care Team (Late st Contact Info) Description 01/22/2025 11:00 AM EDT Clinical Support [facility] MED & PEDS 505 [place] [address] Concetta Barker, RN 505 [place] [address] documented as of this encounter Visit Diagnoses Not on filedocumented in this encounter Additional Health Concerns Assessment Noted Time PHQ-9 Depression Total Score: 0 08/11/20 22 9:10 AM EST documented as of this encounter Care Teams Connection Worker Relationship Specialty Start Date End Date Steven Agee MD [address] [place] [address] PCP - General Internal Medicine 06/05/14 documented as of this encounter
--- OUTSIDE RECORDS SUMMARY | 2025-01-13 09:35 | XMS_ITS | Encounter Summary ---
Author Organization [employer] Address 75 [facility] 7t [place] [address] Care Team Providers Care Bottom Sprayer Name Role Phone Steven Agee MD Primary Care Provide r Reason for Visit * Reason Comments Med Refill Encounter Details Date Type Department Care Team ([facility] st Contact Info) Description 06/08/[address] [facility] MEDICINE 230 [place], [place] [phone] Name, MD Nolberto 230 [place] [address] Social History Tobacco Use Types Packs/Day Years [...] Upcoming Encounters Date Type Department Care Team ([facility] st Contact Info) Description 01/22/2025 11:00 AM EDT Clinical Support [facility] MED & PEDS 505 [place] [address] Concetta Barker, RN 505 [place] [address] documented as of this encounter Visit Diagnoses Not on filedocumented in this encounter Additional Health Concerns Assessment Noted Time PHQ-9 Depression Total Score: 0 08/11/20 22 9:10 AM EST documented as of this encounter Care Teams Bottom Sprayer Relationship Specialty Start Date End Date Steven Agee MD 230 [place] [address] PCP - General Internal Medicine 06/05/14 documented as of this encounter
--- OUTSIDE RECORDS SUMMARY | 2025-01-13 09:35 | XMS_ITS | Encounter Summary ---
Author Organization [employer] Address [address] [facility] 7t [place] [address] Care Team Providers Care Technical Support Manager Name Role Phone Steven Agee MD Primary Care Provide r Reason for Visit * Reason Onset Date Comments Med Refill 06/27/2023 Encounter Details Date Type Department Care Team ([facility] st Contact Info) Description 06/27/2023 Telephone [facility] MEDICINE 230 [place], [place] [phone] Steven Agee MD 230 [place], [place] [phone] Med Refill Social History Tobacco Use Types [...] Description 01/22/2025 11:00 AM EDT Clinical Support [facility] MED & PEDS 505 [place] [address] Concetta Barker, QUIN 505 [place] [address] documented as of this encounter Visit Diagnoses Not on filedocumented in this encounter Additional Health Concerns Assessment Noted Time PHQ-9 Depression Total Score: 0 08/11/20 22 9:10 AM EST documented as of this encounter Care Teams Technical Support Manager Relationship Specialty Start Date End Date Steven Agee MD [address] [place] [address] PCP - General Internal Medicine 06/05/14 documented as of this encounter
--- OUTSIDE RECORDS SUMMARY | 2025-01-13 09:35 | XMS_ITS | Encounter Summary ---
Author Organization [employer] Address 75 [facility] 7t [place] [address] Care Team Providers Care Nut Tapper Name Role Phone Steven Agee MD Primary Care Provide r Reason for Visit * Reason Onset Date Comments Med Refill 01/10/2025 Encounter Details Date Type Department Care Team (Late st Contact Info) Description 01/10/2025 Refill [facility] MEDICINE 230 [place] [address] Steven Agee MD [address] [place] [address] Depressive disorder Social History Tobacco Use Types [...] encounter Miscellaneous Notes * Telephone Encounter - Laura Ya - 01/10/2025 1:41 PM EDT TC from pt requesting medication refill. Medications needing refill : clonazePAM (KlonoPIN) 0.5 MG tablet To be sent to: [id number] - [place] - [address] [facility] documented in this encounter Plan of Treatment Upcoming Encounters Date Type Department Care Team ([facility] st Contact Info) Description 01/22/2025 11:00 AM EDT Clinical Support [facility] MED & PEDS 505 [place] [address] Concetta Barker, QUIN 505 [place] [address] documented as of this encounter Visit Diagnoses Diagnosis Depressive disorder Depressive disorder, not elsewhere classified documented in this encounter Additional Health Concerns Assessment Noted Time PHQ-9 Depression Total Score: 1 09/26/19 25 9:54 AM EST documented as of this encounter Care Teams Nut Tapper Relationship Specialty Start Date End Date Steven Agee MD [address] [place] [address] PCP - General Internal Medicine 06/05/14 documented as of this encounter
--- OUTSIDE RECORDS SUMMARY | 2025-01-13 09:35 | XMS_ITS | Encounter Summary ---
Author Organization [employer] Address 75 [facility] 7t [place] [address] Care Team Providers Care Manager Gaming Name Role Phone Steven Agee MD Primary Care Provide r Reason for Visit * Reason Onset Date Comments Med Refill 12/30/2024 Encounter Details Date Type Department Care Team ([facility] st Contact Info) Description 12/30/2024 Telephone [facility] MEDICINE 230 [place], [place] [phone] Steven Agee MD 230 [place], [place] [phone] Med Refill Social History Tobacco Use Types [...] encounter Miscellaneous Notes * Telephone Encounter - Rain Owen RN - 01/08/2025 1:46 PM EDT Incoming call from Krysten coffee shop manager at [facility] Cards returning below call. She states no availability prior to 01/28 currently but will review notes with providers. If appropriate to book with [facility], she will. If not, will add to the urgent list and will call pt when she can squeeze her in. She stated will call me once pt is booked. She did request that I refax referral as they never received it. Refaxed as requested. * Telephone Encounter - Rain Owen RN - 01/08/2025 11:02 AM EDT Referral already faxed to [facility] cards. Telephone call placed to their office. Spoke with one of their front office developer staff who states pt does not have an appt yet and that they are booking into November 2025. Informed referral placed as urgent at which time she transferred me to Krysten animal services officer. No answer, left detailed v/m requesting returned call to my direct ext. Faxed [facility] noteto ortho along with explanation that pt needs cards clearance and where she was referred. Will retask to make sure pt gets cards appt [facility]. * Telephone Encounter - Rain Owen RN - 01/08/2025 11:01 AM EDT ----- Message from Steven Dowling MD sent at 01/07/2025 9:58 AM EDT ----- I did not clear patient due to abnormal ECG. I have referred patient to cardiology. Please discuss with referral's team. I placed an urgent referral to Cardiology, in case they can see her before theschedule procedure 01/28/2025 otherwise the procedure will need to be postponed. Please also coordinate with Ortho office * Telephone Encounter - Lis Patel - 12/30/2024 11:16 AM EDT TC from pt requesting medication refill. Medications needing refill : oxyCODONE-acetaminophen (Percocet) 5-325 MG tablet To be sent to: [id number] [place] - [address] [facility] documented in this encounter Plan of Treatment Upcoming Encounters Date Type Department Care Team (Late st Contact Info) Description 01/22/2025 11:00 AM EDT Clinical Support [facility] MED & PEDS 505 [place] [address] Concetta Barker, RN 505 [place] [address] documented as of this encounter Visit Diagnoses Not on filedocumented in this encounter Additional Health Concerns Assessment Noted Time PHQ-9 Depression Total Score: 1 09/26/19 25 9:54 AM EST documented as of this encounter Care Teams Manager Gaming Relationship Specialty Start Date End Date Steven Agee MD [address] [place] [address] PCP - General Internal Medicine 06/05/14 documented as of this encounter
--- OUTSIDE RECORDS SUMMARY | 2025-01-13 09:35 | XMS_ITS | Encounter Summary ---
Author Organization [employer] Address 75 [facility] 7t [place] [address] Care Team Providers Care Ultrasonic Solderer Name Role Phone Steven Agee MD Primary Care Provide r Reason for Visit * Reason Onset Date Comments re sent script 06/07/2023 Encounter Details Date Type Department Care Team ([facility] st Contact Info) Description 06/07/2023 Telephone [facility] MEDICINE 230 [place] [address] Steven Agee MD 230 [place], [place] [phone] re sent script Social History Tobacco Use [...] 8:53 AM EDT Medication was sent to [facility] on 06/08/23. * Telephone Encounter - Isabela Yañez LPN - 06/07/2023 3:54 PM EDT CORPORATE DIRECTOR OF PHARMACY checked 06/07/23. Last filled 04/28/23. * Telephone Encounter - Paulina Mancini - 06/07/2023 3:47 PM EDT TC from pt requesting to re sent script of zolpidem (Ambien) 10 MG tablet to [facility] due to ptnot have insurance and here its going to be nav[place]te gee and cheaper than [facility]. PCP DR. Connelly * Telephone Encounter - Paulina Mancini - 06/07/2023 3:41 PM EDT TC from pt requesting to re sent script oxyCODONE-acetaminophen (Percocet) 5-325 MG tablet to [facility] due to pt not have insurance and here its going to be [facility] [place] and cheaper than [facility]. PCP DR. Connelly documented in this encounter Plan of Treatment Upcoming Encounters Date Type Department Care Team (Late st Contact Info) Description 01/22/2025 11:00 AM EDT Clinical Support [facility] MED & PEDS 505 [place] [address] Concetta Barker, RN 505 [place] [address] documented as of this encounter Visit Diagnoses Diagnosis Depressive disorder Depressive disorder, not elsewhere classified documented in this encounter Additional Health Concerns Assessment Noted Time PHQ-9 Depression Total Score: 0 08/11/20 22 9:10 AM EST documented as of this encounter Care Teams Ultrasonic Solderer Relationship Specialty Start Date End Date Steven Agee MD [address] [place] [address] PCP - General Internal Medicine 06/05/14 documented as of this encounter
--- OUTSIDE RECORDS SUMMARY | 2025-01-13 09:35 | XMS_ITS | Encounter Summary ---
Author Organization [employer] Address 75 [facility] 7t [place] [address] Care Team Providers Care Apartment Coordinator Name Role Phone Steven Agee MD Primary Care Provide r Reason for Visit * Reason Onset Date Comments Appointment Request 12/18/2024 Encounter Details Date Type Department Care Team ([facility] st Contact Info) Description 12/18/2024 Telephone [facility] MEDICINE 230 [place] [address] Steven Agee MD 230 [place] [address] Appointment Request Social History Tobacco Use Types [...] encounter Miscellaneous Notes * Telephone Encounter - Praveen Ham - 12/18/2024 2:36 PM EDT TC from pt requesting to R/s appt on 01/29/25. yet was wondering if its possible to get a appt Earlier. Contact py ay [phone] documented in this encounter Plan of Treatment Upcoming Encounters Date Type Department Care Team ([facility] st Contact Info) Description 01/22/2025 11:00 AM EDT Clinical Support [facility] MED & PEDS 505 [place] [address] Concetta Barker RN 505 [place] [address] documented as of this encounter Visit Diagnoses Not on filedocumented in this encounter Additional Health Concerns Assessment Noted Time PHQ-9 Depression Total Score: 1 09/26/19 9:54 AM EST documented as of this encounter Care Teams Apartment Coordinator Relationship Specialty Start Date End Date Steven Agee MD 230 [place] [address] PCP - General Internal Medicine 06/05/14 documented as of this encounter
--- OUTSIDE RECORDS SUMMARY | 2025-01-13 09:35 | XMS_ITS | Encounter Summary ---
Author Organization [employer] Address 75 [facility] 7t [place] [address] Care Team Providers Care Color Worker Name Role Phone Steven Agee MD Primary Care Provide r Reason for Visit * Reason Comments Med Refill Encounter Details Date Type Department Care Team ([facility] st Contact Info) Description 07/21/2023 Refill [facility] 230 [place], [place] [phone] Name, MD Nolberot 230 [place] [address] Hypertension, unspecified type Social History Tobacco Use [...] [facility] [address] [place] [address] Concetta Barker, QUIN 505 [place] [address] documented as of this encounter Visit Diagnoses Diagnosis Hypertension, unspecified type documented in this encounter Additional Health Concerns Assessment Noted Time PHQ-9 Depression Total Score: 0 08/11/20 22 9:10 AM EST documented as of this encounter Care Teams Color Worker Relationship Specialty Start Date End Date Steven Agee MD [address] [place] [address] PCP - General Internal Medicine 06/05/14 documented as of this encounter
--- OUTSIDE RECORDS SUMMARY | 2025-01-13 09:35 | XMS_ITS | Encounter Summary ---
Author Organization [email or web address] Address 75 [facility] 7t [place] [address] Care Team Providers Care Emergency Care Tech Name Role Phone Steven Agee MD Primary Care Provide r Reason for Visit * Reason Onset Date Comments Med Refill 01/01/2024 Encounter Details Date Type Department Care Team ([facility] st Contact Info) Description 01/01/2024 Telephone [facility] MEDICINE 230 [place], [place] [phone] Steven Agee MD 230 [place], [place] [phone] Med Refill Social History Tobacco Use Types [...] 10 MG tablet To be sent to: [facility] #[id number] [place] - [address] [facility] documented in this encounter Plan of Treatment Upcoming Encounters Date Type Department Care Team (Late st Contact Info) Description 01/22/2025 11:00 AM EDT Clinical Support [facility] MED & PEDS 505 [place] [address] Concetta Barker, QUIN 505 [place] [address] documented as of this encounter Visit Diagnoses Not on filedocumented in this encounter Additional Health Concerns Assessment Noted Time PHQ-9 Depression Total Score: 0 08/11/20 22 9:10 AM EST documented as of this encounter Care Teams Emergency Care Tech Relationship Specialty Start Date End Date Steven Agee MD 230 [place] [address] PCP - General Internal Medicine 06/05/14 documented as of this encounter
--- OUTSIDE RECORDS SUMMARY | 2025-01-13 09:35 | XMS_ITS | Clinical Summary ---
Author Organization [employer] Address [address] [facility] 7t [place] [address] Care Team Providers Care Angle Roll Operator Name Role Phone Steven Agee MD [...] for severe pain. 56 tablet 024 Active Aspirin Low Dose 81 MG EC tabletIndications :Hypertension, unspecified type TAKE 1 TABLET BY MOUTH IN THE MORNING 180 tablet 1 024 Active lisinopril 10 MG tabletIndications :Essential hypertension [...] EVERY DAY 90 tablet 1 025 Active Multiple Vitamins-Minerals (Centrum Ultra Womens) tablet TAKE 1 TABLET BY MOUTH EVERY MORNING 90 tablet 1 025 Active zolpidem (Ambien) 10 MG tabletIndications :Depressive disorder TAKE 1 TABLET(10 MG) BY MOUTH AT BEDTIME NEEDED FOR SLEEP 30 tablet 025 Active oxyCODONE-acetami nophen (Percocet) 5-325 MG tabletIndications :Chronic midline low back pain without sciatica Take 1 tablet by mouth if needed in the morning and at bedtime for severe pain. 56 tablet 025 Active meloxicam (Mobic) 15 MG tabletIndications :Chronic midline low back pain without sciatica TAKE 1 TABLET BY MOUTH EVERY DAY 30 tablet 025 Active levothyroxine (Synthroid, Levoxyl) 50 MCG tabletIndications :Subclinical hypothyroidism TAKE 1 TABLET BY MOUTH DAILY BEFORE BREAKFAST 90 tablet 025 Active clonazePAM (KlonoPIN) 0.5 MG tabletIndications :Depressive disorder TAKE 1 TABLET(0.5 MG) BY MOUTH EACH DAY NEEDED FOR ANXIETY 28 tablet 025 Active levothyroxine (Synthroid, Levoxyl) 50 MCG tabletIndications :Subclinical hypothyroidism TAKE 1 TABLET BY MOUTH DAILY BEFORE BREAKFAST 90 tablet 1 024 2024 Discontinued meloxicam (Mobic) 15 MG tabletIndications :Chronic midline low back pain without sciatica TAKE 1 TABLET BY MOUTH EVERY DAY 90 tablet 1 024 2024 Discontinued zolpidem (Ambien) 10 MG tabletIndications :Depressive disorder [...] Active Problems Problem Noted Date Diagnosed Date Primary osteoarthritis of left knee 01/07/2025 Assessment & Plan (01/07/2025 9:34 AM EDT): Patient with c/o persistent left knee pain. Treated with steroid injections in the past which were minimally helpful. She states she can not walk comfortably because of medial-sided left knee pain. She was seen by Ortho, Dr. Young on 11/11/2024 who recommended a left knee replacement. For severe medial compartment OA with varus malalignment. Abnormal ECG 01/07/2025 Assessment & Plan (01/07/2025 9:47 AM EDT): 64 year old female with a PMHx significant for HTN and Hyperlipidemia, scheduled for a Left TKR. ECG today showed, T wave inversions V1-V4. Given the fact that patient's procedure is scheduled for general anesthesia and multiple risk factors. She needs cardiac clearance prior to surgery. Plan: Cardiology referral Long-term current use of opiate analgesic 2024 [...] small intestine 4 09/18/2023 Arthritis 09/18/2023 09/18/2023 Preoperative examination 08/15/2023 Assessment & Plan (01/07/2025 9:49 AM EDT): Patient is here for a preoperative exam Patient is scheduled for: Left TKR Location: [facility] Name of surgeon: Dr. Flako Young On:01/28/2025 By: Dr Young Anesthesia: General After careful review of patient's most recent laboratory EKG: NSR Tw inversions V1-2V4 more pronounced since last ECG. ? Right pre- cordial repolarization disturbance VS ischemia Plan: patient will be referred to cardiology for cardiac clearance Assessment & Plan (08/15/2023 3:06 PM EST): Patient is here for a preoperative exam Patient is scheduled for: right TKR Location: [facility] Name of surgeon: Dr. Flako [...] with c/o intentional tremor Plan: Neurology evaluation [facility] 01/24/2023 Assessment & Plan (01/25/2024 10:35 [...] go because she did not have an cyber intelligence analyst Assessment & Plan (01/24/2023 9:13 AM EDT): [...] Of note she was previously admitted to [facility] for abdominal pain and vomiting. [...] Of note she was previously admitted to [facility] for abdominal pain and vomiting. [...] here for a f/u Previously admitted to [facility] for abdominal pain and vomiting. [...] 05/01/2019. Essential hypertension 06/09/2015 Assessment & Plan (01/07/2025 9:48 AM EDT): Pt is here for Follow up regarding her Hypertension Blood pressure today is stable She is on a regimen of: Hctz 25 mg po daily and Lisinopril 10 mg po daily. Most recent electrolytes, Bun and Creatinine done on: Lab Results Component Value Date NA 142 12/31/2024 NA 140 05/23/2024 K 4.0 12/31/2024 K 4.1 05/23/2024 CL 105 12/31/2024 CL 105 05/23/2024 BUN 18 (H) 12/31/2024 BUN 26 (H) 05/23/2024 CREATININE 0.79 12/31/2024 CREATININE 0.96 05/23/2024 were within normal limits. Plan: Continue current regimen patient advised to adhere to a low sodium diet, encouraged about medication compliance, counseled about weight loss. Assessment & Plan (09/26/2024 10:00 AM EST): [...] psychotherapist her name is Angle at [facility] Denies suicidal ideations or thoughts We prescribe Klonopin for anxiety. Doing well Assessment & Plan (08/11/2022 10:27 AM EST): Pt with Depression, currently seeing a psychotherapist her name is Angle at [facility] Denies suicidal ideations or thoughts We prescribe [...] COT program. Seen in the past at [facility]. She was seen by Dr. Miller on [...] COT program. Seen in the past at [facility]. She was seen by Dr. Miller on [...] Last visit she was referred back to [facility]. She was seen by Dr. Miller on [...] Encounters Date Type Department Care Team Description 01/10/2025 Refill [facility] MEDICINE [address] [place] [address] Steven Agee MD Depressive disorder 01/07/2025 9:30 AM EDT Office Visit [facility] MEDICINE [address] [facility] [place] [address] Steven Agee MD Essential hypertension (Primary Dx); Primary osteoarthritis of left knee; Abnormal ECG; Preoperative examination 01/07/2025 Telephone [facility] MEDICINE [address] [facility] [place] [address] Steven Agee MD Appointment Request 01/07/2025 Travel 01/06/2025 Telephone [facility] MEDICINE [address] [facility] [place] [address] Steven Agee MD chartprep 01/04/2025 Refill [facility] MED & PEDS [address] [place], [place] [phone] Steven Agee MD Essential hypertension; Depressive disorder 01/02/2025 [address]ill [facility] [address] [facility] [place] [place] [address] Steven Agee MD Chronic midline low back pain without sciatica; Subclinical hypothyroidism 12/30/2024 Refill [facility] [address] [place] [address] Concetta Barker, dough sheeter midline low back pain without sciatica 12/30/2024 Telephone [facility] [address] [facility] [place] [address] Steven Agee MD Med Refill 12/21/2024 Refill [facility] [address] [facility] [place] [address] Steven Agee MD Depressive disorder 12/18/2024 Travel 12/18/2024 Telephone [facility] MED [facility] PEDS [address] [place] [address] Concetta Barker RN 12/18/2024 Telephone [facility] [address] [facility] [place] [address] Steven Agee MD 12/18/2024 Telephone [facility] [address] [facility] [place] [address] Steven Agee MD Appointment Request 12/12/2024 Refill [facility] [address] [facility] [place] [address] Key Restrepo MD 11/29/2024 Refill [facility] [address] [facility] [place] [address] Steven Agee MD Chronic midline low back pain without sciatica 11/18/2024 Refill [facility] [address] [facility] [place] [address] Steven Agee MD Depressive disorder 11/18/2024 Telephone [facility] [address] [facility] [place] [address] Steven Agee MD Pre op 11/04/2024 9:30 AM EDT Telemedicine [facility] [address] [place] [address] Concetta Barker RN Long-term current use of opiate analgesic 11/04/2024 Refill [facility] MED & PEDS [address] [facility] [place] [address] Concetta Barker RN Depressive disorder 11/04/2024 Telephone [facility] MED & PEDS [address] [facility] [place] [address] Concetta Barker RN 11/04/2024 Travel 11/03/2024 Refill [facility] MEDICINE [address] [place], [place] [phone] Steven Agee MD Depressive disorder 10/31/2024 Refill [facility] MEDICINE [address] [place] [address] Steven Agee MD Chronic midline low back pain without sciatica from Last 3 Months Immunizations Immunization Administration Dates Next Due Influenza injectable quadriv [...] Sign Reading Time Taken Comments Blood Pressure 148/82 01/07/2025 8:59 AM EDT Pulse 72 01/07/2025 8:57 AM EDT Temperature 36.2 ??C (97.1 ??F) 01/07/2025 8:57 AM ED T Respiratory Rate 20 01/07/2025 8:57 AM EDT Oxygen Saturation 98% 01/07/2025 8:57 AM EDT Inhaled Oxygen Concentration - - Weight 91.5 kg (201 lb 12.8 oz) 01/07/2025 8:57 AM EDT Height 162.6 cm (5' 4 ) 01/07/2025 8:57 AM EDT Body Mass Index 34.64 01/07/2025 8:57 AM EDT Plan of Treatment Upcoming Encounters Date Type Department Care Team (Late st Contact Info) Description 01/22/2025 11:00 AM EDT Clinical Support [facility] MED & PEDS [address] [place] [address] Concetta Barker, RN [address] [place] [address] Health Maintenance Due Date Last Done Comments CT Colonography 1958 Dental Oral Exam 1960 Dental Prophylaxis 1958 Dental X-Ray: Bitewings 1958 Dental X-Ray: Full Mouth 1958 FIT DNA/Cologuard 1958 FIT 1960 FOBT 1960 Sigmoidoscopy 1960 Zoster Vaccines (1 of 2) 2008 COVID-19 Vaccine (2023- season) 2024 06/01/2022, 02/16/2022, 07/16/2021, Additional history exists Alcohol/Substance Use Screening 09/26/2025 09/26/2024 Depression Screening 09/26/2025 09/26/2024, 09/26/19 25 SDOH Screening 09/26/2025 09/26/2024 Mammogram 11/14/2025 11/14/2024, 03/0 01/2023, 10/25/2021, Additional history exists Tobacco Screening 01/07/2026 01/07/2025 Lipid Panel 05/23/2029 05/23/2024, 04/28, 09/13/2022, Additional [...] patient's age to complete this topic Meningococcal B Vaccine Aged Out No l onger eligible based on patient's age to complete [...] Procedure Name Priority Date/Time Associated Diagnosis Comments BASIC METABOLIC PANEL Routine 12/31/2024 10:42 AM EDT CBC Routine 12/31/2024 10:42 AM EDT MRSA NASAL SCREEN Routine 12/31/2024 10: 00 AM EDT BI MAMMOGRAM SCREENING TOMOSYNTHESIS BILATERAL Routine 11/14/2024 [...] Relevant to Health Maintenance Results * (ABNORMAL) CBC (12/31/2024 10:42 AM EDT) White Blood Count 7.0 4.8 - 10.8 X10*3/uL [facility] Red Blood Count 5.01 4.20 - 5.50 X10*6/uL [facility] Hemoglobin 13.2 12.0 - 16.0 g/dl [facility] Hematocrit 40.9 37.0 - 47.0 % [facility] Mean Corpuscular Volume 81.6 80.0 - 98.0 fL [facility] Mean Corpuscular Hemoglobin 26.3(L) 27.0 - 33.0 pg [facility] Mean Corpuscular HGB Conc 32.3 31.0 - 35.0 g/dl [facility] Red Cell Distribution Width 13.2 11.0 - 16.0 % [facility] Platelet Count 286 160 - 400 X10*3/uL [facility] Mean Platelet Volume 10.1 9.4 - 12.3 fL [facility] NRBC Pct Auto 0.0 0.0 - 0.2 /100WBC [facility] NRBC Abs Auto 0.000 0.0 - 0.012 X10*3/uL [facility] 12/31/2024 10:4 2 AM EDT 12/31/2024 10:42 AM EDT us Generic External Data Provider LAB BLOOD ORDERAB LES Final Result [facility] [address] [place] [phone] * (ABNORMAL) Basic Metabolic Panel (12/31/2024 10:42 AM EDT) Sodium 142 135 - 145 mmol/L [facility] Potassium 4.0 3.3 - 5.1 mmol/L [facility] Chloride 105 96 - 108 mmol/L [facility] Carbon Dioxide 30(H) 22 - 29 mmol/L [facility] Anion Gap 11(L) 12 - 20 [facility] Urea Nitrogen (BUN) 18(H) 9 - 16 mg/dL [facility] Creatinine, Serum 0.79 0.5 - 1.4 mg/dL [facility] Creatinine Clr Calc Pharmacy 75.7 [facility] Comment:Provided height and weight: 162.56 cm,89.358 kg.eGFR (calculated from the MDRD study equation) and eCrCl(calculated from the Cockcroft-Gault equation) are based ondifferent parameters and may not yield comparable results.If eCrCl result is absurd, please check patient'sheight/weight. Estimated Glomerular Filt Rate >60 [facility] Comment:Chronic Kidney Disea se: Estimated GFR < 60 mL/min/1.22t6Vsdwvh Kidney Disease: Estimated GFR < 15 mL/min/1.73m2 Glucose 76 60 - 115 mg/dL [facility] Calcium 9.9 8.4 - 10.2 mg/dL [facility] 12/31/2024 10:4 2 AM EDT 12/31/2024 10:42 AM EDT us Generic External Data Provider LAB BLOOD ORDERAB LES Final Result Performing Organization Address [facility]/ZIP Co de Phone Number [facility] [address] [place] [phone] * MRSA Nasal Screen (12/31/2024 10:00 AM EDT) MRSA Nasal PCR NEGATIVE Negative [facility] SA Nasal PCR NEGATIVE Negative [facility] MRSA Interpretation SEE NOTE [facility] Comment:MRSA target DNA not detected; SA target DNA not detected.A MRSA NEGATIVE, SA NEGATIVE test result does not precludeMRSA or SA nasal colonization. 12/31/2024 10:0 0 AM EDT 12/31/2024 10:29 AM EDT us Generic External Data Provider LAB MICROBIOLOGY - GENERAL ORDERABLES Final Result Performing Organization Address [facility]/ZIP Co de Phone Number [facility] [address] [place] [phone] * BI Mammogram Screening Tomosynthesis Bilateral (11/14/2024 8:32 AM EDT) Anatomical Region Laterality Modality Breast Bilateral Mammography 11/14/2024 8:32 AM EDT Narrative 11/22/2024 1:40 PM EDT ? [place] [facility] ? [address] ?[place] [address] ?[phone] ? Mammography Report ? Signed ? Patient: Brayden Mukherjee,Elsa ?MR#: [id number] ?? [id number] ? : 1960 ?Acct:[id number] ? Age/Sex: 64 / F ?ADM Date: 11/14/24 ? Loc: HO.MAMMO ? Attending Dr: Steven Rose MD ? Ordering Physician: Steven Rose MD ?Resu ?? lts: 1Negative ? Date of Service: 11/14/24 ?Follow Up: 1 Year From Orig ?? inal Mammogram ? Procedure(s): MM tomosynthesis screening BI ?? Accession Number(s): [id number] ? cc: Steven Rose MD ? EXAMINATION: [...] ??Molly Dickey DO ??11/22/2024 01:37 PM EDT ? Dictated By: ?Molly Dickey DO ? Signed By: ?<Electronically signed by Molly Dickey, DO in OV> ? 11/22/24 1337 ? DD/ 0832 ? TD/TT: 11/14/24 0844 ? Video Production Assistant: ? Procedure Note Luke, Image - 11/22/2024 [facility] [address] [place] [address] Mammography Report Signed Patient: Evette Adkins#: [id number] : 8Acct:[id number] Age/Sex: 64 / FADM Date: 11/14/24 Loc: VIN Attending Dr: Steven Rose MD Ordering Physician: Steven Rose MDResu lts: 1Negative Date of Service: 11/14/24Follow Up: 1 Year From Orig inal Mammogram Procedure(s): MM tomosynthesis screening BI Accession Number(s): [id number] cc: Steven Rose MD EXAMINATION: MM SCREENING [...] Molly Dickey DO 11/22/2024 01:37 PM EDT RP Dictated By: Molly Dickey DO Signed By: <Electronically signed by Molly Dickey DO in OV> 11/22/24 1337 DD/ 0832 TD/TT: 11/14/24 0844 Video Production Assistant: us Steven Dowling MD IMG BI PROCEDURES Fin al Result * (ABNORMAL) Lipid Panel, Standard (05/23/2024 9:33 AM EDT) Triglycerides 166(H) <150 mg/dL [facility] Comment:Desirable Triglyceri de: less than 150 mg/dLBorderline High Triglyceride 150-199 mg/dLHigh Triglyceride: 200-499 mg/dLVery High Triglyceride: greater than or equal to 5OO mg/dL Cholesterol 257(H) <200 mg/dL [facility] Comment:Desirable Cholestero l: less than 200 mg/dLBorderline High Cholesterol: 200-239 mg/dLHigh Cholesterol: greater than 239 mg/dL LDL Cholesterol Calculated 170(H) <100 mg/dL [facility] Comment:Desirable LDL: less than 100 mg/dLNear Optimal/Above Optimal LDL: 110- 129 mg/dLBorderline High LDL: 130-159 mg/dLHigh LDL: 160-189 mg/dLVery High LDL: greater than or equal to 190 mg/dL HDL Cholesterol 54 >40 mg/dL [facility] Comment:Desirable HDL: great er than 40 mg/dL Note: This HDL assay may give artificially low results in patients with liver disease. Blood Venous blood specimen / Unknown 05/23/2024 9:33 AM EDT 05/23/2024 11:51 AM EDT Steven Dowling MD LAB BLOOD ORDERABLES Final Result Performing Organization Address City/[facility]/ZIP Co de Phone Number [facility] [address] [place] [phone] * Colonoscopy (11/08/2022 8:43 AM EDT) Pathologist [facility] Colonoscopy Normal Normal Comment:Diverticulosis of th e left colon sigmoid, otherwise normal Historical Provider HEALTH MAINTENANCE Final Result * Hepatitis C Antibody with Reflex to HCV, RNA, Quantitative, Real-Time PCR (09/13/2022 9:26 AM EST) Pathologist [facility] Hepatitis C Antibody NON-REACT EZEKIEL NON-REACT EZEKIEL [facility] Index 0.06 <1.00 [facility] Comment: HCV antibody was non-reactive. There is no laboratory evidence of HCV infection. In most cases, no further action is required. However, if recent HCV exposure is suspected, a test for HCV RNA (test code 17769) is suggested. For additional information please refer to http://education.[employer]/faq/TBS09c8 (This link is being provided for informational/ educational purposes only.) Blood Venous blood specimen / Unknown 09/13/2022 9:26 AM EST 09/13/2022 9:26 AM EST Narrative [facility] - 09/13/2022 7:41 PM EST FASTING:YES FASTING: YES Steven Dowling MD LAB BLOOD ORDERABLES Final Result [facility] [address], [place] [phone] [facility] [place] [phone] from Last 3 Months or Most Recently Relevant to Health Maintenance Insurance [facility] [employer] (O D-SNP) [place] [id number] [place] [address] [id number] [address] [place] [id number] Care Teams Angle Roll Operator Relationship Specialty Start Date End Date Steven Agee MD [address] [place] [phone] PCP - General Internal Medicine 06/05/14
--- OUTSIDE RECORDS SUMMARY | 2025-01-13 09:35 | XMS_ITS | Encounter Summary ---
Author Organization [employer] Address [address] [facility] [address] [place] [address] Care Team Providers Care Animal Impersonator Name Role Phone Steven Agee MD Primary Care Provide r Encounter Details Date Type Department Care Team ([facility] st Contact Info) Description 12/18/2024 Telephone [facility] MEDICINE [address] [place], [place] [phone] Steven Agee MD [address] [place], [place] [phone] Social History Tobacco Use Types Packs/Day Years [...] 01/22/2025 11:00 AM EDT Clinical Support [facility] MED & PEDS [address] [place] [address] Concetta Barker, QUIN [address] [place] [address] documented as of this encounter Visit Diagnoses Not on filedocumented in this encounter Additional Health Concerns Assessment Noted Time PHQ-9 Depression Total Score: 1 09/26/19 25 9:54 AM EST documented as of this encounter Care Teams Animal Impersonator Relationship Specialty Start Date End Date Steven Agee MD [address] [place] [phone] PCP - General Internal Medicine 06/05/14 documented as of this encounter
--- OUTSIDE RECORDS SUMMARY | 2025-01-13 09:35 | XMS_ITS | Encounter Summary ---
Author Organization [employer] Address [address] [facility] 7t [place] [address] Care Team Providers Care Kitchen Cleaner Name Role Phone Steven Agee MD Primary Care Provide r Reason for Visit * Reason Onset Date Comments Med Refill 02/01/2024 Encounter Details Date Type Department Care Team ([facility] st Contact Info) Description 02/01/2024 Telephone [facility] MEDICINE [address] [place], [place] [phone] Steven Agee MD [address] [place], [place] [phone] Med Refill Social History Tobacco Use Types [...] 5-325 MG tablet To be sent to: [id number] [place], [place] - [address] [place] [address] documented in this encounter Plan of Treatment Upcoming Encounters Date Type Department Care Team ([facility] st Contact Info) Description 01/22/2025 11:00 AM EDT Clinical Support [facility] MED & PEDS [address] [place] [address] Concetta Barker, QUIN [address] [place] [address] documented as of this encounter Visit Diagnoses Not on filedocumented in this encounter Additional Health Concerns Assessment Noted Time PHQ-9 Depression Total Score: 0 08/11/20 22 9:10 AM EST documented as of this encounter Care Teams Kitchen Cleaner Relationship Specialty Start Date End Date Steven Agee MD [address] [place] [phone] PCP - General Internal Medicine 06/05/14 documented as of this encounter
--- OUTSIDE RECORDS SUMMARY | 2025-01-13 09:35 | XMS_ITS | Encounter Summary ---
Author Organization [employer] Address [address] [facility] 7t [place] [address] Care Team Providers Care Acquisition Associate Name Role Phone Steven Agee MD Primary Care Provide r Reason for Visit * Reason Comments Med Refill Encounter Details Date Type Department Care Team ([facility] st Contact Info) Description 08/01/2023 Refill [facility] MEDICINE [address] [place], [place] [phone] Steven Agee MD [address] [place], [place] [phone] Nausea and vomiting, unspecified vomiting type Social [...] [facility] MED & PEDS [address] [place] [address] Concetta Barker, RN [address] [place] [address] documented as of this encounter Visit Diagnoses Diagnosis Nausea and vomiting, unspecified vomiting type documented in this encounter Additional Health Concerns Assessment Noted Time PHQ-9 Depression Total Score: 0 08/11/20 22 9:10 AM EST documented as of this encounter Care Teams Acquisition Associate Relationship Specialty Start Date End Date Steven Agee MD [address] [place] [address] PCP - General Internal Medicine 06/05/14 documented as of this encounter
--- OUTSIDE RECORDS SUMMARY | 2025-01-13 09:36 | XMS_ITS | Encounter Summary ---
Author Organization [employer] Address [address] [place] [address] [address] [place] [address] Care Team Providers Care Manager Equipment Name Role Phone Steven Agee MD Primary Care Provide r Encounter Details Date Type Department Care Team (Late Contact Info) Description 11/04/2022 Abstract [facility] MEDICINE [address] [place] [address] Steven Agee MD [address] [place] [address] Social History Tobacco Use Types Packs/Day Years [...] Description 01/22/2025 11:00 AM EDT Clinical Support [facility] MED [facility] PEDS [address] [place] [address] Concetta Barker, QUIN [address] [place] [address] documented as of this encounter Visit Diagnoses Not on filedocumented in this encounter Additional Health Concerns Assessment Noted Time PHQ-9 Depression Total Score: 0 08/11/20 22 9:10 AM EST documented as of this encounter Care Teams Manager Equipment Relationship Specialty Start Date End Date Steven Agee MD [address] [place] [address] PCP - General Internal Medicine 06/05/14 documented as of this encounter
--- OUTSIDE RECORDS SUMMARY | 2025-01-13 09:36 | XMS_ITS | Encounter Summary ---
Author Organization [employer] Address [address] [place] [address] 7t [place] [address] Care Team Providers Care Tubular Riveter Name Role Phone Steven Agee MD Primary Care Provide r Reason for Visit * Reason Onset Date Comments Med Refill 02/22/2023 Encounter Details Date Type Department Care Team ([facility] st Contact Info) Description 02/22/2023 Telephone [facility] 230 [place] [address] Steven Agee MD 230 [place], [place] [phone] Med Refill Social History Tobacco Use Types [...] Miscellaneous Notes * Telephone Encounter - Luz Hook - 02/22/2023 9:06 AM EDT Tc from pt requesting medication refill for oxyCODONE-acetaminophen (Percocet) 5-325 MG tablet documented in this encounter Plan of Treatment Upcoming Encounters Date Type Department Care Team ([facility] st Contact Info) Description 01/22/2025 11:00 AM EDT Clinical Support [facility] MED & PEDS 505 [place] [address] Concetta Barker, RN 505 [place] [address] documented as of this encounter Visit Diagnoses Not on filedocumented in this encounter Additional Health Concerns Assessment Noted Time PHQ-9 Depression Total Score: 0 08/11/20 22 9:10 AM EST documented as of this encounter Care Teams Tubular Riveter Relationship Specialty Start Date End Date Steven Agee MD [address] [place] [address] PCP - General Internal Medicine 06/05/14 documented as of this encounter
--- OUTSIDE RECORDS SUMMARY | 2025-01-13 09:36 | XMS_ITS | Encounter Summary ---
Author Organization [employer] Address [address] [facility] 7t [place] [address] Care Team Providers Care Electroplater Automatic Name Role Phone Steven Agee MD Primary Care Provide r Reason for Visit * Reason Comments Med Refill Encounter Details Date Type Department Care Team ([facility] Contact Info) Description 02/09/2023 Refill [facility] 230 [place] [address] Steven Agee MD 230 [place] [address] Nausea and vomiting, unspecified vomiting type Social [...] Upcoming Encounters Date Type Department Care Team ([facility] st Contact Info) Description 01/22/2025 11:00 AM EDT Clinical Support [facility]EDS 505 [place] [address] Concetta Barker, RN 505 [place] [address] documented as of this encounter Visit Diagnoses Diagnosis Nausea and vomiting, unspecified vomiting type documented in this encounter Additional Health Concerns Assessment Noted Time PHQ-9 Depression Total Score: 0 08/11/20 22 9:10 AM EST documented as of this encounter Care Teams Electroplater Automatic Relationship Specialty Start Date End Date Steven Agee MD 230 [place] [address] PCP - General Internal Medicine 06/05/14 documented as of this encounter
--- OUTSIDE RECORDS SUMMARY | 2025-01-13 09:36 | XMS_ITS | Encounter Summary ---
Author Organization [employer] Address [address] [place] [address] 7 [place] [address] Care Team Providers Care Property Management Assistant Name Role Phone Steven Agee MD Primary Care Provide r Reason for Visit * Reason Comments Med Refill Encounter Details Date Type Department Care Team (Late st Contact Info) Description 10/25/2022 Refill [facility] MEDICINE 230 [place] [address] Steven Agee MD 230 [place] [address] Depressive disorder Social History Tobacco Use Types [...] Description 01/22/2025 11:00 AM EDT Clinical Support [facility] & [facility]EDS 505 [place] [address] Concetta Barker RN 505 [place] [address] documented as of this encounter Visit Diagnoses Diagnosis Depressive disorder Depressive disorder, not elsewhere classified documented in this encounter Additional Health Concerns Assessment Noted Time PHQ-9 Depression Total Score: 0 08/11/20 22 9:10 AM EST documented as of this encounter Care Teams Property Management Assistant Relationship Specialty Start Date End Date Steven Agee MD 230 [place] [address] PCP - General Internal Medicine 06/05/14 documented as of this encounter
--- NOTE | 2025-01-13 09:52 | MHC.OFFVIS ---
Vital Signs 01/13/25 09:53 Height 5 ft 4 in Weight 197 lb 15.602 oz BMI 34.0 BP 120/72 Blood Pressure Location Lt brachial Position Sitting Pulse 73 Pulse Source Monitor Intake Visit Reasons: NEWSRO[employer] INTERN/Hector abn EKG/TKA w/you 01/28/25 Senior Policy Advisor Required: Yes Senior Policy Advisor Language: Clinical Administrative Coordinator Name: [id number] Accompanied by: Self / Same As Patient Allergies diazepam [From VALIUM] Allergy (Intermediate, Verified 12/31/24 09:37) HALLUCINATION/DIFF BREATHING Medication List - Last Reconciled 01/13/25 by Kane Lee MD atorvastatin 1 tab PO DAILY celecoxib 200 mg PO BID 30 days clonazepam 1 tab PO BEDTIME PRN docusate sodium 100 mg PO BID 30 days hydrochlorothiazide 1 tab PO DAILY levothyroxine 50 mcg PO DAILY lisinopril 1 tab PO DAILY meloxicam 1 tab PO DAILY kllrsqfw-ftk-fzsz-FA-vit K-lut 4 mg iron-200 mcg-25 mcg (Centrum Minis Women 50 Plus) 1 tab PO DAILY omeprazole 40 mg PO DAILY 30 days oxycodone 10 mg (2 x 5 mg) PO Q4H PRN 7 days sucralfate (Carafate) 2 grams (2 x 1 gram) PO QNOON walker Folding Front wheeled walker DURATION 99 DAYS zolpidem 1 tab PO BEDTIME HPI Comments Details: [age] year female who is perioperative cardiovascular risk assessment. She has left knee arthritis and is in need of total knee replacement. She has no significant symptoms. She previously had abnormal ECG showing precordial T-wave changes. Reviewing her EKGs the previous EKG had poor R-wave progression and an anterolateral infarct can not be ruled out. Interestingly her ECG since then has improved with normal R-wave progression but she has nonspecific T-wave changes in the precordial leads. She is denying any chest discomfort in general and also denying any shortness of breath. She is not physically active due to the arthritis which limits her day-to-day activities. She does not have kidney disease, heart failure, diabetes or previous myocardial infarction [facility] Medical History (Updated 01/13/25 @ 19:22 by Kane Lee MD) Post-operative nausea and vomiting Dysphagia Plantar fasciitis Hypothyroidism Diverticular disease of colon GERD (gastroesophageal reflux disease) Gall bladder, polycystic disease Partial small bowel obstruction Arthritis Hyperlipemia Depression HTN (hypertension) Surgical History History of esophagogastroduodenoscopy (EGD) Status post total knee replacement, right History of appendectomy Hx of colonoscopy History of arthroscopy of right knee History of arthroscopy of left knee H/O: hysterectomy Family History (Updated 01/13/25 @ 09:56 by Vidya Yoon CMA) Mother Diabetes Tachycardia High blood pressure Father Emphysema lung Brother H/O heart surgery Social History Household Members: Spouse Housing: Apartment Are you a primary infant childcare provider to a significant other at home: No Do you presently have visiting nurse or other home services: No Comment: rarely uses cane Patient Tobacco Use Status: Never used Tobacco Second Hand Smoke Exposure: No service: No Current occupational status: retired Review of Systems Const Denies chills, Denies fatigue, Denies fever(s), Denies frequent falls, Denies weakness, Denies weight gain and Denies weight loss ENT Denies dizziness Card Denies chest pain, Denies leg edema, Denies lightheadedness, Denies palpitations, Denies dyspnea, Denies dyspnea on exertion and Denies orthopnea Resp Denies cough, Denies dyspnea and Denies dyspnea on exertion GI Denies bloating and Denies change in bowel habits Musc Denies muscle weakness, Denies numbness and Denies tingling Neuro Denies dizziness, Denies frequent falls, Denies numbness, Denies tingling and Denies weakness Endo Denies fatigue and Denies palpitations Physical Exam Vital Signs: Last Vital Signs Pulse 73 01/13/25 09:53 BP 120/72 01/13/25 09:53 BMI result Body Mass Index 34.0 GENERAL APPEARANCE: in no acute distress, pleasant. NECK: no carotid bruit, no jugular venous distention. SKIN: no suspicious lesions, warm and dry. HEART: no murmurs, regular rate and rhythm. LUNGS: clear to auscultation bilaterally. ABDOMEN: soft, nontender. EXTREMITIES: no edema. PERIPHERAL PULSES: equal. NEUROLOGIC: No gross deficits, AAO X 3 Office Procedures EKG Details: Sinus rhythm 73 beats per minute, normal axis, nonspecific T-wave changes, QTC 453 milliseconds. 53181-[id number], Complete Assessment & Plan Assessment & Plan (1) Abnormal EKG: Code(s): R94.31 - Abnormal electrocardiogram [ECG] [EKG] Category: Medical (2) Preop cardiovascular exam: Code(s): Z01.810 - Encounter for preprocedural cardiovascular examination Category: Medical Plan Pleasant 64-year-old lady who is here for perioperative cardiovascular risk assessment. She has left knee arthritis and is in need of total knee replacement. She has abnormal ECG in the past. Overall denying any chest discomfort shortness of breath. Physical activity is also limited due to arthritis and lack of symptoms can be due to the fact that she is unable to reach her ischemic threshold. We discussed about doing echocardiography and exercise stress testing. She is agreeable and we will arrange them as soon as possible. It appears she is being operated early January. Well controlled blood pressure. Thank you for allowing me to participate in the care of your patient. Please feel free to contact me if you have any questions. Orders: Orders CA echo transthoracic complete Today R94.31 - Abnormal electrocardiogram [ECG] [EKG] NM cardiolite stress test Today R94.31 - Abnormal electrocardiogram [ECG] [EKG] CA stress test Today R94.31 - Abnormal electrocardiogram [ECG] [EKG] Coding Level of Care Code New Pt Level 4 (43010) Diagnoses Abnormal EKG R94.31 Preop cardiovascular exam Z01.810 CPT Codes EKG - CPT: 11844-[id number], Complete ([id number])
[2025-01-13 09:53] VITALS: BP 120/72; PULSE 73; BMI 34.0
== END 2025-01-13 10:20 | disposition home or self-care (01) ==
LOC: HO.HCS 09:20
PROVIDERS: PCP Internal Medicine; Visit Provider Internal Medicine Cardiovascular Disease
DX: Z01.810 Encounter for preprocedural cardiovascular examination (principal); R94.31 Abnormal electrocardiogram [ECG] [EKG]
CPT/HCPCS: 93010; 99214

== ENCOUNTER → 2025-01-13 09:19 | Outpatient (BNVA) | payer OTHER, SELFPAY | PROVIDERS: PCP Internal Medicine; Visit Provider Internal Medicine Cardiovascular Disease | DX: Z01.810 Encounter for preprocedural cardiovascular examination (principal); R94.31 Abnormal electrocardiogram [ECG] [EKG] | CPT/HCPCS: 93005; 99212 ==

== ENCOUNTER → 2025-01-15 12:14 | Outpatient (REF) | payer OTHER, SELFPAY ==
--- OUTSIDE RECORDS SUMMARY | 2025-01-15 13:10 | XMS_ITS | Encounter Summary ---
Author Organization [employer] Address [address] [facility] [address] 7t [place] [address] Care Team Providers Care Foam Rubber Fabricator Name Role Phone Steven Agee MD Primary Care Provide r Encounter Details Date Type Department Care Team ([facility] st Contact Info) Description 12/18/2024 Telephone [facility] MEDICINE 230 [place], [place] [phone] Steven Agee MD 230 [place], [place] [phone] Social History Tobacco Use Types Packs/Day Years [...] 11:00 AM EDT Clinical Support [facility] MED & PEDS 505 [place] [address] Concetta Barker, QUIN 505 [place] [address] documented as of this encounter Visit Diagnoses Not on filedocumented in this encounter Additional Health Concerns Assessment Noted Time PHQ-9 Depression Total Score: 1 09/26/19 25 9:54 AM EST documented as of this encounter Care Teams Foam Rubber Fabricator Relationship Specialty Start Date End Date Steven Agee MD [address] [place] [address] PCP - General Internal Medicine 06/05/14 documented as of this encounter
--- OUTSIDE RECORDS SUMMARY | 2025-01-15 13:10 | XMS_ITS | Encounter Summary ---
Author Organization [employer] Address [address] [place] [address] 7 [place] [address] Care Team Providers Care Casing Man Name Role Phone Steven Agee MD Primary Care Provide r Reason for Visit * Reason Onset Date Comments Appointment Request 12/18/2024 Encounter Details Date Type Department Care Team ([facility] st Contact Info) Description 12/18/2024 Telephone [facility] 230 [place], [place] [phone] Steven Agee MD 230 [place] [address] Appointment Request Social History Tobacco Use Types [...] get a appt Earlier. Contact py ay [phone] documented in this encounter Plan of Treatment Upcoming Encounters Date Type Department Care Team ([facility] st Contact Info) Description 01/22/2025 11:00 AM EDT Clinical Support [facility] MED & PEDS 505 [place] [address] Concetta Barker RN 505 [place] [address] documented as of this encounter Visit Diagnoses Not on filedocumented in this encounter Additional Health Concerns Assessment Noted Time PHQ-9 Depression Total Score: 1 09/26/19 9:54 AM EST documented as of this encounter Care Teams Casing Man Relationship Specialty Start Date End Date Steven Agee MD 230 [place] [address] PCP - General Internal Medicine 06/05/14 documented as of this encounter
--- OUTSIDE RECORDS SUMMARY | 2025-01-15 13:11 | XMS_ITS | Encounter Summary ---
Author Organization [employer] Address [address] [place] [address] 7 [place] [address] Care Team Providers Care Loading Unit Tool Setter Name Role Phone Steven Agee MD Primary Care Provide r Reason for Visit * Reason Onset Date Comments Med Refill 01/01/2024 Encounter Details Date Type Department Care Team ([facility] st Contact Info) Description 01/01/2024 Telephone [facility] MEDICINE 230 [place], [place] [phone] Steven Agee MD 230 [place] [address] Med Refill Social History Tobacco Use Types [...] 10 MG tablet To be sent to: [facility][id number] [place] - [address] [facility] documented in this encounter Plan of Treatment Upcoming Encounters Date Type Department Care Team (Late st Contact Info) Description 01/22/2025 11:00 AM EDT Clinical Support [facility] MED & PEDS 505 [place] [address] Concetta Barker, QUIN 505 [place] [address] documented as of this encounter Visit Diagnoses Not on filedocumented in this encounter Additional Health Concerns Assessment Noted Time PHQ-9 Depression Total Score: 0 08/11/20 22 9:10 AM EST documented as of this encounter Care Teams Loading Unit Tool Setter Relationship Specialty Start Date End Date Steven Agee MD [address] [place] [address] PCP - General Internal Medicine 06/05/14 documented as of this encounter
--- OUTSIDE RECORDS SUMMARY | 2025-01-15 13:11 | XMS_ITS | Encounter Summary ---
Author Organization [employer] Address [address] [facility] 7t [place] [address] Care Team Providers Care Eyelet Operator Name Role Phone Steven Agee MD Primary Care Provide r Reason for Visit * Reason Comments Med Refill Encounter Details Date Type Department Care Team ([facility] st Contact Info) Description 06/08/2023 Refill [facility] MEDICINE 230 [place], [place] [phone] Name, MD Nolberto 230 [place] [address] Social History Tobacco Use Types Packs/Day Years [...] Upcoming Encounters Date Type Department Care Team ([facility] st Contact Info) Description 01/22/2025 11:00 AM EDT Clinical Support [facility] MED & PEDS 505 [place] [address] Concetta Barker, RN 505 [place] [address] documented as of this encounter Visit Diagnoses Not on filedocumented in this encounter Additional Health Concerns Assessment Noted Time PHQ-9 Depression Total Score: 0 08/11/20 22 9:10 AM EST documented as of this encounter Care Teams Eyelet Operator Relationship Specialty Start Date End Date Steven Agee MD [address] [place] [address] PCP - General Internal Medicine 06/05/14 documented as of this encounter
--- OUTSIDE RECORDS SUMMARY | 2025-01-15 13:11 | XMS_ITS | Encounter Summary ---
Author Organization [employer] Address [address] [place] [address] 7 [place] [address] Care Team Providers Care Discotheque Dancer Name Role Phone Steven Agee MD Primary Care Provide r Reason for Visit * Reason Onset Date Comments Med Refill 12/30/2024 Encounter Details Date Type Department Care Team ([facility] st Contact Info) Description 12/30/2024 Telephone [facility] MEDICINE 230 [place], [place] [phone] Steven Agee MD 230 [place] [address] Med Refill Social History Tobacco Use Types [...] Telephone Encounter - Rain Owen RN - 01/15/2025 11:28 AM EDT Pt was able to be seen by Dr Lee yesterday for preop appt. They are requesting she have echo and stress test. Will determine if cleared based on those results. OV notes available via [facility] * Telephone Encounter - Rain Owen RN - 01/08/2025 1:46 PM EDT Incoming call from Krysten chase at [facility] returning below call. She states no availability prior to 01/28 currently but will review notes with providers. If appropriate to book with hse manager, she will. If not, will add to the urgent list and will call pt when she can squeeze her in. She stated will call me once pt is booked. She did request that I refax referral as they never received it. Refaxed as requested. * Telephone Encounter - Rain Owen RN - 01/08/2025 11:02 AM EDT Referral already faxed to [facility]. Telephone call placed to their office. Spoke with one of their front end technician staff who states pt does not have an appt yet and that they are booking into November 2025. Informed referral placed as urgent at which time she transferred me to Krysten office chair assembler. No answer, left detailed v/m requesting returned [...] 5-325 MG tablet To be sent to: [id number] [place] [facility] [address] [facility] documented in this encounter Plan of Treatment Upcoming Encounters Date Type Department Care Team (Late st Contact Info) Description 01/22/2025 11:00 AM EDT Clinical Support [facility] [address] [place] [address] Concetta Barker, QUIN 505 [place] [address] documented as of this encounter Visit Diagnoses Not on filedocumented in this encounter Additional Health Concerns Assessment Noted Time PHQ-9 Depression Total Score: 1 09/26/19 25 9:54 AM EST documented as of this encounter Care Teams Discotheque Dancer Relationship Specialty Start Date End Date Steven Agee MD [address] [place] [address] PCP - General Internal Medicine 06/05/14 documented as of this encounter
--- OUTSIDE RECORDS SUMMARY | 2025-01-15 13:11 | XMS_ITS | Encounter Summary ---
Author Organization [employer] Address [address] [place] [address] 7 [place] [address] Care Team Providers Care Crt Name Role Phone Steven Agee MD Primary Care Provide r Encounter Details Date Type Department Care Team (Late Contact Info) Description 11/04/2022 Abstract [facility] MEDICINE 230 [place] [address] Steven Agee MD 230 [place] [address] Social History Tobacco Use Types Packs/Day Years [...] Description 01/22/2025 11:00 AM EDT Clinical Support [facility] 505 [place] [address] Concetta Barker, QUIN 505 [place] [address] documented as of this encounter Visit Diagnoses Not on filedocumented in this encounter Additional Health Concerns Assessment Noted Time PHQ-9 Depression Total Score: 0 08/11/20 22 9:10 AM EST documented as of this encounter Care Teams Crt Relationship Specialty Start Date End Date Steven Agee MD 230 [place] [address] PCP - General Internal Medicine 06/05/14 documented as of this encounter
--- OUTSIDE RECORDS SUMMARY | 2025-01-15 13:11 | XMS_ITS | Encounter Summary ---
Author Organization [employer] Address [address] [place] [address] 7 [place] [address] Care Team Providers Care Chief Librarian Extension Department Name Role Phone Steven Agee MD Primary Care Provide r Reason for Visit * Reason Onset Date Comments Med Refill 02/28/2024 Encounter Details Date Type Department Care Team ([facility] st Contact Info) Description 02/28/[address] [facility] MEDICINE 230 [place], [place] [phone] Steven Agee MD 230 [place] [address] Med Refill Social History Tobacco Use Types [...] 5-325 MG tablet To be sent to: [facility][id number] [place], [place] - [address] [place] [address] documented in this encounter Plan of Treatment Upcoming Encounters Date Type Department Care Team ([facility] st Contact Info) Description 01/22/2025 11:00 AM EDT Clinical Support [facility] MED & PEDS 505 [place] [address] Concetta Barker, QUIN 505 [place] [address] documented as of this encounter Visit Diagnoses Not on filedocumented in this encounter Additional Health Concerns Assessment Noted Time PHQ-9 Depression Total Score: 0 08/11/20 22 9:10 AM EST documented as of this encounter Care Teams Chief Librarian Extension Department Relationship Specialty Start Date End Date Steven Agee MD [address] [place] [address] PCP - General Internal Medicine 06/05/14 documented as of this encounter
--- OUTSIDE RECORDS SUMMARY | 2025-01-15 13:11 | XMS_ITS | Encounter Summary ---
Author Organization [employer] Address [address] [facility] [address] 7t [place] [address] Care Team Providers Care Carpenter Mine Name Role Phone Steven Agee MD Primary Care Provide r Reason for Visit * Reason Onset Date Comments Appointment 08/04/2022 Patient had appt yesterday and case was not in. Instructed to call in to today to check in if it has arrived. DR Encounter Details Date Type Department Care Team (Late st Contact Info) Description 08/04/2022 Telephone [facility] 230 [place] [address] Dental, Provider, DDS Appointment (Patient had appt [...] Description 01/22/2025 11:00 AM EDT Clinical Support [facility] 505 [place] [address] Concetta Barker, RN 505 [place] [address] documented as of this encounter Visit Diagnoses Not on filedocumented in this encounter Care Teams Carpenter Mine Relationship Specialty Start Date End Date Steven Agee MD 230 [place] [address] PCP - General Internal Medicine 06/05/14 documented as of this encounter
--- OUTSIDE RECORDS SUMMARY | 2025-01-15 13:11 | XMS_ITS | Encounter Summary ---
Author Organization [employer] Address [address] [place] [address] 7 [place] [address] Care Team Providers Care Account Resolution Specialist Name Role Phone Steven Agee MD Primary Care Provide r Reason for Visit * Reason Onset Date Comments Med Refill 02/22/2023 Encounter Details Date Type Department Care Team ([facility] st Contact Info) Description 02/22/2023 Telephone [facility] MEDICINE 230 [place] [address] Steven Aege MD 230 [place] [address] Med Refill Social History Tobacco Use Types [...] Upcoming Encounters Date Type Department Care Team ([facility] st Contact Info) Description 01/22/2025 11:00 AM EDT Clinical Support [facility] 505 [place] [address] Concetta Barker, RN 505 [place] [address] documented as of this encounter Visit Diagnoses Not on filedocumented in this encounter Additional Health Concerns Assessment Noted Time PHQ-9 Depression Total Score: 0 08/11/20 22 9:10 AM EST documented as of this encounter Care Teams Account Resolution Specialist Relationship Specialty Start Date End Date Steven Agee MD [address] [place] [address] PCP - General Internal Medicine 06/05/14 documented as of this encounter
--- OUTSIDE RECORDS SUMMARY | 2025-01-15 13:11 | XMS_ITS | Encounter Summary ---
Author Organization [employer] Address [address] [place] [address] 7t [place] [address] Care Team Providers Care Reinforcing Steel Erector Name Role Phone Steven Agee MD Primary Care Provide r Reason for Visit * Reason Comments Med Refill Encounter Details Date Type Department Care Team ([facility] st Contact Info) Description 02/09/2023 Refill [facility] MEDICINE 230 [place], [place] [phone] Steven Agee MD 230 [place] [address] Nausea and vomiting, unspecified vomiting type Social [...] Description 01/22/2025 11:00 AM EDT Clinical Support [facility] MED & PEDS 505 [place] [address] Concetta Barker, RN 505 [place] [address] documented as of this encounter Visit Diagnoses Diagnosis Nausea and vomiting, unspecified vomiting type documented in this encounter Additional Health Concerns Assessment Noted Time PHQ-9 Depression Total Score: 0 08/11/20 22 9:10 AM EST documented as of this encounter Care Teams Reinforcing Steel Erector Relationship Specialty Start Date End Date Steven Agee MD 230 [place] [address] PCP - General Internal Medicine 06/05/14 documented as of this encounter
--- OUTSIDE RECORDS SUMMARY | 2025-01-15 13:11 | XMS_ITS | Encounter Summary ---
Author Organization [employer] Address [address] [place] [address] 7t [place] [address] Care Team Providers Care Filter Bed Placer Name Role Phone Steven Agee MD Primary Care Provide r Reason for Visit * Reason Comments Med Refill Encounter Details Date Type Department Care Team ([facility] st Contact Info) Description 01/03/2023 Refill [facility] MEDICINE 230 [place], [place] [phone] Steven Agee MD 230 [place] [address] Chronic midline low back pain without sciatica [...] Description 01/22/2025 11:00 AM EDT Clinical Support [facility] CHC MED & PEDS 505 [place] [address] Concetta Barker, RN 505 [place] [address] documented as of this encounter Visit Diagnoses Diagnosis Chronic midline low back pain without sciatica documented in this encounter Additional Health Concerns Assessment Noted Time PHQ-9 Depression Total Score: 0 08/11/20 22 9:10 AM EST documented as of this encounter Care Teams Filter Bed Placer Relationship Specialty Start Date End Date Steven Agee MD 230 [place] [address] PCP - General Internal Medicine 06/05/14 documented as of this encounter
--- OUTSIDE RECORDS SUMMARY | 2025-01-15 13:11 | XMS_ITS | Clinical Summary ---
Author Organization [employer] Address 75 [facility] 7t [place] [address] Care Team Providers Care Backbreaker Name Role Phone Steven Agee MD Primary [...] Patient is scheduled for: Left TKR Location: [facility] Name of surgeon: Dr. Flako Young On:01/28/2025 [...] Patient is scheduled for: right TKR Location: [facility] Name of surgeon: Dr. Flako Young On:09/05/23 [...] with c/o intentional tremor Plan: Neurology evaluation [facility] care 01/24/2023 Assessment & Plan (01/25/2024 [...] go because she did not have an wirer maintenance Assessment & Plan (01/24/2023 9:13 AM EDT): [...] Of note she was previously admitted to [facility] for abdominal pain and vomiting. CAT scan [...] Of note she was previously admitted to [facility] for abdominal pain and vomiting. CAT scan [...] here for a f/u Previously admitted to [facility] for abdominal pain and vomiting. CAT scan [...] Type Department Care Team Description 01/10/2025 Refill [facility] MEDICINE 230 [place] [address] Steven Agee MD Depressive disorder 01/07/2025 9:30 AM EDT Office Visit [facility] MEDICINE 230 [facility] [place] [address] Steven Agee MD Essential hypertension (Primary Dx); Primary osteoarthritis of left knee; Abnormal ECG; Preoperative examination 01/07/2025 Telephone [facility] MEDICINE 230 [facility] [place] [address] Steven Agee MD Appointment Request 01/07/2025 Travel 01/06/2025 Telephone [facility] MEDICINE 230 [facility] [place] [address] Steven Agee MD chartprep 01/04/2025 Refill [facility] CHC MED & PEDS [address] [place], [place] [phone] Steven Agee MD Essential hypertension; Depressive disorder 01/02/2025 Refill [facility] [address] [place], [place] [address] Steven Agee MD Chronic midline low back pain without sciatica; Subclinical hypothyroidism 12/30/2024 Refill [facility] MED [facility]S 505 [facility] [place] [address] Concetta Barker, nsh teacher midline low back pain without sciatica 12/30/2024 Telephone [facility] [address] [facility] [place] [address] Steven Agee MD Med Refill 12/21/2024 Refill [facility] [address], [place] [address] Steven Agee MD Depressive disorder 12/18/2024 Travel 12/18/2024 Telephone [facility] MED & PEDS 505 [place] [address] Concetta Barker RN 12/18/2024 Telephone [facility] 230 [facility] [place] [address] Steven Agee MD 12/18/2024 Telephone [facility] [address] [facility] [place] [address] Steven Agee MD Appointment Request 12/12/2024 Refill [facility] [address] [facility] [place] [address] Key Restrepo MD 11/29/2024 Refill [facility] [address] [facility] [place] [address] Steven Agee MD Chronic midline low back pain without sciatica 11/18/2024 Refill [facility] [address] [facility] [place] [address] Steven Agee MD Depressive disorder 11/18/2024 Telephone [facility] [address] [facility] [place] [address] Steven Agee MD Pre op 11/04/2024 9:30 AM EDT Telemedicine [facility] MED & PEDS 505 [place] [address] Concetta Barker RN Long-term current use of opiate analgesic 11/04/2024 Refill [facility] MED & PEDS 505 [place] [address] Concetta Barker RN Depressive disorder 11/04/2024 Telephone [facility] MED & PEDS 505 [place] [address] Concetta Barker RN 11/04/2024 Travel 11/03/2024 Refill [facility] MEDICINE 230 [place] [address] Steven Agee MD Depressive disorder 10/31/2024 Refill [facility] MEDICINE 230 [place] [address] Steven Agee MD Chronic midline low back [...] 11:00 AM EDT Clinical Support [facility] MED & PEDS 505 [place] [address] Concetta Barker, RN 505 [place] [address] Health Maintenance Due Date Last Done Comments [...] 09/26/2025 09/26/2024, 09/26/19 SDOH Screening 09/26/2025 09/26/2024 Mammogram 11/14/2025 11/14/2024, 03/01/2023, 10/25/2021, Additional history exists Tobacco Screening 01/07/2026 [...] Blood Count 7.0 4.8 - 10.8 X10*3/uL [facility] Red Blood Count 5.01 4.20 - 5.50 X10*6/uL [facility] Hemoglobin 13.2 12.0 - 16.0 g/dl [facility] Hematocrit 40.9 37.0 - 47.0 % [facility] Mean Corpuscular Volume 81.6 80.0 - 98.0 fL [facility] Mean Corpuscular Hemoglobin 26.3(L) 27.0 - 33.0 pg [facility] Mean Corpuscular HGB Conc 32.3 31.0 - 35.0 g/dl [facility] Red Cell Distribution Width 13.2 11.0 - 16.0 % [facility] Platelet Count 286 160 - 400 X10*3/uL [facility] Mean Platelet Volume 10.1 9.4 - 12.3 fL [facility] NRBC Pct Auto 0.0 0.0 - 0.2 /100WBC [facility] NRBC Abs Auto 0.000 0.0 - 0.012 X10*3/uL [facility] 12/31/2024 10:4 2 AM EDT 12/31/2024 10:42 AM EDT us Generic External Data Provider LAB BLOOD ORDERAB LES Final Result [facility] [address] [place] [phone] * (ABNORMAL) Basic Metabolic Panel (12/31/2024 10:42 AM EDT) Sodium 142 135 - 145 mmol/L [facility] Potassium 4.0 3.3 - 5.1 mmol/L [facility] Chloride 105 96 - 108 mmol/L [facility] Carbon Dioxide 30(H) 22 - 29 mmol/L [facility] Anion Gap 11(L) 12 - 20 [facility] Urea Nitrogen (BUN) 18(H) 9 - 16 mg/dL [facility] Creatinine, Serum 0.79 0.5 - 1.4 mg/dL [facility] Creatinine Clr Calc Pharmacy 75.7 [facility] Comment:Provided height and weight: 162.56 cm,89.358 kg.eGFR (calculated from the MDRD study equation) and eCrCl(calculated from the Cockcroft-Gault equation) are based ondifferent parameters and may not yield comparable results.If eCrCl result is absurd, please check patient'sheight/weight. Estimated Glomerular Filt Rate >60 [facility] Comment:Chronic Kidney Disea se: Estimated GFR < 60 mL/min/1.42b7Pdgibi Kidney Disease: Estimated GFR < 15 mL/min/1.73m2 Glucose 76 60 - 115 mg/dL [facility] Calcium 9.9 8.4 - 10.2 mg/dL [facility] 12/31/2024 10:4 2 AM EDT 12/31/2024 10:42 AM EDT us Generic External Data Provider LAB BLOOD ORDERAB LES Final Result Performing Organization Address [facility]/ZIP Co de Phone Number [facility] [address] [place] [phone] * MRSA Nasal Screen (12/31/2024 10:00 AM EDT) MRSA Nasal PCR NEGATIVE Negative [facility] SA Nasal PCR NEGATIVE Negative [facility] MRSA Interpretation SEE NOTE [facility] Comment:MRSA target DNA not detected; SA target DNA not detected.A MRSA NEGATIVE, SA NEGATIVE test result does not precludeMRSA or SA nasal colonization. 12/31/2024 10:0 0 AM EDT 12/31/2024 10:29 AM EDT us Generic External Data Provider LAB MICROBIOLOGY - GENERAL ORDERABLES Final Result Performing Organization Address [facility]/ZIP Co de Phone Number [facility] [address] [place] [phone] * BI Mammogram Screening Tomosynthesis Bilateral (11/14/2024 8:32 AM EDT) Anatomical Region Laterality Modality Breast Bilateral Mammography 11/14/2024 8:32 AM EDT Narrative 11/22/2024 1:40 PM EDT ? [facility] ? [address] ?[place], [place] [address] ?[phone] ? Mammography Report ? Signed ? Patient: Brayden Mukherjee,Elsa ?MR#: [id number] ?? [id number] ? : 1960 ?Acct:[id number] ? Age/Sex: 64 / F ?ADM Date: 11/14/24 ? Loc: HO.MAMMO ? Attending Dr: Steven Rose MD ? Ordering Physician: Steven Rose MD ?Resu ?? lts: 1Negative ? Date of Service: 11/14/24 ?Follow Up: 1 Year From Orig ?? inal Mammogram ? Procedure(s): MM tomosynthesis screening BI ?? Accession Number(s): [id number] ? cc: Steven Rose MD ? EXAMINATION: [...] 01:37 PM EDT ? Dictated By: ?Molly Dikcey DO ? Signed By: ?<Electronically signed by Molly Dickey, DO in OV> ? 11/22/24 1337 ? DD/ 0832 ? TD/TT: 11/14/24 0844 ? Stator Winder: ? Procedure Note Luke, Image - 11/22/2024 [facility] [address] [place] [address] Mammography Report Signed Patient: Evette Adkins#: [id number] : 8Acct:[id number] Age/Sex: 64 / FADM Date: 11/14/24 Loc: [facility] Attending Dr: Steven Rose MD Ordering Physician: Steven Rose MDResu lts: 1Negative Date of Service: 11/14/24Follow Up: 1 Year From Orig inal Mammogram Procedure(s): MM tomosynthesis screening BI Accession Number(s): [id number] cc: Steven Rose MD EXAMINATION: MM SCREENING [...] 11/22/24 1337 DD/ 0832 TD/TT: 11/14/24 0844 Stator Winder: us Steven Dowling MD IMG BI PROCEDURES Fin al Result * (ABNORMAL) Lipid Panel, Standard (05/23/2024 9:33 AM EDT) Triglycerides 166(H) <150 mg/dL [facility] Comment:Desirable Triglyceri de: less than 150 mg/dLBorderline High Triglyceride 150-199 mg/dLHigh Triglyceride: 200-499 mg/dLVery High Triglyceride: greater than or equal to 5OO mg/dL Cholesterol 257(H) <200 mg/dL [facility] Comment:Desirable Cholestero l: less than 200 mg/dLBorderline High Cholesterol: 200-239 mg/dLHigh Cholesterol: greater than 239 mg/dL LDL Cholesterol Calculated 170(H) <100 mg/dL [facility] Comment:Desirable LDL: less than 100 mg/dLNear Optimal/Above Optimal LDL: 110- 129 mg/dLBorderline High LDL: 130-159 mg/dLHigh LDL: 160-189 mg/dLVery High LDL: greater than or equal to 190 mg/dL HDL Cholesterol 54 >40 mg/dL [facility] Comment:Desirable HDL: great er than 40 mg/dL Note: This HDL assay may give artificially low results in patients with liver disease. Blood Venous blood specimen / Unknown 05/23/2024 9:33 AM EDT 05/23/2024 11:51 AM EDT Steven Dowling MD LAB BLOOD ORDERABLES Final Result Performing Organization Address City/[facility]/ZIP Co de Phone Number [facility] [address] [place] [address] [phone] * Colonoscopy (11/08/2022 8:43 AM EDT) Pathologist [facility] Colonoscopy Normal Normal Comment:Diverticulosis of th e left colon sigmoid, otherwise normal [facility] Provider HEALTH MAINTENANCE Final Result * Hepatitis C Antibody with Reflex to HCV, RNA, Quantitative, Real-Time PCR (09/13/2022 9:26 AM EST) Pathologist [facility] Hepatitis C Antibody NON-REACT EZEKIEL NON-REACT EZEKIEL [facility] 0.06 <1.00 Rev[facility] Comment: HCV antibody was non-reactive. There is no laboratory evidence of HCV infection. In most cases, no further action is required. However, if recent HCV exposure is suspected, a test for HCV RNA (test code 45461) is suggested. For additional information please refer to http://education.[employer]/faq/BOH45n3 (This link is being provided for informational/ educational purposes only.) Blood Venous blood specimen / Unknown 09/13/2022 9:26 AM EST 09/13/2022 9:26 AM EST Narrative [facility] - 09/13/2022 7:41 PM EST FASTING:YES FASTING: YES Steven Dowling MD LAB BLOOD ORDERABLES Final Result [facility] [address] [place] [address], [place] [address] [facility] [place] [facility] [address], ([address]) [place] [address] from Last 3 Months or Most Recently Relevant to Health Maintenance Insurance [facility] INTERMEDIATE OPTIONS (O D-SNP) [place] [place] [id number] [place] [id number] [address] [place] [phone] Care Teams Backbreaker Relationship Specialty Start Date End Date Steven Agee MD [address] [place] [phone] PCP - General Internal Medicine 06/05/14
--- OUTSIDE RECORDS SUMMARY | 2025-01-15 13:11 | XMS_ITS | Encounter Summary ---
Author Organization [employer] Address [address] [place] [address] 7 [place] [address] Care Team Providers Care Senior Naval Parachutist Name Role Phone Steven Agee MD Primary Care Provide r Reason for Visit * Reason Onset Date Comments Med Refill 01/10/2025 Encounter Details Date Type Department Care Team (Late st Contact Info) Description 01/10/2025 Refill [facility] MEDICINE 230 [place] [address] Steven Agee MD 230 [place] [address] Depressive disorder Social History Tobacco Use Types [...] 0.5 MG tablet To be sent to: [id number] [place] [place] [facility] [address] [facility] documented in this encounter Plan of Treatment Upcoming Encounters Date Type Department Care Team ([facility] st Contact Info) Description 01/22/2025 11:00 AM EDT Clinical Support [facility] MED & PEDS 505 [place] [address] Concetta Barker RN 505 [place] [address] documented as of this encounter Visit Diagnoses Diagnosis Depressive disorder Depressive disorder, not elsewhere classified documented in this encounter Additional Health Concerns Assessment Noted Time PHQ-9 Depression Total Score: 1 09/26/19 25 9:54 AM EST documented as of this encounter Care Teams Senior Naval Parachutist Relationship Specialty Start Date End Date Steven Agee MD 230 [place] [address] PCP - General Internal Medicine 06/05/14 documented as of this encounter
--- OUTSIDE RECORDS SUMMARY | 2025-01-15 13:11 | XMS_ITS | Encounter Summary ---
Author Organization [employer] Address [address] [place] [address] 7 [place] [address] Care Team Providers Care Foundation Maker Name Role Phone Steven Agee MD Primary Care Provide r Reason for Visit * Reason Onset Date Comments Med Refill 03/28/2024 Encounter Details Date Type Department Care Team ([facility] st Contact Info) Description 03/28/2024 Telephone [facility] MEDICINE 230 [place], [place] [phone] Steven Agee MD 230 [place] [address] Med Refill Social History Tobacco Use Types [...] 5-325 MG tablet To be sent to: [facility] documented in this encounter Plan of Treatment Upcoming Encounters Date Type Department Care Team (Late st Contact Info) Description 01/22/2025 11:00 AM EDT Clinical Support [facility] MED & PEDS 505 [place] [address] Concetta Barker, RN 505 [place] [address] documented as of this encounter Visit Diagnoses Not on filedocumented in this encounter Additional Health Concerns Assessment Noted Time PHQ-9 Depression Total Score: 0 08/11/20 22 9:10 AM EST documented as of this encounter Care Teams Foundation Maker Relationship Specialty Start Date End Date Steven Agee MD 230 [place] [address] PCP - General Internal Medicine 06/05/14 documented as of this encounter
--- OUTSIDE RECORDS SUMMARY | 2025-01-15 13:11 | XMS_ITS | Encounter Summary ---
Author Organization [employer] Address [address] [place] [address] 7 [place] [address] Care Team Providers Care Holter Technician Name Role Phone Steven Agee MD Primary Care Provide r Reason for Visit * Reason Onset Date Comments Med Refill 07/29/2024 Encounter Details Date Type Department Care Team ([facility] st Contact Info) Description 07/29/2024 Telephone [facility] MEDICINE 230 [place], [place] [phone] Steven Agee MD 230 [place] [address] Med Refill Social History Tobacco Use Types [...] 5-325 MG tablet To be sent to: [id number] - [place], [place] - [address] [facility] documented in this encounter Plan of Treatment Upcoming Encounters Date Type Department Care Team (Late st Contact Info) Description 01/22/2025 11:00 AM EDT Clinical Support [facility] CHC MED & PEDS 505 [place] [address] Concetta Barker, QUIN 505 [place] [address] documented as of this encounter Visit Diagnoses Diagnosis Nausea and vomiting, unspecified vomiting type documented in this encounter Additional Health Concerns Assessment Noted Time PHQ-9 Depression Total Score: 0 08/11/20 22 9:10 AM EST documented as of this encounter Care Teams Holter Technician Relationship Specialty Start Date End Date Steven Agee MD [address] [place] [address] PCP - General Internal Medicine 06/05/14 documented as of this encounter
--- OUTSIDE RECORDS SUMMARY | 2025-01-15 13:11 | XMS_ITS | Encounter Summary ---
Author Organization [employer] Address [address] [place] [address] [address], [place] [address] Care Team Providers Care Clinical Operations Specialist Name Role Phone Steven Agee MD Primary Care Provide r Encounter Details Date Type Department Care Team (Late st Contact Info) Description 07/20/2022 Abstract [facility] MEDICINE 230 [place] [address] Steven Agee MD 230 [place] [address] Social History Tobacco Use Types Packs/Day Years [...] Description 01/22/2025 11:00 AM EDT Clinical Support [facility] MED & PEDS 505 [place] [address] Concetta Barker, QUIN 505 [place] [address] documented as of this encounter Procedures Procedure [...] on filedocumented in this encounter Care Teams Clinical Operations Specialist Relationship Specialty Start Date End Date Steven Agee MD [address] [place] [address] PCP - General Internal Medicine 06/05/14 documented as of this encounter
--- OUTSIDE RECORDS SUMMARY | 2025-01-15 13:11 | XMS_ITS | Encounter Summary ---
Author Organization [employer] Address [address] [facility] 7 [place] [address] Care Team Providers Care Nail Expert Name Role Phone Steven Agee MD Primary Care Provide r Reason for Visit * Reason Onset Date Comments Appointment Request 01/19/2024 Encounter Details Date Type Department Care Team ([facility] st Contact Info) Description 01/19/2024 Telephone [facility] MEDICINE 230 [place], [place] [phone] Steven Agee MD 230 [place] [address] Appointment Request Social History Tobacco Use Types [...] 01/22/2025 11:00 AM EDT Clinical Support [facility] MED & PEDS 505 [place] [address] Concetta Barker, QUIN 505 [place] [address] documented as of this encounter Visit Diagnoses Not on filedocumented in this encounter Additional Health Concerns Assessment Noted Time PHQ-9 Depression Total Score: 0 08/11/20 22 9:10 AM EST documented as of this encounter Care Teams Nail Expert Relationship Specialty Start Date End Date Steven Agee MD 230 [place] [address] PCP - General Internal Medicine 06/05/14 documented as of this encounter
--- OUTSIDE RECORDS SUMMARY | 2025-01-15 13:11 | XMS_ITS | Encounter Summary ---
Author Organization [employer] Address 75 [facility] 7t [place] [address] Care Team Providers Care Search Advertising Strategist Name Role Phone Steven Agee MD Primary Care Provide r Reason for Visit * Reason Comments Med Refill Encounter Details Date Type Department Care Team ([facility] st Contact Info) Description 08/01/2023 Refill [facility] MEDICINE 230 [place], [place] [phone] Steven Agee MD 230 [place], [place] [phone] Nausea and vomiting, unspecified vomiting type Social [...] [facility] MED & PEDS 505 [place] [address] Concetta Barker, RN 505 [place] [address] documented as of this encounter Visit Diagnoses Diagnosis Nausea and vomiting, unspecified vomiting type documented in this encounter Additional Health Concerns Assessment Noted Time PHQ-9 Depression Total Score: 0 08/11/20 22 9:10 AM EST documented as of this encounter Care Teams Search Advertising Strategist Relationship Specialty Start Date End Date Steven Agee MD 230 [place] [address] PCP - General Internal Medicine 06/05/14 documented as of this encounter
--- OUTSIDE RECORDS SUMMARY | 2025-01-15 13:11 | XMS_ITS | Encounter Summary ---
Author Organization [employer] Address [address] [place] [address] 7 [place] [address] Care Team Providers Care Lacing String Cutter Name Role Phone Steven Agee MD Primary Care Provide r Reason for Visit * Reason Onset Date Comments Med Refill 02/01/2024 Encounter Details Date Type Department Care Team ([facility] st Contact Info) Description 02/01/2024 Telephone [facility] 230 [place], [place] [phone] Steven Agee MD 230 [place] [address] Med Refill Social History Tobacco Use Types [...] 5-325 MG tablet To be sent to: [id number] [place], [place] - [address] [place] [address] documented in this encounter Plan of Treatment Upcoming Encounters Date Type Department Care Team ([facility] st Contact Info) Description 01/22/2025 11:00 AM EDT Clinical Support [facility] MED & PEDS 505 [place] [address] Concetta Barker, QUIN 505 [place] [address] documented as of this encounter Visit Diagnoses Not on filedocumented in this encounter Additional Health Concerns Assessment Noted Time PHQ-9 Depression Total Score: 0 08/11/20 22 9:10 AM EST documented as of this encounter Care Teams Lacing String Cutter Relationship Specialty Start Date End Date Steven Agee MD [address] [place] [address] PCP - General Internal Medicine 06/05/14 documented as of this encounter
--- OUTSIDE RECORDS SUMMARY | 2025-01-15 13:11 | XMS_ITS | Encounter Summary ---
Author Organization [employer] Address [address] [facility] 7t [place] [address] Care Team Providers Care Sales Support Manager Name Role Phone Steven Agee MD Primary Care Provide r Reason for Visit * Reason Onset Date Comments re sent script 06/07/2023 Encounter Details Date Type Department Care Team ([facility] st Contact Info) Description 06/07/2023 Telephone [facility] MEDICINE 230 [place] [address] Steven Agee MD 230 [place] [address] re sent script Social History Tobacco Use [...] 8:53 AM EDT Medication was sent to [facility] on 06/08/23. * Telephone Encounter - Isabela Yañez LPN - 06/07/2023 3:54 PM EDT PENCIL INSPECTOR checked 06/07/23. Last filled 04/28/23. * Telephone Encounter - Paulina Mancini - 06/07/2023 3:47 PM EDT TC from pt requesting to re sent script of zolpidem (Ambien) 10 MG tablet to [facility] due to ptnot have insurance and here its going to be navarrete gee and cheaper than [facility]. PCP DR. Connelly * Telephone Encounter - Paulina Mancini - 06/07/2023 3:41 PM EDT TC from pt requesting to re sent script oxyCODONE-acetaminophen (Percocet) 5-325 MG tablet to [facility] due to pt not have insurance and here its going to be navarrete gee and cheaper than [facility]. PCP DR. Connelly documented in this encounter Plan of Treatment Upcoming Encounters Date Type Department Care Team (Late st Contact Info) Description 01/22/2025 11:00 AM EDT Clinical Support [facility] MED & PEDS 505 [place] [address] Concetta Barker, RN 505 [place] [address] documented as of this encounter Visit Diagnoses Diagnosis Depressive disorder Depressive disorder, not elsewhere classified documented in this encounter Additional Health Concerns Assessment Noted Time PHQ-9 Depression Total Score: 0 08/11/20 22 9:10 AM EST documented as of this encounter Care Teams Sales Support Manager Relationship Specialty Start Date End Date Steven Agee MD [address] [place] [address] PCP - General Internal Medicine 06/05/14 documented as of this encounter
--- OUTSIDE RECORDS SUMMARY | 2025-01-15 13:11 | XMS_ITS | Encounter Summary ---
Author Organization [employer] Address [address] [place] [address] 7 [place] [address] Care Team Providers Care Nutritional Health Coach Name Role Phone Steven Agee MD Primary Care Provide r Reason for Visit * Reason Comments Med Refill Encounter Details Date Type Department Care Team (Late st Contact Info) Description 10/25/2022 Refill [facility] 230 [place] [address] Steven Agee MD 230 [place] [address] Depressive disorder Social History Tobacco Use Types [...] Description 01/22/2025 11:00 AM EDT Clinical Support [facility] 505 [place] [address] Concetta Barker RN 505 [place] [address] documented as of this encounter Visit Diagnoses Diagnosis Depressive disorder Depressive disorder, not elsewhere classified documented in this encounter Additional Health Concerns Assessment Noted Time PHQ-9 Depression Total Score: 0 08/11/20 22 9:10 AM EST documented as of this encounter Care Teams Nutritional Health Coach Relationship Specialty Start Date End Date Steven Agee MD [address] [place] [address] PCP - General Internal Medicine 06/05/14 documented as of this encounter
--- OUTSIDE RECORDS SUMMARY | 2025-01-15 13:11 | XMS_ITS | Encounter Summary ---
Author Organization [employer] Address [address] [facility] 7t [place] [address] Care Team Providers Care Environmental Planner Name Role Phone Steven Agee MD Primary Care Provide r Reason for Visit * Reason Comments Med Refill Encounter Details Date Type Department Care Team ([facility] st Contact Info) Description 01/18/2024 Refill [facility] MEDICINE 230 [place], [place] [phone] Steven Agee MD 230 [place], [place] [phone] Depressive disorder Social History Tobacco Use Types [...] Description 01/22/2025 11:00 AM EDT Clinical Support [facility] 505 [place] [address] Concetta Barker, RN 505 [place] [address] documented as of this encounter Visit Diagnoses Diagnosis Depressive disorder Depressive disorder, not elsewhere classified documented in this encounter Additional Health Concerns Assessment Noted Time PHQ-9 Depression Total Score: 0 08/11/20 22 9:10 AM EST documented as of this encounter Care Teams Environmental Planner Relationship Specialty Start Date End Date Steven Agee MD [address] [place] [address] PCP - General Internal Medicine 06/05/14 documented as of this encounter
--- OUTSIDE RECORDS SUMMARY | 2025-01-15 13:11 | XMS_ITS | Encounter Summary ---
Author Organization [employer] Address [address] [facility] 7t [place] [address] Care Team Providers Care Director Of Labor Relations Name Role Phone Steven Agee MD Primary Care Provide r Reason for Visit * Reason Comments Med Refill Encounter Details Date Type Department Care Team ([facility] st Contact Info) Description 01/04/2025 Refill [facility]S [address] [place], [place] [phone] Steven Agee MD 230 [place], [place] [phone] Essential hypertension; Depressive disorder Social History Tobacco [...] [facility] 505 [place] [address] Concetta Barker, QUIN 505 [place] [address] documented as of this encounter Visit Diagnoses Diagnosis Essential hypertension Unspecified essential hypertension Depressive disorder Depressive disorder, not elsewhere classified documented in this encounter Additional Health Concerns Assessment Noted Time PHQ-9 Depression Total Score: 1 09/26/19 25 9:54 AM EST documented as of this encounter Care Teams Director Of Labor Relations Relationship Specialty Start Date End Date Steven Agee MD 230 [place] [address] PCP - General Internal Medicine 06/05/14 documented as of this encounter
--- OUTSIDE RECORDS SUMMARY | 2025-01-15 13:11 | XMS_ITS | Encounter Summary ---
Author Organization [employer] Address [address] [facility] 7t [place] [address] Care Team Providers Care Winch Runner Name Role Phone Steven Agee MD Primary Care Provide r Reason for Visit * Reason Comments Med Refill Encounter Details Date Type Department Care Team ([facility] st Contact Info) Description 07/21/2023 Refill [facility] 230 [place], [place] [phone] Name, MD Nolberto 230 [place] [address] Hypertension, unspecified type Social History Tobacco Use [...] [facility] 505 [place] [address] Concetta Barker, QUIN 505 [place] [address] documented as of this encounter Visit Diagnoses Diagnosis Hypertension, unspecified type documented in this encounter Additional Health Concerns Assessment Noted Time PHQ-9 Depression Total Score: 0 08/11/20 22 9:10 AM EST documented as of this encounter Care Teams Winch Runner Relationship Specialty Start Date End Date Steven Agee MD [address] [place] [address] PCP - General Internal Medicine 06/05/14 documented as of this encounter
--- OUTSIDE RECORDS SUMMARY | 2025-01-15 13:11 | XMS_ITS | Encounter Summary ---
Author Organization [employer] Address [address] [facility] 7t [place] [address] Care Team Providers Care Data Coordinator Name Role Phone Steven Agee MD Primary Care Provide r Reason for Visit * Reason Onset Date Comments Med Refill 06/27/2023 Encounter Details Date Type Department Care Team ([facility] st Contact Info) Description 06/27/2023 Telephone [facility] MEDICINE 230 [place] [address] Steven Agee MD 230 [place], [place] [phone] Med Refill Social History Tobacco Use Types [...] encounter Miscellaneous Notes * Telephone Encounter - tM Dowling - 06/27/2023 1:40 PM EDT Tc from patient requesting medication refill for oxyCODONE-acetaminophen (Percocet) 5-325 MG tablet. documented in this encounter Plan of Treatment Upcoming Encounters Date Type Department Care Team (Late st Contact Info) Description 01/22/2025 11:00 AM EDT Clinical Support [facility]S 505 [place] [address] Concetta Barker, QUIN 505 [place] [address] documented as of this encounter Visit Diagnoses Not on filedocumented in this encounter Additional Health Concerns Assessment Noted Time PHQ-9 Depression Total Score: 0 08/11/20 22 9:10 AM EST documented as of this encounter Care Teams Data Coordinator Relationship Specialty Start Date End Date Steven Agee MD 230 [place] [address] PCP - General Internal Medicine 06/05/14 documented as of this encounter
== END ==
LOC: HO.CARD 12:14
PROVIDERS: PCP Internal Medicine; Visit Provider Internal Medicine Cardiovascular Disease
DX: R94.31 Abnormal electrocardiogram [ECG] [EKG] (principal)
CPT/HCPCS: 93306; Q9957

== ENCOUNTER → 2025-01-15 12:19 | Outpatient (BNV) | payer OTHER, SELFPAY | PROVIDERS: PCP Internal Medicine; Visit Provider Internal Medicine Cardiovascular Disease | DX: I51.89 Other ill-defined heart diseases (principal); I77.810 Thoracic aortic ectasia | CPT/HCPCS: 93306 ==

== ENCOUNTER → 2025-01-16 09:28 | Outpatient (REF) | payer OTHER, SELFPAY ==
--- NOTE | 2025-01-16 09:31 | CA_ITS ---
Acquisition Time: 2025-01-16 09:43:57 Total Exercise Time: 00:02:00 Test Indications: ABN EKG Medications: SEE H&P Protocol: LEXISCAN Max HR: 127 BPM 82% of Pred: 154 BPM Max BP: 120/78 mmHG Max Work Load: 1.0 METS Pharmacological stress test with Lexiscan while pt moves her right leg, with reports of fatigue and abdominal discomfort, with isolated PVCs, with normotensive response to injection. Nondiagnostic EKG for ischemia. In recovery, pt feeling back to baseline. Nuclear images pending. Test reviewed with Dr. Lee. Referred By: Kane Lee Electronically Signed By: Dane Mai
== END ==
LOC: HO.CARD 09:28
PROVIDERS: PCP Internal Medicine; Visit Provider Internal Medicine Cardiovascular Disease
DX: R94.31 Abnormal electrocardiogram [ECG] [EKG] (principal)
CPT/HCPCS: 78452; 93017; A9500

== ENCOUNTER → 2025-01-16 09:31 | Outpatient (BNV) | payer OTHER, SELFPAY | PROVIDERS: PCP Internal Medicine | DX: I49.3 Ventricular premature depolarization (principal) | CPT/HCPCS: 78452; 93016; 93018 ==

== ENCOUNTER 2025-01-22 16:04 | Outpatient (REF) | payer OTHER, SELFPAY ==
--- OUTSIDE RECORDS SUMMARY | 2025-01-22 16:15 | XMS_ITS | Encounter Summary ---
Author Organization [employer] Address [address] [facility] [address] 7t [place] [address] Care Team Providers Care Cabinetmaker Supervisor Name Role Phone Steven Agee MD Primary Care Provide r Encounter Details Date Type Department Care Team ([facility] st Contact Info) Description 12/18/2024 Telephone [facility] 230 [place], [place] [phone] Steven Agee MD 230 [place], [place] [phone] Social History Tobacco Use Types Packs/Day Years [...] Care Team (Late st Contact Info) Description 03/24/2025 10:00 AM EDT Telemedicine [facility] MED & PEDS 505 [place] [address] Concetta Barker, QUIN 505 [place] [address] documented as of this encounter Visit Diagnoses Not on filedocumented in this encounter Additional Health Concerns Assessment Noted Time PHQ-9 Depression Total Score: 1 09/26/19 25 9:54 AM EST documented as of this encounter Care Teams Cabinetmaker Supervisor Relationship Specialty Start Date End Date Steven Agee MD [address] [place] [address] PCP - General Internal Medicine 06/05/14 documented as of this encounter
[2025-01-28 11:06] LABS: Alphahydroxymidazolam,GCMS Ur NEGATIVE; Alphahydroxytriazolam, GCMS Ur NEGATIVE; Alprazolam, GCMS Urine NEGATIVE; Aminoclonazepam, GCMS Urine 40; Lorazepam GCMS Urine NEGATIVE; Nordiazepam, GCMS Urine NEGATIVE; Oxazepam, GCMS Urine NEGATIVE; Temazepam, GCMS Urine NEGATIVE
[2025-01-28 11:07] LABS: Flurazepam Metabolite,GCMS Ur NEGATIVE
== END 2025-01-22 16:05 | disposition home or self-care (01) ==
LOC: HO.CHCLNP 16:04
PROVIDERS: Visit Provider Internal Medicine
DX: Z79.899 Other long term (current) drug therapy (principal)
CPT/HCPCS: 80346

== ENCOUNTER 2025-01-23 08:20 | Outpatient (AMB) | payer OTHER, SELFPAY ==
--- NOTE | 2025-01-23 08:22 | A.OFFVIS_ITS ---
Vital Signs 01/23/25 08:57 Height 5 ft 4 in Weight 197 lb BMI 33.8 Intake Visit Reasons: Pre-Op: L TKA w/NE 01/28/25 Intake Note: Elsa is a 64 year old female who presents today for a preoperative left TKA on 01/28/[address] Young. Pain management agreement reviewed and signed. Supervisor Travel Information Center Required: Yes Supervisor Travel Information Center Services: Supervisor Travel Information Center Present Supervisor Travel Information Center Name: Ana Allergies diazepam [From VALIUM] Allergy (Intermediate, Verified 01/23/25 08:53) HALLUCINATION/DIFF BREATHING perflutren Adverse Reaction (Verified 01/23/25 08:53) Back Pain Medication List - Last Reconciled 01/23/25 by Raz Izaguirre PA-C atorvastatin 1 tab PO DAILY celecoxib 200 mg PO BID 30 days clonazepam 1 tab PO BEDTIME PRN docusate sodium 100 mg PO BID 30 days hydrochlorothiazide 1 tab PO DAILY levothyroxine 50 mcg PO DAILY lisinopril 1 tab PO DAILY meloxicam 1 tab PO DAILY bavrtzzi-krb-dzxd-FA-vit K-lut 4 mg iron-200 mcg-25 mcg (Centrum Minis Women 50 Plus) 1 tab PO DAILY omeprazole 40 mg PO DAILY 30 days oxycodone 10 mg (2 x 5 mg) PO Q4H PRN 7 days sucralfate (Carafate) 2 grams (2 x 1 gram) PO QNOON walker Folding Front wheeled walker DURATION 99 DAYS zolpidem 1 tab PO BEDTIME HPI Comments Details: Ms Voss presents to the office today for preop visit. She is scheduled for left total knee arthroplasty with Dr. Young. She continues to have ongoing pain and difficulty with ambulation in the left knee, which is affecting her quality of life; therefore, she has elected to move forward with surgery. Patient is rx Oxycodone 10mg by her pcp, she states she only takes 1 tab a day, if needed. Patient had PCP and Cardiac clearnce: --01/16/2025-patient underwent a myocardial perfusion study which was normal. Patient can proceed with her upcoming orthopedic procedure with the cons ideration that patient is at an intermediate cardiac risk. Previous Right TKA 09/05/[address] Young Implants: [employer] triathlon cemented posterior stabilized 10/28/18 Patient lives at home with her . She has a walker. She denies smoking, no h/o DVT or cancer [facility] Medical History (Updated 01/23/25 @ 09:30 by Raz Izaguirre PA-C) Post-operative nausea and vomiting Dysphagia Plantar fasciitis Hypothyroidism Diverticular disease of colon GERD (gastroesophageal reflux disease) Gall bladder, polycystic disease Partial small bowel obstruction Arthritis Hyperlipemia Depression HTN (hypertension) Surgical History History of esophagogastroduodenoscopy (EGD) Status post total knee replacement, right History of appendectomy Hx of colonoscopy History of arthroscopy of right knee History of arthroscopy of left knee H/O: hysterectomy Family History (Updated 01/13/25 @ 09:56 by Vidya Yoon [facility]) Mother Diabetes Tachycardia High blood pressure Father Emphysema lung Brother H/O heart surgery Social History Household Members: Spouse Housing: Apartment Are you a primary career specialist to a significant other at home: No Do you presently have visiting nurse or other home services: No Comment: rarely uses cane Patient Tobacco Use Status: Never used Tobacco Second Hand Smoke Exposure: No service: No Current occupational status: retired Review of Systems Const All systems reviewed & are unremarkable except as noted in HPI and below Physical Exam Vital Signs: BMI result Body Mass Index 33.8 Const General: cooperative, healthy appearing, comfortable, no acute distress, well developed and alert Orientation/consciousness: patient oriented x3 HEENT Head: Yes normal to inspection, Yes normocephalic and Yes atraumatic Eyes General: appearance normal, both eyes and all related structures Neck Neck: Yes normal visual inspection and Yes no lymphadenopathy Resp Effort & Inspection: normal respiratory effort and able to speak in complete sentences Cardio Rate: regular rate Peripheral pulses: Peripheral pulses 2+ throughout GI Inspection: Yes normal to inspection Palpation (GI): Soft to palpation Skin General skin exam: no rashes or lesions noted Neuro General: patient oriented x3 Extrem Other: Left knee skin intact. No open wounds or abraisons. Varus malalignment left knee with tenderness to palpation medial compartment. 5-125 degrees. Antalgic gait. Psych Appearance: grossly normal Mental Status: mental status grossly normal Results Reviewed Results Reviewed: Xrays were obtained in the office today and personally reviewed by me of the left knee for surgical planning. Assessment & Plan Assessment & Plan (1) Osteoarthritis of left knee: Code(s): M17.12 - Unilateral primary osteoarthritis, left knee Category: Medical Plan: I discussed in detail the procedure and what to expect pre and post operatively. We discussed the risks, benefits and alternatives to the surgery as well as the rehabilitation course. The risks; which include, but are not limited to infection, bleeding, nerve injury, ongoing pain, swelling, and stiffness, p erioperative risk of injury to bones and soft tissues, and blood clots. I?ve answered all questions and with their understanding they have consented to move forward with Left total knee arthroplasty with Dr. Young Plan is to be DC home with VNA She has a walker. PT order sent to [facility] , pt will call to schedule appt for 2 wks post op No h/o DVT, cancer, smoking->ASA 325mg bid post op. She is able to tolerate Oxycodone Orders: Orders Type and Screen Today Z01.818 - Encounter for other preprocedural examination XR knee LT 3V Today M25.562 - Pain in left knee PT Evaluation and Treatment Today Z96.652 - Presence of left artificial knee joint Coding Level of Care Code Est Pt Level 3 (76886) Complex EM visit Add On G2211 Diagnoses Osteoarthritis of left knee M17.12
--- OUTSIDE RECORDS SUMMARY | 2025-01-23 08:28 | XMS_ITS | Encounter Summary ---
Author Organization [employer] Address [address] [facility] [address] 7t [place] [address] Care Team Providers Care Supervisor Gluing Name Role Phone Steven Agee MD Primary Care Provide r Encounter Details Date Type Department Care Team ([facility] st Contact Info) Description 12/18/2024 Telephone [facility] MEDICINE 230 [place], [place] [phone] Steven Agee MD 230 [place], [place] [phone] Social History Tobacco Use Types Packs/Day Years [...] Info) Description 03/24/2025 10:00 AM EDT Telemedicine [facility] MED & PEDS 505 [place] [address] Concetta Barker, QUIN 505 [place] [address] documented as of this encounter Visit Diagnoses Not on filedocumented in this encounter Additional Health Concerns Assessment Noted Time PHQ-9 Depression Total Score: 1 09/26/19 25 9:54 AM EST documented as of this encounter Care Teams Supervisor Gluing Relationship Specialty Start Date End Date Steven Agee MD [address] [place] [address] PCP - General Internal Medicine 06/05/14 documented as of this encounter
[2025-01-23 08:57] VITALS: BMI 33.8
== END 2025-01-23 10:03 | disposition home or self-care (01) ==
LOC: HO.HOS 08:21
PROVIDERS: PCP Internal Medicine; Visit Provider Physician Assistant
DX: M17.12 Unilateral primary osteoarthritis, left knee (principal)
CPT/HCPCS: 99024

== ENCOUNTER 2025-01-23 08:20 | Outpatient (REF) | payer OTHER, SELFPAY ==
--- NOTE | ~2025-01-23 | XR_ITS ---
EXAMINATION: XR KNEE 3 VIEWS LEFT HISTORY: M25.562 - Pain in left knee COMPARISON: Comparison is made to prior examinations dated 11/11/2024 and 11/07/2022. FINDINGS: Standing AP views of both knees and additional lateral and sunrise patellar views of the left knee are submitted. Osseous mineralization is normal. There is no fracture or dislocation. There is moderate to severe osteoarthritis of the medial compartment with joint space narrowing and osteophyte formation. Milder changes are noted involving the patellofemoral compartment. The patient is status post right total knee arthroplasty. The soft tissues are unremarkable. There is no joint effusion. XR/XR knee LT 3V IMPRESSION: Osteoarthritis of the left knee as described. Electronically signed by: Jamar Pino MD 01/23/2025 08:57 AM EDT
== END 2025-01-23 08:21 | disposition home or self-care (01) ==
LOC: HO.HOSX 08:20
PROVIDERS: PCP Internal Medicine; Visit Provider Physician Assistant
DX: Z01.818 Encounter for other preprocedural examination (principal); M25.562 Pain in left knee; M17.12 Unilateral primary osteoarthritis, left knee; Z79.891 Long term (current) use of opiate analgesic
CPT/HCPCS: 73562; 99212

== ENCOUNTER → 2025-01-23 08:42 | Outpatient (BNV) | payer OTHER, SELFPAY | PROVIDERS: PCP Internal Medicine; Visit Provider Radiology Diagnostic Radiology | DX: M17.12 Unilateral primary osteoarthritis, left knee (principal) | CPT/HCPCS: 73562 ==

== ENCOUNTER 2025-01-28 06:22 | Day surgery (SDC) | payer OTHER, SELFPAY ==
--- OUTSIDE RECORDS SUMMARY | 2024-12-03 08:12 | XMS_ITS | Encounter Summary ---
Author Organization [employer] Address [address] [facility] 7t [place] [address] Care Team Providers Care Ranger Aide Name Role Phone Steven Agee MD Primary Care Provide r Reason for Visit * Reason Comments Med Refill Encounter Details Date Type Department Care Team (Late st Contact Info) Description 08/01/2023 Refill [facility] MEDICINE 230 [place], [place] [phone] Steven Agee MD 230 [place], [place] [phone] Nausea and vomiting, unspecified vomiting type Social [...] Care Team (Late st Contact Info) Description 01/07/2025 9:30 AM EDT Office Visit [facility] MEDICINE 230 [place] [address] Steven Agee MD 230 [place] [address] 01/29/2025 10:00 AM EDT Clinical Support [facility] PEDS 505 [place] [address] Concetta Barker, QUIN 505 [place] [address] documented as of this encounter Visit Diagnoses Diagnosis Nausea and vomiting, unspecified vomiting type documented in this encounter Additional Health Concerns Assessment Noted Time PHQ-9 Depression Total Score: 0 08/11/20 22 9:10 AM EST documented as of this encounter Care Teams Ranger Aide Relationship Specialty Start Date End Date Steven Agee MD 230 [place] [address] PCP - General Internal Medicine 06/05/14 documented as of this encounter
--- OUTSIDE RECORDS SUMMARY | 2024-12-03 08:12 | XMS_ITS | Encounter Summary ---
Author Organization [employer] Address 75 [facility] 7t [place] [address] Care Team Providers Care Baggage Checker Name Role Phone Steven Agee MD Primary Care Provide r Reason for Visit * Reason Comments Med Refill Encounter Details Date Type Department Care Team ([facility] st Contact Info) Description 07/21/2023 Refill [facility] 230 [place] [address] Name, MD Nolberto 230 [place] [address] Hypertension, unspecified type Social History Tobacco Use [...] Description 01/07/2025 9:30 AM EDT Office Visit [facility] MEDICINE 230 [place] [address] Steven Agee MD 230 [place] [address] 01/29/2025 10:00 AM EDT Clinical Support [facility]EDS 505 [place] [address] Concetta Barker, QUIN 505 [place] [address] documented as of this encounter Visit Diagnoses Diagnosis Hypertension, unspecified type documented in this encounter Additional Health Concerns Assessment Noted Time PHQ-9 Depression Total Score: 0 08/11/20 22 9:10 AM EST documented as of this encounter Care Teams Baggage Checker Relationship Specialty Start Date End Date Steven Agee MD [address] [place] [address] PCP - General Internal Medicine 06/05/14 documented as of this encounter
--- OUTSIDE RECORDS SUMMARY | 2024-12-03 08:12 | XMS_ITS | Encounter Summary ---
Author Organization [employer] Address [address] [facility] 7t [place] [address] Care Team Providers Care Branch Rental Manager Name Role Phone Steven Agee MD Primary Care Provide r Reason for Visit * Reason Onset Date Comments Med Refill 02/01/2024 Encounter Details Date Type Department Care Team ([facility] st Contact Info) Description 02/01/2024 Telephone [facility] MEDICINE 230 [place], [place] [phone] Steven Agee MD 230 [place], [place] [phone] Med Refill Social History Tobacco Use Types [...] 5-325 MG tablet To be sent to: [id number] [place], [place] - [address] [facility] documented in this encounter Plan of Treatment Upcoming Encounters Date Type Department Care Team ([facility] st Contact Info) Description 01/07/2025 9:30 AM EDT Office Visit [facility] MEDICINE 230 [place] [address] Steven Agee MD [address] [place] [address] 01/29/2025 10:00 AM EDT Clinical Support [facility] MED [facility]EDS 505 [place] [address] Concetta Barker, QUIN 505 [place] [address] documented as of this encounter Visit Diagnoses Not on filedocumented in this encounter Additional Health Concerns Assessment Noted Time PHQ-9 Depression Total Score: 0 08/11/20 22 9:10 AM EST documented as of this encounter Care Teams Branch Rental Manager Relationship Specialty Start Date End Date Steven Agee MD 230 [place] [address] PCP - General Internal Medicine 06/05/14 documented as of this encounter
--- OUTSIDE RECORDS SUMMARY | 2024-12-03 08:12 | XMS_ITS | Encounter Summary ---
Author Organization [employer] Address 75 [facility] 7t [place] [address] Care Team Providers Care Tanner Rotary Drum Continuous Process Name Role Phone Steven Agee MD Primary Care Provide r Reason for Visit * Reason Onset Date Comments Med Refill 11/29/2024 Encounter Details Date Type Department Care Team (Late st Contact Info) Description 11/29/2024 Refill [facility] MEDICINE 230 [place] [address] Steven Agee MD 230 [place] [address] Chronic midline low back pain without sciatica [...] encounter Miscellaneous Notes * Telephone Encounter - Lis Patel - 11/29/2024 9:31 AM EDT TC from pt requesting medication refill. Medications needing refill : oxyCODONE-acetaminophen (Percocet) 5-325 MG tablet To be sent to: [facility][id number] [place] - [address] [facility] documented in this encounter Plan of Treatment Upcoming Encounters Date Type Department Care Team ([facility] st Contact Info) Description 01/07/2025 9:30 AM EDT Office Visit [facility] MEDICINE 230 [place] [address] Steven Agee MD 230 [place] [address] 01/29/2025 10:00 AM EDT Clinical Support [facility] 505 [place] [address] Concetta Barker, QUIN 505 [place] [address] documented as of this encounter Visit Diagnoses Diagnosis Chronic midline low back pain without sciatica documented in this encounter Additional Health Concerns Assessment Noted Time PHQ-9 Depression Total Score: 1 09/26/19 25 9:54 AM EST documented as of this encounter Care Teams Tanner Rotary Drum Continuous Process Relationship Specialty Start Date End Date Steven Agee MD 230 [place] [address] PCP - General Internal Medicine 06/05/14 documented as of this encounter
--- OUTSIDE RECORDS SUMMARY | 2024-12-03 08:12 | XMS_ITS | Encounter Summary ---
Author Organization [facility] Address [address] [facility] [address] 7t [place] [address] Care Team Providers Care Computer Support Technician Name Role Phone Steven Agee MD Primary Care Provide r Reason for Visit * Reason Onset Date Comments Appointment 08/04/2022 Patient had appt yesterday and case was not in. Instructed to call in to today to check in if it has arrived. DR Encounter Details Date Type Department Care Team (Late st Contact Info) Description 08/04/2022 Telephone [facility] 230 [place] [address] Dental, Provider, DDS Appointment (Patient had appt [...] Description 01/07/2025 9:30 AM EDT Office Visit [facility] MED[facility] 230 [place] [address] Steven Agee MD 230 [place] [address] 01/29/2025 10:00 AM EDT Clinical Support [facility] 505 [place] [address] Concetta Barker, RN 505 [place] [address] documented as of this encounter Visit Diagnoses Not on filedocumented in this encounter Care Teams Computer Support Technician Relationship Specialty Start Date End Date Steven Agee MD [address] [place] [address] PCP - General Internal Medicine 06/05/14 documented as of this encounter
--- OUTSIDE RECORDS SUMMARY | 2024-12-03 08:12 | XMS_ITS | Encounter Summary ---
Author Organization [employer] Address [address] [facility] 7t [place] [address] Care Team Providers Care Physician Vice President Name Role Phone Steven Agee MD Primary Care Provide r Reason for Visit * Reason Onset Date Comments re sent script 06/07/2023 Encounter Details Date Type Department Care Team ([facility] st Contact Info) Description 06/07/2023 Telephone [facility] MEDICINE 230 [place] [address] Steven Agee MD 230 [place] [address] re sent script Social History Tobacco Use [...] 8:53 AM EDT Medication was sent to [facility] on 06/08/23. * Telephone Encounter - Isabela Yañez LPN - 06/07/2023 3:54 PM EDT TABLET COATER checked 06/07/23. Last filled 04/28/23. * Telephone Encounter - Paulina Mancini - 06/07/2023 3:47 PM EDT TC from pt requesting to re sent script of zolpidem (Ambien) 10 MG tablet to [facility] due to ptnot have insurance and here its going to be nav[place]te gee and cheaper than [facility]. PCP DR. Connelly * Telephone Encounter - Paulina Mancini - 06/07/2023 3:41 PM EDT TC from pt requesting to re sent script oxyCODONE-acetaminophen (Percocet) 5-325 MG tablet to [facility] due to pt not have insurance and here its going to be [facility] [place] and cheaper than [facility]. PCP DR. Connelly documented in this encounter Plan of Treatment Upcoming Encounters Date Type Department Care Team (Late st Contact Info) Description 01/07/2025 9:30 AM EDT Office Visit [facility] MEDICINE 230 [place] [address] Steven Agee MD 230 [place] [address] 01/29/2025 10:00 AM EDT Clinical Support [facility] 505 [place], [place] [phone] Concetta Barker, RN 505 [place] [address] documented as of this encounter Visit Diagnoses Diagnosis Depressive disorder Depressive disorder, not elsewhere classified documented in this encounter Additional Health Concerns Assessment Noted Time PHQ-9 Depression Total Score: 0 08/11/20 22 9:10 AM EST documented as of this encounter Care Teams Physician Vice President Relationship Specialty Start Date End Date Steven Agee MD 230 [place] [address] PCP - General Internal Medicine 06/05/14 documented as of this encounter
--- OUTSIDE RECORDS SUMMARY | 2024-12-03 08:12 | XMS_ITS | Encounter Summary ---
Author Organization [employer] Address [address] [place] [address] 7 [place] [address] Care Team Providers Care Yarn Salvager Name Role Phone Steven Agee MD Primary Care Provide r Encounter Details Date Type Department Care Team (Late st Contact Info) Description 07/20/2022 Abstract [facility] MEDICINE [address] [place] [address] Steven Agee MD 230 [place] [address] Social History Tobacco Use Types Packs/Day Years [...] Description 01/07/2025 9:30 AM EDT Office Visit [facility] [address] [place] [phone] Steven Agee MD 230 [place] [address] 01/29/2025 10:00 AM EDT Clinical Support [facility] 505 [place], [place] [phone] Concetta Barker, RN 505 [place] [address] documented as of this encounter Procedures Procedure [...] on filedocumented in this encounter Care Teams Yarn Salvager Relationship Specialty Start Date End Date Steven Agee MD [address] [place] [address] PCP - General Internal Medicine 06/05/14 documented as of this encounter
--- OUTSIDE RECORDS SUMMARY | 2024-12-03 08:12 | XMS_ITS | Encounter Summary ---
Author Organization [employer] Address 75 [facility] 7t [place] [address] Care Team Providers Care Costume Technician Name Role Phone Steven Agee MD Primary Care Provide r Reason for Visit * Reason Onset Date Comments Appointment Request 01/19/2024 Encounter Details Date Type Department Care Team ([facility] st Contact Info) Description 01/19/2024 Telephone [facility] MEDICINE 230 [place], [place] [phone] Steven Agee MD 230 [place] [address] Appointment Request Social History Tobacco Use Types [...] Description 01/07/2025 9:30 AM EDT Office Visit [facility] MEDICINE 230 [place] [address] Steven Agee MD 230 [place] [address] 01/29/2025 10:00 AM EDT Clinical Support [facility] 505 [place] [address] Concetta Barker, QUIN 505 [place] [address] documented as of this encounter Visit Diagnoses Not on filedocumented in this encounter Additional Health Concerns Assessment Noted Time PHQ-9 Depression Total Score: 0 08/11/20 22 9:10 AM EST documented as of this encounter Care Teams Costume Technician Relationship Specialty Start Date End Date Steven Agee MD [address] [place] [address] PCP - General Internal Medicine 06/05/14 documented as of this encounter
--- OUTSIDE RECORDS SUMMARY | 2024-12-03 08:12 | XMS_ITS | Encounter Summary ---
Author Organization [facility] [facility] [employer] Address [address] [facility] 7t [place] [address] Care Team Providers Care Database Programmer Name Role Phone Steven Agee MD Primary Care Provide r Reason for Visit * Reason Onset Date Comments Med Refill 06/27/2023 Encounter Details Date Type Department Care Team ([facility] st Contact Info) Description 06/27/2023 Telephone [facility] MEDICINE 230 [place] [address] Steven Agee MD 230 [place], [place] [phone] Med Refill Social History Tobacco Use Types [...] Description 01/07/2025 9:30 AM EDT Office Visit [facility] MEDICINE 230 [place] [address] Steven Agee MD 230 [place] [address] 01/29/2025 10:00 AM EDT Clinical Support [facility] 505 [place] [address] Concetta Barker, QUIN 505 [place] [address] documented as of this encounter Visit Diagnoses Not on filedocumented in this encounter Additional Health Concerns Assessment Noted Time PHQ-9 Depression Total Score: 0 08/11/20 22 9:10 AM EST documented as of this encounter Care Teams Database Programmer Relationship Specialty Start Date End Date Steven Agee MD [address] [place] [address] PCP - General Internal Medicine 06/05/14 documented as of this encounter
--- OUTSIDE RECORDS SUMMARY | 2024-12-03 08:12 | XMS_ITS | Encounter Summary ---
Author Organization [employer] Address [address] [facility] 7t [place] [address] Care Team Providers Care Radial Arm Saw Operator Name Role Phone Steven Agee MD Primary Care Provide r Reason for Visit * Reason Onset Date Comments Med Refill 01/01/2024 Encounter Details Date Type Department Care Team ([facility] st Contact Info) Description 01/01/2024 Telephone [facility] MEDICINE 230 [place], [place] [phone] Steven Agee MD 230 [place], [place] [phone] Med Refill Social History Tobacco Use Types [...] 10 MG tablet To be sent to: [facility][id number] [place] - [address] [facility] documented in this encounter Plan of Treatment Upcoming Encounters Date Type Department Care Team (Late st Contact Info) Description 01/07/2025 9:30 AM EDT Office Visit [facility] MEDICINE 230 [place] [address] Steven Agee MD 230 [place] [address] 01/29/2025 10:00 AM EDT Clinical Support [facility] 505 [place] [address] Concetta Barker, QUIN 505 [place] [address] documented as of this encounter Visit Diagnoses Not on filedocumented in this encounter Additional Health Concerns Assessment Noted Time PHQ-9 Depression Total Score: 0 08/11/20 22 9:10 AM EST documented as of this encounter Care Teams Radial Arm Saw Operator Relationship Specialty Start Date End Date Steven Agee MD 230 [place] [address] PCP - General Internal Medicine 06/05/14 documented as of this encounter
--- OUTSIDE RECORDS SUMMARY | 2024-12-03 08:12 | XMS_ITS | Encounter Summary ---
Author Organization [employer] Address [address] [facility] 7t [place] [address] Care Team Providers Care Rubber Extrusion Machine Operator Name Role Phone Steven Agee MD Primary Care Provide r Reason for Visit * Reason Comments Med Refill Encounter Details Date Type Department Care Team (Late st Contact Info) Description 01/18/2024 Refill [facility] MEDICINE 230 [place], [place] [phone] Steven Agee MD 230 [place], [place] [phone] Depressive disorder Social History Tobacco Use Types [...] Description 01/07/2025 9:30 AM EDT Office Visit [facility] MEDICINE 230 [place] [address] Steven Agee MD 230 [place] [address] 01/29/2025 10:00 AM EDT Clinical Support [facility] 505 [place] [address] Concetta Barker, RN 505 [place] [address] documented as of this encounter Visit Diagnoses Diagnosis Depressive disorder Depressive disorder, not elsewhere classified documented in this encounter Additional Health Concerns Assessment Noted Time PHQ-9 Depression Total Score: 0 08/11/20 22 9:10 AM EST documented as of this encounter Care Teams Rubber Extrusion Machine Operator Relationship Specialty Start Date End Date Steven Agee MD 230 [place] [address] PCP - General Internal Medicine 06/05/14 documented as of this encounter
--- OUTSIDE RECORDS SUMMARY | 2024-12-03 08:12 | XMS_ITS | Clinical Summary ---
Author Organization [employer] Address [address] [place] [address] 7t [place] [address] Care Team Providers Care Investment Representative Name Role Phone Steven Agee MD Primary [...] EVERY DAY 90 tablet 1 025 Active zolpidem (Ambien) 10 MG tabletIndications [...] eorder (will not trigger notification to Pharmacy)) oxyCODONE-acetami nophen (Percocet) 5-325 MG tabletIndications :Chronic midline low back pain without sciatica Take 1 tablet by mouth if needed in the morning and at bedtime for severe pain. 56 tablet 025 2024 Discontinued(R eorder (will not trigger notification to Pharmacy)) clonazePAM (KlonoPIN) 0.5 MG tabletIndications :Depressive disorder [...] Patient is scheduled for: right TKR Location: [facility] Name of surgeon: Dr. Flako Young On:09/05/23 [...] with c/o intentional tremor Plan: Neurology evaluation [facility] care 01/24/2023 Assessment & Plan (01/25/2024 10:35 [...] go because she did not have an spanish interpreter Assessment & Plan (01/24/2023 9:13 AM EDT): [...] Of note she was previously admitted to [facility] for abdominal pain and vomiting. CAT scan [...] Of note she was previously admitted to [facility] for abdominal pain and vomiting. CAT scan [...] here for a f/u Previously admitted to [facility] for abdominal pain and vomiting. CAT scan [...] a psychotherapist her name is Angle at [facility] Denies suicidal ideations or thoughts We prescribe Klonopin for anxiety. Doing well Assessment & Plan (08/11/2022 10:27 AM EST): Pt with Depression, currently seeing a psychotherapist her name is Angle at [facility] Denies suicidal ideations or thoughts We prescribe [...] COT program. Seen in the past at [facility]. She was seen by Dr. Miller [...] COT program. Seen in the past at [facility]. She was seen by Dr. Miller [...] Last visit she was referred back to [facility]. She was seen by Dr. Miller [...] Encounters Date Type Department Care Team Description 11/29/2024 Refill [facility] [address] [place] [address] Steven Agee MD Chronic midline low back pain without sciatica 11/18/2024 Refill [facility] [address] [place] [address] Steven Agee MD Depressive disorder 11/18/2024 Telephone [facility] [address] [place] [address] Steven Agee MD Pre op 11/04/2024 9:30 AM EDT Telemedicine [facility] [address] [place] [address] Concetta Barker, QUIN Long-term current use of opiate analgesic 11/04/2024 Refill [facility] [address] [place] [address] Concetta Barker, QUIN Depressive disorder 11/04/2024 Telephone [facility] [address] [place] [address] Concetta Barker RN 11/04/2024 Travel 11/03/2024 Refill [facility] [address] [place] [address] Steven Agee MD Depressive disorder 10/31/2024 Refill [facility] [address] [place] [address] Steven Agee MD Chronic midline low back pain without sciatica 10/06/2024 Refill [facility] [address] [place] [address] Steven Agee MD 10/02/2024 Refill [facility] [address] [place] [address] Steven Agee MD Depressive disorder 09/27/2024 Refill [facility] [address] [place] [address] Steven Agee MD Chronic midline low back pain without sciatica 09/26/2024 10:15 AM EST Office Visit [facility] [address] [place] [address] Steven Agee MD Essential hypertension (Primary Dx); Gastroesophageal reflux disease with esophagitis without hemorrhage; Chronic midline low back pain without sciatica; Mixed hyperlipidemia; Breast cancer screening by mammogram; Class 1 obesity due to excess calories with serious comorbidity and body mass index (BMI) of 34.0 to 34.9 in adult; Dietary counseling; Exercise counseling; Hypothyroidism, unspecified type; Encounter for immunization 09/26/2024 Travel 09/17/2024 Refill [facility] [address] [place], [place] [phone] Bee Jose MD Essential hypertension 09/13/2024 Patient Outreach [facility] [address] [place] [address] Steven Agee MD Pre-visit Planning (SDOH Screening negative and Tobacco screening negative) 09/13/2024 Telephone [facility] [address] [place] [address] Steven Agee MD Chart Prep 09/13/2024 Refill [facility] [address] [place] [address] Bee Jose MD 09/05/2024 10:00 AM EST Office Visit [facility] [address] [place] [address] Allan, Nicole, OD Nuclear sclerotic cataract of both eyes (Primary Dx); Dry eyes; White without pressure of peripheral retina of right eye; Presbyopia of both eyes 09/05/2024 Travel from Last 3 Months Immunizations Name [...] Description 01/07/2025 9:30 AM EDT Office Visit [facility] [address] [place] [address] Steven Agee MD [address] [place] [address] 01/29/2025 10:00 AM EDT Clinical Support [facility] [address] [place] [address] Concetta Barker, QUIN [address] [place] [address] Health Maintenance Due Date Last Done Comments CT Colonography 1958 Dental Oral Exam 1958 Dental Prophylaxis 1958 Dental X-Ray: Bitewings 1958 Dental X-Ray: Full Mouth 1958 FIT DNA/Cologuard 1958 FIT 1958 FOBT 1958 Sigmoidoscopy 1958 Zoster Vaccines (1 of 2) 2008 COVID-19 Vaccine ( season) 2024 06/01/2022, 02/16/2022, 07/16/2021, Additional history exists Alcohol/Substance Use Screening 09/26/2025 09/26/2024 Depression Screening 09/26/2025 09/26/2024, 09/26/19 SDOH Screening 09/26/2025 09/26/2024 Tobacco Screening 09/26/2025 09/26/2024 Mammogram 11/14/2025 11/14/2024, 03/0 01/2023, 10/25/2021, Additional history exists Lipid Panel 05/23/2029 05/23/2024, 04/28, 09/13/2022, Additional [...] Procedure Name Priority Date/Time Associated Diagnosis Comments BI MAMMOGRAM SCREENING TOMOSYNTHESIS BILATERAL Routine 11/14/2024 8:32 AM EDT Breast cancer screening by mammogram LIPID PANEL, STANDARD Routine 05/23/2024 9:33 AM EDT Essential hypertension HM COLONOSCOPY Routine 11/08/2022 8:43 AM EDT HEPATITIS C AB W/REFL TO HCV RNA, QN, PCR Routine 09/13/2022 9:26 AM EST Essential hypertension Class 2 severe obesity due to excess calories with serious comorbidity and body mass index (BMI) of 35.0 to 35.9 in adult (CMS/HCC) from Last 3 Months or Most Recently Relevant to Health Maintenance Results * BI Mammogram Screening Tomosynthesis Bilateral (11/14/2024 8:32 AM EDT) Anatomical Region Laterality Modality Breast Bilateral Mammography 11/14/2024 8:32 AM EDT Narrative 11/22/2024 1:40 PM EDT ? [facility] [address] ?[phone] ? Mammography Report ? Signed ? Patient: Brayden Mukherjee,Elsa ?MR#: [id number] ?? [id number] ? : 1960 ?Acct:[id number] ? Age/Sex: 64 / F ?ADM Date: 03/20/25 ? Loc: HO.MAMMO ? Attending Dr: Steven Rose MD ? Ordering Physician: Steven Rose MD ?Resu ?? lts: 1Negative ? Date of Service: 11/14/24 ?Follow Up: 1 Year From Orig ?? inal Mammogram ? Procedure(s): MM tomosynthesis screening BI ?? Accession Number(s): [id number] ? cc: Steven Rose MD ? EXAMINATION: ?? MM SCREENING DIGITAL BREAST TOMOSYNTHESIS, BILATERAL ? CLINICAL INFORMATION: ? Screening. Asymptomatic. ? COMPARISON: ?? Mammography: Comparison is made with available priors ? TECHNIQUE: ?? Digital breast mammography with tomosynthesis is performed in both the ?? craniocaudal and mediolateral oblique views along with computer-aided ?? detection (CAD). ? FINDINGS: ?? There are scattered areas of fibroglandular density (ACR BI-RADS breast ?? composition Category b). ? There are no significant masses, abnormal calcifications, or other ?? abnormalities. ? MM/MM tomosynthesis screening BI ?? IMPRESSION: ?? No mammographic evidence of malignancy. ? ASSESSMENT: ? BI-RADS BI-RADS 1 - Negative ? RECOMMENDATION: ?? Routine annual mammography screening. ? 1 year F/U ? This examination should not preclude the clinical evaluation of a ?? suspicious palpable abnormality. ? This patient's information was entered into a reminder system with a ?? target due date for their next mammogram. ? Electronically signed by: ??Molly Dickey DO ??11/22/2024 01:37 PM EDT ?? RP ? Dictated By: ?Molly Dickey DO ? Signed By: ?<Electronically signed by Molly Dickey, DO in OV> ? 11/22/24 1337 ? DD/ 0832 ? TD/TT: 11/14/24 0844 ? Party Planner: ? Procedure Note Donotuseinterpreter, Image - 11/22/2024 [facility] [address] [place] [address] Mammography Report Signed Patient: Niki AdkinsR#: [id number] : 8Acct:[id number] Age/Sex: 64 / FADM Date: 11/14/24 Loc: HO.MAMMO Attending Dr: Steevn Rose MD Ordering Physician: Steven Rose MDResu lts: 1Negative Date of Service: 11/14/24Follow Up: 1 Year From Orig inal Mammogram Procedure(s): MM tomosynthesis screening BI Accession Number(s): [id number] cc: Steven Rose MD EXAMINATION: MM SCREENING DIGITAL BREAST TOMOSYNTHESIS, BILATERAL CLINICAL INFORMATION: Screening. Asymptomatic. COMPARISON: Mammography: Comparison is made with available priors TECHNIQUE: Digital breast mammography with tomosynthesis is performed in both the craniocaudal and mediolateral oblique views along with computer-aided detection (CAD). FINDINGS: There are scattered areas of fibroglandular density (ACR BI-RADS breast composition Category b). There are no significant masses, abnormal calcifications, or other abnormalities. MM/MM tomosynthesis screening BI IMPRESSION: No mammographic evidence of malignancy. ASSESSMENT: BI-RADS BI-RADS 1 - Negative RECOMMENDATION: Routine annual mammography screening. 1 year F/U This examination should not preclude the clinical evaluation of a suspicious palpable abnormality. This patient's information was entered into a reminder system with a target due date for their next mammogram. Electronically signed by: Molly Dickey DO 11/22/2024 01:37 PM EDT Dictated By: Molly Dickey DO Signed By: <Electronically signed by Molly Dickey DO in OV> 11/22/24 1337 DD/ 0832 TD/TT: 11/14/24 0844 Party Planner: Steven Dowling MD IMG BI PROCEDURES Fin al Result * (ABNORMAL) Lipid Panel, Standard (05/23/2024 9:33 AM EDT) Triglycerides 166(H) <150 mg/dL [facility] Comment:Desirable Triglyceri de: less than 150 mg/dLBorderline High Triglyceride 150-199 mg/dLHigh Triglyceride: 200-499 mg/dLVery High Triglyceride: greater than or equal to 5OO mg/dL Cholesterol 257(H) <200 mg/dL [facility] Comment:Desirable Cholestero l: less than 200 mg/dLBorderline High Cholesterol: 200-239 mg/dLHigh Cholesterol: greater than 239 mg/dL LDL Cholesterol Calculated 170(H) <100 mg/dL [facility] Comment:Desirable LDL: less than 100 mg/dLNear Optimal/Above Optimal LDL: 110- 129 mg/dLBorderline High LDL: 130-159 mg/dLHigh LDL: 160-189 mg/dLVery High LDL: greater than or equal to 190 mg/dL HDL Cholesterol 54 >40 mg/dL [facility] Comment:Desirable HDL: great er than 40 mg/dL Note: This HDL assay may give artificially low results in patients with liver disease. Blood Venous blood specimen / Unknown 05/23/2024 9:33 AM EDT 05/23/2024 11:51 AM EDT Steven Dowling MD LAB BLOOD ORDERABLES Final Result [facility] [address] [place] [address] [phone] * Hm Colonoscopy (11/08/2022 8:43 AM EDT) Colonoscopy Normal Normal Comment:Diverticulosis of th e left colon sigmoid, otherwise normal Historical Provider HEALTH MAINTENANCE Final Result * Hepatitis C Antibody with Reflex to HCV, RNA, Quantitative, Real-Time PCR (09/13/2022 9:26 AM EST) Hepatitis C Antibody NON-REACT EZEKIEL NON-REACT EZEKIEL [facility] [place] [facility] Index 0.06 <1.00 [facility] Comment: HCV antibody was non-reactive. There is no laboratory evidence of HCV infection. In most cases, no further action is required. However, if recent HCV exposure is suspected, a test for HCV RNA (test code 70815) is suggested. For additional information please refer to http://education.eEye/faq/VEB69s8 (This link is being provided for informational/ educational purposes only.) Blood Venous blood specimen / Unknown 09/13/2022 9:26 AM EST 09/13/2022 9:26 AM EST Narrative [facility] - 09/13/2022 7:41 PM EST FASTING:YES FASTING: YES Steven Dowling MD LAB BLOOD ORDERABLES Final Result [facility] [address], [place] [address] [facility] [address] [facility], ([address]) [place] [address] from Last 3 Months or Most Recently Relevant to Health Maintenance Insurance [facility] Care Teams Investment Representative Relationship Specialty Start Date End Date Steven Agee MD [address] [place] [address] PCP - General Internal Medicine 06/05/14
--- OUTSIDE RECORDS SUMMARY | 2024-12-03 08:12 | XMS_ITS | Encounter Summary ---
Author Organization [employer] Address [address] [facility] 7t [place] [address] Care Team Providers Care Gear Shaper Set Up Operator Name Role Phone Steven Agee MD Primary Care Provide r Reason for Visit * Reason Onset Date Comments Med Refill 03/28/2024 Encounter Details Date Type Department Care Team ([facility] st Contact Info) Description 03/28/2024 Telephone [facility] [address] [place], [place] [phone] Steven Agee MD [address] [place], [place] [phone] Med Refill Social History Tobacco Use Types [...] 5-325 MG tablet To be sent to: [facility] documented in this encounter Plan of Treatment Upcoming Encounters Date Type Department Care Team (Late st Contact Info) Description 01/07/2025 9:30 AM EDT Office Visit [facility] [address] [place] [address] Steven Agee MD [address] [place] [address] 01/29/2025 10:00 AM EDT Clinical Support [facility] [address] [place] [address] Cnocetta Barker, QUIN [address] [place] [address] documented as of this encounter Visit Diagnoses Not on filedocumented in this encounter Additional Health Concerns Assessment Noted Time PHQ-9 Depression Total Score: 0 08/11/20 22 9:10 AM EST documented as of this encounter Care Teams Gear Shaper Set Up Operator Relationship Specialty Start Date End Date Steven Agee MD [address] [place] [id number] PCP - General Internal Medicine 06/05/14 documented as of this encounter
--- OUTSIDE RECORDS SUMMARY | 2024-12-03 08:12 | XMS_ITS | Encounter Summary ---
Author Organization [employer] Address [address] [facility] 7t [place] [address] Care Team Providers Care Principal Administrative Clerk Name Role Phone Steven Agee MD Primary Care Provide r Reason for Visit * Reason Onset Date Comments Med Refill 02/28/2024 Encounter Details Date Type Department Care Team ([facility] st Contact Info) Description 02/28/2024 Telephone [facility] [address] [place], [place] [phone] Steven Agee MD [address] [place], [place] [phone] Med Refill Social History Tobacco Use Types [...] 5-325 MG tablet To be sent to: [id number] [place], [place] - [address] [place] [address] AT [facility] documented in this encounter Plan of Treatment Upcoming Encounters Date Type Department Care Team ([facility] st Contact Info) Description 01/07/2025 9:30 AM EDT Office Visit [facility] [address] [place] [address] Steven Agee MD [address] [place] [address] 01/29/2025 10:00 AM EDT Clinical Support [facility] [address] [place] [address] Concetta Barker, RN [address] [place] [address] documented as of this encounter Visit Diagnoses Not on filedocumented in this encounter Additional Health Concerns Assessment Noted Time PHQ-9 Depression Total Score: 0 08/11/20 9:10 AM EST documented as of this encounter Care Teams Principal Administrative Clerk Relationship Specialty Start Date End Date Steven Agee MD [address] [place] [address] PCP - General Internal Medicine 06/05/14 documented as of this encounter
--- OUTSIDE RECORDS SUMMARY | 2024-12-03 08:12 | XMS_ITS | Encounter Summary ---
Author Organization [employer] Address 75 [facility] 7t [place] [address] Care Team Providers Care Crap Game Box Person Name Role Phone Steven Agee MD Primary Care Provide r Reason for Visit * Reason Onset Date Comments Med Refill 07/29/2024 Encounter Details Date Type Department Care Team ([facility] st Contact Info) Description 07/29/2024 Telephone [facility] [address] [place], [place] [phone] Steven Agee MD [address] [place], [place] [phone] Med Refill Social History Tobacco Use Types [...] 5-325 MG tablet To be sent to: [id number] [place], [place] - [address] [facility] documented in this encounter Plan of Treatment Upcoming Encounters Date Type Department Care Team (Late st Contact Info) Description 01/07/2025 9:30 AM EDT Office Visit [facility] [address] [place] [address] Steven Agee MD [address] [place] [address] 01/29/2025 10:00 AM EDT Clinical Support [facility] [address] [place] [address] Concetta Barker, QUIN [address] [place] [address] documented as of this encounter Visit Diagnoses Diagnosis Nausea and vomiting, unspecified vomiting type documented in this encounter Additional Health Concerns Assessment Noted Time PHQ-9 Depression Total Score: 0 08/11/20 22 9:10 AM EST documented as of this encounter Care Teams Crap Game Box Person Relationship Specialty Start Date End Date Steven Agee MD [address] [place] [address] PCP - General Internal Medicine 06/05/14 documented as of this encounter
--- OUTSIDE RECORDS SUMMARY | 2024-12-03 08:12 | XMS_ITS | Encounter Summary ---
Author Organization [employer] Address [address] [facility] 7t [place] [address] Care Team Providers Care Coach Name Role Phone Steven Agee MD Primary Care Provide r Reason for Visit * Reason Comments Med Refill Encounter Details Date Type Department Care Team ([facility] st Contact Info) Description 06/08/2023 Refill [facility] [address] [place], [place] [phone] Name, MD Nolberto [address] [place] [address] Social History Tobacco Use Types Packs/Day Years [...] Description 01/07/2025 9:30 AM EDT Office Visit [facility] [address] [place] [address] Steven Agee MD [address] [place] [address] 01/29/2025 10:00 AM EDT Clinical Support [facility] [address] [place] [address] Concetta Barker, RN [address] [place] [address] documented as of this encounter Visit Diagnoses Not on filedocumented in this encounter Additional Health Concerns Assessment Noted Time PHQ-9 Depression Total Score: 0 08/11/20 22 9:10 AM EST documented as of this encounter Care Teams Coach Relationship Specialty Start Date End Date Steven Agee MD [address] [place] [address] PCP - General Internal Medicine 06/05/14 documented as of this encounter
--- OUTSIDE RECORDS SUMMARY | 2024-12-03 08:13 | XMS_ITS | Encounter Summary ---
Author Organization [employer] [facility] Address [address] [place] [address] 7t [place] [address] Care Team Providers Care Fundraising Manager Name Role Phone Steven Agee MD Primary Care Provide r Reason for Visit * Reason Comments Med Refill Encounter Details Date Type Department Care Team ([facility] st Contact Info) Description 02/09/2023 Refill [facility] [address] [place], [place] [phone] Steven Agee MD [address] [place] [address] Nausea and vomiting, unspecified vomiting type Social [...] Description 01/07/2025 9:30 AM EDT Office Visit [facility] [address] [place] [address] Steven Agee MD [address] [place] [address] 01/29/2025 10:00 AM EDT Clinical Support [facility] [address] [place] [address] Concetta Barker, QUIN [address] [place] [address] documented as of this encounter Visit Diagnoses Diagnosis Nausea and vomiting, unspecified vomiting type documented in this encounter Additional Health Concerns Assessment Noted Time PHQ-9 Depression Total Score: 0 08/11/20 22 9:10 AM EST documented as of this encounter Care Teams Fundraising Manager Relationship Specialty Start Date End Date Steven Agee MD [address] [place] [address] PCP - General Internal Medicine 06/05/14 documented as of this encounter
--- OUTSIDE RECORDS SUMMARY | 2024-12-03 08:13 | XMS_ITS | Encounter Summary ---
Author Organization [employer] [facility] Address [address] [place] [address] 7 [place] [address] Care Team Providers Care Entertainment Centre Manager Name Role Phone Steven Agee MD Primary Care Provide r Reason for Visit * Reason Comments Med Refill Encounter Details Date Type Department Care Team (Late st Contact Info) Description 10/25/2022 Refill [facility] [address] [place] [address] Steven Agee MD [address] [place], [place] [phone] Depressive disorder Social History Tobacco Use Types [...] Description 01/07/2025 9:30 AM EDT Office Visit [facility] [address] [place] [address] Steven Agee MD [address] [place] [address] 01/29/2025 10:00 AM EDT Clinical Support [facility] [address] [place] [address] Concetta Barker, RN [address] [place] [address] documented as of this encounter Visit Diagnoses Diagnosis Depressive disorder Depressive disorder, not elsewhere classified documented in this encounter Additional Health Concerns Assessment Noted Time PHQ-9 Depression Total Score: 0 08/11/20 22 9:10 AM EST documented as of this encounter Care Teams Entertainment Centre Manager Relationship Specialty Start Date End Date Steven Agee MD [address] [place] [address] PCP - General Internal Medicine 06/05/14 documented as of this encounter
--- OUTSIDE RECORDS SUMMARY | 2024-12-03 08:13 | XMS_ITS | Encounter Summary ---
Author Organization [employer] Address [address] [place] [address] 7t [place] [address] Care Team Providers Care Stripping Cutter And Winder Name Role Phone Steven Agee MD Primary Care Provide r Reason for Visit * Reason Comments Med Refill Encounter Details Date Type Department Care Team ([facility] st Contact Info) Description 01/03/2023 Refill [facility] [address] [place] [address] Steven Agee MD [address] [place] [address] Chronic midline low back pain without sciatica [...] Description 01/07/2025 9:30 AM EDT Office Visit [facility] [address] [place] [address] Steven Agee MD [address] [place] [address] 01/29/2025 10:00 AM EDT Clinical Support [facility] [address] [place] [address] Concetta Barker, RN [address] [place] [address] documented as of this encounter Visit Diagnoses Diagnosis Chronic midline low back pain without sciatica documented in this encounter Additional Health Concerns Assessment Noted Time PHQ-9 Depression Total Score: 0 08/11/20 22 9:10 AM EST documented as of this encounter Care Teams Stripping Cutter And Winder Relationship Specialty Start Date End Date Steven Agee MD [address] [place] [address] PCP - General Internal Medicine 06/05/14 documented as of this encounter
--- OUTSIDE RECORDS SUMMARY | 2024-12-03 08:13 | XMS_ITS | Encounter Summary ---
Author Organization [employer] Address [address] [place] [address] 7t [place] [address] Care Team Providers Care Clothes Marker Name Role Phone Steven Aege MD Primary Care Provide r Reason for Visit * Reason Onset Date Comments Med Refill 02/22/2023 Encounter Details Date Type Department Care Team ([facility] st Contact Info) Description 02/22/2023 Telephone [facility] MEDICINE [address] [place] [address] Steven Agee MD [address] [place] [address] Med Refill Social History Tobacco Use Types [...] Office Visit [facility] MED[facility]INE [address] [place] [address] Steven Agee MD [address] [place] [address] 01/29/2025 10:00 AM EDT Clinical Support [facility] MED & PEDS 505 [place] [address] Concetta Barker, RN 505 [place], [place] [phone] documented as of this encounter Visit Diagnoses Not on filedocumented in this encounter Additional Health Concerns Assessment Noted Time PHQ-9 Depression Total Score: 0 08/11/20 22 9:10 AM EST documented as of this encounter Care Teams Clothes Marker Relationship Specialty Start Date End Date Steven Agee MD [address] [place] [address] PCP - General Internal Medicine 06/05/14 documented as of this encounter
--- OUTSIDE RECORDS SUMMARY | 2024-12-03 08:13 | XMS_ITS | Encounter Summary ---
Author Organization [employer] Address [address] [place] [address] 7t [place] [address] Care Team Providers Care Oyster Shucker Name Role Phone Steven Agee MD Primary Care Provide r Encounter Details Date Type Department Care Team (Late st Contact Info) Description 11/04/2022 Abstract [facility] MEDICINE [address] [place] [address] [phone] Steven Agee MD [address] [place] [address] [phone] Social History Tobacco Use Types Packs/Day Years [...] Description 01/07/2025 9:30 AM EDT Office Visit [facility] MEDICINE [address] [place] [address] [phone] Steven Agee MD [address] [place] [address] [phone] 01/29/2025 10:00 AM EDT Clinical Support [facility] CH[facility] MED & PEDS 505 [place] [address] Concetta Barker, RN 505 [place] [address] documented as of this encounter Visit Diagnoses Not on filedocumented in this encounter Additional Health Concerns Assessment Noted Time PHQ-9 Depression Total Score: 0 08/11/20 22 9:10 AM EST documented as of this encounter Care Teams Oyster Shucker Relationship Specialty Start Date End Date Steven Agee MD [address] [place] [address] PCP - General Internal Medicine 06/05/14 documented as of this encounter
--- NOTE | 2024-12-31 | ECG_ITS ---
Test Reason : PREOP Blood Pressure : */* mmHG Vent. Rate : 66 BPM Atrial Rate : 66 BPM P-R Int : 168 ms QRS Dur : 86 ms QT Int : 414 ms P-R-T Axes : 37 -7 45 degrees QTcB Int : 434 ms Normal sinus rhythm Nonspecific T wave abnormality Abnormal ECG When compared with ECG of 21-Jan-2022 10:55, Nonspecific T wave abnormality no longer evident in Inferior leads Nonspecific T wave abnormality no longer evident in Lateral leads Referred By: Karen De La Torre Electronically Signed By: LINNEA DICKINSON
[2024-12-31 09:34] VITALS: BP 158/76; PULSE 73; RESP 20; O2SAT 97
[2024-12-31 09:49] VITALS: BMI 33.8
--- NOTE | 2024-12-31 10:06 | P.CONAN_ITS ---
Documented by User: Karen De La Torre NP 01/27/25 08:58 HPI - Anesthesia Eval Consult details Narrative: 64yo F for Left Knee Replacement Total, 01/28/25 s/p R TKA 08/2023 with spinal/block - no issue per patient Cardiac optimmized GERD: controlled with ppi PMFSH Active Problems Active Problems: All Active Problems H. pylori infection (Acute) Dysphagia (Acute) Constipation (Acute) Epigastric pain (Acute) Abnormal CT scan (Acute) Obesity (Acute) Tremor (Acute) Chronic low back pain (Acute) Impaired fasting glucose (Acute) Osteoarthritis of right knee (Acute) Arthritis of left knee (Acute) GERD (gastroesophageal reflux disease) (Acute) Arthritis (Acute) Past Medical History Medical History (Updated 01/23/25 @ 09:30 by Raz Izaguirre PA-C) Post-operative nausea and vomiting Dysphagia Plantar fasciitis Hypothyroidism Diverticular disease of colon GERD (gastroesophageal reflux disease) Gall bladder, polycystic disease Partial small bowel obstruction Arthritis Hyperlipemia Depression HTN (hypertension) Family History Family History (Updated 01/13/25 @ 09:56 by Vidya Yoon [facility]) Mother Diabetes Tachycardia High blood pressure Father Emphysema lung Brother H/O heart surgery Family history of problems with anesthesia: No Surgical History Surgical History History of esophagogastroduodenoscopy (EGD) Status post total knee replacement, right History of appendectomy Hx of colonoscopy History of arthroscopy of right knee History of arthroscopy of left knee H/O: hysterectomy History of Problems with Anesthesia: Yes (PONV) Social History Social History Household Members: Spouse Housing: Apartment Are you a primary child care center administrator to a significant other at home: No Do you presently have visiting nurse or other home services: No Comment: rarely uses cane Patient Tobacco Use Status: Never used Tobacco Second Hand Smoke Exposure: No Use of substances other than those prescribed or required for medical reasons: No Have you been hit, kicked, punched, or otherwise hurt by someone within the past year? If so, by whom?: No Spiritual Healthcare Practices: no Yazidism Healthcare Practices: no-Christian Cultural Healthcare Practices: no Are you DNR?: No Advance Directives: No ( is primary contact & states is her HCP) Advance Directives Information Provided: Yes (as above noted) Advance Directives on File: No FDLMP: n/a Poor oral hygiene: No service: No Current occupational status: retired Meds Allergies Allergy/AdvReac Type Severity Reaction Status Date / Time diazepam [From VALIUM] Allergy Intermediate HALLUCINATION/DIFF Verified 01/23/25 08:53 BREATHING perflutren AdvReac Back Pain Verified 01/23/25 08:53 Home Medications ?Medication ?Instructions ?Recorded ?Confirmed ?Last Taken ?Type atorvastatin 80 mg tablet 1 tab PO DAILY 01/21/22 01/23/25 09/05/23 History clonazepam 0.5 mg tablet 1 tab PO BEDTIME PRN anxiety 01/21/22 01/23/25 11/08/22 History hydrochlorothiazide 25 mg tablet 1 tab PO DAILY 01/21/22 01/23/25 09/01/23 History meloxicam 15 mg tablet 1 tab PO DAILY 01/21/22 01/23/25 06/21/24 History zolpidem 10 mg tablet 1 tab PO BEDTIME 01/21/22 01/23/25 01/20/22 History lisinopril 10 mg tablet 1 tab PO DAILY 11/03/22 01/23/25 09/01/23 History levothyroxine 50 mcg tablet 50 mcg PO DAILY 11/23/23 01/23/25 Unknown History jowhgdmb-osb-jiso 4 mg-folic acid 1 tab PO DAILY 06/13/24 01/23/25 Unknown History 200 mcg-vit K 25 mcg-lutein tablet (Centrum Minis Women 50 Plus) Exam Height,Weight and Vital Signs: Height 5 ft 4 in Weight 89.358 kg Last Vital Signs Pulse 73 12/31/24 09:34 Resp 20 12/31/24 09:34 BP 158/76 H 12/31/24 09:34 Pulse Ox 97 12/31/24 09:34 O2 Del Method Room Air 12/31/24 09:34 Pertinent Lab Results Pertinent Lab Results: Lab Results 12/31/24 12/31/24 Range/Units 10:00 10:42 WBC 7.0 (4.8-10.8) X10*3/uL RBC 5.01 (4.20-5.50) X10*6/uL Hgb 13.2 (12.0-16.0) g/dl Hct 40.9 (37.0-47.0) % MCV 81.6 (80.0-98.0) fL MCH 26.3 L (27.0-33.0) pg MCHC 32.3 (31.0-35.0) g/dl RDW 13.2 (11.0-16.0) % Plt Count 286 (160-400) X10*3/uL MPV 10.1 (9.4-12.3) fL Absolute Nucleated RBC 0.000 (0.0-0.012) X10*3/uL Nucleated RBC % (auto) 0.0 (0.0-0.2) /100WBC Sodium 142 (135-145) mmol/L Potassium 4.0 (3.3-5.1) mmol/L Chloride 105 (96-108) mmol/L Carbon Dioxide 30 H (22-29) mmol/L Anion Gap 11 L (12-20) BUN 18 H (9-16) mg/dL Creatinine 0.79 (0.5-1.4) mg/dL Estim Creat Clear Calc 75.7 Estimated GFR > 60 Random Glucose 76 (60-115) mg/dL Calcium 9.9 (8.4-10.2) mg/dL Nasal Screen MRSA (PCR) NEGATIVE (Negative) Nasal S. aureus Screen NEGATIVE (Negative) Nasal MRSA/S.aureus Interp SEE NOTE Narrative Narrative: EKG 12/2024 Vent. Rate : 66 BPM Atrial Rate : 66 BPM P-R Int : 168 ms QRS Dur : 86 ms QT Int : 414 ms P-R-T Axes : 37 -7 45 degrees QTcB Int : 434 ms Normal sinus rhythm Nonspecific T wave abnormality Abnormal ECG When compared with ECG of 21-Jan-2022 10:55, Nonspecific T wave abnormality no longer evident in Inferior leads Nonspecific T wave abnormality no longer evident in Lateral leads NM cardiolite stress test 12/2024 Impression: 1. Myocardial perfusion imaging study shows [likely normal myocardial perfusion 2. Gated LVEF is 50% 3. Transient ischemic dilatation not present Nondiagnostic changes on EKG. ECHO 12/2024 Conclusions: - Normal left ventricular cavity size. There is normal left ventricular wall thickness. The left ventricular systolic function is low normal. The visually estimated ejection fraction is between 50-55%. - E/E prime ratio is between 8 and 15 consistent with indeterminate filling pressures. - The apical lateral and mid anterolateral segments are hypokinetic. - Normal right ventricular cavity size and systolic function. - There is mild dilatation of the sinuses of Valsalva measuring 3.92 cm and mild dilatation of the ascending aorta measuring 3.50 cm. Airway Mallampati Class: II TM Dist: >3cm Neck ROM: Full Denture: Upper and Lower Heart: RRR Lungs: CTAB Assessment and Plan Assessment Anesthesia Assessment: Anesthesia Plan Discussed and PAT Visit Final Anesthetic Review Family History of Problems with Anesthesia: No History of Problems with Anesthesia: Yes (PONV) Documented by User: Siobhan Santana MD 01/28/25 08:35 [facility] Past Medical History Medical History (Updated 01/23/25 @ 09:30 by Raz Izaguirre PA-C) Post-operative nausea and vomiting Dysphagia Plantar fasciitis Hypothyroidism Diverticular disease of colon GERD (gastroesophageal reflux disease) Gall bladder, polycystic disease Partial small bowel obstruction Arthritis Hyperlipemia Depression HTN (hypertension) Family History Family History (Updated 01/13/25 @ 09:56 by Vidya Yoon [facility]) Mother Diabetes Tachycardia High blood pressure Father Emphysema lung Brother H/O heart surgery Surgical History Surgical History History of esophagogastroduodenoscopy (EGD) Status post total knee replacement, right History of appendectomy Hx of colonoscopy History of arthroscopy of right knee History of arthroscopy of left knee H/O: hysterectomy Social History Social History Household Members: Spouse Housing: Apartment Are you a primary child care center administrator to a significant other at home: No Do you presently have visiting nurse or other home services: No Comment: rarely uses cane Patient Tobacco Use Status: Never used Tobacco Second Hand Smoke Exposure: No Use of substances other than those prescribed or required for medical reasons: No Have you been hit, kicked, punched, or otherwise hurt by someone within the past year? If so, by whom?: No Spiritual Healthcare Practices: no Yazidism Healthcare Practices: no-Christian Cultural Healthcare Practices: no Are you DNR?: No Advance Directives: No ( is primary contact & states is her HCP) Advance Directives Information Provided: Yes (as above noted) Advance Directives on File: No FDLMP: n/a Poor oral hygiene: No service: No Current occupational status: retired Meds Allergies Allergy/AdvReac Type Severity Reaction Status Date / Time diazepam [From VALIUM] Allergy Intermediate HALLUCINATION/DIFF Verified 01/23/25 08:53 BREATHING perflutren AdvReac Back Pain Verified 01/23/25 08:53 Home Medications ?Medication ?Instructions ?Recorded ?Confirmed ?Last Taken ?Type atorvastatin 80 mg tablet 1 tab PO DAILY 01/21/22 01/23/25 09/05/23 History clonazepam 0.5 mg tablet 1 tab PO BEDTIME PRN anxiety 01/21/22 01/23/25 11/08/22 History hydrochlorothiazide 25 mg tablet 1 tab PO DAILY 01/21/22 01/23/25 09/01/23 History meloxicam 15 mg tablet 1 tab PO DAILY 01/21/22 01/23/25 06/21/24 History zolpidem 10 mg tablet 1 tab PO BEDTIME 01/21/22 01/23/25 01/20/22 History lisinopril 10 mg tablet 1 tab PO DAILY 11/03/22 01/23/25 09/01/23 History levothyroxine 50 mcg tablet 50 mcg PO DAILY 11/23/23 01/23/25 Unknown History guhjdorz-emv-uvbe 4 mg-folic acid 1 tab PO DAILY 06/13/24 01/23/25 Unknown History 200 mcg-vit K 25 mcg-lutein tablet (Centrum Minis Women 50 Plus) Assessment and Plan Final Anesthetic Review NPO: Yes ASA Class: II Final Preanesthetic Review: No Changes in Pt Med Stat, Meds/Allgs Chart Reviewed, Consent Obtained/Reviewed and Anes Risks/Benef Reviewed Patient Risk: Intermediate Procedure Risk: Intermediate Anesthetic Plan Anesthetic Plan: Spinal and Regional Block Disposition: Standard PACU
[2024-12-31 11:30] LABS: Hematocrit 40.9 % (37.0-47.0); Hemoglobin 13.2 g/dl (12.0-16.0); Mean Corpuscular HGB Conc 32.3 g/dl (31.0-35.0); Mean Corpuscular Hemoglobin 26.3 pg (27.0-33.0); Mean Corpuscular Volume 81.6 fL (80.0-98.0); Mean Platelet Volume 10.1 fL (9.4-12.3); Platelet Count 286 X10*3/uL (160-400); Red Blood Count 5.01 X10*6/uL (4.20-5.50); Red Cell Distribution Width 13.2 % (11.0-16.0)
[2024-12-31 11:40] LABS: MRSA Nasal PCR NEGATIVE (Negative); SA Nasal PCR NEGATIVE (Negative)
[2024-12-31 11:59] LABS: Anion Gap 11 (12-20); Blood Urea Nitrogen 18 mg/dL (9-16); Calcium 9.9 mg/dL (8.4-10.2); Carbon Dioxide 30 mmol/L (22-29); Chloride 105 mmol/L (96-108); Creatinine Clr Calc Pharmacy 75.7; Estimated Glomerular Filt Rate > 60; Glucose Random 76 mg/dL (60-115); Sodium 142 mmol/L (135-145)
[2025-01-28] VITALS (15 sets, daily range): BP systolic 110–197; BP diastolic 53–93; PULSE 52–82; RESP 11–18; TEMP 36.1–36.4; O2SAT 91–100; BMI 34.2; BMI 34.6
--- NOTE | ~2025-01-28 | XR_ITS ---
EXAMINATION: XR KNEE, LEFT CLINICAL INFORMATION: Follow-up post op total knee arthroplasty COMPARISON: January 23, 2025 TECHNIQUE: AP and lateral of the left knee. FINDINGS: New surgical eb are present anterior to the knee joint. There is associated soft tissue swelling. There is a knee joint effusion. Interval 3 compartment total knee arthroscopy has been performed. Hardware is aligned and intact. There is no periprosthetic fracture or lucency. Prior varus deformity has been corrected. XR/XR knee LT 2V IMPRESSION: Postoperative changes related to recent 3 compartment left knee arthroplasty. Electronically signed by: David Ballard MD 01/28/2025 12:45 PM EDT
--- NOTE | 2025-01-28 07:25 | MHC.SHP ---
Pre-Procedural Eval Section A - 24 Hr Update-Section A only Date of Service: 01/28/25 The patient is an INPATIENT: No Changes since office visit: No Cold of Flu in the past 2 weeks, No New Medical Problems, No Changes in Medication and No Patient answered all questions The patient has been examined within 24 hours of the surgical procedure. The History & Physical has been completed within 30 days and I have reviewed it.: Yes Section B - Complete if H&P > 30 days Chief Complaint: Unilateral primary osteoarthritis, left knee Allergies: Allergies Allergy/AdvReac Type Severity Reaction Status Date / Time diazepam [From VALIUM] Allergy Intermediate HALLUCINATION/DIFF Verified 01/23/25 08:53 BREATHING perflutren AdvReac Back Pain Verified 01/23/25 08:53 Plan I have reviewed the history and physical and performed a pertinent physical examination on my patient. No changes have occurred unless specified. Time Spent With Patient Time: Total time managing care of this patient today ____ minutes.
[2025-01-28 08:03] LABS: Hematocrit 37.6 % (37.0-47.0); Hemoglobin 12.3 g/dl (12.0-16.0)
[2025-01-28] MEDS: Lactated Ringers 1,000 ML 100 ML IVCONT ×2 (08:14→15:14)
[2025-01-28] MEDS: ceFAZolin Sodium/Dextrose,Iso 2 GM/50 ML PIGGYBACK IV ×2 (10:14→16:24)
--- NOTE | 2025-01-28 11:40 | P.DS_ITS ---
DS: Providers Provider Date of Service: 01/29/25 Date of discharge: 01/29/25 Primary care physician: Steven Rose MD DS: Summary Hospital Course Hospital Course: The patient underwent a successful left total knee arthroplasty, they were transferred to PACU and then to the floor to recover. During their stay, their vitals were stable, afebrile at 97.8. Labs were unremarkable, H/H 11.9/36.3. POD 1 they were started on Aspirin 325mg po bid for DVT ppx, they also received Physical Therapy services twice a day. Prior to discharge, their dressing was clean dry and intact and the plan was to be discharged home with VNA services. Time Attestation Discharge Coordination Time (in mins): 30 Quality: Safe Use of Opioids Does Pt have an Active Cancer Diagnosis on the Problem List?: No Quality: Stroke Does the patient have a stroke diagnosis?: No Physical Exam Vital Signs: Vital Signs: Last Vital Signs Temp 97.6 F 01/28/25 07:24 Pulse 73 01/28/25 07:24 Resp 16 01/28/25 07:24 BP 151/91 H 01/28/25 07:24 Pulse Ox 97 01/28/25 07:24 O2 Del Method Room Air 01/28/25 07:24 BMI result Body Mass Index 34.2 Const: General: cooperative, healthy appearing and no acute distress Resp: Effort & Inspection: normal respiratory effort and able to speak in complete sentences Cardio: Rate: regular rate Peripheral pulses: Peripheral pulses 2+ throughout GI: Palpation (GI): Soft to palpation Skin: Lesions: no lesions Rashes: no rashes Extrem: Other: left knee dressing is c/d/i. Able to dorsi/plantar flex. Calf is supple and nontender. Sensation intact. Pedal pulse intact. DS: Data Data Completed and Pending Completed studies during hospitalization [Text1]: Procedures Introduction of Anesthetic Agent into Peripheral Nerves and Plexi, Percutaneous Approach (09/05/23) Replacement of Right Knee Joint with Synthetic Substitute, Cemented, Open Approach (09/05/23) Pending studies at discharge: Pending at discharge 01/28/25 10:42 Surgical [PTH] Routine Labs on day of discharge: Laboratory Results - last 24 hr 01/28/25 07:36 Hgb 12.3 Hct 37.6 Discharge Plan Discharge Patient Disposition: Home, Self-Care Referrals: [place] - [facility] [place]] - 02/12/25 9:00 am (02/12/25 09:00 Physical Therapy Flako Young MD) Raz Izaguirre PA-C [Physician Scrub Technician] - 2 Weeks (02/13/25 14:30 [facility] [place] [facility] Raz Izaguirre PA-C) Discharge Medications: New celecoxib 200 mg Capsule 200 mg PO BID 30 Days Qty: 60 0RF acetaminophen 325 mg Tablet 650 mg PO Q6H PRN (Reason: Pain, Mild 1-3,Fever,Headache) 30 Days Qty: 240 0RF aspirin 325 mg Tablet 325 mg PO BID 42 Days Qty: 84 0RF docusate sodium 100 mg Capsule 100 mg PO BID 30 Days Qty: 60 0RF oxycodone 5 mg Tablet 5 mg PO Q4H PRN (Reason: Pain, Moderate(Pain Scale 4-6)) 7 Days Qty: 42 0RF Rx Instructions: Partial Fill upon patient request. Continued (DME) walker [facility] [place] See Rx Instructions .MEDSUPPLY Qty: 1 0RF Rx Instructions: Folding Front wheeled walker DURATION 99 DAYS lisinopril 10 mg tablet 1 tab PO DAILY atorvastatin 80 mg tablet 1 tab PO DAILY clonazepam 0.5 mg tablet 1 tab PO BEDTIME PRN (Reason: anxiety) hydrochlorothiazide 25 mg tablet 1 tab PO DAILY zolpidem 10 mg tablet 1 tab PO BEDTIME [employer] Women 50 Plus 4 mg iron-200 mcg-25 mcg tablet 1 tab PO DAILY omeprazole 40 mg capsule,delayed release(DR/EC) 40 mg PO DAILY 30 Days Qty: 30 3RF sucralfate [Carafate] 1 gram tablet 2 g PO QNOON Qty: 60 3RF levothyroxine 50 mcg tablet 50 mcg PO DAILY Discontinued meloxicam 15 mg tablet 1 tab PO DAILY docusate sodium 100 mg Capsule 100 mg PO BID 30 Days Qty: 60 0RF oxycodone-acetaminophen 5-325 mg tablet 1 tab PO BID Discharge Orders: Discharge Order (Routine); Ordered 01/29/25 Ordered By: Sherrie Arreaga Diet: Advance to usual diet Activity on Discharge: Use cane or walker Activity Restrictions/Additional Instructions: Physical Therapy for Total knee arthroplasty: WBAT, gait training, ROM 0-12, quad strength * Limit stair climbing * No showering, no tub bath-keep dressing clean, dry and intact * No driving x6 weeks * Continue Aspirin twice a day x 6 weeks * Follow up with [facility] [place] [facility]ics in 2 weeks: Print Language: Lithuanian
--- NOTE | 2025-01-28 11:42 | W.MHC.F2F ---
Service Date Service Date: 01/28/25 Encounter Date of encounter: 01/29/25 Reasons for Services Signs and symptoms assessed: s/p LTKA Pt. is considered homebound due to recent surgery. Unable to drive, poor balance, poor gait mechanics. Reason for physical therapy: home safety and mobility, therapeutic exercises, restore joint function, gait/transfer training and ADL training Homebound: Leaving the home is medically contraindicated at this time without the asist of a device and/or another person due th the listed conditions above and below. Reason homebound: unsteady gait / fall risk, leg weakness, pain with ambulation, pain with transfers, poor balance / fall risk and unable to drive Certification: Based on the above findings, I certify that this patient is confined to the home and needs intermittent residential care, physical therapy and/or speech therapy, or continues to need occupational therapy. The patient is under my care, and I have initiated the establishment of the plan of care. The patient will be followed by a physician who will periodically review the plan of care. Time Spent With Patient Time: Total time managing care of this patient today ____ minutes.
--- NOTE | 2025-01-28 12:16 | P.BOP_ITS ---
Brief Operative Note Date of Service: 01/28/25 Pre-op diagnosis: Left knee OA Post-op diagnosis: same Procedure: Left TKA Implants: [place] [employer] cemented posterior stabilized 10/29/13 Surgeon: Flako Young MD Anesthesia: MAC, regional and spinal Was an Employment Security Officer used for this Procedure?: Yes Employment Security Officer: Raz Izaguirre Estimated blood loss (mL): 25 IV fluids (mL): 1,000 Pathology: other Condition: stable Disposition: PACU
--- NOTE | 2025-01-28 12:20 | P.OP_ITS ---
Operative Note Operative Note Date of Service: 01/28/25 Narrative: Date of Service: 01/28/25 Pre-op diagnosis: Left knee OA Post-op diagnosis: same Procedure: Left TKA Implants: [place] Triathlon cemented posterior stabilized 10/29/13 Surgeon: Flako Young MD Anesthesia: MAC, regional and spinal Was an Blind Slat Stapling Machine Operator used for this Procedure?: Yes Blind Slat Stapling Machine Operator: Raz Izaguirre Estimated blood loss (mL): 25 IV fluids (mL): 1,000 Pathology: other Condition: stable Disposition: PACU Procedure in detail: The patient was brought to the operating room and prepped and draped in standard sterile fashion. A time-out was called to identify proper site proper procedure proper surgeon and IV antibiotics were administered. 1 g of IV tranexamic acid was administered. I began by making a midline incision to the retinaculum and performed a medial parapatellar arthrotomy. The patella was translated laterally and the knee was flexed up. The medial tibial plateau was eburnated. I performed a small medial peel and resected the infrapatellar fat pad. Rillton's line was then used to drill my intramedullary femoral guide and my distal femur cut of 10 mm was made in 5 degrees of valgus while protecting the soft tissues. I then measured a # 3 femur and placed my cutting guide and made my anterior posterior and chamfer cuts in 3deg ER while protecting the soft tissues at all times. I then made my box but removing the PCL. Once I was satisfied with my cuts I turned my attention to the tibia. I removed the meniscus medially and laterally and , using an external cutting guide, in line with the tibial crest and the third ray, Taking 2mm off the medial side, I made my distal tibial cut in 0 deg slope of while protecting the posterior soft tissues at all times. An extension block was used to confirm appropriate amount of bony resection. I then sized a #4tibia and once I was satisfied that there was complete tibial coverage I placed my trial and with the trial femur in place took the knee through range of motion. I was satisfied with the extension and flexion as well as the balance at 0, 30 and 90 degrees. I then turned my attention to the patella where I removed 1 cm from the undersurface of the patella and then trialed a 29s patellar button. Again the knee was taken through range of motion I was satisfied with the tracking. I then prepared the tibia with a drill and punch. A femoral bone plug was placed and the knee was irrigated copiously. 2 bags of [place] cement was mixed on the back table using 3rd gen cementation technique. I then cemented the patella, tibia and femur in standard fashion. Axial compression and a clamp were used while the cement dried. Once the cement was hard on the back table all excess cement was removed and I trialed different inserts until I selected a #14PS insert. The final insert was placed and local TXA was administered. The knee was then closed with a running Quill suture, a 3 0 Vicryl and eb on the skin. Patient was then placed in sterile dressing and brought to recovery room in stable condition there were no known complications.
--- NOTE | 2025-01-28 14:05 | PHA.MEDREC ---
Pharmacy Consult ? Medication Reconciliation Pharmacy has completed the medication reconciliation.CHECKED MED REC DONE BY NURSING
[2025-01-28] MEDS: oxyCODONE HCl Immed Release 5 MG TABLET PO (15:14)
[2025-01-28] MEDS: HYDROmorphone HCl 0.5 MG/0.5 ML SYRINGE 0.25 MG IVPUSH ×2 (16:36→20:38)
[2025-01-28] MEDS: Celecoxib 200 MG CAPSULE PO (20:38)
[2025-01-28] MEDS: oxyCODONE HCl ER 10 MG TAB.ER.12H PO (20:38)
[2025-01-28] MEDS: Docusate Sodium 100 MG CAPSULE PO (20:38)
[2025-01-28] MEDS: Zolpidem Tartrate 5 MG TABLET 10 MG PO (20:39)
--- NOTE | 2025-01-28 23:54 | P.CONHOSP_ITS ---
History of Present Illness Data of Consult Service Date: 01/28/25 Requesting physician: Flako Young Primary Care Provider: Steven Rose MD [facility] Reason for consult: medical management Patient is a 64-year-old female with a past medical history significant for hypothyroid, GERD, history of partial small-bowel obstruction, HLD, depression, hypertension, s/p left TKA today, hospitalist consult placed for medical management. The patient is resting comfortably and sleeping. She recently received pain medications and was sleeping deeply during consult, therefore, history could not be obtained. Review of Systems 2 Review of Systems: Yes Unobtainable due to mental status PMFSH Medical History Post-operative nausea and vomiting Dysphagia Plantar fasciitis Hypothyroidism Diverticular disease of colon GERD (gastroesophageal reflux disease) Gall bladder, polycystic disease Partial small bowel obstruction Arthritis Hyperlipemia Depression HTN (hypertension) Family History Mother Diabetes Tachycardia High blood pressure Father Emphysema lung Brother H/O heart surgery Surgical History History of esophagogastroduodenoscopy (EGD) Status post total knee replacement, right History of appendectomy Hx of colonoscopy History of arthroscopy of right knee History of arthroscopy of left knee H/O: hysterectomy Social History Household Members: Spouse Housing: Apartment Are you a primary healthcare translator to a significant other at home: No Do you presently have visiting nurse or other home services: No Comment: 0 Patient Tobacco Use Status: Never used Tobacco Second Hand Smoke Exposure: No Use of substances other than those prescribed or required for medical reasons: No Currently Displaying Signs/Symptoms of Drug Intoxication Withdrawal: No Have you been hit, kicked, punched, or otherwise hurt by someone within the past year? If so, by whom?: No Spiritual Healthcare Practices: no Mosque Healthcare Practices: no-Rastafarian Cultural Healthcare Practices: no Are you DNR?: No Advance Directives: No ( is primary contact & states is her HCP) Advance Directives Information Provided: Yes (as above noted) Advance Directives on File: No Do you have a plan to hurt others: No Plan Recently lost weight without trying: No Patient : No FDLMP: n/a Poor oral hygiene: No service: No Current occupational status: retired Meds Allergies Allergy/AdvReac Type Severity Reaction Status Date / Time diazepam [From VALIUM] Allergy Intermediate HALLUCINATION/DIFF Verified 01/23/25 08:53 BREATHING perflutren AdvReac Back Pain Verified 01/23/25 08:53 Active Medications: Current Medications Acetaminophen (Acetaminophen 325 Mg Tablet) 650 mg PO Q6H PRN PRN Reason: Pain, Mild 1-3,fever,headache Aspirin (Aspirin 325 Mg Tablet) 325 mg PO BID [facility] Celecoxib (Celecoxib 200 Mg Capsule) 200 mg PO BID [facility] Last Admin: 01/28/25 20:38 Dose: 200 mg Clonazepam (Clonazepam 0.5 Mg Tablet) 0.5 mg PO BEDTIME PRN PRN Reason: anxiety Docusate Sodium (Docusate Sodium 100 Mg Capsule) 100 mg PO BID [facility] Last Admin: 01/28/25 20:38 Dose: 100 mg Hydromorphone HCl (Hydromorphone Hcl 0.5 Mg/0.5 Ml Syringe) 0.25 mg IVPUSH Q4H PRN; Protocol PRN Reason: Pain, Severe (Pain Scale 7-10) Last Admin: 01/28/25 20:38 Dose: 0.25 mg Lactated Ringer's (Lr) 1,000 mls @ 100 mls/hr IVCONT .Q10H [facility] Stop: 01/29/25 08:00 Last Admin: 01/28/25 15:14 Dose: 100 mls/hr Levothyroxine Sodium (Levothyroxine Sodium 50 Mcg Tablet) 50 mcg PO DAILY@0600 [facility] Omeprazole (Omeprazole 40 Mg Capsule.Dr) 40 mg PO DAILY@0630 [facility] Ondansetron HCl (Ondansetron Hcl 4 Mg/2 Ml Vial) 4 mg IVPUSH Q8H PRN PRN Reason: Nausea and Vomiting Oxycodone HCl (Oxycodone Hcl Immed Release 5 Mg Tablet) 5 mg PO Q4H PRN PRN Reason: Pain, Moderate(Pain Scale 4-6) Last Admin: 01/28/25 15:14 Dose: 5 mg Oxycodone HCl (Oxycodone Hcl Er 10 Mg Tab.Er.12h) 10 mg PO BID [facility] Last Admin: 01/28/25 20:38 Dose: 10 mg Sodium Chloride (0.9 % Sodium Chloride Flush 3 Ml Syringe) 3 ml IVFLUSH QSHIFT [facility] Last Admin: 01/28/25 15:19 Dose: Not Given Sucralfate (Sucralfate 1 Gm Tablet) 2 gm PO DAILY@1200 MARIJA Zolpidem Tartrate (Zolpidem Tartrate 5 Mg Tablet) 10 mg PO BEDTIME [facility] Last Admin: 01/28/25 20:39 Dose: 10 mg Home Medications ?Medication ?Instructions ?Recorded ?Confirmed ?Last Taken ?Type atorvastatin 80 mg tablet 1 tab PO DAILY 01/21/22 01/23/25 09/05/23 History clonazepam 0.5 mg tablet 1 tab PO BEDTIME PRN anxiety 01/21/22 01/23/25 11/08/22 History hydrochlorothiazide 25 mg tablet 1 tab PO DAILY 01/21/22 01/23/25 09/01/23 History meloxicam 15 mg tablet 1 tab PO DAILY 01/21/22 01/23/25 06/21/24 History zolpidem 10 mg tablet 1 tab PO BEDTIME 01/21/22 01/23/25 01/20/22 History lisinopril 10 mg tablet 1 tab PO DAILY 11/03/22 01/23/25 09/01/23 History levothyroxine 50 mcg tablet 50 mcg PO DAILY 11/23/23 01/23/25 Unknown History gumovztg-mna-kupn 4 mg-folic acid 1 tab PO DAILY 06/13/24 01/23/25 Unknown History 200 mcg-vit K 25 mcg-lutein tablet (Centrum Minis Women 50 Plus) oxycodone-acetaminophen 5 mg-325 1 tab PO BID severe pain 01/28/25 01/28/25 Unknown History mg tablet Physical Exam 2 Vital Signs and Narrative: Vital Signs: Last Vital Signs Temp 97.0 F 01/28/25 19:18 Pulse 73 01/28/25 19:18 Resp 17 01/28/25 19:18 BP 180/93 H 01/28/25 19:18 Pulse Ox 92 01/28/25 19:18 O2 Del Method Room Air 01/28/25 19:18 O2 Flow Rate 2 01/28/25 16:00 BMI result Body Mass Index 34.6 General: sleeping deeply, snoring. responds to susanna verbal stimuli but did not stay awake for interview, no acute distress Resp: CTA bilaterally CVS: S1, S2, RRR GI: +BS, NT, no distention Skin: Warm, dry Neuro: Cranial nerves II-XII grossly intact bilaterally. Motor grossly intact bilaterally Extremities: No LE edema. pedal pulses palpable and equal bilaterally. Good capillary refill bilaterally. Results Labs 01/28/25 07:36 12/31/24 10:42 Imaging Radiologist's Impressions: Impressions Knee X-Ray 01/28/25 11:49 IMPRESSION: Postoperative changes related to recent 3 compartment left knee arthroplasty. Electronically signed by: David Ballard MD 01/28/2025 12:45 PM EDT RP Assessment and Plan (1) Status post total left knee replacement: Status: Acute (2) Class 1 obesity: Status: Acute Plan Patient is a 64-year-old female with a past medical history significant for hypothyroid, GERD, history of partial small-bowel obstruction, HLD, depression, hypertension, s/p left TKA today, hospitalist consult placed for medical management. pt sleeping deeply and did not wake to discuss medical history, therefore, was reviewed in chart. s/p L TKA - POD 0 - nurse reports adequate pain control - plan per surgery hypothyroid - continue levothyroxine GERD - continue omeprazole HLD - continue statin Depression - continue clonazepam and zolpidem for sleep Hypertension - continue lisinopril and hydrochlorothiazide Class 1 obesity - BMI 34.6 - weight loss encouraged Thank you for allowing me to participate in the pt's care. Signing off for now. Please contact the medical team if any questions or concerns.
[2025-01-29] MEDS: Lactated Ringers 1,000 ML 100 ML IVCONT (01:23)
[2025-01-29 04:00] VITALS: BP 133/78; PULSE 80; RESP 18; TEMP 36.6
[2025-01-29] MEDS: oxyCODONE HCl Immed Release 5 MG TABLET PO (04:06)
[2025-01-29] MEDS: Levothyroxine Sodium 50 MCG TABLET PO (05:55)
[2025-01-29] MEDS: Omeprazole 40 MG CAPSULE.DR PO (05:55)
[2025-01-29 06:16] LABS: MANUAL DIFF FLAG NO
[2025-01-29 06:32] LABS: Basophils Percent Auto 0.1 % (0-2); Hematocrit 36.3 % (37.0-47.0); Hemoglobin 11.9 g/dl (12.0-16.0); Imm Gran Abs Auto 0.05 X10*3/uL (0.00-0.03); Imm Gran Pct Auto 0.5 % (0.0-0.4); Lymphocytes Absolute Auto 0.8 X10*3/uL (1.2-4.9); Lymphocytes Percent Auto 7.7 % (20-40); Mean Corpuscular HGB Conc 32.8 g/dl (31.0-35.0); Mean Corpuscular Hemoglobin 26.3 pg (27.0-33.0); Mean Corpuscular Volume 80.1 fL (80.0-98.0); Monocytes Absolute Auto 0.8 X10*3/uL (0.1-1.2); Monocytes Percent Auto 7.8 % (2-11); Neutrophils Absolute Auto 8.6 x10*3/uL (2.0-8.3); Neutrophils Percent Auto 83.9 % (45-73); Platelet Count 283 X10*3/uL (160-400); Red Blood Count 4.53 X10*6/uL (4.20-5.50); Red Cell Distribution Width 13.2 % (11.0-16.0); White Blood Count 10.2 X10*3/uL (4.8-10.8)
[2025-01-29 06:41] LABS: Anion Gap 12 (12-20); Blood Urea Nitrogen 20 mg/dL (9-16); Calcium 9.4 mg/dL (8.4-10.2); Carbon Dioxide 26 mmol/L (22-29); Chloride 106 mmol/L (96-108); Creatinine Clr Calc Pharmacy 85.3; Estimated Glomerular Filt Rate > 60; Glucose Fasting 131 mg/dL (60-99); Potassium 4.2 mmol/L (3.3-5.1); Sodium 140 mmol/L (135-145)
[2025-01-29] MEDS: Docusate Sodium 100 MG CAPSULE PO (06:58)
[2025-01-29] MEDS: oxyCODONE HCl ER 10 MG TAB.ER.12H PO (06:58)
[2025-01-29] MEDS: Celecoxib 200 MG CAPSULE PO (07:00)
[2025-01-29 07:42] VITALS: BP 141/83; PULSE 83; RESP 18; TEMP 36.2; O2SAT 90
--- NOTE | 2025-01-29 09:07 | MHC.CM.PN ---
PT IS INDEPENDENT HAS NO SERVICES LIVES WITH HAS OWN RIDE HOME PT IS DCD HOME SELF CARE
--- NOTE | 2025-01-29 09:33 | HO.POSTANES ---
Post Anesthesia Evaluation Post Anesthesia Evaluation Date of Service: 01/29/25 Vital Signs: Vital Signs Temp Pulse Resp BP Pulse Ox O2 Del Method 01/29/25 07:42 97.1 F 83 18 141/83 H 90 L Room Air 01/29/25 04:00 97.8 F 80 18 133/78 01/28/25 23:56 97.4 F 82 18 134/80 92 Room Air Anesthesia: Spinal Mental Status: Awake Pain Control: Satisfactory Nausea/Vomiting: None Hydration: Adequate Anesthesia-Related Issues: No Anes. Related Issues
--- NOTE | 2025-01-29 10:46 | MHC.CM.PN ---
PT DCD HOME WITH NS
== END 2025-01-29 10:57 | disposition home health service (06) ==
LOC: HO.SSS 11:42 → HO.S3 14:03
PROVIDERS: Nurse Practitioner; Physician Assistant; PCP Internal Medicine; Visit Provider Orthopaedic Surgery
PROC: (CPT 27447; principal; 2025-01-28 09:30)
DX: M17.12 Unilateral primary osteoarthritis, left knee (principal); M25.562 Pain in left knee; R26.2 Difficulty in walking, not elsewhere classified; M72.2 Plantar fascial fibromatosis; I10 Essential (primary) hypertension; E78.5 Hyperlipidemia, unspecified; E03.9 Hypothyroidism, unspecified; K21.9 Gastro-esophageal reflux disease without esophagitis; K56.690 Other partial intestinal obstruction; E66.811 Obesity, class 1; Z68.34 Body mass index [BMI] 34.0-34.9, adult; R94.31 Abnormal electrocardiogram [ECG] [EKG]; Z79.899 Other long term (current) drug therapy; Z99.89 Dependence on other enabling machines and devices; Z88.8 Allergy status to other drugs, medicaments and biological substances; Z96.651 Presence of right artificial knee joint; Z98.890 Other specified postprocedural states
CPT/HCPCS: 27447; 36415; 73560; 80048; 85014; 85018; 85025; 85027; 86850; 86900; 86901; 87640; 87641; 88305; 88311; 93005; 97161; C1713; C1776; J0131; J0665; J0690; J1100; J1171; J2003; J2004; J2250; J2405; J2704; J7120

== ENCOUNTER → 2025-01-28 06:22 | Outpatient (BNV) | payer OTHER, SELFPAY | PROVIDERS: PCP Internal Medicine; Visit Provider Orthopaedic Surgery | DX: Z47.1 Aftercare following joint replacement surgery (principal); Z96.652 Presence of left artificial knee joint | CPT/HCPCS: 27447; 99024; G0180 ==

== ENCOUNTER → 2025-01-28 06:22 | Outpatient (BNV) | payer OTHER, SELFPAY | PROVIDERS: PCP Internal Medicine; Visit Provider Physician Assistant | DX: Z96.652 Presence of left artificial knee joint (principal); E66.811 Obesity, class 1 | CPT/HCPCS: 99222 ==

== ENCOUNTER → 2025-01-28 11:49 | Outpatient (BNV) | payer OTHER, SELFPAY | PROVIDERS: PCP Internal Medicine; Visit Provider Radiology Diagnostic Radiology | DX: Z96.652 Presence of left artificial knee joint (principal) | CPT/HCPCS: 73560 ==

== ENCOUNTER 2025-02-03 09:42 | Emergency (ER) | payer OTHER, SELFPAY ==
[2025-02-03 09:47] VITALS: BP 138/80; PULSE 79; O2SAT 97
[2025-02-03 09:56] VITALS: BP 158/84; PULSE 76; RESP 20; TEMP 36.8; O2SAT 96; BMI 31.9
--- NOTE | 2025-02-03 10:38 | ED_ITS ---
HPI - Fall General Chief Complaint: Fall Stated Complaint: FALL,L KNEE,R ELBOW PAIN,-HS/LOC,+THINNER/CCOLLAR Time Seen by Provider: 02/03/25 10:23 Source: patient and staff interpreter Mode of arrival: ambulatory Limitations: no limitations History of Present Illness ED Provider: HPI Narrative: 64-year-old woman, she is presenting after a fall, she tripped and fell on the stairs, she just had left knee surgery done on January 28 Here at [facility], she does not take blood thinners she is on aspirin, she sustained an abrasion to right forearm, did not strike her head, did call ambulance was placed in a cervical collar for precaution due to her age. Not complaining of headache or neck pain. Related Data Home Medications ?Medication ?Instructions ?Recorded ?Confirmed atorvastatin 80 mg tablet 1 tab PO DAILY 01/21/22 01/23/25 clonazepam 0.5 mg tablet 1 tab PO BEDTIME PRN anxiety 01/21/22 01/23/25 hydrochlorothiazide 25 mg tablet 1 tab PO DAILY 01/21/22 01/23/25 zolpidem 10 mg tablet 1 tab PO BEDTIME 01/21/22 01/23/25 lisinopril 10 mg tablet 1 tab PO DAILY 11/03/22 01/23/25 levothyroxine 50 mcg tablet 50 mcg PO DAILY 11/23/23 01/23/25 ozillfne-kzb-egzk 4 mg-folic acid 1 tab PO DAILY 06/13/24 01/23/25 200 mcg-vit K 25 mcg-lutein tablet (Centrum Minis Women 50 Plus) Previous Rx's ?Medication ?Instructions ?Recorded omeprazole 40 mg capsule,delayed 40 mg PO DAILY 30 days #30 caps 06/13/24 release sucralfate 1 gram tablet (Carafate) 2 g (2 x 1 gram) PO QNOON #60 tabs 06/13/24 walker #1 ea 12/02/24 acetaminophen 325 mg tablet 650 mg (2 x 325 mg) PO Q6H PRN 01/29/25 Pain, Mild 1-3,Fever,Headache 30 days #240 tabs aspirin 325 mg tablet 325 mg PO BID 42 days #84 tabs 01/29/25 celecoxib 200 mg capsule 200 mg PO BID 30 days #60 caps 01/29/25 docusate sodium 100 mg capsule 100 mg PO BID 30 days #60 caps 01/29/25 oxycodone 5 mg tablet 5 mg PO Q4H PRN Pain, 01/29/25 Moderate(Pain Scale 4-6) 7 days #42 tabs Allergies Allergy/AdvReac Type Severity Reaction Status Date / Time diazepam [From VALIUM] Allergy Intermediate HALLUCINATION/DIFF Verified 02/03/25 09:59 BREATHING morphine Allergy Nausea and Verified 02/03/25 09:59 Vomiting perflutren AdvReac Back Pain Verified 02/03/25 09:59 Review of Systems Constitutional: Constitutional: Reports as per [facility] Past Medical History Medical History Post-operative nausea and vomiting Dysphagia Plantar fasciitis Hypothyroidism Diverticular disease of colon GERD (gastroesophageal reflux disease) Gall bladder, polycystic disease Partial small bowel obstruction Arthritis Hyperlipemia Depression HTN (hypertension) Surgical History History of esophagogastroduodenoscopy (EGD) Status post total knee replacement, right History of appendectomy Hx of colonoscopy History of arthroscopy of right knee History of arthroscopy of left knee H/O: hysterectomy Family History Family History Mother Diabetes Tachycardia High blood pressure Father Emphysema lung Brother H/O heart surgery Social History Social History Household Members: Spouse Housing: Apartment Are you a primary healthcare consulting manager to a significant other at home: No Do you presently have visiting nurse or other home services: No Comment: 0 Patient Tobacco Use Status: Never used Tobacco Second Hand Smoke Exposure: No Advance Directives: No Advance Directives Information Provided: Yes service: No Current occupational status: retired Physical Exam Vital Signs: Vital Signs: Last Vital Signs Temp 98.2 F 02/03/25 09:56 Pulse 76 02/03/25 09:56 Resp 20 02/03/25 09:56 BP 158/84 H 02/03/25 09:56 Pulse Ox 96 02/03/25 09:56 O2 Del Method Room Air 02/03/25 09:56 BMI result Body Mass Index 31.9 Const: Other: * Gen: ?Overall well-appearing patient somewhat anxious, though obvious facial trauma, no head trauma * HEENT: No oral trauma * Neck: Cervical collar cleared using nexus criteria * CV: RRR, no obvious murmurs appreciated * Resp: No chest wall tenderness * Abd: ?Bowel sounds are present, no tenderness no rebound no rigidity * MSK: , gel Dressings in place, there was no bleeding, she has some changes in her left lower extremity consistent with recent surgery, soft compartments, lacks 5 degrees of extension, distally ankles intact * Skin: Warm, dry, intact, * Neuro: ?Alert and oriented x3, moving upper and lower extremities symmetrically, no obvious facial asymmetry noted Medical Decision Making Medical Decision Making MDM Narrative: 64-year-old woman after fall twisting her left knee she just recently had surgery, I sent an FYI text to Dr. Daniels from orthopedics, I did not remove the gel dressing but there was no bleeding and there is no obvious hematomas, so I left that in place as it is antimicrobial. X-rays without periprosthetic fractures. No indication for CT of the head and neck, she is not on blood thinners did not strike the head has no other symptoms. Differential Diagnosis Differential Diagnoses: The differential diagnosis associated with the presentation includes Fracture, dislocation, head injury, neck injury, wound dehiscence Independent Interpretation I performed an independent interpretation of an: Plain X-Ray ([place] in place, no periprosthetic fractures noted) Discharge Plan Discharge Clinical Impression: Contusion of knee, left, Status post total knee replacement Patient Disposition: Home, Self-Care Additional Instructions: Big bag of ice to the knee, continue with physical therapy, follow up with the orthopedic surgeon, x-rays without periprosthetic fractures, there is no bleeding through the dressing and the gel dressing is in place, I did not remove it as in his anti microbial and there was no evidence for underlying bleeding. I would give your orthopedic surgeon station manager just to make sure the team there is aware that you fell and seen in ED Prescriptions: No Action (DME) walker Misc See Rx Instructions .MEDSUPPLY Qty: 1 0RF Rx Instructions: Folding Front wheeled walker DURATION 99 DAYS lisinopril 10 mg tablet 1 tab PO DAILY atorvastatin 80 mg tablet 1 tab PO DAILY clonazepam 0.5 mg tablet 1 tab PO BEDTIME PRN (Reason: anxiety) hydrochlorothiazide 25 mg tablet 1 tab PO DAILY zolpidem 10 mg tablet 1 tab PO BEDTIME celecoxib 200 mg Capsule 200 mg PO BID 30 Days Qty: 60 0RF acetaminophen 325 mg Tablet 650 mg PO Q6H PRN (Reason: Pain, Mild 1-3,Fever,Headache) 30 Days Qty: 240 0RF aspirin 325 mg Tablet 325 mg PO BID 42 Days Qty: 84 0RF docusate sodium 100 mg Capsule 100 mg PO BID 30 Days Qty: 60 0RF oxycodone 5 mg Tablet 5 mg PO Q4H PRN (Reason: Pain, Moderate(Pain Scale 4-6)) 7 Days Qty: 42 0RF Rx Instructions: Partial Fill upon patient request. Centrum Minis Women 50 Plus 4 mg iron-200 mcg-25 mcg tablet 1 tab PO DAILY omeprazole 40 mg capsule,delayed release(DR/EC) 40 mg PO DAILY 30 Days Qty: 30 3RF sucralfate [Carafate] 1 gram tablet 2 g PO QNOON Qty: 60 3RF levothyroxine 50 mcg tablet 50 mcg PO DAILY Print Language: Italian
--- OUTSIDE RECORDS SUMMARY | 2025-02-03 11:03 | XMS_ITS | Encounter Summary ---
Author Organization [employer] Address [address] [place] [address] Care Team Providers Care Mattress Inspector Name Role Phone Steven Agee MD Primary Care Provide r Encounter Details Date Type Department Care Team ([facility] st Contact Info) Description 12/18/2024 Telephone [facility] MEDICINE [address] [place], [place] [phone] Steven Agee MD [address] [place], [place] [phone] Social History Tobacco Use Types Packs/Day Years [...] Info) Description 03/24/2025 10:00 AM EDT Telemedicine [facility] & PEDS [address] [place] [address] Concetta Barker, QUIN [address] [place] [address] documented as of this encounter Visit Diagnoses Not on filedocumented in this encounter Additional Health Concerns Assessment Noted Time PHQ-9 Depression Total Score: 1 09/26/19 25 9:54 AM EST documented as of this encounter Care Teams Mattress Inspector Relationship Specialty Start Date End Date Steven Agee MD [address] [place] [id number] PCP - General Internal Medicine 06/05/14 documented as of this encounter
[2025-02-03 11:14] VITALS: BP 164/92; PULSE 73; RESP 18; TEMP 36.7; O2SAT 98
[2025-02-03 11:16] VITALS: BP 164/92; PULSE 73; RESP 18; TEMP 36.7; O2SAT 98
== END 2025-02-03 11:17 | disposition home or self-care (01) ==
PROVIDERS: Emergency Provider Emergency Medicine; PCP Internal Medicine
DX: S80.02XA Contusion of left knee, initial encounter (principal); M79.601 Pain in right arm; X50.9XXA Other and unspecified overexertion or strenuous movements or postures, initial encounter; Y93.01 Activity, walking, marching and hiking; Y92.9 Unspecified place or not applicable; Y99.8 Other external cause status; Z79.899 Other long term (current) drug therapy
CPT/HCPCS: 99283; 99284

== ENCOUNTER 2025-02-10 09:50 | Outpatient (AMB) | payer OTHER, SELFPAY ==
--- NOTE | 2025-02-10 10:27 | A.OFFVIS_ITS ---
Vital Signs 02/10/25 10:32 Height 5 ft 4 in Weight 185 lb BMI 31.8 Intake Visit Reasons: PO s/p fall- L TKA w/NE 01/28/25 Intake Note: Elsa is a 64 year old female who presents today for a preoperative left TKA on 01/28/[address] Young. Pastbrittanie is having a lot of pain in her knee. She notices swelling. She mentions that she tripped and fell on the stairs on 02/03/25. IMPRESSION: Postoperative changes related to recent 3 compartment left knee arthroplasty. Riverboat Captain Required: Yes Riverboat Captain Services: Riverboat Captain Present (Ami ([id number])) Riverboat Captain Name: Ana Allergies diazepam [From VALIUM] Allergy (Intermediate, Verified 02/10/25 10:32) HALLUCINATION/DIFF BREATHING morphine Allergy (Verified 02/10/25 10:32) Nausea and Vomiting perflutren Adverse Reaction (Verified 02/10/25 10:32) Back Pain HPI HPI PO s/p fall- L TKA w/NE 01/28/25: Details: 64-year-old female presents to the office today status post left total knee arthroplasty on 01/28/[address] Young. She states on 02/03 she was walking when she fell landing on the knee. She was seen in the emergency department and was evaluated. There were no x-rays obtained at the time of her emergency room visit. She was discharged home and referred to our office for follow-up. [facility] Medical History Post-operative nausea and vomiting Dysphagia Plantar fasciitis Hypothyroidism Diverticular disease of colon GERD (gastroesophageal reflux disease) Gall bladder, polycystic disease Partial small bowel obstruction Arthritis Hyperlipemia Depression HTN (hypertension) Surgical History History of esophagogastroduodenoscopy (EGD) Status post total knee replacement, right History of appendectomy Hx of colonoscopy History of arthroscopy of right knee History of arthroscopy of left knee H/O: hysterectomy Family History Mother Diabetes Tachycardia High blood pressure Father Emphysema lung Brother H/O heart surgery Social History Household Members: Spouse Housing: Apartment Are you a primary child care assistant to a significant other at home: No Do you presently have visiting nurse or other home services: No Comment: 0 Patient Tobacco Use Status: Never used Tobacco Second Hand Smoke Exposure: No service: No Current occupational status: retired Review of Systems Const All systems reviewed & are unremarkable except as noted in HPI and below Physical Exam Vital Signs: BMI result Body Mass Index 31.8 Extrem Other: Right knee eb intact. There is redness around the knee with significant tenderness over the medial joint line. She attempts to extend the leg however is lacking extension without pain or notable defect in the quad muscle. Results Reviewed Results Reviewed: X-rays of the left knee obtained in the office today and reviewed by me show intact prosthesis without signs of fracture loosening Assessment & Plan Assessment & Plan (1) Status post total left knee replacement: Code(s): Z96.652 - Presence of left artificial knee joint Category: Surgical Plan: There does not appear to be any prosthesis loosening or fracture. No evidence of quad tendon rupture. I sent a prescription for Bactrim to the pharmacy for the redness/cellulitis developing around the knee. I also stressed the importance of working on her extension. She will see me on for staple removal and follow-up. Orders: Orders XR knee RT 3V Today M17.11 - Unilateral primary osteoarthritis, right knee XR knee LT 3V Today M25.562 - Pain in left knee Medications: New sulfamethoxazole-trimethoprim 800-160 mg (Bactrim DS) 1 tab PO BID 20 tabs 0RF suture abscess 10 days Coding Level of Care Code Global (10028) Diagnoses Status post total left knee replacement Z96.652
[2025-02-10 10:32] VITALS: BMI 31.8
--- OUTSIDE RECORDS SUMMARY | 2025-02-10 10:51 | XMS_ITS | Encounter Summary ---
Author Organization [employer] Address [address] [place] [address] Care Team Providers Care Restorative Coordinator Name Role Phone Steven Agee MD Primary Care Provide r Encounter Details Date Type Department Care Team ([facility] st Contact Info) Description 12/18/2024 Telephone [facility] MEDICINE [address] [place], [place] [phone] Steven Agee MD [address] [place], [place] [phone] Social History Tobacco Use Types Packs/Day Years [...] Info) Description 03/24/2025 10:00 AM EDT Telemedicine [facility] MED & PEDS [address] [place] [address] Concetta Barker, QUIN [address] [place] [address] documented as of this encounter Visit Diagnoses Not on filedocumented in this encounter Additional Health Concerns Assessment Noted Time PHQ-9 Depression Total Score: 1 09/26/19 25 9:54 AM EST documented as of this encounter Care Teams Restorative Coordinator Relationship Specialty Start Date End Date Steven Agee MD [address] [place] [id number] PCP - General Internal Medicine 06/05/14 documented as of this encounter
== END 2025-02-10 11:07 | disposition home or self-care (01) ==
LOC: HO.HOS 09:51
PROVIDERS: PCP Internal Medicine; Visit Provider Physician Assistant
DX: Z96.652 Presence of left artificial knee joint (principal)
CPT/HCPCS: 99024

== ENCOUNTER 2025-02-10 09:50 | Outpatient (REF) | payer OTHER, SELFPAY ==
--- NOTE | ~2025-02-10 | XR_ITS ---
EXAMINATION: XR KNEE, LEFT CLINICAL INFORMATION: M25.562 - Pain in left knee , postop total knee replacement COMPARISON: January 28, 2025 TECHNIQUE: AP bilateral standing, lateral, and sunrise view left knee FINDINGS: Bilateral total knee arthroplasty has been performed. Skin eb are still in place on the left. Soft tissue air has been resorbed the prior x-ray. A cemented femoral and tibial component remains anatomically aligned. There is no periprostatic fracture. Joint effusion is increased. XR/XR knee LT 3V IMPRESSION: Postoperative left knee after 3 compartment arthroplasty with persistent joint effusion and skin eb. Electronically signed by: David Ballard MD 02/10/2025 12:36 PM EDT
== END 2025-02-10 09:51 | disposition home or self-care (01) ==
LOC: HO.HOSX 09:50
PROVIDERS: PCP Internal Medicine; Visit Provider Physician Assistant
DX: M25.462 Effusion, left knee (principal); Z96.652 Presence of left artificial knee joint
CPT/HCPCS: 73562; 99212

== ENCOUNTER → 2025-02-10 10:47 | Outpatient (BNV) | payer OTHER, SELFPAY | PROVIDERS: PCP Internal Medicine; Visit Provider Radiology Diagnostic Radiology | DX: M25.462 Effusion, left knee (principal) | CPT/HCPCS: 73562 ==

== ENCOUNTER 2025-02-13 13:36 | Outpatient (AMB) | payer OTHER, SELFPAY ==
--- NOTE | 2025-02-13 13:42 | MHC.OFFVIS ---
Vital Signs 02/13/25 14:23 Height 5 ft 4 in Weight 185 lb BMI 31.8 Intake Visit Reasons: 2WKPO: L TKA w/NE 01/28/25 Intake Note: Elsa is a 64 year old female who presents today for a post operative visit status post left total knee arthroplasty, DOS 01/28/[address] Flako Young. Allergies diazepam (From VALIUM) Allergy (Intermediate, Verified 02/10/25 10:32) HALLUCINATION/DIFF BREATHING morphine Allergy (Verified 02/10/25 10:32) Nausea and Vomiting perflutren Adverse Reaction (Verified 02/10/25 10:32) Back Pain Medication List - Last Reconciled 02/13/25 by Raz Izaguirre PA-C acetaminophen 650 mg (2 x 325 mg) PO Q6H PRN 30 days aspirin 325 mg PO BID 42 days atorvastatin 1 tab PO DAILY celecoxib 200 mg PO BID 30 days clonazepam 1 tab PO BEDTIME PRN docusate sodium 100 mg PO BID 30 days hydrochlorothiazide 1 tab PO DAILY levothyroxine 50 mcg PO DAILY lisinopril 1 tab PO DAILY cvbyfapk-hwe-fyjq-FA-vit K-lut 4 mg iron-200 mcg-25 mcg (Centrum Minis Women 50 Plus) 1 tab PO DAILY omeprazole 40 mg PO DAILY 30 days oxycodone 5 mg PO Q4H PRN 7 days sucralfate (Carafate) 2 grams (2 x 1 gram) PO QNOON walker Folding Front wheeled walker DURATION 99 DAYS zolpidem 1 tab PO BEDTIME HPI HPI 2WKPO: L TKA w/NE 01/28/25: Details: 64-year-old female returns to the office today 2 weeks status post left total knee arthroplasty on 01/28/[address] Young. She feels she is improving with her function since her fall. She has not picked up her antibiotics but feels the pain is improving. [facility] Medical History Post-operative nausea and vomiting Dysphagia Plantar fasciitis Hypothyroidism Diverticular disease of colon GERD (gastroesophageal reflux disease) Gall bladder, polycystic disease Partial small bowel obstruction Arthritis Hyperlipemia Depression HTN (hypertension) Surgical History History of esophagogastroduodenoscopy (EGD) Status post total knee replacement, right History of appendectomy Hx of colonoscopy History of arthroscopy of right knee History of arthroscopy of left knee H/O: hysterectomy Family History Mother Diabetes Tachycardia High blood pressure Father Emphysema lung Brother H/O heart surgery Social History Household Members: Spouse Housing: Apartment Are you a primary nursing care attendant to a significant other at home: No Do you presently have visiting nurse or other home services: No Comment: 0 Patient Tobacco Use Status: Never used Tobacco Second Hand Smoke Exposure: No service: No Current occupational status: retired Review of Systems Const All systems reviewed & are unremarkable except as noted in HPI and below Physical Exam Vital Signs: BMI result Body Mass Index 31.8 Extrem Other: Left knee incision clean dry and intact. She has good quad activation. Diffuse redness around the distal end of the incision. No significant swelling. Calf is supple and nontender neurovascularly intact. Assessment & Plan Assessment & Plan (1) Status post total left knee replacement: Code(s): Z96.652 - Presence of left artificial knee joint Category: Surgical Plan: Joceline removed today Steri-Strips applied. She will continue working with physical therapy for range of motion and quad strengthening exercises. She does not need to take the antibiotic. We will see how she does over the next several days and if she develops worsening pain or redness she will contact our office immediately for evaluation otherwise follow up in 4 to [address] Young for routine postop appointment, sooner if needed. Medications: Discontinued sulfamethoxazole-trimethoprim 800-160 mg (Bactrim DS) Discontinued Reason: No Longer Medically Relevant 1 tab PO BID 20 tabs 0RF suture abscess 10 days Coding Level of Care Code Global (17009) Diagnoses Status post total left knee replacement Z96.652
[2025-02-13 14:23] VITALS: BMI 31.8
--- OUTSIDE RECORDS SUMMARY | 2025-02-13 14:46 | XMS_ITS | Encounter Summary ---
Author Organization [employer] Address [address] [place] [address] Care Team Providers Care Seed Cleaning Machine Operator Name Role Phone Steven Agee MD Primary Care Provide r Encounter Details Date Type Department Care Team ([facility] st Contact Info) Description 12/18/2024 Telephone [facility] MEDICINE [address] [place], [place] [phone] Steven Agee MD [address] [place], [place] [phone] Social History Tobacco Use Types Packs/Day Years [...] Info) Description 03/24/2025 10:00 AM EDT Telemedicine [facility] MED & PEDS [address] [place] [address] Concetta Barker, QUIN [address] [place] [address] documented as of this encounter Visit Diagnoses Not on filedocumented in this encounter Additional Health Concerns Assessment Noted Time PHQ-9 Depression Total Score: 1 09/26/19 25 9:54 AM EST documented as of this encounter Care Teams Seed Cleaning Machine Operator Relationship Specialty Start Date End Date Steven Agee MD [address] [place] [id number] PCP - General Internal Medicine 06/05/14 Marina MAHONEY 01/30/25 documented as of this encounter
== END 2025-02-13 16:00 | disposition home or self-care (01) ==
LOC: HO.HOS 13:36
PROVIDERS: PCP Internal Medicine; Visit Provider Physician Assistant
DX: Z96.652 Presence of left artificial knee joint (principal)
CPT/HCPCS: 99024

== ENCOUNTER → 2025-02-13 13:36 | Outpatient (BNVA) | payer OTHER, SELFPAY | PROVIDERS: PCP Internal Medicine; Visit Provider Physician Assistant | DX: Z96.652 Presence of left artificial knee joint (principal) | CPT/HCPCS: 99212 ==

== ENCOUNTER 2025-03-27 07:13 | Outpatient (REF) | payer OTHER, SELFPAY ==
--- NOTE | ~2025-03-27 | XR_ITS ---
EXAMINATION: XR KNEE, LEFT CLINICAL INFORMATION: M25.562 - Pain in left knee COMPARISON: February 10, 2025. TECHNIQUE: AP standing position both knees. Lateral and sunrise view of the left knee. FINDINGS: Metallic prosthesis with a femoral and tibial components are well-seated in the osseous structures of the distal femur and tibial plateau at both knees. No gross malalignment. No gross loosening. No acute cortical disruption. No subcutaneous emphysema. XR/XR knee LT 3V IMPRESSION: Total knee arthroplasty prosthesis, intact without malalignment or loosening. Electronically signed by: Kenton Galarza MD 03/27/2025 12:46 PM EDT
--- OUTSIDE RECORDS SUMMARY | 2025-03-27 07:15 | XMS_ITS | Encounter Summary ---
Author Organization [employer] Address [address] [place] [address] Care Team Providers Care Credit Cashier Name Role Phone Steven Agee MD Primary Care Provide r Encounter Details Date Type Department Care Team ([facility] st Contact Info) Description 12/18/2024 Telephone [facility] MEDICINE [address] [place], [place] [phone] Steven Agee MD [address] [place], [place] [phone] Social History Tobacco Use Types Packs/Day Years [...] Care Team (Late st Contact Info) Description 05/20/2025 9:15 AM EDT Office Visit [facility] MEDICINE [address] [place] [address] Steven Agee MD [address] [place] [address] 07/09/2025 9:30 AM EST Clinical Support [facility] PEDS [address] [place] [address] Concetta Barker, RN [address] [place] [address] documented as of this encounter Visit Diagnoses Not on filedocumented in this encounter Additional Health Concerns Assessment Noted Time PHQ-9 Depression Total Score: 1 09/26/19 9:54 AM EST documented as of this encounter Care Teams Credit Cashier Relationship Specialty Start Date End Date Steven Agee MD [address] [place] [address] PCP - General Internal Medicine 06/05/14 Marina VAZQUEZA 01/30/25 documented as of this encounter
== END 2025-03-27 07:14 | disposition home or self-care (01) ==
LOC: HO.HOSX 07:13
PROVIDERS: Visit Provider Orthopaedic Surgery
DX: Z47.1 Aftercare following joint replacement surgery (principal); Z96.652 Presence of left artificial knee joint; M25.562 Pain in left knee
CPT/HCPCS: 73562; 99212

== ENCOUNTER 2025-03-27 12:16 | Outpatient (AMB) | payer OTHER, SELFPAY ==
[2025-03-27 12:41] VITALS: BMI 31.8
--- NOTE | 2025-03-27 12:41 | A.OFFVIS_ITS ---
Vital Signs 03/27/25 12:41 Height 5 ft 4 in Weight 185 lb BMI 31.8 Intake Visit Reasons: 6WKPO: L TKA w/NE 01/28/25 Intake Note: Elsa is a 64 year old female who presents today for a post operative visit status post left total knee arthroplasty, DOS 01/28/25. Patient reports that she has had increasing pain and swelling of her left knee since fall 02/03/25. Patient states she is doing well, however she complains of pain and buckling in the medial aspect of the knee when she flexes. Allergies diazepam (From VALIUM) Allergy (Intermediate, Verified 03/27/25 12:48) HALLUCINATION/DIFF BREATHING morphine Allergy (Verified 03/27/25 12:48) Nausea and Vomiting perflutren Adverse Reaction (Verified 03/27/25 12:48) Back Pain HPI HPI 6WKPO: L TKA w/NE 01/28/25: Details: Mena is a 65-year-old woman who is now 8 weeks status post left knee repl acement. She was doing well but did not fall after the surgery and had swelling and pain. This has resolved but she continues to have pain over the anteromedial knee. She has about a 5 degree extension lag as well. She denies fevers and chills. She states her pain is decreasing and she is getting better but she is still worried because she feels like she somehow injured her knee after her fall. [facility] Medical History Post-operative nausea and vomiting Dysphagia Plantar fasciitis Hypothyroidism Diverticular disease of colon GERD (gastroesophageal reflux disease) Gall bladder, polycystic disease Partial small bowel obstruction Arthritis Hyperlipemia Depression HTN (hypertension) Surgical History History of esophagogastroduodenoscopy (EGD) Status post total knee replacement, right History of appendectomy Hx of colonoscopy History of arthroscopy of right knee History of arthroscopy of left knee H/O: hysterectomy Family History Mother Diabetes Tachycardia High blood pressure Father Emphysema lung Brother H/O heart surgery Social History Household Members: Spouse Housing: Apartment Are you a primary acute care nursing assistant to a significant other at home: No Do you presently have visiting nurse or other home services: No Comment: 0 Patient Tobacco Use Status: Never used Tobacco Second Hand Smoke Exposure: No service: No Current occupational status: retired Physical Exam Vital Signs: BMI result Body Mass Index 31.8 Extrem Other: On exam she has a well-healed incision. No effusion. She has tenderness over the anteromedial femoral condyle. She can extend to -5 and flexion is full. No no gap palpable to quad tendon Results Reviewed Results Reviewed: I personally reviewed relevant radiographs. Left total knee arthroplasty in expected post operative position with no hardware complications or evidence of loosening Assessment & Plan Assessment & Plan (1) Status post total left knee replacement: Code(s): Z96.652 - Presence of left artificial knee joint Category: Surgical Plan: Status post left knee replacement. It is concerning that she continues to have pain and can not fully extend but I can not feel a gap and she is only 5 degrees from terminal extension. He has been 8 weeks so I do not think there is a surgical intervention that would ameliorate her symptoms. I recommend continue PT and strengthening and gentle ambulation. She does state she is improving and she is feeling better. I will see her back in 1 month. Orders: Orders XR knee LT 3V Today M25.562 - Pain in left knee Coding Level of Care Code Global (85803) Diagnoses Status post total left knee replacement Z96.652
== END 2025-03-27 13:07 | disposition home or self-care (01) ==
LOC: HO.HOS 12:17
PROVIDERS: PCP Internal Medicine; Visit Provider Orthopaedic Surgery
DX: Z96.652 Presence of left artificial knee joint (principal)
CPT/HCPCS: 99024

== ENCOUNTER → 2025-03-27 12:19 | Outpatient (BNV) | payer OTHER, SELFPAY | PROVIDERS: Visit Provider Radiology Diagnostic Radiology | DX: M25.562 Pain in left knee (principal) | CPT/HCPCS: 73562 ==

== ENCOUNTER 2025-04-23 10:43 | Outpatient (AMB) | payer OTHER, SELFPAY ==
--- NOTE | 2025-04-23 11:18 | MHC.OFFVIS ---
Vital Signs 04/23/25 11:20 Height 5 ft 4 in Weight 197 lb 8.547 oz BMI 33.9 BP 142/74 H Blood Pressure Location Lt brachial Position Sitting Pulse 70 Pulse Source Pulse Oximeter Intake Visit Reasons: 3 mth f/up testing Intake Note: 3mth f/up-echo,stress test Head Refrigerating Engineer Required: Yes Head Refrigerating Engineer Name: voyce/[email or web address]/ Accompanied by: Self / Same As Patient Allergies diazepam (From VALIUM) Allergy (Intermediate, Verified 03/27/25 12:48) HALLUCINATION/DIFF BREATHING morphine Allergy (Verified 03/27/25 12:48) Nausea and Vomiting perflutren Adverse Reaction (Verified 03/27/25 12:48) Back Pain Medication List - Last Reconciled 04/23/25 by Kane Lee MD acetaminophen 650 mg (2 x 325 mg) PO Q6H PRN 30 days aspirin 325 mg PO BID 42 days atorvastatin 1 tab PO DAILY celecoxib 200 mg PO BID 30 days clonazepam 1 tab PO BEDTIME PRN docusate sodium 100 mg PO BID 30 days hydrochlorothiazide 1 tab PO DAILY levothyroxine 50 mcg PO DAILY lisinopril 1 tab PO DAILY ivbcwhcw-gpe-cvuf-FA-vit K-lut 4 mg iron-200 mcg-25 mcg (Centrum Minis Women 50 Plus) 1 tab PO DAILY omeprazole 40 mg PO DAILY 30 days oxycodone 5 mg PO Q4H PRN 7 days sucralfate (Carafate) 2 grams (2 x 1 gram) PO QNOON walker Folding Front wheeled walker DURATION 99 DAYS zolpidem 1 tab PO BEDTIME HPI Comments Details: 65-year-old female who is perioperative cardiovascular risk assessment. She has left knee arthritis and is in need of total knee replacement. She has no significant symptoms. She previously had abnormal ECG showing precordial T-wave changes. Reviewing her EKGs the previous EKG had poor R-wave progression and an anterolateral infarct can not be ruled out. Interestingly her ECG since then has improved with normal R-wave progression but she has nonspecific T-wave changes in the precordial leads. She is denying any chest discomfort in general and also denying any shortness of breath. She is not physically active due to the arthritis which limits her day-to-day activities. She does not have kidney disease, heart failure, diabetes or previous myocardial infarction. 04/23/25: today she comes for follow-up. On last visit we referred her for echocardiography which showed apical lateral and mid anterolateral hypokinesis. She subsequently had Lexiscan performed which did not show any perfusion defect. She continues to have no symptoms and denies chest pain or shortness of breath in particular. [facility] Medical History Class 1 obesity Post-operative nausea and vomiting Dysphagia Plantar fasciitis Hypothyroidism Diverticular disease of colon GERD (gastroesophageal reflux disease) Gall bladder, polycystic disease Partial small bowel obstruction Arthritis Hyperlipemia Depression HTN (hypertension) Surgical History History of esophagogastroduodenoscopy (EGD) Status post total knee replacement, right History of appendectomy Hx of colonoscopy History of arthroscopy of right knee History of arthroscopy of left knee H/O: hysterectomy Family History Mother Diabetes Tachycardia High blood pressure Father Emphysema lung Brother H/O heart surgery Social History Household Members: Spouse Housing: Apartment Are you a primary complex care nurse practitioner to a significant other at home: No Do you presently have visiting nurse or other home services: No Comment: 0 Patient Tobacco Use Status: Never used Tobacco Second Hand Smoke Exposure: No service: No Current occupational status: retired Review of Systems Const Denies chills, Denies fatigue, Denies fever(s), Denies frequent falls, Denies weakness, Denies weight gain and Denies weight loss ENT Denies dizziness Card Denies chest pain, Denies leg edema, Denies lightheadedness, Denies palpitations, Denies dyspnea and Denies dyspnea on exertion Resp Denies cough, Denies dyspnea and Denies dyspnea on exertion GI Denies hematochezia Musc Denies abnormal gait, Denies muscle weakness, Denies numbness, Denies radiating pain into limb and Denies tingling Neuro Denies abnormal gait, Denies dizziness, Denies frequent falls, Denies numbness, Denies tingling and Denies weakness Endo Denies fatigue and Denies palpitations Physical Exam Vital Signs: Last Vital Signs Pulse 70 04/23/25 11:20 BP 142/74 H 04/23/25 11:20 BMI result Body Mass Index 33.9 GENERAL APPEARANCE: in no acute distress, pleasant. NECK: no carotid bruit, no jugular venous distention. SKIN: no suspicious lesions, warm and dry. HEART: no murmurs, regular rate and rhythm. LUNGS: clear to auscultation bilaterally. ABDOMEN: soft, nontender. EXTREMITIES: no edema. PERIPHERAL PULSES: equal. NEUROLOGIC: No gross deficits, AAO X 3 Assessment & Plan Assessment & Plan (1) Abnormal EKG: Code(s): R94.31 - Abnormal electrocardiogram [ECG] [EKG] Category: Medical Plan Pleasant 64-year-old lady who is here for follow-up. She underwent left knee arthroplasty. She had abnormal EKG which led to echocardiography showing apical lateral anterolateral hypokinesis. Subsequently had nuclear perfusion imaging which was normal. She is denying any chest discomfort shortness of breath. Blood pressure is mildly elevated but she waited long for the appointment and was quite stressed and upset so it is possible blood pressure was elevated due to that. Overall currently denying any chest discomfort shortness of breath. As her mobility increases after knee arthroplasty, we will assess her for any symptoms and if she develops any chest discomfort or worsening shortness of breath then we will consider further testing possibly coronary CTA or an angiogram. Thank you for allowing me to participate in the care of your patient. Please feel free to contact me if you have any questions. Coding Level of Care Code Est Pt Level 4 (64444) Diagnoses Abnormal EKG R94.31
[2025-04-23 11:20] VITALS: BP 142/74; PULSE 70; BMI 33.9
--- OUTSIDE RECORDS SUMMARY | 2025-04-23 11:36 | XMS_ITS | Encounter Summary ---
Author Organization [employer] Address [address] [place] [address] Care Team Providers Care Bag Hanger Name Role Phone Steven Agee MD Primary Care Provide r Encounter Details Date Type Department Care Team ([facility] st Contact Info) Description 12/18/2024 Telephone [facility] MEDICINE [address] [place], [place] [phone] Steven Agee MD [address] [place], [place] [phone] Social History Tobacco Use Types Packs/Day Years [...] Description 05/20/2025 9:15 AM EDT Office Visit [facility] MEDICINE [address] [place] [address] Steven Agee MD [address] [place] [address] 07/09/2025 9:30 AM EST Clinical Support [facility] MED & PEDS [address] [place] [address] Concetta Barker, RN [address] [place] [address] documented as of this encounter Visit Diagnoses Not on filedocumented in this encounter Additional Health Concerns Assessment Noted Time PHQ-9 Depression Total Score: 1 09/26/19 9:54 AM EST documented as of this encounter Care Teams Bag Hanger Relationship Specialty Start Date End Date Steven Agee MD [address] [place] [address] PCP - General Internal Medicine 06/05/14 Marina VAZQUEZA 01/30/25 documented as of this encounter
--- OUTSIDE RECORDS SUMMARY | 2025-04-23 11:36 | XMS_ITS | Clinical Summary ---
Author Organization [employer] Address [address] [place] [address] [address] [place] [address] Care Team Providers Care Core Dipper Name Role Phone Steven Agee MD Primary Care Provide r Allergies Active Allergy Reactions Criticality Noted Date Comments Diazepam Swelling,Unknown High 06/26/2014 Other reaction(s): HALLUCINATION/DIFF BREATHING, throat closed up Medications ondansetron (Zofran) 4 MG tabletIndications :Nausea TAKE 1 TABLET(4 MG) BY MOUTH EVERY 8 HOURS NEEDED FOR NAUSEA OR VOMITING 20 tablet 023 Active famotidine (Pepcid) 20 MG tabletIndications :Nausea and vomiting, unspecified vomiting type TAKE 1 TABLET BY MOUTH IN THE MORNING AND AT BEDTIME 180 tablet 3 023 Active Aspirin Low Dose 81 MG EC [...] MOUTH EVERY DAY AT NOON 025 Active Multiple Vitamins-Minerals (Centrum Ultra Womens) tablet TAKE 1 TABLET BY MOUTH EVERY MORNING 90 tablet 1 025 Active meloxicam (Mobic) 15 MG tabletIndications :Chronic midline low back pain without sciatica TAKE 1 TABLET(15 MG) BY MOUTH EACH DAY NEEDED FOR MILD PAIN 30 tablet 025 Active zolpidem (Ambien) 10 MG tabletIndications :Depressive disorder TAKE 1 TABLET(10 MG) BY MOUTH AT BEDTIME NEEDED FOR SLEEP 30 tablet 025 Active oxyCODONE-acetami nophen (Percocet) 5-325 MG tabletIndications :Chronic midline low back pain without sciatica Take 1 tablet by mouth if needed in the morning and at bedtime for severe pain. Do not start before March 19, 2025. 56 tablet 025 Active clonazePAM (KlonoPIN) 0.5 MG tabletIndications :Depressive disorder TAKE 1 TABLET(0.5 MG) BY MOUTH EACH DAY NEEDED FOR ANXIETY 28 tablet 025 Active naloxone (Narcan) 4 mg/0.1 mL nasal spray Administer 1 spray (4 mg) into affected nostril(s) if needed for opioid reversal. 2 each 1 025 Active atorvastatin (Lipitor) 80 MG tabletIndications :Mixed hyperlipidemia TAKE 1 TABLET BY MOUTH EVERY DAY 90 tablet 1 025 Active hydroCHLOROthiazi de (HYDRODiuril) 25 MG tablet TAKE 1 TABLET BY MOUTH EVERY DAY 90 tablet 1 025 Active levothyroxine (Synthroid, Levoxyl) 50 MCG tabletIndications :Subclinical hypothyroidism TAKE 1 TABLET BY MOUTH DAILY BEFORE BREAKFAST 90 tablet 025 Active oxyCODONE-acetami nophen (Percocet) 5-325 MG tabletIndications :Chronic midline low back pain without sciatica Take 1 tablet by mouth if needed in the morning and at bedtime for severe pain. Do not start before April 15, 2025. 56 tablet 025 Active hydroCHLOROthiazi de (HYDRODiuril) 25 MG tablet TAKE 1 TABLET BY MOUTH EVERY DAY 90 tablet 1 025 2024 Discontinued oxyCODONE-acetami nophen (Percocet) 5-325 MG tabletIndications :Chronic midline low back pain without sciatica Take 1 tablet by mouth if needed in the morning and at bedtime for severe pain. 56 tablet 025 2024 Discontinued(R eorder (will not trigger notification to Pharmacy)) levothyroxine (Synthroid, Levoxyl) 50 MCG tabletIndications :Subclinical hypothyroidism TAKE 1 TABLET BY MOUTH DAILY BEFORE BREAKFAST 90 tablet 025 2024 Discontinued Active Problems Problem Noted Date Diagnosed Date [...] AM EST): Knee replacement 09/05/[address] oYung. -Continue ASA 325 mg BID for 42 [...] is scheduled for: [place] [facility] [place] of surgeon: Dr. Flako Young On:01/28/2025 [...] is scheduled for: right TKR [place] [facility] [place] Name of surgeon: Dr. 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 Doing well Assessment & Plan (08/11/2022 10:27 AM EST): Pt with Depression, currently seeing a psychotherapist her name is Angle at [facility] Denies suicidal ideations or thoughts We [...] COT program. Seen in the past at [facility]. She was seen by Dr. [...] COT program. Seen in the past at [facility]. She was seen by Dr. [...] Last visit she was referred back to [facility]. She was seen by Dr. [...] Encounters Date Type Department Care Team Description 04/23/2025 Refill [facility] [address] [place] [address] Steven Agee MD 04/09/2025 Refill [facility] [address] [place] [address] Concetta Barker RN Chronic midline low back pain without sciatica 04/09/[address] [facility] [address] [place] [address] Steven Agee MD Med Refill 04/01/[address] [facility] [address] [place] [address] Key Sams MD Subclinical hypothyroidism 04/01/[address] [facility] [address] [place] [address] Steven Agee MD 03/24/2025 10:00 AM EDT Telemedicine [facility] [address] [place] [address] Concetta Barker RN Chronic midline low back pain without sciatica 03/24/2025 Refill [facility] [address] [place] [address] Concetta Barker RN Depressive disorder; Mixed hyperlipidemia 03/24/2025 Travel 03/23/[address] [facility] [address] [place] [address] Steven Agee MD Mixed hyperlipidemia 03/14/2025 Refill [facility] [address] [place] [address] Steven Agee MD Chronic midline low back pain without sciatica 03/03/[address] [facility] [address] [place] [address] Steven Agee MD Appointment Confirmation 03/02/2025 Refill [facility] [address] [place] [address] Steven Agee MD Chronic midline low back pain without sciatica 02/19/2025 Refill [facility] [address] [place] [address] Steven Agee MD Depressive disorder 02/18/2025 Refill [facility] [address] [place] [address] Steven Agee MD Chronic midline low back pain without sciatica 02/17/[address] [facility] [address] [place] [address] Steven Agee MD Chronic midline low back pain without sciatica 02/10/2025 Orders Only [facility] External Provider, [facility] 02/05/[address] [facility] [address] [place] [address] Concetta Barker RN Chronic midline low back pain without sciatica 02/05/[address] [facility] [address] [place] [address] Steven Agee MD Med Refill 01/31/[address] [facility] [address] [place] [address] Kimberlee Moss ANP Med Refill 01/31/2025 Refill [facility] [address] [place] [address] Key Sams MD Chronic midline low back pain without sciatica 01/29/2025 Orders Only GENERIC EXTERNAL DATA DEPARTMENT Provider, Generic External Data 01/28/2025 Orders Only GENERIC EXTERNAL DATA DEPARTMENT Provider, Generic External Data 01/23/[address] [facility] [address] [place] [address] Steven Agee MD 01/23/2025 Orders Only GENERIC EXTERNAL DATA DEPARTMENT Provider, Generic External Data 01/22/2025 11:00 AM EDT Clinical Support [facility] [address] [place] [address] Concetta Barker RN Long-term current use of benzodiazepine (Primary Dx); Chronic midline low back pain without sciatica 01/22/2025 Orders Only [facility] [address] [place] [address] Steven Agee MD 01/22/2025 Travel from Last 3 Months Immunizations Immunization Administration [...] 72 01/07/2025 8:57 AM EDT Temperature 36.2 C (97.1 F) 01/07/2025 8:57 AM EDT Respiratory Rate 20 01/07/2025 8:57 AM EDT [...] Description 05/20/2025 9:15 AM EDT Office Visit [facility] [address] [place] [address] Steven Agee MD [address] [place] [address] 07/09/2025 9:30 AM EST Clinical Support [facility] [address] [place] [address] Concetta Barker, QUIN [address] [place] [address] Health Maintenance Due Date Last Done Comments CT Colonography 1960 Dental Oral Exam 1960 Dental Prophylaxis 1960 Dental X-Ray: Bitewings 1960 Dental X-Ray: Full Mouth 1960 FIT DNA/Cologuard 1960 FIT 1960 FOBT 1960 Sigmoidoscopy 1960 Zoster Vaccines (1 of 2) 2008 COVID-19 Vaccine ( season) 2024 06/01/2022, 02/16/2022, 07/16/2021, Additional history exists Influenza Vaccine (#1) 2025 , 05/26/2022, 05/04/2021, Additional history exists Alcohol/Substance Use Screening 09/26/2025 [...] 05/23/2024, 05/17/2011 Hepatitis C Screening Completed 09/13/2022 Pneumococcal Vaccine: 50+ Years Completed 09/26/2024 HIB [...] Procedure Name Priority Date/Time Associated Diagnosis Comments XR KNEE 3 VIEWS LEFT Routine 02/10/2025 9:47 AM EDT BASIC METABOLIC PANEL, FASTING Routine 01/29/2025 5:27 AM EDT CBC WITH AUTO DIFFERENTIAL Routine 01/29/2025 5:27 AM EDT XR KNEE 1-2 VIEWS LEFT Routine 01/28/2025 11:49 AM EDT GROSS AND MICROSCOPIC LEVEL 4 Routine 01/28/2025 10:42 AM EDT HEMOGLOBIN + HEMATOCRIT Routine 01/28/2025 7:36 AM EDT TYPE AND SCREEN Routine 01/23/2025 9:36 AM EDT XR KNEE 3 VIEWS LEFT Routine 01/23/2025 8:42 AM EDT POCT ULICES-14 URINE DRUG SCREEN Routine 01/22/2025 11:16 AM EDT Chronic midline low back pain without sciatica DRUG MONITORING, BENZODIAZEPINES, QUANTITATIVE, URINE Routine 01/22/2025 12:00 AM EDT BI MAMMOGRAM SCREENING TOMOSYNTHESIS BILATERAL [...] Recently Relevant to Health Maintenance Results * XR Knee 3 Views Left (02/10/2025 9:47 AM EDT) Only the most recent of2 resultswithin the time period is included. Anatomical Region Laterality Modality Lower Extremities, Knee Left [facility] 02/10/2025 9:47 AM EDT Narrative 02/10/2025 12:38 PM EDT [facility] [address] [place] [address] Drive [address] [place] [address] XRay Report Signed Patient: Elsa Adkins MR#: [id number] : 1960 Acct:[id number] Age/Sex: 64 / F ADM Date: 02/10/25 Loc: ANNMARIE Attending Dr: Raz Izaguirre PA-C Ordering Physician: Raz Izaguirre PA-C Date of Service: 02/10/25 Procedure(s): XR knee LT 3V Accession Number(s): [id number] cc: Steven Rose MD; Raz Izaguirre PA-C EXAMINATION: XR KNEE, LEFT CLINICAL INFORMATION: M25.562 - Pain in left knee , postop total knee replacement COMPARISON: January 28, 2025 TECHNIQUE: AP bilateral standing, lateral, and sunrise view left knee FINDINGS: Bilateral total knee arthroplasty has been performed. Skin eb are still in place on the left. Soft tissue air has been resorbed the prior x-ray. A cemented femoral and tibial component remains anatomically aligned. There is no periprostatic fracture. Joint effusion is increased. XR/XR knee LT 3V IMPRESSION: Postoperative left knee after 3 compartment arthroplasty with persistent joint effusion and skin eb. 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 Note Donvilmainterpreter, Image - 02/10/2025 [facility] [address] [place] [address] Drive [address] [place] [address] XRay Report Signed Patient: Evette Adkins#: [id number] : 8Acct:[id number] Age/Sex: 64 / FADM Date: 02/10/25 Loc: HO.HOSX Attending Dr: Raz Izaguirre PA-C Ordering Physician: Raz Izaguirre PA-C Date of Service: 02/10/25 Procedure(s): XR knee LT 3V Accession Number(s): [id number] cc: Steven Rose MD; Raz Izaguirre PA-C EXAMINATION: XR KNEE, LEFT CLINICAL INFORMATION: M25.562 - Pain in left knee , postop total knee replacement COMPARISON: January 28, 2025 TECHNIQUE: AP bilateral standing, lateral, and sunrise view left knee FINDINGS: Bilateral total knee arthroplasty has been performed. Skin eb are still in place on the left. Soft tissue air has been resorbed the prior x-ray. A cemented femoral and tibial component remains anatomically aligned. There is no periprostatic fracture. Joint effusion is increased. XR/XR knee LT 3V IMPRESSION: Postoperative left knee after 3 compartment arthroplasty with persistent joint effusion and skin eb. Electronically signed by: David Ballard MD 02/10/2025 12:36 PM EDT RP Dictated By: David Ballard MD Signed By: <Electronically signed by David Ballard MD in OV> 02/10/25 1236 DD/ 0947 TD/TT: 02/10/25 1051 Text[employer] Machine Maintenance Mechanic: [facility] External Provider IMG XR PROCEDURES Edited Result - Final * (ABNORMAL) Basic Metabolic Panel, Fasting (01/29/2025 5:27 AM EDT) Sodium 140 135 - 145 mmol/L [facility] Potassium 4.2 3.3 - 5.1 mmol/L [facility] Chloride 106 96 - 108 mmol/L [facility] Carbon Dioxide 26 22 - 29 mmol/L [facility] Anion Gap 12 12 - 20 [facility] Urea Nitrogen (BUN) 20(H) 9 - 16 mg/dL [facility] Creatinine, Serum 0.71 0.5 - 1.4 mg/dL [facility] Creatinine Clr Calc Pharmacy 85.3 [facility] Comment:Provided height and weight: 162.56 cm,91.5 kg.eGFR (calculated from the MDRD study equation) and eCrCl(calculated from the Cockcroft-Gault equation) are based ondifferent parameters and may not yield comparable results.If eCrCl result is absurd, please check patient'sheight/weight. Estimated Glomerular Filt Rate >60 [facility] Comment:Chronic Kidney Disea se: Estimated GFR < 60 mL/min/[id number] Kidney Disease: Estimated GFR < 15 mL/min/1.73m2 Glucose Fasting 131(H) 60 - 99 mg/dL [facility] Comment:A fasting glucose of 126 mg/dl or greater on more than oneoccasion is considered diagnostic of diabetes. Calcium 9.4 8.4 - 10.2 mg/dL [facility] 01/29/2025 5:27 AM EDT 01/29/2025 6:13 AM EDT us Generic External Data Provider LAB BLOOD ORDERAB LES Final Result [facility] [address] [place] [address] [phone] * (ABNORMAL) CBC auto differential (01/29/2025 5:27 AM EDT) White Blood Count 10.2 4.8 - 10.8 X10*3/uL [facility] Red Blood Count 4.53 4.20 - 5.50 X10*6/uL [facility] Hemoglobin 11.9(L) 12.0 - 16.0 g/dl [facility] Hematocrit 36.3(L) 37.0 - 47.0 % [facility] Mean Corpuscular Volume 80.1 80.0 - 98.0 fL [facility] Mean Corpuscular Hemoglobin 26.3(L) 27.0 - 33.0 pg [facility] Mean Corpuscular HGB Conc 32.8 31.0 - 35.0 g/dl [facility] Red Cell Distribution Width 13.2 11.0 - 16.0 % [facility] Platelet Count 283 160 - 400 X10*3/uL [facility] Mean Platelet Volume 10.0 9.4 - 12.3 fL [facility] Neutrophils Percent Auto 83.9(H) 45 - 73 % [facility] Imm Gran Pct Auto 0.5(H) 0.0 - 0.4 % [facility] Lymphocytes Percent Auto 7.7(L) 20 - 40 % [facility] Monocytes Percent Auto 7.8 2 - 11 % [facility] Eosinophils Percent Auto 0.0 0 - 4 % [facility] Basophils Percent Auto 0.1 0 - 2 % [facility] NRBC Pct Auto 0.0 0.0 - 0.2 /100WBC [facility] Neutrophils Absolute Auto 8.6(H) 2.0 - 8.3 x10*3/uL [facility] Imm Gran Abs Auto 0.05(H) 0.00 - 0.03 X10*3/uL [facility] Lymphocytes Absolute Auto 0.8(L) 1.2 - 4.9 X10*3/uL [facility] Monocytes Absolute Auto 0.8 0.1 - 1.2 X10*3/uL [facility] Eosinophils Absolute Auto 0.0 0.0 - 0.4 X10*3/uL [facility] Basophils Absolute Auto 0.0 0.0 - 0.2 X10*3/uL [facility] NRBC Abs Auto 0.000 0.0 - 0.012 X10*3/uL [facility] 01/29/2025 5:27 AM EDT 01/29/2025 6:13 AM EDT us Generic External Data Provider LAB BLOOD ORDERAB LES Final Result Performing Organization Address City/State/[facility] Co de Phone Number [facility] [address] [place] [address] [phone] * XR Knee 1-2 Views Left (01/28/2025 11:49 AM EDT) Anatomical Region Laterality Modality Lower Extremities, Knee Left Radiogra phic Imaging 01/28/2025 11:4 9 AM EDT Narrative 01/28/2025 12:48 PM EDT [address] [address] XRay Report Signed Patient: Elsa Adkins MR#: [id number] : 1960 Acct:[id number] Age/Sex: 64 / F ADM Date: 01/28/25 Loc: HO.SSS Attending Dr: Flako Young MD Ordering Physician: Raz Izaguirre PA-C Date of Service: 01/28/25 Procedure(s): XR knee LT 2V Accession Number(s): [id number] cc: Steven Rose MD; Raz Izaguirre PA-C EXAMINATION: XR KNEE, LEFT CLINICAL INFORMATION: Follow-up post op total knee arthroplasty COMPARISON: January 23, 2025 TECHNIQUE: AP and lateral of the left knee. FINDINGS: New surgical eb are present anterior to the knee joint. There is associated soft tissue swelling. There is a knee joint effusion. Interval 3 compartment total knee arthroscopy has been performed. Hardware is aligned and intact. There is no periprosthetic fracture or lucency. Prior varus deformity has been corrected. XR/XR knee LT 2V IMPRESSION: Postoperative changes related to recent 3 compartment left knee arthroplasty. 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 FINDINGS: New surgical eb are present anterior to the knee joint. There is associated soft tissue swelling. There is a knee joint effusion. Interval 3 compartment total knee arthroscopy has been performed. Hardware is aligned and intact. There is no periprosthetic fracture or lucency. Prior varus deformity has been corrected. XR/XR knee LT 2V IMPRESSION: Postoperative changes related to recent 3 compartment left knee arthroplasty. 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: [facility] External Provider IMG XR PROCEDURES Final Result * Gross and Microscopic Level 4 (01/28/2025 10:42 AM EDT) 01/28/2025 10:4 2 AM EDT 01/28/2025 1:14 PM EDT [facility] - 01/30/2025 12:29 PM EDT ----- ------- Name: Prerna Adkinsdia Age/Sex: 64/F : 1960 Unit#: [id number] Attend Dr: Flako Young MD Re01/28/25 Status: [facility] Location: [facility] Disch: ----- ------- SPEC : [id number] RECD: 01/28/25 STATUS: DARRICK ALVAREZ NUM: [id number] KELLY: 01/28/[address] [facility] [address]: Flako Young MD ENTERED: 01/28/25 SP TYPE: Surgical OTHR DR: Steven Rose MD ORDERED: Gross Micro L4, Decal Diagnosis Bone, left knee, excision: Fragments of bone and hyaline cartilage with erosion and degenerative changes consistent with osteoarthritis. Clinical History Unilateral primary osteoarthritis, left knee Microscopic Description Microscopic sections reviewed. Material Received Bone left leg Gross Description Received in formalin labeled bone left knee are multiple irregular fragments and plates of lam, white-pink osteocartilaginous tissue ranging from 2.0-6.5 cm and aggregating 8.0 x 6.5 x 0.5-4.0 cm to include femoral condyles and tibial plateau components. The convex and concave articular surfaces are eroded, focally eburnated, lam-pink. Sectioning reveals dense, sclerotic, lam-yellow subarticular trabecular bone and bone marrow. Also received are a few irregular fragments of lam-yellow fibrocartilage and soft tissue aggregating 4.5 x 2.5 x 0.5-1.0 cm. Teacher Visually Impaired sections are submitted in a cassette labeled A1 following decalcification. [facility] IHC S/NG Disclaimer NOTE: Unless otherwise stated, all tissue is formalin-fixed and paraffin-embedded. Some or all of the immunohistochemical tests reported herein may have been developed and their performance characteristics determined by [facility]. They have not been cleared or approved by the U.S. Food and Drug Administration (FDA). However, the FDA has determined that such clearance or approval is not necessary. This laboratory is certified under the Clinical Laboratory Improvement Amendments of 1988 (CLIA) as qualified to perform high complexity clinical laboratory testing. CONTINUED ON NEXT PAGE ----- ------- Name: Elsa Adkins Age/Sex: 64/F : 1960 Unit#: [id number] Attend Dr: Flako Young MD Re01/28/25 Status: [facility] Location: [facility] Disch: ----- ------- SPEC : [id number] RECD: 01/28/25-131 STATUS: DARRICK ALVAREZ NUM: [id number] KELLY: 01/28/25-[address] [facility] [address]: Flako Young MD ENTERED: 01/28/25-1328 SP TYPE: Surgical OTHR DR: Steven Rose MD ORDERED: Gross Micro L4, Decal Copies To: Flako Young MD [facility] [place] [facility] [address] [place] [address] Dr [address] [place] [address] Steven Rose MD [address] [address] ----- ------- Signed (signature on file) Sue Beverly MD 01/30/25 1229 ----- ------- END OF REPORT Generic External Data Provider LAB CYTOLOGY ORDE RABLES Final Result Performing Organization Address [facility] de Phone Number [facility] [address] [place] [phone] * Hemoglobin and Hematocrit (01/28/2025 7:36 AM EDT) Hemoglobin 12.3 12.0 - 16.0 g/dl [facility] Hematocrit 37.6 37.0 - 47.0 % [facility] 01/28/2025 7:36 AM EDT 01/28/2025 7:47 AM EDT Generic External Data Provider LAB BLOOD ORDERAB LES Final Result Performing Organization Address [facility] de Phone Number [facility] [address] [place] [phone] * Type and screen (01/23/2025 9:36 AM EDT) Blood Type BP [facility] Antibody Screen NEGATIVE [facility] 01/23/2025 9:36 AM EDT 01/23/2025 9:51 AM EDT Narrative [facility] - 01/23/2025 10:32 AM EDT Spec expiration changed by AVERY on 01/23/25Reason: PATNURSING:Call Blood Bank (ext. [phone]) to band patient on admission.Type and Screen in effect until 2300 on 01/28/2025.Witnessed by MARION Generic External Data Provider LAB BLOOD BANK TE ST ORDERABLES Final Result Performing Organization Address [facility] de Phone Number [facility] [address] [place] [address] [phone] * POCT ULICES-14 Urine Drug Screen (01/22/2025 11:16 AM EDT) Oxycodone Screen, Urine Positive Urine Urine specimen obtained by clean catch procedure / Unknown 01/22/2025 11:16 AM EDT Concetta Leiva RN - 01/22/2025 11:16 AM EDT Lot# [id number] Exp: 06-27-26 Steven Dowling MD POINT OF CARE TEST EN TER/EDIT ORDERABLES Final Result * Drug Monitoring, Benzodiazepines, Quantitative, Urine (01/22/2025 12:00 AM EDT) Nordiazepam, GCMS Urine NEGATIVE [facility] Comment:REFERENCE RANGE: <50 ng/mL Oxazepam, GCMS Urine NEGATIVE [facility] Comment:REFERENCE RANGE: <50 ng/mL Lorazepam GCMS Urine NEGATIVE [facility] Comment:REFERENCE RANGE: <50 ng/mL Alprazolam, GCMS Urine NEGATIVE [facility] Comment:REFERENCE RANGE: <25 ng/mL Alphahydroxytriazolam , GCMS Ur NEGATIVE [facility] Comment:REFERENCE RANGE: <50 ng/mL Temazepam, GCMS Urine NEGATIVE [facility] Comment:REFERENCE RANGE: <50 ng/mL Alphahydroxymidazolam ,GCMS Ur NEGATIVE [facility] Comment:REFERENCE RANGE: <50 ng/mL Aminoclonazepam, GCMS Urine 40 [facility] Comment:REFERENCE RANGE: <25 ng/mL Flurazepam Metabolite,GCMS Ur NEGATIVE [facility] Comment:REFERENCE RANGE: <50 ng/mL Benzodiazepines Comments see note [facility] Comment:This drug testing is for medical treatment only. Analysiswas performed as non-forensic testing and these resultsshould be used only by healthcare providers to renderdiagnosis or treatment, or to monitor progress of medicalconditions.Benzodiazepines Notes:Aminoclonazepam detected is consistent with the use of thedrug Clonazepam.LDT Notes:Confirmation tests were developed and their analyticalperformance characteristics have been determined by [employer]. It has not been cleared orapproved by the FDA. This assay has been validated pursuantto the CLIA regulations and is used for clinical purposes.Healthcare Providers needing Interpretation assistance,please contact us at [phone] ( ) M-F,8am to 10pm ESTTHIS TEST PERFORMED AT:[employer] [place] [phone] DIRECTOR: ZULEIKA ROBERSON MD 01/22/2025 01/22/2025 us Steven Dowling MD LAB URINE ORDERABLES Final Result [facility] [address] [place] [phone] * BI Mammogram Screening Tomosynthesis Bilateral (11/14/2024 8:32 AM EDT) Anatomical Region Laterality Modality Breast Bilateral Mammography 11/14/2024 8:32 AM EDT Narrative 11/22/2024 1:40 PM EDT [address] 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 [address] Mammography Report Signed Patient: Niki AdkinsR#: [id number] : 8Acct:[id number] Age/Sex: 64 / FADM Date: 11/14/24 Loc: HO.MAMMO Attending Dr: Steven Rose MD Ordering Physician: Steven Rose MDResu lts: 1Negative Date of Service: 11/14/24Follow Up: 1 Year From Orig inal Mammogram Procedure(s): MM tomosynthesis screening BI Accession Number(s): [id number] cc: Steven Rose MD EXAMINATION: MM SCREENING [...] 11/22/24 1337 DD/ 0832 TD/TT: 11/14/24 0844 Textile Machine Maintenance Mechanic: us Steven Dowling MD IMG BI PROCEDURES Fin al Result * (ABNORMAL) Lipid Panel, Standard (05/23/2024 9:33 AM EDT) Triglycerides 166(H) <150 mg/dL [facility] Comment:Desirable Triglyceri de: less than 150 mg/dLBorderline High Triglyceride 150-199 mg/dLHigh Triglyceride: 200-499 mg/dLVery High Triglyceride: greater than or equal to 5OO mg/dL Cholesterol 257(H) <200 mg/dL [facility] Comment:Desirable Cholestero l: less than 200 mg/dLBorderline High Cholesterol: 200-239 mg/dLHigh Cholesterol: greater than 239 mg/dL LDL Cholesterol Calculated 170(H) <100 mg/dL [facility] Comment:Desirable LDL: less than 100 mg/dLNear Optimal/Above Optimal LDL: 110- 129 mg/dLBorderline High LDL: 130-159 mg/dLHigh LDL: 160-189 mg/dLVery High LDL: greater than or equal to 190 mg/dL HDL Cholesterol 54 >40 mg/dL [facility] Comment:Desirable HDL: great er than 40 mg/dL Note: This HDL assay may give artificially low results in patients with liver disease. Blood Venous blood specimen / Unknown 05/23/2024 9:33 AM EDT 05/23/2024 11:51 AM EDT Steven Dowling MD LAB BLOOD ORDERABLES Final Result [facility] [address] [place] [address] [phone] * Colonoscopy (11/08/2022 8:43 AM EDT) Colonoscopy Normal Normal Comment:Diverticulosis of th e left colon sigmoid, otherwise normal [facility] Provider HEALTH MAINTENANCE Final Result * Hepatitis C Antibody with Reflex to HCV, RNA, Quantitative, Real-Time PCR (09/13/2022 9:26 AM EST) Pathologist [facility] [place] Hepatitis C Antibody NON-REACT EZEKIEL NON-REACT EZEKIEL [facility] [place] [facility] Index 0.06 <1.00 [facility] [place] [facility] Comment: HCV antibody was non-reactive. There is no laboratory evidence of HCV infection. In most cases, no further action is required. However, if recent HCV exposure is suspected, a test for HCV RNA (test code 50545) is suggested. For additional information please refer to http://education.[employer]/faq/HQN24z7 (This link is being provided for informational/ educational purposes only.) Blood Venous blood specimen / Unknown 09/13/2022 9:26 AM EST 09/13/2022 9:26 AM EST Narrative [facility] - 09/13/2022 7:41 PM EST FASTING:YES FASTING: YES Steven Dowling MD LAB BLOOD ORDERABLES Final Result [address], [place] [address] [facility] [address] [facility], (Nl2) [place] [address] from Last 3 Months or Most Recently Relevant to Health Maintenance Insurance [facility] [employer] (O D-SNP) [place] [id number] [place] [address] Care Teams Core Dipper Relationship Specialty Start Date End Date Steven Agee MD [address] [place] [address] PCP - General Internal Medicine 06/05/14 [place] MAHONEY 01/30/25
--- OUTSIDE RECORDS SUMMARY | 2025-04-23 11:36 | XMS_ITS | Encounter Summary ---
Author Organization [employer] Address [address] [place] [address] 7t [place] [address] Care Team Providers Care Winery Worker Name Role Phone Steven Agee MD Primary Care Provide r Reason for Visit * Reason Onset Date Comments Appointment Request 12/18/2024 Encounter Details Date Type Department Care Team ([facility] st Contact Info) Description 12/18/2024 Telephone [facility] [address] [place], [place] [phone] Steven Agee MD 230 [place] [address] Appointment Request Social History Tobacco Use Types [...] get a appt Earlier. Contact py ay [phone] documented in this encounter Plan of Treatment Upcoming Encounters Date Type Department Care Team ([facility] st Contact Info) Description 05/20/2025 9:15 AM EDT Office Visit [facility] [address] [place] [address] Steven Agee MD 230 [place] [address] 07/09/2025 9:30 AM EST Clinical Support [facility] PEDS 505 [place] [address] Concetta Barker, QUIN 505 [place] [address] documented as of this encounter Visit Diagnoses Not on filedocumented in this encounter Additional Health Concerns Assessment Noted Time PHQ-9 Depression Total Score: 1 09/26/19 9:54 AM EST documented as of this encounter Care Teams Winery Worker Relationship Specialty Start Date End Date Steven Agee MD 230 [facility] [place] [address] PCP - General Internal Medicine 06/05/14 [place] MAHONEY 01/30/25 documented as of this encounter
--- OUTSIDE RECORDS SUMMARY | 2025-04-23 11:36 | XMS_ITS | Encounter Summary ---
Author Organization [employer] Address [address] [place] [address] 7 [place] [address] Care Team Providers Care Microchip Specialist Name Role Phone Steven Agee MD Primary Care Provide r Encounter Details Date Type Department Care Team (Late st Contact Info) Description 07/20/2022 Abstract [facility] MEDICINE [address] [place] [address] [phone] Steven Agee MD 230 [place] [address] Social History Tobacco Use Types Packs/Day Years [...] Department Care Team (Late Contact Info) Description 05/20/2025 9:15 AM EDT Office Visit [facility] MEDICINE [address] [place] [address] [phone] Steven Agee MD 230 [place], [place] [phone] 07/09/2025 9:30 AM EST Clinical Support [facility] MED & PEDS [address] [place], [place] [phone] Concetta Barker, QUIN 505 [place] [address] documented as of this encounter Procedures Procedure [...] on filedocumented in this encounter Care Teams Microchip Specialist Relationship Specialty Start Date End Date Steven Agee MD [address] [place] [address] PCP - General Internal Medicine 06/05/14 [place] MAHONEY 01/30/25 documented as of this encounter
--- OUTSIDE RECORDS SUMMARY | 2025-04-23 11:36 | XMS_ITS | Encounter Summary ---
Author Organization [employer] Address [address] [facility] 7t [place] [address] Care Team Providers Care Unix Manager Name Role Phone Steven Agee MD Primary Care Provide r Reason for Visit * Reason Comments Med Refill Encounter Details Date Type Department Care Team ([facility] st Contact Info) Description 06/08/2023 Refill [facility] MED[facility] [address] [place], [place] [phone] Name, MD Nolberto 230 [place] [address] Social History Tobacco Use Types Packs/Day Years [...] Description 05/20/2025 9:15 AM EDT Office Visit [facility] [address] [place] [address] Steven Agee MD [address] [place] [address] 07/09/2025 9:30 AM EST Clinical Support [facility]EDS 505 [place] [address] Concetta Barker, RN 505 [place] [address] documented as of this encounter Visit Diagnoses Not on filedocumented in this encounter Additional Health Concerns Assessment Noted Time PHQ-9 Depression Total Score: 0 08/11/20 9:10 AM EST documented as of this encounter Care Teams Unix Manager Relationship Specialty Start Date End Date Steven Agee MD [address] [place] [address] PCP - General Internal Medicine 06/05/14 [place] VAZQUEZA 01/30/25 documented as of this encounter
--- OUTSIDE RECORDS SUMMARY | 2025-04-23 11:36 | XMS_ITS | Encounter Summary ---
Author Organization [employer] Address [address] [place] [address] 7 [place] [address] Care Team Providers Care Poultry Debeaker Name Role Phone Steven Aege MD Primary Care Provide r Reason for Visit * Reason Onset Date Comments Med Refill 01/10/2025 Encounter Details Date Type Department Care Team (Late st Contact Info) Description 01/10/2025 Refill [facility] [address] [place] [address] Steven Agee MD 230 [place] [address] Depressive disorder Social History Tobacco Use Types [...] 0.5 MG tablet To be sent to: [id number] [place] [address] [facility] documented in this encounter Plan of Treatment Upcoming Encounters Date Type Department Care Team ([facility] st Contact Info) Description 05/20/2025 9:15 AM EDT Office Visit [facility] [address] [place] [address] Steven Agee MD 230 [place] [address] 07/09/2025 9:30 AM EST Clinical Support [facility]EDS 505 [place] [address] Concetta Barker, QUIN 505 [place] [address] documented as of this encounter Visit Diagnoses Diagnosis Depressive disorder Depressive disorder, not elsewhere classified documented in this encounter Additional Health Concerns Assessment Noted Time PHQ-9 Depression Total Score: 1 09/26/19 25 9:54 AM EST documented as of this encounter Care Teams Poultry Debeaker Relationship Specialty Start Date End Date Steven Agee MD 230 [place] [address] PCP - General Internal Medicine 06/05/14 [place] Deion 01/30/25 documented as of this encounter
--- OUTSIDE RECORDS SUMMARY | 2025-04-23 11:36 | XMS_ITS | Encounter Summary ---
Author Organization [employer] Address [address] [facility] 7 [place] [address] Care Team Providers Care Special Distribution Clerk Name Role Phone Steven Agee MD Primary Care Provide r Reason for Visit * Reason Onset Date Comments Med Refill 07/29/2024 Encounter Details Date Type Department Care Team ([facility] st Contact Info) Description 07/29/[address] [facility] 230 [place], [place] [phone] Steven Agee MD 230 [place] [address] Med Refill Social History Tobacco Use Types [...] 5-325 MG tablet To be sent to: [facility][id number] [place], [place] - [address] [facility] documented in this encounter Plan of Treatment Upcoming Encounters Date Type Department Care Team (Late st Contact Info) Description 05/20/2025 9:15 AM EDT Office [address] [facility] 230 [place] [address] Steven Agee MD 230 [place] [address] 07/09/2025 9:30 AM EST Clinical Support [facility]ED[facility] 505 [place] [address] Concetta Barker, QUIN 505 [place] [address] documented as of this encounter Visit Diagnoses Diagnosis Nausea and vomiting, unspecified vomiting type documented in this encounter Additional Health Concerns Assessment Noted Time PHQ-9 Depression Total Score: 0 08/11/20 9:10 AM EST documented as of this encounter Care Teams Special Distribution Clerk Relationship Specialty Start Date End Date Steven Agee MD 230 [facility] [place] [address] PCP - General Internal Medicine 06/05/14 [place] VAZQUEZA 01/30/25 documented as of this encounter
--- OUTSIDE RECORDS SUMMARY | 2025-04-23 11:36 | XMS_ITS | Encounter Summary ---
Author Organization [employer] Address [address] [facility] 7 [place] [address] Care Team Providers Care Student Ministries Director Name Role Phone Steven Agee MD Primary Care Provide r Reason for Visit * Reason Onset Date Comments Med Refill 03/28/2024 Encounter Details Date Type Department Care Team ([facility] st Contact Info) Description 03/28/2024 Telephone [facility]INE 230 [place], [place] [phone] Steven Agee MD 230 [place], [place] [phone] Med Refill Social History Tobacco Use Types [...] 5-325 MG tablet To be sent to: [facility] documented in this encounter Plan of Treatment Upcoming Encounters Date Type Department Care Team (Late st Contact Info) Description 05/20/2025 9:15 AM EDT Office Visit [facility] 230 [place] [address] Steven Agee MD 230 [place] [address] 07/09/2025 9:30 AM EST Clinical Support [facility] MED & PEDS 505 [place] [address] Concetta Barker, QUIN 505 [place] [address] documented as of this encounter Visit Diagnoses Not on filedocumented in this encounter Additional Health Concerns Assessment Noted Time PHQ-9 Depression Total Score: 0 08/11/20 9:10 AM EST documented as of this encounter Care Teams Student Ministries Director Relationship Specialty Start Date End Date Steven Agee MD [address] [place] [address] PCP - General Internal Medicine 06/05/14 [place] MAHONEY 01/30/25 documented as of this encounter
--- OUTSIDE RECORDS SUMMARY | 2025-04-23 11:36 | XMS_ITS | Encounter Summary ---
Author Organization [employer] Address [address] [facility] [address] 7t [place] [address] Care Team Providers Care Drying Tumbler Operator Name Role Phone Steven Agee MD Primary Care Provide r Reason for Visit * Reason Onset Date Comments Appointment 08/04/2022 Patient had appt yesterday and case was not in. Instructed to call in to today to check in if it has arrived. DR Encounter Details Date Type Department Care Team (Late st Contact Info) Description 08/04/2022 Telephone [facility] 230 [place] [address] Dental, Provider, DDS Appointment (Patient had appt [...] Description 05/20/2025 9:15 AM EDT Office Visit [facility] MEDICINE 230 [place] [address] Steven Agee MD 230 [place] [address] 07/09/2025 9:30 AM EST Clinical Support [facility] MED & PEDS 505 [place] [address] Concetta Barker, RN 505 [place] [address] documented as of this encounter Visit Diagnoses Not on filedocumented in this encounter Care Teams Drying Tumbler Operator Relationship Specialty Start Date End Date Steven Agee MD 230 [place] [address] PCP - General Internal Medicine 06/05/14 [place] VAZQUEZA 01/30/25 documented as of this encounter
--- OUTSIDE RECORDS SUMMARY | 2025-04-23 11:36 | XMS_ITS | Encounter Summary ---
Author Organization [employer] Address [address] [facility] 7t [place] [address] Care Team Providers Care Preassembler Printed Circuit Board Name Role Phone Steven Agee MD Primary Care Provide r Reason for Visit * Reason Onset Date Comments Med Refill 06/27/2023 Encounter Details Date Type Department Care Team ([facility] st Contact Info) Description 06/27/2023 Telephone [facility]ICINE [address] [place] [address] Steven Agee MD 230 [place], [place] [phone] Med Refill Social History Tobacco Use Types [...] Description 05/20/2025 9:15 AM EDT Office Visit [facility] MEDICINE [address] [place] [address] Steven Agee MD 230 [place] [address] 07/09/2025 9:30 AM EST Clinical Support [facility] 505 [place] [address] Concetta Barker, QUIN 505 [place] [address] documented as of this encounter Visit Diagnoses Not on filedocumented in this encounter Additional Health Concerns Assessment Noted Time PHQ-9 Depression Total Score: 0 08/11/20 9:10 AM EST documented as of this encounter Care Teams Preassembler Printed Circuit Board Relationship Specialty Start Date End Date Steven Agee MD [address] [place] [address] PCP - General Internal Medicine 06/05/14 [place] MAHONEY 01/30/25 documented as of this encounter
--- OUTSIDE RECORDS SUMMARY | 2025-04-23 11:36 | XMS_ITS | Encounter Summary ---
Author Organization [employer] Address [address] [facility] 7t [place] [address] Care Team Providers Care Customs Officer Name Role Phone Steven Agee MD Primary Care Provide r Reason for Visit * Reason Comments Med Refill Encounter Details Date Type Department Care Team ([facility] st Contact Info) Description 03/02/[address] [facility] MEDICINE [address] [place], [place] [phone] Steven Agee MD 230 [place], [place] [phone] Chronic midline low back pain without sciatica [...] 05/20/2025 9:15 AM EDT Office Visit [facility] MEDICINE 230 [place] [address] Steven Agee MD 230 [place] [address] 07/09/2025 9:30 AM EST Clinical Support [facility]EDS 505 [place] [address] Concetta Barker, RN 505 [place] [address] documented as of this encounter Visit Diagnoses Diagnosis Chronic midline low back pain without sciatica documented in this encounter Additional Health Concerns Assessment Noted Time PHQ-9 Depression Total Score: 1 09/26/19 9:54 AM EST documented as of this encounter Care Teams Customs Officer Relationship Specialty Start Date End Date Steven Agee MD [address] [place] [address] PCP - General Internal Medicine 06/05/14 [place] A 01/30/25 documented as of this encounter
--- OUTSIDE RECORDS SUMMARY | 2025-04-23 11:36 | XMS_ITS | Encounter Summary ---
Author Organization [employer] Address [address] [place] [address] 7 [place] [address] Care Team Providers Care Staple Fiber Washer Name Role Phone Steven Agee MD Primary Care Provide r Reason for Visit * Reason Onset Date Comments Med Refill 02/05/2025 Encounter Details Date Type Department Care Team ([facility] st Contact Info) Description 02/05/2025 Telephone [facility] MEDICINE 230 [place], [place] [phone] Steven Agee MD 230 [place], [place] [phone] Med Refill Social History Tobacco Use Types [...] encounter Miscellaneous Notes * Telephone Encounter - Lilly Warren - 02/05/2025 9:20 AM EDT TC from pt requesting medication refill. Medications needing refill : oxyCODONE-acetaminophen (Percocet) 5-325 MG tablet To be sent to: [facility][id number] [place] - [address] [facility] documented in this encounter Plan of Treatment Upcoming Encounters Date Type Department Care Team (Late st Contact Info) Description 05/20/2025 9:15 AM EDT Office Visit [facility] [address] [place] [address] Steven Agee MD 230 [place] [address] 07/09/2025 9:30 AM EST Clinical Support [facility]EDS 505 [place] [address] Concetta Barker, QUIN 505 [place] [address] documented as of this encounter Visit Diagnoses Not on filedocumented in this encounter Additional Health Concerns Assessment Noted Time PHQ-9 Depression Total Score: 1 09/26/19 9:54 AM EST documented as of this encounter Care Teams Staple Fiber Washer Relationship Specialty Start Date End Date Steven Agee MD 230 [facility] [place] [address] PCP - General Internal Medicine 06/05/14 [place] MAHONEY 01/30/25 documented as of this encounter
--- OUTSIDE RECORDS SUMMARY | 2025-04-23 11:37 | XMS_ITS | Encounter Summary ---
Author Organization [employer] Address [address] [facility] 7t [place] [address] Care Team Providers Care Environmental Services Lead Name Role Phone Steven Agee MD Primary Care Provide r Reason for Visit * Reason Comments Med Refill Encounter Details Date Type Department Care Team ([facility] st Contact Info) Description 04/23/2025 Refill [facility]EDS [address] [place], [place] [phone] Steven Agee MD 230 [place] [address] Social History Tobacco Use Types Packs/Day Years [...] is your housing situation today? I have juanori peraza 09/13/[address] you [...] Visit [facility] MED[facility] 230 [place] [address] Steven Agee MD 230 [place] [address] 07/09/2025 9:30 AM EST Clinical Support [facility]S 505 [place] [address] Concetta Barker, RN 505 [place] [address] documented as of this encounter Visit Diagnoses Not on filedocumented in this encounter Additional Health Concerns Assessment Noted Time PHQ-9 Depression Total Score: 1 09/26/19 9:54 AM EST documented as of this encounter Care Teams Environmental Services Lead Relationship Specialty Start Date End Date Steven Agee MD [address] [place] [address] PCP - General Internal Medicine 06/05/14 [place] VAZQUEZA 01/30/25 documented as of this encounter
--- OUTSIDE RECORDS SUMMARY | 2025-04-23 11:37 | XMS_ITS | Encounter Summary ---
Author Organization [employer] Address [address] [place] [address] 7t [place] [address] Care Team Providers Care Divisional Human Resources Director Name Role Phone Steven Agee MD Primary Care Provide r Reason for Visit * Reason Comments Med Refill Encounter Details Date Type Department Care Team ([facility] st Contact Info) Description 01/03/2023 Refill [facility] 230 [place], [place] [phone] Steven Agee MD 230 [place] [address] Chronic midline low back pain without sciatica [...] Description 05/20/2025 9:15 AM EDT Office Visit [facility] 230 [place] [address] Steven Agee MD 230 [place] [address] 07/09/2025 9:30 AM EST Clinical Support [facility] 505 [place] [address] Concetta Barker, RN 505 [place] [address] documented as of this encounter Visit Diagnoses Diagnosis Chronic midline low back pain without sciatica documented in this encounter Additional Health Concerns Assessment Noted Time PHQ-9 Depression Total Score: 0 08/11/20 9:10 AM EST documented as of this encounter Care Teams Divisional Human Resources Director Relationship Specialty Start Date End Date Steven Agee MD 230 [place] [address] PCP - General Internal Medicine 06/05/14 [place] MAHONEY 01/30/25 documented as of this encounter
--- OUTSIDE RECORDS SUMMARY | 2025-04-23 11:37 | XMS_ITS | Encounter Summary ---
Author Organization [employer] Address [address] [facility] 7t [place] [address] Care Team Providers Care Science Consultant Name Role Phone Steven Agee MD Primary Care Provide r Reason for Visit * Reason Comments Med Refill Encounter Details Date Type Department Care Team ([facility] st Contact Info) Description 08/01/2023 Refill [facility] MEDICINE 230 [place], [place] [phone] Steven Agee MD 230 [place], [place] [phone] Nausea and vomiting, unspecified vomiting type Social [...] Description 05/20/2025 9:15 AM EDT Office Visit [facility] MED[facility]INE 230 [place] [address] Steven Agee MD 230 [place] [address] 07/09/2025 9:30 AM EST Clinical Support [facility] 505 [place] [address] Concetta Barker, QUIN 505 [place] [address] documented as of this encounter Visit Diagnoses Diagnosis Nausea and vomiting, unspecified vomiting type documented in this encounter Additional Health Concerns Assessment Noted Time PHQ-9 Depression Total Score: 0 08/11/20 9:10 AM EST documented as of this encounter Care Teams Science Consultant Relationship Specialty Start Date End Date Steven Agee MD [address] [place] [address] PCP - General Internal Medicine 06/05/14 [place] VAZQUEZA 01/30/25 documented as of this encounter
--- OUTSIDE RECORDS SUMMARY | 2025-04-23 11:37 | XMS_ITS | Encounter Summary ---
Author Organization [employer] Address [address] [facility] 7t [place] [address] Care Team Providers Care Electric Wirer Name Role Phone Steven Agee MD Primary Care Provide r Reason for Visit * Reason Comments Med Refill Encounter Details Date Type Department Care Team ([facility] st Contact Info) Description 07/21/2023 Refill [facility] 230 [place], [place] [phone] Name, MD Nolberto 230 [place] [address] Hypertension, unspecified type Social History Tobacco Use [...] Office Visit [facility] MED[facility] 230 [place] [address] Steven Agee MD 230 [place] [address] 07/09/2025 9:30 AM EST Clinical Support [facility] 505 [place] [address] Concetta Barker, QUIN 505 [place] [address] documented as of this encounter Visit Diagnoses Diagnosis Hypertension, unspecified type documented in this encounter Additional Health Concerns Assessment Noted Time PHQ-9 Depression Total Score: 0 08/11/20 9:10 AM EST documented as of this encounter Care Teams Electric Wirer Relationship Specialty Start Date End Date Steven Agee MD [address] [place] [address] PCP - General Internal Medicine 06/05/14 [place] VAZQUEZA 01/30/25 documented as of this encounter
--- OUTSIDE RECORDS SUMMARY | 2025-04-23 11:37 | XMS_ITS | Encounter Summary ---
Author Organization [employer] Address [address] [facility] 7t [place] [address] Care Team Providers Care Security Orderly Name Role Phone Steven Agee MD Primary Care Provide r Reason for Visit * Reason Onset Date Comments re sent script 06/07/2023 Encounter Details Date Type Department Care Team ([facility] st Contact Info) Description 06/07/2023 Telephone [facility] MEDICINE 230 [place] [address] Steven Agee MD 230 [place] [address] re sent script Social History Tobacco Use [...] 8:53 AM EDT Medication was sent to [facility] on 06/08/23. * Telephone Encounter - Isabela Yañez LPN - 06/07/2023 3:54 PM EDT CRIME SCENE EXAMINER checked 06/07/23. Last filled 04/28/23. * Telephone Encounter - Paulina Mancini - 06/07/2023 3:47 PM EDT TC from pt requesting to re sent script of zolpidem (Ambien) 10 MG tablet to [facility] due to ptnot have insurance and here its going to be navarrete gee and cheaper than [facility]. PCP DR. Connelly * Telephone Encounter - Paulina Mancini - 06/07/2023 3:41 PM EDT TC from pt requesting to re sent script oxyCODONE-acetaminophen (Percocet) 5-325 MG tablet to [facility] due to pt not have insurance and here its going to be navarrete gee and cheaper than [facility]. PCP DR. Connelly documented in this encounter Plan of Treatment Upcoming Encounters Date Type Department Care Team (Late st Contact Info) Description 05/20/2025 9:15 AM EDT Office Visit [facility] MEDICINE 230 [place] [address] Steven Agee MD 230 [place] [address] 07/09/2025 9:30 AM EST Clinical Support [facility] 505 [place], [place] [phone] Concetta Barker, RN 505 [place] [address] documented as of this encounter Visit Diagnoses Diagnosis Depressive disorder Depressive disorder, not elsewhere classified documented in this encounter Additional Health Concerns Assessment Noted Time PHQ-9 Depression Total Score: 0 08/11/20 9:10 AM EST documented as of this encounter Care Teams Security Orderly Relationship Specialty Start Date End Date Steven Agee MD 230 [place] [address] PCP - General Internal Medicine 06/05/14 [place] MAHONEY 01/30/25 documented as of this encounter
--- OUTSIDE RECORDS SUMMARY | 2025-04-23 11:37 | XMS_ITS | Encounter Summary ---
Author Organization [employer] Address [address] [place] [address] 7 [place] [address] Care Team Providers Care Printed Circuit Boards Inspector Name Role Phone Steven Agee MD Primary Care Provide r Reason for Visit * Reason Onset Date Comments Med Refill 02/22/2023 Encounter Details Date Type Department Care Team ([facility] st Contact Info) Description 02/22/2023 Telephone [facility] MEDICINE 230 [place] [address] Steven Agee MD 230 [place] [address] Med Refill Social History Tobacco Use Types [...] Description 05/20/2025 9:15 AM EDT Office Visit [facility] MEDICINE 230 [place] [address] Steven Agee MD 230 [place] [address] 07/09/2025 9:30 AM EST Clinical Support [facility]S 505 [place], [place] [phone] Concetta Barker, RN 505 [place], [place] [phone] documented as of this encounter Visit Diagnoses Not on filedocumented in this encounter Additional Health Concerns Assessment Noted Time PHQ-9 Depression Total Score: 0 08/11/20 9:10 AM EST documented as of this encounter Care Teams Printed Circuit Boards Inspector Relationship Specialty Start Date End Date Steven Agee MD 230 [place] [address] PCP - General Internal Medicine 06/05/14 [place] VAZQUEZA 01/30/25 documented as of this encounter
--- OUTSIDE RECORDS SUMMARY | 2025-04-23 11:37 | XMS_ITS | Encounter Summary ---
Author Organization [employer] Address [address] [place] [address] 7 [place] [address] Care Team Providers Care Dispatch Clerk Name Role Phone Steven Agee MD Primary Care Provide r Reason for Visit * Reason Onset Date Comments Med Refill 02/28/2024 Encounter Details Date Type Department Care Team ([facility] st Contact Info) Description 02/28/2024 Telephone [facility] 230 [place], [place] [phone] Steven Agee MD 230 [place], [place] [phone] Med Refill Social History Tobacco Use Types [...] 5-325 MG tablet To be sent to: [facility][id number] [place], [place] - [address] [facility] documented in this encounter Plan of Treatment Upcoming Encounters Date Type Department Care Team ([facility] st Contact Info) Description 05/20/2025 9:15 AM EDT Office Visit [facility] 230 [place] [address] Steven Agee MD 230 [place] [address] 07/09/2025 9:30 AM EST Clinical Support [facility] 505 [place] [address] Concetta Barker, RN 505 [place] [address] documented as of this encounter Visit Diagnoses Not on filedocumented in this encounter Additional Health Concerns Assessment Noted Time PHQ-9 Depression Total Score: 0 08/11/20 9:10 AM EST documented as of this encounter Care Teams Dispatch Clerk Relationship Specialty Start Date End Date Steven Agee MD 230 [place] [address] PCP - General Internal Medicine 06/05/14 [place] VAZQUEZA 01/30/25 documented as of this encounter
--- OUTSIDE RECORDS SUMMARY | 2025-04-23 11:37 | XMS_ITS | Encounter Summary ---
Author Organization [employer] Address [address] [place] [address] 7 [place] [address] Care Team Providers Care Rolfer Name Role Phone Steven Agee MD Primary Care Provide r Encounter Details Date Type Department Care Team (Late st Contact Info) Description 11/04/2022 Abstract [facility] MEDICINE [address] [place] [address] [phone] Steven Agee MD [address] [place] [address] [phone] Social History Tobacco Use Types Packs/Day Years [...] 9:15 AM EDT Office Visit [facility] MEDICINE [address] [place] [address] [phone] Steven Agee MD [address] [place] [address] [phone] 07/09/2025 9:30 AM EST Clinical Support [facility]S 505 [place] [address] Concetta Barker, RN 505 [place] [address] documented as of this encounter Visit Diagnoses Not on filedocumented in this encounter Additional Health Concerns Assessment Noted Time PHQ-9 Depression Total Score: 0 08/11/20 9:10 AM EST documented as of this encounter Care Teams Rolfer Relationship Specialty Start Date End Date Steven Agee MD 230 [place] [address] PCP - General Internal Medicine 06/05/14 [place] MAHONEY 01/30/25 documented as of this encounter
--- OUTSIDE RECORDS SUMMARY | 2025-04-23 11:37 | XMS_ITS | Encounter Summary ---
Author Organization [employer] Address [address] [facility] 7t [place] [address] Care Team Providers Care Marble Ceiling Installer Name Role Phone Steven Agee MD Primary Care Provide r Reason for Visit * Reason Comments Med Refill Encounter Details Date Type Department Care Team ([facility] st Contact Info) Description 01/18/2024 Refill [facility] MEDICINE 230 [place], [place] [phone] Steven Agee MD 230 [place], [place] [phone] Depressive disorder Social History Tobacco Use Types [...] [facility] 230 [place] [address] Steven Agee MD 230 [place] [address] 07/09/2025 9:30 AM EST Clinical Support [facility]EDS 505 [place] [address] Concetta Barker, RN 505 [place] [address] documented as of this encounter Visit Diagnoses Diagnosis Depressive disorder Depressive disorder, not elsewhere classified documented in this encounter Additional Health Concerns Assessment Noted Time PHQ-9 Depression Total Score: 0 08/11/20 9:10 AM EST documented as of this encounter Care Teams Marble Ceiling Installer Relationship Specialty Start Date End Date Steven Agee MD [address] [place] [address] PCP - General Internal Medicine 06/05/14 [place] VAZQUEZA 01/30/25 documented as of this encounter
--- OUTSIDE RECORDS SUMMARY | 2025-04-23 11:37 | XMS_ITS | Encounter Summary ---
Author Organization [employer] Address 75 [facility] 7 [place] [address] Care Team Providers Care Marine Engineer Cpvec Name Role Phone Steven Agee MD Primary Care Provide r Reason for Visit * Reason Onset Date Comments Appointment Request 01/19/2024 Encounter Details Date Type Department Care Team ([facility] st Contact Info) Description 01/19/2024 Telephone [facility] MEDICINE 230 [place], [place] [phone] Steven Agee MD 230 [place] [address] Appointment Request Social History Tobacco Use Types [...] Miscellaneous Notes * Telephone Encounter - Rosita Muhkerjee - 01/19/2024 9:30 AM EDT Tc from pt requesting appt with PCP stated insurance is giving her a hard time. documented in this encounter Plan of Treatment Upcoming Encounters Date Type Department Care Team (Late st Contact Info) Description 05/20/2025 9:15 AM EDT Office Visit [facility] MEDICINE 230 [place] [address] Steven Agee MD 230 [place] [address] 07/09/2025 9:30 AM EST Clinical Support [facility] 505 [place] [address] Concetta Barker, QUIN 505 [place] [address] documented as of this encounter Visit Diagnoses Not on filedocumented in this encounter Additional Health Concerns Assessment Noted Time PHQ-9 Depression Total Score: 0 08/11/20 9:10 AM EST documented as of this encounter Care Teams Marine Engineer Cpvec Relationship Specialty Start Date End Date Steven Agee MD [address] [place] [address] PCP - General Internal Medicine 06/05/14 [place] MAHONEY 01/30/25 documented as of this encounter
--- OUTSIDE RECORDS SUMMARY | 2025-04-23 11:37 | XMS_ITS | Encounter Summary ---
Author Organization [employer] Address [address] [facility] 7 [place] [address] Care Team Providers Care Grinder Set Up Operator Jig Name Role Phone Steven Agee MD Primary Care Provide r Reason for Visit * Reason Onset Date Comments Med Refill 01/01/2024 Encounter Details Date Type Department Care Team ([facility] st Contact Info) Description 01/01/2024 Telephone [facility] MEDICINE 230 [place], [place] [phone] Steven Agee MD 230 [place], [place] [phone] Med Refill Social History Tobacco Use Types [...] 10 MG tablet To be sent to: [facility] #[id number] [place] - [address] [facility] documented in this encounter Plan of Treatment Upcoming Encounters Date Type Department Care Team (Late st Contact Info) Description 05/20/2025 9:15 AM EDT Office Visit [facility] MEDICINE 230 [place] [address] Steven Agee MD 230 [place] [address] 07/09/2025 9:30 AM EST Clinical Support [facility]EDS 505 [place] [address] Concetta Barker, QUIN 505 [place] [address] documented as of this encounter Visit Diagnoses Not on filedocumented in this encounter Additional Health Concerns Assessment Noted Time PHQ-9 Depression Total Score: 0 08/11/20 22 9:10 AM EST documented as of this encounter Care Teams Grinder Set Up Operator Jig Relationship Specialty Start Date End Date Steven Agee MD 230 [place] [address] PCP - General Internal Medicine 06/05/14 [place] MAHONEY 01/30/25 documented as of this encounter
--- OUTSIDE RECORDS SUMMARY | 2025-04-23 11:37 | XMS_ITS | Encounter Summary ---
Author Organization [employer] Address 75 [facility] 7 [place] [address] Care Team Providers Care Twisting Machine Operator Name Role Phone Steven Agee MD Primary Care Provide r Reason for Visit * Reason Onset Date Comments Med Refill 02/01/2024 Encounter Details Date Type Department Care Team ([facility] st Contact Info) Description 02/01/2024 Telephone [facility] MEDICINE 230 [place], [place] [phone] Steven Agee MD 230 [place], [place] [phone] Med Refill Social History Tobacco Use Types [...] 5-325 MG tablet To be sent to: [email or web address] #[id number] [place], [place] - [address] [place] [address] AT [facility] documented in this encounter Plan of Treatment Upcoming Encounters Date Type Department Care Team ([facility] st Contact Info) Description 05/20/2025 9:15 AM EDT Office Visit [facility] MEDICINE 230 [place] [address] Steven Agee MD 230 [place] [address] 07/09/2025 9:30 AM EST Clinical Support [facility] 505 [place] [address] Concetta Barker, RN 505 [place] [address] documented as of this encounter Visit Diagnoses Not on filedocumented in this encounter Additional Health Concerns Assessment Noted Time PHQ-9 Depression Total Score: 0 08/11/20 9:10 AM EST documented as of this encounter Care Teams Twisting Machine Operator Relationship Specialty Start Date End Date Steven Agee MD 230 [place] [address] PCP - General Internal Medicine 06/05/14 [place] VAZQUEZA 01/30/25 documented as of this encounter
--- OUTSIDE RECORDS SUMMARY | 2025-04-23 11:37 | XMS_ITS | Encounter Summary ---
Author Organization [employer] Address [address] [place] [address] 7 [place] [address] Care Team Providers Care Upholstery Bundler Name Role Phone Steven Agee MD Primary Care Provide r Reason for Visit * Reason Comments Med Refill Encounter Details Date Type Department Care Team (Late st Contact Info) Description 10/25/2022 Refill [facility] MEDICINE 230 [place] [address] Steven Agee MD 230 [place], [place] [phone] Depressive disorder Social History Tobacco Use Types [...] Description 05/20/2025 9:15 AM EDT Office Visit [facility] MEDICINE [address] [place] [address] Steven Agee MD 230 [place] [address] 07/09/2025 9:30 AM EST Clinical Support [facility]EDS 505 [place] [address] Concetta Barker, RN 505 [place] [address] documented as of this encounter Visit Diagnoses Diagnosis Depressive disorder Depressive disorder, not elsewhere classified documented in this encounter Additional Health Concerns Assessment Noted Time PHQ-9 Depression Total Score: 0 08/11/20 9:10 AM EST documented as of this encounter Care Teams Upholstery Bundler Relationship Specialty Start Date End Date Steven Agee MD 230 [place] [address] PCP - General Internal Medicine 06/05/14 [place] VAZQUEZA 01/30/25 documented as of this encounter
--- OUTSIDE RECORDS SUMMARY | 2025-04-23 11:37 | XMS_ITS | Encounter Summary ---
Author Organization [employer] Address [address] [place] [address] 7 [place] [address] Care Team Providers Care Poultry Farmer Meat Name Role Phone Steven Agee MD Primary Care Provide r Reason for Visit * Reason Onset Date Comments Med Refill 04/09/2025 Encounter Details Date Type Department Care Team ([facility] st Contact Info) Description 04/09/2025 Telephone [facility] MEDICINE 230 [place] [address] Steven Agee MD 230 [place] [address] Med Refill Social History Tobacco Use Types [...] encounter Miscellaneous Notes * Telephone Encounter - Fannie Sandoval - 04/09/2025 9:10 AM EDT TC from pt requesting medication refill. Medications needing refill : oxyCODONE-acetaminophen (Percocet) 5-325 MG tablet To be sent to: [id number] - [place] - [address] [facility] documented in this encounter Plan of Treatment Upcoming Encounters Date Type Department Care Team (Late st Contact Info) Description 05/20/2025 9:15 AM EDT Office Visit [facility] MEDICINE 230 [place] [address] Steven Agee MD 230 [place] [address] 07/09/2025 9:30 AM EST Clinical Support [facility] MED [facility] PEDS 505 [place] [address] Concetta Barker, QUIN 505 [place] [address] documented as of this encounter Visit Diagnoses Not on filedocumented in this encounter Additional Health Concerns Assessment Noted Time PHQ-9 Depression Total Score: 1 09/26/19 25 9:54 AM EST documented as of this encounter Care Teams Poultry Farmer Meat Relationship Specialty Start Date End Date Steven Agee MD [address] [place] [address] PCP - General Internal Medicine 06/05/14 [place] Deion 01/30/25 documented as of this encounter
--- OUTSIDE RECORDS SUMMARY | 2025-04-23 11:37 | XMS_ITS | Encounter Summary ---
Author Organization [employer] Address [address] [place] [address] 7t [place] [address] Care Team Providers Care Dish Machine Operator Name Role Phone Steven Agee MD Primary Care Provide r Reason for Visit * Reason Comments Med Refill Encounter Details Date Type Department Care Team ([facility] st Contact Info) Description 02/09/2023 Refill [facility] MEDICINE 230 [place], [place] [phone] Steven Agee MD 230 [place] [address] Nausea and vomiting, unspecified vomiting type Social [...] Description 05/20/2025 9:15 AM EDT Office Visit [facility] MEDICINE 230 [place] [address] Steven Agee MD 230 [place] [address] 07/09/2025 9:30 AM EST Clinical Support [facility]EDS 505 [place] [address] Concetta Barker, QUIN 505 [place] [address] documented as of this encounter Visit Diagnoses Diagnosis Nausea and vomiting, unspecified vomiting type documented in this encounter Additional Health Concerns Assessment Noted Time PHQ-9 Depression Total Score: 0 08/11/20 9:10 AM EST documented as of this encounter Care Teams Dish Machine Operator Relationship Specialty Start Date End Date Steven Agee MD 230 [place] [address] PCP - General Internal Medicine 06/05/14 [place] MAHONEY 01/30/25 documented as of this encounter
== END 2025-04-23 12:17 | disposition home or self-care (01) ==
LOC: HO.HCS 10:43
PROVIDERS: PCP Internal Medicine; Visit Provider Internal Medicine Cardiovascular Disease
DX: R94.31 Abnormal electrocardiogram [ECG] [EKG] (principal)
CPT/HCPCS: 99214

== ENCOUNTER → 2025-04-23 10:43 | Outpatient (BNVA) | payer OTHER, SELFPAY | PROVIDERS: PCP Internal Medicine; Visit Provider Internal Medicine Cardiovascular Disease | DX: R94.31 Abnormal electrocardiogram [ECG] [EKG] (principal) | CPT/HCPCS: 99212 ==

== ENCOUNTER 2025-04-24 08:00 | Outpatient (AMB) | payer OTHER, SELFPAY ==
--- OUTSIDE RECORDS SUMMARY | 2025-04-24 08:10 | XMS_ITS | Encounter Summary ---
Author Organization [employer] Address [address] [place] [address] 7 [place] [address] Care Team Providers Care Demand Planner Name Role Phone Steven Agee MD Primary Care Provide r Reason for Visit * Reason Onset Date Comments Med Refill 01/10/2025 Encounter Details Date Type Department Care Team (Late st Contact Info) Description 01/10/[address] [facility] MEDICINE 230 [place] [address] Steven Agee MD 230 [place] [address] Depressive disorder Social History Tobacco Use Types [...] 0.5 MG tablet To be sent to: [facility] #[id number] [place] - [address] [facility] documented in this encounter Plan of Treatment Upcoming Encounters Date Type Department Care Team ([facility] st Contact Info) Description 05/20/2025 9:15 AM EDT Office Visit [facility] MEDICINE 230 [place] [address] Steven Agee MD 230 [place] [address] 07/09/2025 9:30 AM EST Clinical Support [facility]S 505 [place] [address] Concetta Barker, QUIN 505 [place] [address] documented as of this encounter Visit Diagnoses Diagnosis Depressive disorder Depressive disorder, not elsewhere classified documented in this encounter Additional Health Concerns Assessment Noted Time PHQ-9 Depression Total Score: 1 09/26/19 25 9:54 AM EST documented as of this encounter Care Teams Demand Planner Relationship Specialty Start Date End Date Steven Agee MD 230 [place] [address] PCP - General Internal Medicine 06/05/14 [place] Deion 01/30/25 documented as of this encounter
--- OUTSIDE RECORDS SUMMARY | 2025-04-24 08:10 | XMS_ITS | Encounter Summary ---
Author Organization [employer] Address [address] [place] [address] Care Team Providers Care Lens Polisher Name Role Phone Steven Agee MD Primary Care Provide r Encounter Details Date Type Department Care Team ([facility] st Contact Info) Description 12/18/2024 Telephone [facility] [address] [place], [place] [phone] Steven Agee MD [address] [place], [place] [phone] Social History Tobacco Use Types Packs/Day Years [...] Description 05/20/2025 9:15 AM EDT Office Visit [facility] [address] [place] [address] Steven Agee MD [address] [place] [address] 07/09/2025 9:30 AM EST Clinical Support [facility] [address] [place] [address] Concetta Barker, RN [address] [place] [address] documented as of this encounter Visit Diagnoses Not on filedocumented in this encounter Additional Health Concerns Assessment Noted Time PHQ-9 Depression Total Score: 1 09/26/19 9:54 AM EST documented as of this encounter Care Teams Lens Polisher Relationship Specialty Start Date End Date Steven Agee MD [address] [place] [address] PCP - General Internal Medicine 06/05/14 [place] VAZQUEZA 01/30/25 documented as of this encounter
--- OUTSIDE RECORDS SUMMARY | 2025-04-24 08:10 | XMS_ITS | Encounter Summary ---
Author Organization [employer] Address [address] [place] [address] [address] [place] [address] Care Team Providers Care Box Spinner Name Role Phone Steven Agee MD Primary Care Provide r Reason for Visit * Reason Onset Date Comments Appointment Request 12/18/2024 Encounter Details Date Type Department Care Team ([facility] st Contact Info) Description 12/18/2024 Telephone [facility] [address] [place], [place] [phone] Steven Agee MD [address] [place] [address] Appointment Request Social History Tobacco Use Types [...] get a appt Earlier. Contact py ay [phone] documented in this encounter Plan of Treatment Upcoming Encounters Date Type Department Care Team ([facility] st Contact Info) Description 05/20/2025 9:15 AM EDT Office Visit [facility] [address] [place] [address] Steven Agee MD [address] [place] [address] 07/09/2025 9:30 AM EST Clinical Support [facility] [address] [place] [address] Concetta Barker, QUIN [address] [place] [address] documented as of this encounter Visit Diagnoses Not on filedocumented in this encounter Additional Health Concerns Assessment Noted Time PHQ-9 Depression Total Score: 1 09/26/19 9:54 AM EST documented as of this encounter Care Teams Box Spinner Relationship Specialty Start Date End Date Steven Agee MD [address] [facility] [place] [address] PCP - General Internal Medicine 06/05/14 [place] MAHONEY 01/30/25 documented as of this encounter
--- OUTSIDE RECORDS SUMMARY | 2025-04-24 08:11 | XMS_ITS | Encounter Summary ---
Author Organization [employer] Address [address] [facility] [address] [place] [address] Care Team Providers Care Head Of Marketing Analytics Name Role Phone Steven Agee MD Primary Care Provide r Reason for Visit * Reason Comments Med Refill Encounter Details Date Type Department Care Team ([facility] st Contact Info) Description 07/21/2023 Refill [facility] [address] [place], [place] [phone] Name, MD Nolbetro [address] [place] [address] Hypertension, unspecified type Social History Tobacco Use [...] 9:15 AM EDT Office Visit [facility] [address] [place] [address] Steven Agee MD [address] [place] [address] 07/09/2025 9:30 AM EST Clinical Support [facility] [address] [place] [address] Concetta Barker, QUIN [address] [place] [address] documented as of this encounter Visit Diagnoses Diagnosis Hypertension, unspecified type documented in this encounter Additional Health Concerns Assessment Noted Time PHQ-9 Depression Total Score: 0 08/11/20 9:10 AM EST documented as of this encounter Care Teams Head Of Marketing Analytics Relationship Specialty Start Date End Date Steven Agee MD [address] [place] [id number] PCP - General Internal Medicine 06/05/14 [place] VAZQUEZA 01/30/25 documented as of this encounter
--- OUTSIDE RECORDS SUMMARY | 2025-04-24 08:11 | XMS_ITS | Encounter Summary ---
Author Organization [employer] Address [address] [facility] [address] [place] [address] Care Team Providers Care Clinical Material Handler Name Role Phone Steven Agee MD Primary Care Provide r Reason for Visit * Reason Comments Med Refill Encounter Details Date Type Department Care Team ([facility] st Contact Info) Description 03/02/2025 Refill [facility] [address] [place], [place] [phone] Steven Agee MD [address] [place], [place] [phone] Chronic midline low back pain without sciatica [...] Description 05/20/2025 9:15 AM EDT Office Visit [facility] [address] [place] [address] Steven Agee MD [address] [place] [address] 07/09/2025 9:30 AM EST Clinical Support [facility] [address] [place] [address] Concetta Barker, RN [address] [place] [address] documented as of this encounter Visit Diagnoses Diagnosis Chronic midline low back pain without sciatica documented in this encounter Additional Health Concerns Assessment Noted Time PHQ-9 Depression Total Score: 1 09/26/19 9:54 AM EST documented as of this encounter Care Teams Clinical Material Handler Relationship Specialty Start Date End Date Steven Agee MD [address] [place] [address] PCP - General Internal Medicine 06/05/14 [place] A 01/30/25 documented as of this encounter
--- OUTSIDE RECORDS SUMMARY | 2025-04-24 08:11 | XMS_ITS | Encounter Summary ---
Author Organization [employer] Address [address] [facility] 7 [place] [address] Care Team Providers Care Research Program Intern Name Role Phone Steven Agee MD Primary Care Provide r Reason for Visit * Reason Onset Date Comments Med Refill 07/29/2024 Encounter Details Date Type Department Care Team ([facility] st Contact Info) Description 07/29/2024 Telephone [facility] [address] [place], [place] [phone] Steven Agee MD [address] [place] [address] Med Refill Social History Tobacco Use Types [...] 5-325 MG tablet To be sent to: [id number] [place], [place] - [address] [facility] documented in this encounter Plan of Treatment Upcoming Encounters Date Type Department Care Team (Late st Contact Info) Description 05/20/2025 9:15 AM EDT Office Visit [facility] [address] [place] [address] Steven Agee MD [address] [place] [address] 07/09/2025 9:30 AM EST Clinical Support [facility] [address] [place] [address] Concetta Barker, QUIN 505 [place] [address] documented as of this encounter Visit Diagnoses Diagnosis Nausea and vomiting, unspecified vomiting type documented in this encounter Additional Health Concerns Assessment Noted Time PHQ-9 Depression Total Score: 0 08/11/20 9:10 AM EST documented as of this encounter Care Teams Research Program Intern Relationship Specialty Start Date End Date Steven Agee MD [address] [place] [address] PCP - General Internal Medicine 06/05/14 [place] VAZQUEZA 01/30/25 documented as of this encounter
--- OUTSIDE RECORDS SUMMARY | 2025-04-24 08:11 | XMS_ITS | Clinical Summary ---
Author Organization [employer] Address [address] [place] [address] 7t [place] [address] Care Team Providers Care Machine Tracer Name Role Phone Steven Agee MD Primary [...] Patient is scheduled for: Left TKR Location: [facility] Name of surgeon: Dr. Flako Young On:01/28/2025 [...] Patient is scheduled for: right TKR Location: [facility] Name of surgeon: Dr. Flako Young On:09/05/23 [...] with c/o intentional tremor Plan: Neurology evaluation [facility] health care 01/24/2023 Assessment & [...] go because she did not have an counter hand Assessment & Plan (01/24/2023 9:13 AM EDT): [...] Of note she was previously admitted to [facility] for abdominal pain and vomiting. CAT scan [...] Of note she was previously admitted to [facility] for abdominal pain and vomiting. CAT scan [...] here for a f/u Previously admitted to [facility] for abdominal pain and vomiting. CAT scan [...] a psychotherapist her name is Angle at [facility] Denies suicidal ideations or thoughts We prescribe Klonopin for anxiety. Doing well Assessment & Plan (08/11/2022 10:27 AM EST): Pt with Depression, currently seeing a psychotherapist her name is Angle at [facility] Denies suicidal ideations or thoughts [...] COT program. Seen in the past at [facility]. She was seen by Dr. [...] COT program. Seen in the past at [facility]. She was seen by Dr. [...] Last visit she was referred back to [facility]. She was seen by Dr. [...] Encounters Date Type Department Care Team Description 04/24/2025 Refill [facility] [address] [place] [address] Steven Agee MD 04/23/2025 Refill [facility] [address] [place] [address] Steven Agee MD 04/09/2025 Refill [facility] [address] [place] [address] Concetta Barker RN Chronic midline low back pain without sciatica 04/09/2025 Telephone [facility] [address] [place] [address] Steven Agee MD Med Refill 04/01/2025 Refill [facility] [address] [place] [address] Key Sams MD Subclinical hypothyroidism 04/01/2025 Refill [facility] [address] [place] [address] Steven Agee MD 03/24/2025 10:00 AM EDT Telemedicine [facility] [address] [place] [address] Concetta Barker RN Chronic midline low back pain without sciatica 03/24/2025 Refill [facility] [address] [place] [address] Concetta Barker, QUIN Depressive disorder; Mixed hyperlipidemia 03/24/2025 Travel 03/23/2025 Refill [facility] [address] [place] [address] Steven Agee MD Mixed hyperlipidemia 03/14/2025 Refill [facility] [address] [place] [address] Steven Agee MD Chronic midline low back pain without sciatica 03/03/2025 Telephone [facility] MEDICINE [address] [place] [address] Steven Agee MD Appointment Confirmation 03/02/2025 Refill [facility] [address] [place] [address] Steven Agee MD Chronic midline low back pain without sciatica 02/19/2025 Refill [facility] [address] [place] [address] Steven Agee MD Depressive disorder 02/18/2025 Refill [facility] [address] [place] [address] Steven Agee MD Chronic midline low back pain without sciatica 02/17/2025 Refill [facility] [address] [place] [address] Steven Agee MD Chronic midline low back pain without sciatica 02/10/2025 Orders Only [facility] External Provider, [facility] 02/05/2025 Refill [facility] [address] [place] [address] Concetta Barker, offal roller midline low back pain without sciatica 02/05/2025 Telephone [facility] [address] [place] [address] Steven Agee MD Med Refill 01/31/2025 Telephone [facility] MED[facility] [address] [place] [address] Kimberlee Moss ANP Med Refill 01/31/2025 Refill [facility] [address] [place] [address] Key Sams MD Chronic midline low back pain without sciatica 01/29/2025 Orders Only GENERIC EXTERNAL DATA DEPARTMENT Provider, Generic External Data 01/28/2025 Orders Only GENERIC EXTERNAL DATA DEPARTMENT Provider, Generic External Data 01/23/2025 Telephone [facility] [address] [place] [address] Steven Agee MD 01/23/2025 Orders Only GENERIC EXTERNAL DATA DEPARTMENT Provider, Generic External Data 01/22/2025 11:00 AM EDT Clinical Support [facility] [address] [place] [address] Concetta Barker RN Long-term current use of benzodiazepine (Primary Dx); Chronic midline low back pain without sciatica 01/22/2025 Orders Only [facility] [address] [place] [address] Steven Agee MD 01/22/2025 Travel from Last [...] Description 05/20/2025 9:15 AM EDT Office Visit [facility] [address] [place] [address] Steven Agee MD [address] [place] [address] 07/09/2025 9:30 AM EST Clinical Support [facility] [address] [place] [address] Concetta Barker, QUIN [address] [place] [address] Health Maintenance Due Date Last Done Comments [...] Laterality Modality Lower Extremities, Knee Left [facility] 02/10/2025 9:47 AM EDT Narrative 02/10/2025 12:38 PM EDT [facility] [address] [place] [address] Drive [address] [place] [address] XRay Report Signed Patient: Elsa Adkins MR#: [id number] : 1960 Acct:[id number] Age/Sex: 64 / F ADM Date: 02/10/25 Loc: HOSAdore Attending Dr: Raz Izaguirre PA-C Ordering Physician: Raz Izaguirre PA-C Date of Service: 02/10/25 Procedure(s): XR knee LT 3V Accession Number(s): [id number] cc: Steven Rose MD; Raz Izaguirre PA-C [...] 02/10/25 1236 DD/ 0947 TD/TT: 02/10/25 1051 Technology Assistant: Procedure Note Donotuseinterpreter, Image - 02/10/2025 [facility] [address] [place] [address] [place] [address] XRay Report Signed Patient: Evette Adkins#: [id number] : 8Acct:[id number] Age/Sex: 64 / FADM Date: 02/10/25 Loc: HO.HOSX Attending Dr: Raz Izaguirre PA-C Ordering Physician: Raz Izaguirre PA-C Date of Service: 02/10/25 Procedure(s): XR knee LT 3V Accession Number(s): [id number] cc: Steven Rose MD; Raz Izaguirre PA-C [...] 02/10/25 1236 DD/ 0947 TD/TT: 02/10/25 1051 Technology Assistant: [facility] External Provider IMG XR PROCEDURES Edited Result - Final * (ABNORMAL) Basic Metabolic Panel, Fasting (01/29/2025 5:27 AM EDT) Sodium 140 135 - 145 mmol/L [facility] Potassium 4.2 3.3 - 5.1 mmol/L [facility] Chloride 106 96 - 108 mmol/L [facility] Carbon Dioxide 26 22 - 29 mmol/L [facility] Anion Gap 12 12 - 20 [facility] Urea Nitrogen (BUN) 20(H) 9 - 16 mg/dL [facility] Creatinine, Serum 0.71 0.5 - 1.4 mg/dL [facility] Creatinine Clr Calc Pharmacy 85.3 [facility] Comment:Provided height and weight: 162.56 cm,91.5 kg.eGFR (calculated from the MDRD study equation) and eCrCl(calculated from the Cockcroft-Gault equation) are based ondifferent parameters and may not yield comparable results.If eCrCl result is absurd, please check patient'sheight/weight. Estimated Glomerular Filt Rate >60 [facility] Comment:Chronic Kidney Disea se: Estimated GFR < 60 mL/min/1.71o5Bxxnoq Kidney Disease: Estimated GFR < 15 mL/min/1.73m2 Glucose Fasting 131(H) 60 - 99 mg/dL [facility] Comment:A fasting glucose of 126 mg/dl or greater on more than oneoccasion is considered diagnostic of diabetes. Calcium 9.4 8.4 - 10.2 mg/dL [facility] 01/29/2025 5:27 AM EDT 01/29/2025 6:13 AM EDT us Generic External Data Provider LAB BLOOD ORDERAB LES Final Result [facility] [address] [place], [place] [phone] * (ABNORMAL) CBC auto differential (01/29/2025 5:27 AM EDT) White Blood Count 10.2 4.8 - 10.8 X10*3/uL [facility] Red Blood Count 4.53 4.20 - 5.50 X10*6/uL [facility] Hemoglobin 11.9(L) 12.0 - 16.0 g/dl [facility] Hematocrit 36.3(L) 37.0 - 47.0 % [facility] Mean Corpuscular Volume 80.1 80.0 - 98.0 fL [facility] Mean Corpuscular Hemoglobin 26.3(L) 27.0 - 33.0 pg [facility] Mean Corpuscular HGB Conc 32.8 31.0 - 35.0 g/dl [facility] Red Cell Distribution Width 13.2 11.0 - 16.0 % [facility] Platelet Count 283 160 - 400 X10*3/uL [facility] Mean Platelet Volume 10.0 9.4 - 12.3 fL [facility] Neutrophils Percent Auto 83.9(H) 45 - 73 % [facility] Imm Gran Pct Auto 0.5(H) 0.0 - 0.4 % [facility] Lymphocytes Percent Auto 7.7(L) 20 - 40 % [facility] Monocytes Percent Auto 7.8 2 - 11 % [facility] Eosinophils Percent Auto 0.0 0 - 4 % [facility] Basophils Percent Auto 0.1 0 - 2 % [facility] NRBC Pct Auto 0.0 0.0 - 0.2 /100WBC [facility] Neutrophils Absolute Auto 8.6(H) 2.0 - 8.3 x10*3/uL [facility] Imm Gran Abs Auto 0.05(H) 0.00 - 0.03 X10*3/uL [facility] Lymphocytes Absolute Auto 0.8(L) 1.2 - 4.9 X10*3/uL [facility] Monocytes Absolute Auto 0.8 0.1 - 1.2 X10*3/uL [facility] Eosinophils Absolute Auto 0.0 0.0 - 0.4 X10*3/uL [facility] Basophils Absolute Auto 0.0 0.0 - 0.2 X10*3/uL [facility] NRBC Abs Auto 0.000 0.0 - 0.012 X10*3/uL [facility] 01/29/2025 5:27 AM EDT 01/29/2025 6:13 AM EDT us Generic External Data Provider LAB BLOOD ORDERAB LES Final Result Performing Organization Address City/State/[facility] Co de Phone Number [facility] [address] [place] [phone] * XR Knee 1-2 Views Left (01/28/2025 11:49 AM EDT) Anatomical Region Laterality Modality Lower Extremities, Knee Left Radiogra phic Imaging 01/28/2025 11:4 9 AM EDT Narrative 01/28/2025 12:48 PM EDT [address] [address] XRay Report Signed Patient: Elsa Adkins MR#: [id number] : 1960 Acct:[id number] Age/Sex: 64 / F ADM Date: 01/28/25 Loc: HO.SSS Attending Dr: Flako Young MD Ordering Physician: Raz Izaguirre PA-C Date of Service: 01/28/25 Procedure(s): XR knee LT 2V Accession Number(s): [id number] cc: Steven Rose MD; Raz Izaguirre PA-C [...] 01/28/25 1245 DD/ 1149 TD/TT: 01/28/25 1238 Technology Assistant: Procedure Note Donotuseinterpreter, Image - 01/28/2025 [place] [address] XRay Report Signed Patient: Niki AdkinsR#: [id number] : 8Acct:[id number] Age/Sex: 64 / FADM Date: 01/28/25 Loc: HO.SSS Attending Dr: Flako Young MD Ordering Physician: Raz Izaguirre PA-C Date of Service: 01/28/25 Procedure(s): XR knee LT 2V Accession Number(s): [id number] cc: Steven Rose MD; Raz Izaguirre PA-C [...] 01/28/25 1245 DD/ 1149 TD/TT: 01/28/25 1238 Technology Assistant: [facility] External Provider IMG XR PROCEDURES Final Result * Gross and Microscopic Level 4 (01/28/2025 10:42 AM EDT) 01/28/2025 10:4 2 AM EDT 01/28/2025 1:14 PM EDT [facility] - 01/30/2025 12:29 PM EDT ----- ------- Name: Elsa Adkins Age/Sex: 64/F : 1960 Unit#: [id number] Attend Dr: Flako Young MD Re01/28/25 Status: [facility] Location: [facility] Disch: ----- ------- SPEC : [id number] RECD: 01/28/25 STATUS: DARRICK ALVAREZ NUM: [id number] KELLY: 01/28/[address] [facility] [address]: Flako Young MD ENTERED: 01/28/25 [...] aggregating 4.5 x 2.5 x 0.5-1.0 cm. Fitness Worker sections are submitted in a cassette labeled A1 following decalcification. CEDS IHC S/NG Disclaimer NOTE: Unless otherwise stated, all tissue is formalin-fixed and paraffin-embedded. Some or all of the immunohistochemical tests reported herein may have been developed and their performance characteristics determined by [facility]. They have not been cleared [...] Elsa Adkins Age/Sex: 64/F : 1960 Unit#: [id number] Attend Dr: Flako Young MD Re01/28/25 Status: [facility] Location: [facility] Disch: ----- ------- SPEC : [id number] RECD: 01/28/25 STATUS: ADILIAAlex KIM NUM: [id number] KELLY: 01/28/25-[address] [facility] [address]: Flako Young MD ENTERED: 01/28/258 SP TYPE: Surgical OTHR DR: Steven Rose MD ORDERED: Gross Micro L4, Decal Copies To: Flako Young MD [facility] [address] [place] [address] Dr [address] [place] [address] Steven Rose MD [address] [address] ----- ------- Signed (signature on file) Sue Beverly MD 01/30/25 1229 ----- ------- END OF REPORT Generic External Data Provider LAB CYTOLOGY ORDE RABLES Final Result Performing Organization Address [facility] Co de Phone Number [facility] [address] [place] [phone] * Hemoglobin and Hematocrit (01/28/2025 7:36 AM EDT) Hemoglobin 12.3 12.0 - 16.0 g/dl [facility] Hematocrit 37.6 37.0 - 47.0 % [facility] 01/28/2025 7:36 AM EDT 01/28/2025 7:47 AM EDT Generic External Data Provider LAB BLOOD ORDERAB LES Final Result Performing Organization Address [facility] Co de Phone Number [facility] [address] [place] [phone] * Type and screen (01/23/2025 9:36 AM EDT) Blood Type BP [facility] Antibody Screen NEGATIVE [facility] 01/23/2025 9:36 AM EDT 01/23/2025 9:51 AM EDT Narrative [facility] - 01/23/2025 10:32 AM EDT Spec expiration changed by AVERY on 01/23/25Reason: PATNURSING:Call Blood Bank (ext. [phone]) to band patient on admission.Type and Screen in effect until 2300 on 01/28/2025.Witnessed by MARION us Generic External Data Provider LAB BLOOD BANK TE ST ORDERABLES Final Result [facility] [address] [place], [place] [phone] * POCT ULICES-14 Urine Drug Screen (01/22/2025 11:16 AM EDT) Oxycodone Screen, Urine Positive Urine Urine specimen obtained by clean catch procedure / Unknown 01/22/2025 11:16 AM EDT Narrative Concetta Barker RN - 01/22/2025 11:16 AM EDT Lot# [id number] Exp: 06-27-26 us Steven Dowling MD POINT OF CARE TEST EN TER/EDIT ORDERABLES Final Result * Drug Monitoring, Benzodiazepines, Quantitative, Urine (01/22/2025 12:00 AM EDT) Nordiazepam, GCMS Urine NEGATIVE [facility] Comment:REFERENCE RANGE: <50 ng/mL Oxazepam, GCMS Urine NEGATIVE [facility] Comment:REFERENCE RANGE: <50 ng/mL Lorazepam GCMS Urine NEGATIVE [facility] Comment:REFERENCE RANGE: <50 ng/mL Alprazolam, GCMS Urine NEGATIVE [facility] Comment:REFERENCE RANGE: <25 ng/mL Alphahydroxytriazolam , GCMS Ur NEGATIVE [facility] Comment:REFERENCE RANGE: <50 ng/mL Temazepam, GCMS Urine NEGATIVE [facility] Comment:REFERENCE RANGE: <50 ng/mL Alphahydroxymidazolam ,GCMS Ur NEGATIVE [facility] Comment:REFERENCE RANGE: <50 ng/mL Aminoclonazepam, GCMS Urine 40 [facility] Comment:REFERENCE RANGE: <25 ng/mL Flurazepam Metabolite,GCMS Ur NEGATIVE [facility] Comment:REFERENCE RANGE: <50 ng/mL Benzodiazepines Comments see note [facility] Comment:This drug testing is for medical treatment only. Analysiswas performed as non-forensic testing and these resultsshould be used only by healthcare providers to renderdiagnosis or treatment, or to monitor progress of medicalconditions.Benzodiazepines Notes:Aminoclonazepam detected is consistent with the use of thedrug Clonazepam.LDT Notes:Confirmation tests were developed and their analyticalperformance characteristics have been determined by [facility]. It has not been cleared orapproved by the FDA. This assay has been validated pursuantto the CLIA regulations and is used for clinical purposes.Healthcare Providers needing Interpretation assistance,please contact us at [phone] ( ) M-F,8am to 10pm ESTTHIS TEST PERFORMED AT:[employer] [place] [phone] DIRECTOR: ZULEIKA ROBERSON MD 01/22/2025 01/22/2025 Steven Dowling MD LAB URINE ORDERABLES Final Result [facility] [address] [place] [address] [phone] * BI Mammogram Screening Tomosynthesis Bilateral (11/14/2024 8:32 AM EDT) Anatomical Region Laterality Modality Breast Bilateral Mammography 11/14/2024 8:32 AM EDT Narrative 11/22/2024 1:40 PM EDT [facility] [address] [place] [address] [place] [address] Mammography Report Signed Patient: Elsa Adkins MR#: [id number] : 1960 Acct:[id number] Age/Sex: 64 / F ADM Date: 11/14/24 Loc: VIN Attending Dr: Steven Rose MD Ordering Physician: Steven Rose MD Resu lts: 1Negative Date of Service: 11/14/24 Follow Up: 1 Year From Orig inal Mammogram Procedure(s): MM tomosynthesis screening BI Accession Number(s): [id number] cc: Steven Rose MD EXAMINATION: MM SCREENING [...] 11/22/24 1337 DD/ 0832 TD/TT: 11/14/24 0844 Technology Assistant: Procedure Note Donotuseinterpreter, Image - 11/22/2024 [facility] [address] [place] [address] Mammography Report Signed Patient: Niki AdkinsR#: [id number] : 8Acct:[id number] Age/Sex: 64 / FADM Date: 11/14/24 Loc: VIN Attending Dr: Steven Rose MD Ordering Physician: Steven Rose MDResu lts: 1Negative Date of Service: 11/14/24Follow Up: 1 Year From Orig inal Mammogram Procedure(s): MM tomosynthesis screening BI Accession Number(s): [id number] cc: Steven Rose MD EXAMINATION: MM SCREENING [...] 11/22/24 1337 DD/ 0832 TD/TT: 11/14/24 0844 Technology Assistant: us Steven Dowling MD IMG BI PROCEDURES Fin al Result * (ABNORMAL) Lipid Panel, Standard (05/23/2024 9:33 AM EDT) Triglycerides 166(H) <150 mg/dL [facility] Comment:Desirable Triglyceri de: less than 150 mg/dLBorderline High Triglyceride 150-199 mg/dLHigh Triglyceride: 200-499 mg/dLVery High Triglyceride: greater than or equal to 5OO mg/dL Cholesterol 257(H) <200 mg/dL [facility] Comment:Desirable Cholestero l: less than 200 mg/dLBorderline High Cholesterol: 200-239 mg/dLHigh Cholesterol: greater than 239 mg/dL LDL Cholesterol Calculated 170(H) <100 mg/dL [facility] Comment:Desirable LDL: less than 100 mg/dLNear Optimal/Above Optimal LDL: 110- 129 mg/dLBorderline High LDL: 130-159 mg/dLHigh LDL: 160-189 mg/dLVery High LDL: greater than or equal to 190 mg/dL HDL Cholesterol 54 >40 mg/dL [facility] Comment:Desirable HDL: great er than 40 mg/dL Note: This HDL assay may give artificially low results in patients with liver disease. Blood Venous blood specimen / Unknown 05/23/2024 9:33 AM EDT 05/23/2024 11:51 AM EDT Steven Dowling MD LAB BLOOD ORDERABLES Final Result [facility] [address] [place] [phone] * Colonoscopy (11/08/2022 8:43 AM EDT) Colonoscopy Normal Normal Comment:Diverticulosis of th e left colon sigmoid, otherwise normal Historical Provider HEALTH MAINTENANCE Final Result * Hepatitis C Antibody with Reflex to HCV, RNA, Quantitative, Real-Time PCR (09/13/2022 9:26 AM EST) Hepatitis C Antibody NON-REACT EZEKEIL NON-REACT EZEKILE [facility] Index 0.06 <1.00 [facility] Comment: HCV antibody was non-reactive. There is no laboratory evidence of HCV infection. In most cases, no further action is required. However, if recent HCV exposure is suspected, a test for HCV RNA (test code 03367) is suggested. For additional information please refer to http://education.Photozeen/faq/WAR53f0 (This link is being provided for informational/ educational purposes only.) Blood Venous blood specimen / Unknown 09/13/2022 9:26 AM EST 09/13/2022 9:26 AM EST Narrative [facility] - 09/13/2022 7:41 PM EST FASTING:YES FASTING: YES us Steven Dowling MD LAB BLOOD ORDERABLES Final Result [facility] [address] [facility], 3rd Fl, [place] [address] [facility] [address] , ([address]) [place] [phone] from Last 3 Months or Most Recently Relevant to Health Maintenance Insurance [facility] ASSISTED OPTIONS (O D-SNP) [employer] [id number] [place] [address] [id number] [address] [place] [address] [place] [address] [address] [address] [place] [id number] Care Teams Machine Tracer Relationship Specialty Start Date End Date Steven Agee MD [address] [place] [place] [address] PCP - General Internal Medicine 06/05/14 [place] 01/30/25
--- OUTSIDE RECORDS SUMMARY | 2025-04-24 08:11 | XMS_ITS | Encounter Summary ---
Author Organization [employer] Address [address] [place] [address] [address] [place] [address] Care Team Providers Care Jelly Maker Name Role Phone Steven Agee MD Primary Care Provide r Encounter Details Date Type Department Care Team (Late st Contact Info) Description 07/20/2022 Abstract [facility] [address] [place] [address] [phone] Steven Agee MD [address] [place] [address] Social History Tobacco Use Types Packs/Day Years [...] 9:15 AM EDT Office Visit [facility] [address] [place] [address] [phone] Steven Agee MD [address] [place], [place] [phone] 07/09/2025 9:30 AM EST Clinical Support [facility] [address] [place], [place] [phone] Concetta Barker, QUIN [address] [place] [address] documented as of this encounter Procedures Procedure [...] on filedocumented in this encounter Care Teams Jelly Maker Relationship Specialty Start Date End Date Steven Agee MD [address] [place] [phone] PCP - General Internal Medicine 06/05/14 [place] MAHONE[place] 01/30/25 documented as of this encounter
--- OUTSIDE RECORDS SUMMARY | 2025-04-24 08:11 | XMS_ITS | Encounter Summary ---
Author Organization [employer] Address 75 [facility] 7t [place] [address] Care Team Providers Care Websphere Portal Architect Name Role Phone Steven Agee MD Primary Care Provide r Reason for Visit * Reason Onset Date Comments re sent script 06/07/2023 Encounter Details Date Type Department Care Team ([facility] st Contact Info) Description 06/07/2023 Telephone [facility] 230 [place] [address] Steven Agee MD 230 [place] [address] re sent script Social History Tobacco Use [...] EDT Medication was sent to [facility] on 06/08/23. * Telephone Encounter - Isabela Yañez LPN - 06/07/2023 3:54 PM EDT INSTRUCTIONAL SUPPORT TECHNICIAN checked 06/07/23. Last filled 04/28/23. * Telephone Encounter - Paulina Mancini - 06/07/2023 3:47 PM EDT TC from pt requesting to re sent script of zolpidem (Ambien) 10 MG tablet to [facility] due to ptnot have insurance and here its going to be nav[place]te [place] and cheaper than [facility]. PCP DR. Connelly * Telephone Encounter - Paulina Mancini - 06/07/2023 3:41 PM EDT TC from pt requesting to re sent script oxyCODONE-acetaminophen (Percocet) 5-325 MG tablet to [facility] due to pt not have insurance and here its going to be nav[place]rete gee and cheaper than [facility]. PCP DR. Connelly documented in this encounter Plan of Treatment Upcoming Encounters Date Type Department Care Team (Late st Contact Info) Description 05/20/2025 9:15 AM EDT Office Visit [facility] 230 [place] [address] Steven Agee MD 230 [place] [address] 07/09/2025 9:30 AM EST Clinical Support [facility] PEDS 505 [place], [place] [phone] Concetta Barker, RN 505 [place] [address] documented as of this encounter Visit Diagnoses Diagnosis Depressive disorder Depressive disorder, not elsewhere classified documented in this encounter Additional Health Concerns Assessment Noted Time PHQ-9 Depression Total Score: 0 08/11/20 9:10 AM EST documented as of this encounter Care Teams Websphere Portal Architect Relationship Specialty Start Date End Date Steven Agee MD 230 [place] [address] PCP - General Internal Medicine 06/05/14 [place] MAHONEY 01/30/25 documented as of this encounter
--- OUTSIDE RECORDS SUMMARY | 2025-04-24 08:11 | XMS_ITS | Encounter Summary ---
Author Organization [employer] Address 75 [facility] 7 [place] [address] Care Team Providers Care Tape Folding Machine Operator Name Role Phone Steven Agee MD Primary Care Provide r Reason for Visit * Reason Onset Date Comments Med Refill 02/01/2024 Encounter Details Date Type Department Care Team ([facility] st Contact Info) Description 02/01/2024 Telephone [facility] 230 [place], [place] [phone] Steven Agee MD 230 [place] [address] Med Refill Social History Tobacco Use Types [...] 5-325 MG tablet To be sent to: [id number] [place], [place] - [address] [place] [address] AT [facility] documented in this encounter Plan of Treatment Upcoming Encounters Date Type Department Care Team ([facility] st Contact Info) Description 05/20/2025 9:15 AM EDT Office Visit [facility] 230 [place] [address] Steven Agee MD 230 [place] [address] 07/09/2025 9:30 AM EST Clinical Support [facility] 505 [place] [address] Concetta Barker, RN 505 [place] [address] documented as of this encounter Visit Diagnoses Not on filedocumented in this encounter Additional Health Concerns Assessment Noted Time PHQ-9 Depression Total Score: 0 08/11/20 9:10 AM EST documented as of this encounter Care Teams Tape Folding Machine Operator Relationship Specialty Start Date End Date Steven Agee MD 230 [facility] [place] [address] PCP - General Internal Medicine 06/05/14 [place] VAZQUEZA 01/30/25 documented as of this encounter
--- OUTSIDE RECORDS SUMMARY | 2025-04-24 08:11 | XMS_ITS | Encounter Summary ---
Author Organization [employer] Address 75 [facility] 7t [place] [address] Care Team Providers Care Squeegee Operator Name Role Phone Steven Agee MD Primary Care Provide r Reason for Visit * Reason Onset Date Comments Med Refill 06/27/2023 Encounter Details Date Type Department Care Team ([facility] st Contact Info) Description 06/27/2023 Telephone [facility] MEDICINE 230 [place] [address] Steven Agee MD 230 [place], [place] [phone] Med Refill Social History Tobacco Use Types [...] Description 05/20/2025 9:15 AM EDT Office Visit [facility] MED[facility]INE 230 [place] [address] Steven Agee MD 230 [place] [address] 07/09/2025 9:30 AM EST Clinical Support [facility] MED & PEDS 505 [place] [address] Concetta Barker, QUIN 505 [place] [address] documented as of this encounter Visit Diagnoses Not on filedocumented in this encounter Additional Health Concerns Assessment Noted Time PHQ-9 Depression Total Score: 0 08/11/20 9:10 AM EST documented as of this encounter Care Teams Squeegee Operator Relationship Specialty Start Date End Date Steven Agee MD [address] [place] [address] PCP - General Internal Medicine 06/05/14 [place] MAHONEY 01/30/25 documented as of this encounter
--- OUTSIDE RECORDS SUMMARY | 2025-04-24 08:11 | XMS_ITS | Encounter Summary ---
Author Organization [employer] Address [address] [place] [address] 7 [place] [address] Care Team Providers Care Bead Picker Name Role Phone Steven Agee MD Primary Care Provide r Reason for Visit * Reason Onset Date Comments Med Refill 02/05/2025 Encounter Details Date Type Department Care Team ([facility] st Contact Info) Description 02/05/2025 Telephone [facility] MEDICINE 230 [place], [place] [phone] Steven Agee MD 230 [place], [place] [phone] Med Refill Social History Tobacco Use Types [...] 5-325 MG tablet To be sent to: [facility][id number] [place] - [address] [facility] documented in this encounter Plan of Treatment Upcoming Encounters Date Type Department Care Team (Late st Contact Info) Description 05/20/2025 9:15 AM EDT Office Visit [facility] MEDICINE 230 [place] [address] Steven Agee MD 230 [place] [address] 07/09/2025 9:30 AM EST Clinical Support [facility] MED [facility] PEDS 505 [place] [address] Concetta Barker, QUIN 505 [place] [address] documented as of this encounter Visit Diagnoses Not on filedocumented in this encounter Additional Health Concerns Assessment Noted Time PHQ-9 Depression Total Score: 1 09/26/19 9:54 AM EST documented as of this encounter Care Teams Bead Picker Relationship Specialty Start Date End Date Steven Agee MD 230 [facility] [place] [address] PCP - General Internal Medicine 06/05/14 [place] MAHONEY 01/30/25 documented as of this encounter
--- OUTSIDE RECORDS SUMMARY | 2025-04-24 08:11 | XMS_ITS | Encounter Summary ---
Author Organization [employer] Address 75 [facility] 7 [place] [address] Care Team Providers Care Tree Pruner Name Role Phone Steven Agee MD Primary Care Provide r Reason for Visit * Reason Onset Date Comments Med Refill 03/28/2024 Encounter Details Date Type Department Care Team ([facility] st Contact Info) Description 03/28/2024 Telephone [facility] MEDICINE 230 [place], [place] [phone] Steven Agee MD 230 [place], [place] [phone] Med Refill Social History Tobacco Use Types [...] Description 05/20/2025 9:15 AM EDT Office Visit [facility] MED[facility]INE 230 [place] [address] Steven Agee MD 230 [place] [address] 07/09/2025 9:30 AM EST Clinical Support [facility] MED & PEDS 505 [place] [address] Concetta Barker, QUIN 505 [place] [address] documented as of this encounter Visit Diagnoses Not on filedocumented in this encounter Additional Health Concerns Assessment Noted Time PHQ-9 Depression Total Score: 0 08/11/20 9:10 AM EST documented as of this encounter Care Teams Tree Pruner Relationship Specialty Start Date End Date Steven Agee MD [address] [place] [address] PCP - General Internal Medicine 06/05/14 [place] MAHONEY 01/30/25 documented as of this encounter
--- OUTSIDE RECORDS SUMMARY | 2025-04-24 08:11 | XMS_ITS | Encounter Summary ---
Author Organization [employer] Address 75 [facility] 7t [place] [address] Care Team Providers Care Methods Time Analyst Name Role Phone Steven Agee MD Primary Care Provide r Reason for Visit * Reason Comments Med Refill Encounter Details Date Type Department Care Team ([facility] st Contact Info) Description 04/24/2025 Refill [facility] MED & PEDS [address] [place], [place] [phone] Steven Agee MD 230 [place] [address] Social History Tobacco Use Types Packs/Day Years [...] [facility] 230 [place] [address] Steven Agee MD 230 [place] [address] 07/09/2025 9:30 AM EST Clinical Support [facility] MED [facility] PEDS 505 [place] [address] Concetta Barker, RN 505 [place] [address] documented as of this encounter Visit Diagnoses Not on filedocumented in this encounter Additional Health Concerns Assessment Noted Time PHQ-9 Depression Total Score: 1 09/26/19 9:54 AM EST documented as of this encounter Care Teams Methods Time Analyst Relationship Specialty Start Date End Date Steven Agee MD [address] [place] [address] PCP - General Internal Medicine 06/05/14 [place] VAZQUEZA 01/30/25 documented as of this encounter
--- OUTSIDE RECORDS SUMMARY | 2025-04-24 08:11 | XMS_ITS | Encounter Summary ---
Author Organization [employer] Address [address] [place] [address] 7 [place] [address] Care Team Providers Care Bearing Maker Name Role Phone Steven Agee MD Primary Care Provide r Reason for Visit * Reason Onset Date Comments Med Refill 02/28/2024 Encounter Details Date Type Department Care Team ([facility] st Contact Info) Description 02/28/2024 Telephone [facility] MEDICINE 230 [place], [place] [phone] Steven Agee MD 230 [place] [address] Med Refill Social History Tobacco Use Types [...] 5-325 MG tablet To be sent to: [facility][id number] [place], [place] - [address] [facility] documented in this encounter Plan of Treatment Upcoming Encounters Date Type Department Care Team ([facility] st Contact Info) Description 05/20/2025 9:15 AM EDT Office Visit [facility] MEDICINE 230 [place] [address] Steven Agee MD 230 [place] [address] 07/09/2025 9:30 AM EST Clinical Support [facility] MED [facility] PEDS 505 [place] [address] Concetta Barker, RN 505 [place] [address] documented as of this encounter Visit Diagnoses Not on filedocumented in this encounter Additional Health Concerns Assessment Noted Time PHQ-9 Depression Total Score: 0 08/11/20 9:10 AM EST documented as of this encounter Care Teams Bearing Maker Relationship Specialty Start Date End Date Steven Agee MD 230 [facility] [address] PCP - General Internal Medicine 06/05/14 [place] VAZQUEZA 01/30/25 documented as of this encounter
--- OUTSIDE RECORDS SUMMARY | 2025-04-24 08:11 | XMS_ITS | Encounter Summary ---
Author Organization [employer] Address 75 [facility] 7t [place] [address] Care Team Providers Care Medical Billing And Coding Specialist Name Role Phone Steven Agee MD Primary Care Provide r Reason for Visit * Reason Comments Med Refill Encounter Details Date Type Department Care Team ([facility] st Contact Info) Description 06/08/2023 Refill [facility]INE 230 [place], [place] [phone] Name, MD Nolberto 230 [place] [address] Social History Tobacco Use Types Packs/Day Years [...] Description 05/20/2025 9:15 AM EDT Office Visit [facility] 230 [place] [address] Steven Agee MD [address] [place] [address] 07/09/2025 9:30 AM EST Clinical Support [facility] 505 [place] [address] Concetta Barker, RN 505 [place] [address] documented as of this encounter Visit Diagnoses Not on filedocumented in this encounter Additional Health Concerns Assessment Noted Time PHQ-9 Depression Total Score: 0 08/11/20 9:10 AM EST documented as of this encounter Care Teams Medical Billing And Coding Specialist Relationship Specialty Start Date End Date Steven Agee MD [address] [place] [address] PCP - General Internal Medicine 06/05/14 [place] VAZQUEZA 01/30/25 documented as of this encounter
--- OUTSIDE RECORDS SUMMARY | 2025-04-24 08:11 | XMS_ITS | Encounter Summary ---
Author Organization [employer] Address [address] [facility] [address] 7t [place] [address] Care Team Providers Care Air Defense Artillery Officer Name Role Phone Steven Agee MD Primary Care Provide r Reason for Visit * Reason Onset Date Comments Appointment 08/04/2022 Patient had appt yesterday and case was not in. Instructed to call in to today to check in if it has arrived. DR Encounter Details Date Type Department Care Team (Late st Contact Info) Description 08/04/2022 Telephone [facility] ADULT DENTAL 230 [place] [address] Dental, Provider, DDS Appointment (Patient had appt [...] 9:15 AM EDT Office Visit [facility] MEDICINE 230 [place] [address] Steven Agee MD 230 [place] [address] 07/09/2025 9:30 AM EST Clinical Support [facility] MED & PEDS 505 [place] [address] Concetta Barker, RN 505 [place] [address] documented as of this encounter Visit Diagnoses Not on filedocumented in this encounter Care Teams Air Defense Artillery Officer Relationship Specialty Start Date End Date Steven Agee MD 230 [place] [address] PCP - General Internal Medicine 06/05/14 [place] VAZQUEZA 01/30/25 documented as of this encounter"
--- OUTSIDE RECORDS SUMMARY | 2025-04-24 08:11 | XMS_ITS | Encounter Summary ---
Author Organization [employer] Address 75 [facility] 7t [place] [address] Care Team Providers Care Fish Bait Processing Supervisor Name Role Phone Steven Agee MD Primary Care Provide r Reason for Visit * Reason Comments Med Refill Encounter Details Date Type Department Care Team ([facility] st Contact Info) Description 08/01/2023 Refill [facility] MEDICINE 230 [place], [place] [phone] Steven Agee MD 230 [place], [place] [phone] Nausea and vomiting, unspecified vomiting type Social [...] Description 05/20/2025 9:15 AM EDT Office Visit [facility] MEDICINE 230 [place] [address] Steven Agee MD 230 [place] [address] 07/09/2025 9:30 AM EST Clinical Support [facility] MED [facility] PEDS 505 [place] [address] Concetta Barker, QUIN 505 [place] [address] documented as of this encounter Visit Diagnoses Diagnosis Nausea and vomiting, unspecified vomiting type documented in this encounter Additional Health Concerns Assessment Noted Time PHQ-9 Depression Total Score: 0 08/11/20 9:10 AM EST documented as of this encounter Care Teams Fish Bait Processing Supervisor Relationship Specialty Start Date End Date Steven Agee MD [address] [place] [address] PCP - General Internal Medicine 06/05/14 [place] VAZQUEZA 01/30/25 documented as of this encounter
--- OUTSIDE RECORDS SUMMARY | 2025-04-24 08:12 | XMS_ITS | Encounter Summary ---
Author Organization [employer] Address 75 [facility] 7t [place] [address] Care Team Providers Care Frame Builder Name Role Phone Steven Agee MD Primary Care Provide r Reason for Visit * Reason Comments Med Refill Encounter Details Date Type Department Care Team ([facility] st Contact Info) Description 01/18/2024 Refill [facility] MED[facility]INE 230 [place], [place] [phone] Steven Agee MD 230 [place], [place] [phone] Depressive disorder Social History Tobacco Use Types [...] Office Visit [facility] MEDICINE 230 [place] [address] Steven Agee MD 230 [place] [address] 07/09/2025 9:30 AM EST Clinical Support [facility] MED [facility] PEDS 505 [place] [address] Concetta Barker, RN 505 [place] [address] documented as of this encounter Visit Diagnoses Diagnosis Depressive disorder Depressive disorder, not elsewhere classified documented in this encounter Additional Health Concerns Assessment Noted Time PHQ-9 Depression Total Score: 0 08/11/20 9:10 AM EST documented as of this encounter Care Teams Frame Builder Relationship Specialty Start Date End Date Steven Agee MD [address] [place] [address] PCP - General Internal Medicine 06/05/14 [place] VAZQUEZA 01/30/25 documented as of this encounter
--- OUTSIDE RECORDS SUMMARY | 2025-04-24 08:12 | XMS_ITS | Encounter Summary ---
Author Organization [employer] Address 75 [facility] 7 [place] [address] Care Team Providers Care Agency Service Coordinator Name Role Phone Steven Agee MD Primary Care Provide r Reason for Visit * Reason Onset Date Comments Appointment Request 01/19/2024 Encounter Details Date Type Department Care Team ([facility] st Contact Info) Description 01/19/2024 Telephone [facility] MEDICINE 230 [place], [place] [phone] Steven Agee MD 230 [place] [address] Appointment Request Social History Tobacco Use Types [...] Description 05/20/2025 9:15 AM EDT Office Visit [facility] MEDICINE 230 [place] [address] Steven Agee MD 230 [place] [address] 07/09/2025 9:30 AM EST Clinical Support [facility] MED & PEDS 505 [place] [address] Concetta Barker, QUIN 505 [place] [address] documented as of this encounter Visit Diagnoses Not on filedocumented in this encounter Additional Health Concerns Assessment Noted Time PHQ-9 Depression Total Score: 0 08/11/20 9:10 AM EST documented as of this encounter Care Teams Agency Service Coordinator Relationship Specialty Start Date End Date Steven Agee MD [address] [place] [address] PCP - General Internal Medicine 06/05/14 [place] MAHONEY 01/30/25 documented as of this encounter
--- OUTSIDE RECORDS SUMMARY | 2025-04-24 08:13 | XMS_ITS | Encounter Summary ---
Author Organization [employer] Address [address] [place] [address] 7t [place] [address] Care Team Providers Care Diet Consultant Name Role Phone Steven Agee MD Primary Care Provide r Reason for Visit * Reason Comments Med Refill Encounter Details Date Type Department Care Team ([facility] st Contact Info) Description 01/03/2023 Refill [facility] MEDICINE 230 [place], [place] [phone] Steven Agee MD 230 [place] [address] Chronic midline low back pain without sciatica [...] [facility] 230 [place] [address] Steven Agee MD 230 [place] [address] 07/09/2025 9:30 AM EST Clinical Support [facility] MED & PEDS 505 [place] [address] Concetta Barker, RN 505 [place] [address] documented as of this encounter Visit Diagnoses Diagnosis Chronic midline low back pain without sciatica documented in this encounter Additional Health Concerns Assessment Noted Time PHQ-9 Depression Total Score: 0 08/11/20 9:10 AM EST documented as of this encounter Care Teams Diet Consultant Relationship Specialty Start Date End Date Steven Agee MD 230 [place] [address] PCP - General Internal Medicine 06/05/14 [place] MAHONEY 01/30/25 documented as of this encounter
--- OUTSIDE RECORDS SUMMARY | 2025-04-24 08:13 | XMS_ITS | Encounter Summary ---
Author Organization [employer] Address [address] [place] [address] 7 [place] [address] Care Team Providers Care Glost Tile Sorter Name Role Phone Steven Agee MD Primary Care Provide r Encounter Details Date Type Department Care Team (Late st Contact Info) Description 11/04/2022 Abstract [facility] MEDICINE [address] [place] [address] [phone] Steven Agee MD [address] [place] [address] [phone] Social History Tobacco Use Types Packs/Day Years [...] Description 05/20/2025 9:15 AM EDT Office Visit [facility] MEDICINE [address] [place] [address] [phone] Steven Agee MD [address] [place] [address] [phone] 07/09/2025 9:30 AM EST Clinical Support [facility] MED & PEDS 505 [place] [address] Concetta Barker, RN 505 [place] [address] documented as of this encounter Visit Diagnoses Not on filedocumented in this encounter Additional Health Concerns Assessment Noted Time PHQ-9 Depression Total Score: 0 08/11/20 9:10 AM EST documented as of this encounter Care Teams Glost Tile Sorter Relationship Specialty Start Date End Date Steven Agee MD 230 [place] [address] PCP - General Internal Medicine 06/05/14 [place] MAHONEY 01/30/25 documented as of this encounter
--- OUTSIDE RECORDS SUMMARY | 2025-04-24 08:13 | XMS_ITS | Encounter Summary ---
Author Organization [employer] Address [address] [place] [address] 7 [place] [address] Care Team Providers Care Administrative Resident Name Role Phone Steven Agee MD Primary Care Provide r Reason for Visit * Reason Onset Date Comments Med Refill 02/22/2023 Encounter Details Date Type Department Care Team ([facility] st Contact Info) Description 02/22/2023 Telephone [facility] MEDICINE 230 [place] [address] Steven Agee MD 230 [place] [address] Med Refill Social History Tobacco Use Types [...] Description 05/20/2025 9:15 AM EDT Office Visit [facility] MEDICINE 230 [place] [address] Steven Agee MD 230 [place] [address] 07/09/2025 9:30 AM EST Clinical Support [facility] CH[facility] MED & PEDS 505 [place], [place] [phone] Concetta Barker, RN 505 [place], [place] [phone] documented as of this encounter Visit Diagnoses Not on filedocumented in this encounter Additional Health Concerns Assessment Noted Time PHQ-9 Depression Total Score: 0 08/11/20 9:10 AM EST documented as of this encounter Care Teams Administrative Resident Relationship Specialty Start Date End Date Steven Agee MD 230 [place] [address] PCP - General Internal Medicine 06/05/14 [place] VAZQUEZA 01/30/25 documented as of this encounter
--- OUTSIDE RECORDS SUMMARY | 2025-04-24 08:13 | XMS_ITS | Encounter Summary ---
Author Organization [employer] Address [address] [place] [address] 7t [place] [address] Care Team Providers Care Regional Director Of Finance Name Role Phone Steven Agee MD Primary Care Provide r Reason for Visit * Reason Comments Med Refill Encounter Details Date Type Department Care Team ([facility] st Contact Info) Description 02/09/2023 Refill [facility] [address] [place], [place] [phone] Steven Agee MD [address] [place], [place] [phone] Nausea and vomiting, unspecified vomiting type Social [...] Office Visit [facility] [address] [place] [address] Steven Agee MD [address] [place] [address] 07/09/2025 9:30 AM EST Clinical Support [facility] [address] [place] [address] Concetta Barker, QUIN [address] [place] [address] documented as of this encounter Visit Diagnoses Diagnosis Nausea and vomiting, unspecified vomiting type documented in this encounter Additional Health Concerns Assessment Noted Time PHQ-9 Depression Total Score: 0 08/11/20 9:10 AM EST documented as of this encounter Care Teams Regional Director Of Finance Relationship Specialty Start Date End Date Steven Agee MD [address] [place] [address] PCP - General Internal Medicine 06/05/14 Marina MAHONEY 01/30/25 documented as of this encounter
--- OUTSIDE RECORDS SUMMARY | 2025-04-24 08:13 | XMS_ITS | Encounter Summary ---
Author Organization [facility] Address [address] [facility] 7 [place] [address] Care Team Providers Care Theater Manager Name Role Phone Steven Agee MD Primary Care Provide r Reason for Visit * Reason Onset Date Comments Med Refill 01/01/2024 Encounter Details Date Type Department Care Team ([facility] st Contact Info) Description 01/01/2024 Telephone [facility] MEDICINE [address] [place], [place] [phone] Steven Agee MD 230 [place], [place] [phone] Med Refill Social History Tobacco Use Types [...] Miscellaneous Notes * Telephone Encounter - Isabela aYñez LPN - 01/01/2024 12:58 PM EDT Medication pended to PCP. * Telephone Encounter - Leyla Olivares - 01/01/2024 12:49 PM EDT TC from pt requesting medication refill. Medications needing refill : lisinopril 10 MG tablet To be sent to: [id number] [place] - [address] [facility] documented in this encounter Plan of Treatment Upcoming Encounters Date Type Department Care Team (Late st Contact Info) Description 05/20/2025 9:15 AM EDT Office Visit [facility] MEDICINE [address] [place] [address] Steven Agee MD 230 [place] [address] 07/09/2025 9:30 AM EST Clinical Support [facility] [address] [place] [address] Concetta Barker, QUIN [address] [place] [address] documented as of this encounter Visit Diagnoses Not on filedocumented in this encounter Additional Health Concerns Assessment Noted Time PHQ-9 Depression Total Score: 0 08/11/20 22 9:10 AM EST documented as of this encounter Care Teams Theater Manager Relationship Specialty Start Date End Date Steven Agee MD [address] [place] [address] PCP - General Internal Medicine 06/05/14 Marina MAHONEY 01/30/25 documented as of this encounter
--- OUTSIDE RECORDS SUMMARY | 2025-04-24 08:14 | XMS_ITS | Encounter Summary ---
Author Organization [employer] Address [address] [place] [address] 7 [place] [address] Care Team Providers Care Clinical Director Name Role Phone Steven Agee MD Primary Care Provide r Reason for Visit * Reason Onset Date Comments Med Refill 04/09/2025 Encounter Details Date Type Department Care Team ([facility] st Contact Info) Description 04/09/[address] [facility] MEDICINE [address] [place] [address] Steven Agee MD [address] [place] [address] Med Refill Social History Tobacco Use Types [...] 5-325 MG tablet To be sent to: [id number] - [place], [place] - [address] [facility] documented in this encounter Plan of Treatment Upcoming Encounters Date Type Department Care Team (Late st Contact Info) Description 05/20/2025 9:15 AM EDT Office [address] [facility] MEDICINE [address] [place] [address] Steven Agee MD [address] [place] [address] 07/09/2025 9:30 AM EST Clinical Support [facility] [address] [place] [address] Concetta Barker, QUIN 505 [place] [address] documented as of this encounter Visit Diagnoses Not on filedocumented in this encounter Additional Health Concerns Assessment Noted Time PHQ-9 Depression Total Score: 1 09/26/19 25 9:54 AM EST documented as of this encounter Care Teams Clinical Director Relationship Specialty Start Date End Date Steven Agee MD [address] [place] [address] PCP - General Internal Medicine 06/05/14 Marina Deion 01/30/25 documented as of this encounter
--- OUTSIDE RECORDS SUMMARY | 2025-04-24 08:14 | XMS_ITS | Encounter Summary ---
Author Organization [employer] Address [address] [place] [address] 7 [place] [address] Care Team Providers Care Waiter/Waitress Tavern Name Role Phone Steven Agee MD Primary Care Provide r Reason for Visit * Reason Comments Med Refill Encounter Details Date Type Department Care Team (Late st Contact Info) Description 10/25/2022 Refill [facility] MEDICINE [address] [place] [address] Steven Agee MD [address] [place], [place] [phone] Depressive disorder Social History Tobacco Use Types [...] 05/20/2025 9:15 AM EDT Office Visit [facility] MEDICINE [address] [place] [address] Steven gAee MD [address] [place] [address] 07/09/2025 9:30 AM EST Clinical Support [facility] 505 [place] [address] Concetta Barker, RN 505 [place] [address] documented as of this encounter Visit Diagnoses Diagnosis Depressive disorder Depressive disorder, not elsewhere classified documented in this encounter Additional Health Concerns Assessment Noted Time PHQ-9 Depression Total Score: 0 08/11/20 9:10 AM EST documented as of this encounter Care Teams Waiter/Waitress Tavern Relationship Specialty Start Date End Date Steven Agee MD [address] [place] [address] PCP - General Internal Medicine 06/05/14 Marina VAZQUEZA 01/30/25 documented as of this encounter
--- OUTSIDE RECORDS SUMMARY | 2025-04-24 08:14 | XMS_ITS | Encounter Summary ---
Author Organization [employer] Address [address] [facility] 7t [place] [address] Care Team Providers Care Supervisor Screen Printing Name Role Phone Steven Agee MD Primary Care Provide r Reason for Visit * Reason Comments Med Refill Encounter Details Date Type Department Care Team ([facility] st Contact Info) Description 04/23/2025 Refill [facility] [address] [place], [place] [phone] Steven Agee MD [address] [place] [address] Social History Tobacco Use Types Packs/Day Years [...] Description 05/20/2025 9:15 AM EDT Office Visit [facility] [address] [place] [address] Steven Agee MD [address] [place] [address] 07/09/2025 9:30 AM EST Clinical Support [facility] [address] [place] [address] Concetta Barker, RN [address] [place] [address] documented as of this encounter Visit Diagnoses Not on filedocumented in this encounter Additional Health Concerns Assessment Noted Time PHQ-9 Depression Total Score: 1 09/26/19 9:54 AM EST documented as of this encounter Care Teams Supervisor Screen Printing Relationship Specialty Start Date End Date Steven Agee MD [address] [place] [address] PCP - General Internal Medicine 06/05/14 Marina VAZQUEZA 01/30/25 documented as of this encounter
--- NOTE | 2025-04-24 08:17 | A.OFFVIS_ITS ---
Vital Signs 04/24/25 08:20 Height 5 ft 4 in Weight 197 lb BMI 33.8 Intake Visit Reasons: PO: L TKA w/NE 01/28/25 Intake Note: Elsa is a 64 year old female who presents today for a post operative visit status post left total knee arthroplasty, DOS 01/28/25. At her last visit she presented about 5 degrees from terminal extension. At this time ALFONSO is too aggressive - Cont PT . Currently she complains of continued pain in the distal aspect of the knee, continues to struggle with full extension and weakness when lifting the leg. She feels that she has to assist the leg when lifting. Allergies diazepam (From VALIUM) Allergy (Intermediate, Verified 04/24/25 08:20) HALLUCINATION/DIFF BREATHING morphine Allergy (Verified 04/24/25 08:20) Nausea and Vomiting perflutren Adverse Reaction (Verified 04/24/25 08:20) Back Pain HPI HPI PO: L TKA w/NE 01/28/25: Details: Elsa is a 64 year old female who presents today for a post operative visit status post left total knee arthroplasty, DOS 01/28/25. At her last visit she presented about 5 degrees from terminal extension.Currently she complains of continued pain in the distal aspect of the knee, continues to struggle with full extension and weakness when lifting the leg. She feels that she has to assist the leg when lifting. She is walking without a cane. She states her leg swells up with the end of the day. She does feel, however, that she is improving prior. [facility] Medical History Class 1 obesity Post-operative nausea and vomiting Dysphagia Plantar fasciitis Hypothyroidism Diverticular disease of colon GERD (gastroesophageal reflux disease) Gall bladder, polycystic disease Partial small bowel obstruction Arthritis Hyperlipemia Depression HTN (hypertension) Surgical History History of esophagogastroduodenoscopy (EGD) Status post total knee replacement, right History of appendectomy Hx of colonoscopy History of arthroscopy of right knee History of arthroscopy of left knee H/O: hysterectomy Family History Mother Diabetes Tachycardia High blood pressure Father Emphysema lung Brother H/O heart surgery Social History Household Members: Spouse Housing: Apartment Are you a primary behavioral health care manager to a significant other at home: No Do you presently have visiting nurse or other home services: No Comment: 0 Patient Tobacco Use Status: Never used Tobacco Second Hand Smoke Exposure: No service: No Current occupational status: retired Physical Exam Vital Signs: BMI result Body Mass Index 33.8 Extrem Other: 10-130 degrees of motion. Well-healed incision. She can resist knee extension and does have mild pain over the distal quad. There is no palpable defect. Assessment & Plan Assessment & Plan (1) Status post total left knee replacement: Code(s): Z96.652 - Presence of left artificial knee joint Category: Surgical Plan: This is a 65-year-old woman who is 3 months status post left knee replacement. Her postop course was complicated by a fall about a week after were which may have resulted in a partial disruption of the extensor mechanism as she does have a 10 degree extension lag. Unfortunately I do not think intervention would benefit her and she is improving. She has good strength with resisted quad activation. At this point in time she should continue her daily walking activities and strengthening activities and I expect she will continue to improve although the extension lag may persist. Coding Level of Care Code Global (20434) Diagnoses Status post total left knee replacement Z96.652
[2025-04-24 08:20] VITALS: BMI 33.8
== END 2025-04-24 09:03 | disposition home or self-care (01) ==
LOC: HO.HOS 08:01
PROVIDERS: Visit Provider Orthopaedic Surgery
DX: Z96.652 Presence of left artificial knee joint (principal)
CPT/HCPCS: 99024

== ENCOUNTER → 2025-04-24 08:00 | Outpatient (BNVA) | payer OTHER, SELFPAY | PROVIDERS: Visit Provider Orthopaedic Surgery | DX: M25.562 Pain in left knee (principal); Z98.890 Other specified postprocedural states; Z96.652 Presence of left artificial knee joint | CPT/HCPCS: 99212 ==

== ENCOUNTER 2025-06-06 08:35 | Outpatient (REF) | payer OTHER, SELFPAY ==
[2025-06-06 12:31] LABS: Anion Gap 10 (12-20); Blood Urea Nitrogen 13 mg/dL (9-16); Calcium 9.7 mg/dL (8.4-10.2); Carbon Dioxide 30 mmol/L (22-29); Chloride 107 mmol/L (96-108); Cholesterol 209 mg/dL (<200); Estimated Glomerular Filt Rate > 60; HDL Cholesterol 51 mg/dL (>40); Potassium 4.5 mmol/L (3.3-5.1); Sodium 142 mmol/L (135-145); Triglycerides 119 mg/dL (<150)
== END 2025-06-06 08:36 | disposition home or self-care (01) ==
LOC: HO.HHCL 08:35
PROVIDERS: Visit Provider Internal Medicine
DX: E78.2 Mixed hyperlipidemia (principal); E03.9 Hypothyroidism, unspecified; I10 Essential (primary) hypertension
CPT/HCPCS: 36415; 80048; 80061; 84443